=== PATIENT | female | born 1945 | race Caucasian/White ===

== ENCOUNTER → 2018-04-20 12:02 | Outpatient (CLI) | payer MEDICARE, OTHER, SELFPAY | PROVIDERS: PCP Family Medicine; Visit Provider Surgery | DX: J90 Pleural effusion, not elsewhere classified (principal); E11.40 Type 2 diabetes mellitus with diabetic neuropathy, unspecified; I10 Essential (primary) hypertension | CPT/HCPCS: 99214 ==

== ENCOUNTER → 2018-05-01 03:11 | Outpatient (CLI) | payer MEDICARE, OTHER, SELFPAY ==
--- NOTE | 2018-05-01 13:33 | DI.RPTCT_ITS ---
SYMPTOMS/DIAGNOSIS: NEW ONSET RIGHT PLEURAL EFFUSION, DIABETES MELLITUS, HYPERTENSION CHEST CT: Comparison is made with March,. Images were performed from the clavicles through the level of the adrenals after IV contrast. There is a small simple- appearing right pleural effusion. There is no evidence of an infiltrate. There is linear atelectasis at the right lung base. Tracheobronchial tree is unremarkable. No mass or pulmonary nodules are seen. There is no evidence of adenopathy. The pulmonary arteries are reasonably well opacified with IV contrast and no emboli are visible. Coronary artery calcifications and surgical clips related to previous CABG are noted. Right shoulder prosthesis is seen. The patient is status post cholecystectomy. The visualized portions of the liver and spleen are unremarkable. The pancreas appears somewhat atrophic. The adrenals appear normal. Flowing osteophytes are noted throughout the thoracic spine. IMPRESSION: Small right pleural effusion.
[2018-05-01 15:05] LABS: CREATININE 1.03 mg/dL (0.55-1.02); Estimated GFR 52.82 (mL/min/1.73m2)
[2018-05-01] MEDS: Omnipaque 350 MG/ML 100 ML BTL IJ (16:06)
== END ==
PROVIDERS: PCP Family Medicine; Visit Provider Surgery
DX: J90 Pleural effusion, not elsewhere classified (principal); E11.8 Type 2 diabetes mellitus with unspecified complications; R59.1 Generalized enlarged lymph nodes; I10 Essential (primary) hypertension
CPT/HCPCS: 71260; 36415; 82565; J3490

== ENCOUNTER 2018-06-19 11:39 | Outpatient (CLI) | payer MEDICARE, OTHER, SELFPAY ==
[2018-06-19 14:08] LABS: Hemoglobin A1C 8.3 % (4.5-6.2)
== END 2018-06-19 11:59 ==
PROVIDERS: PCP Family Medicine; Visit Provider Family Medicine
DX: E11.8 Type 2 diabetes mellitus with unspecified complications (principal)
CPT/HCPCS: 36415; 83036

== ENCOUNTER 2018-07-31 14:46 | Outpatient (CLI) | payer MEDICARE, OTHER, SELFPAY ==
--- NOTE | 2018-07-31 14:28 | DI.RAD_ITS ---
SYMPTOMS/DIAGNOSIS: SHORTNESS OF BREATH, COUGH, PLEURAL EFFUSION, R06.02, R05, J90 PA AND LATERAL CHEST: Comparison 04/03/18. The heart size and pulmonary vasculature are within normal limits. Sternal wires are in place. The lungs are clear. No effusions or pneumothoraces are identified. There again seen post surgical changes of a right shoulder replacement. IMPRESSION: No acute pulmonary process.
[2018-07-31 15:34] LABS: Abs Immature Grans 0.03 k/cumm (0.0-0.09); Absolute Basophil Count 0.02 k/cumm (0.0-0.2); Absolute Eosinophil Count 0.18 k/cumm (0.0-0.7); Absolute Lymphocyte Count 1.51 k/cumm (1.2-3.4); Absolute Monocyte Count 0.68 k/cumm (0.11-0.7); Absolute Neutrophil Count 5.68 k/cumm (1.2-6.7); Basophils % 0.2; Eosinophils % 2.2; HCT 40.6 % (36.0-46.0); HGB 13.4 g/dL (12.0-15.5); Immature Grans % 0.4; Lymphocytes % 18.6; Mean Corpuscular Hemoglobin 29.6 pg (27.0-33.0); Mean Corpuscular Volume 89.6 fL (80-95); Mean Platelet Volume 10.2 fL (8.0-11.0); Monocytes % 8.4; Neutrophils % 70.2; Platelet Count 202 x1000/uL (130-400); RBC 4.53 m/cumm (4.00-5.20); RBC Distribution Width 14.7 % (11.7-14.6)
[2018-07-31 15:38] LABS: Bilirubin Negative (Negative); Blood Trace-intact (Negative); Clarity Clear; Glucose Negative (Negative); Ketones Negative (Negative); Leukocyte Esterase Moderate (Negative); Nitrite Positive (Negative); Specific Gravity >= 1.030 (1.005-1.025); Urobilinogen 0.2 EU/dL (Up TO 0.2); pH 5.5 (5-8)
[2018-07-31 15:52] LABS: Bacteria Many HPF (Negative); Casts Negative LPF (Negative); Crystals Negative HPF (Negative); Epithelial Cells Few HPF (Negative); Mucus Negative (Negative); RBC Negative (0-2)
[2018-07-31 15:53] LABS: C & S Indicated? Yes; WBC >50 HPF (0-5)
[2018-07-31 16:15] LABS: ALT 30 U/L (12-78); AST 28 U/L (15-37); Albumin 3.3 g/dL (3.4-5.0); Alkaline Phosphatase 86 U/L (46-116); Anion Gap 9.1 mmol/L (3-11); BUN 11 mg/dL (7-18); Bilirubin, Total 0.3 mg/dL (0.2-1.0); CO2 25.9 mmol/L (21.0-32.0); CREATININE 0.88 mg/dL (0.55-1.02); Calcium 8.6 mg/dL (8.5-10.1); Chloride 106 mmol/L (98-107); Glucose 158 mg/dL (70-100); Sodium 141 mmol/L (136-145)
== END 2018-07-31 15:06 ==
PROVIDERS: PCP Family Medicine; Visit Provider Family Medicine
DX: E11.9 Type 2 diabetes mellitus without complications (principal); R06.02 Shortness of breath; R05 Cough; J90 Pleural effusion, not elsewhere classified
CPT/HCPCS: 36415; 80053; 87077; 71046; 81003; 81015; 85025; 87086; 87186

== ENCOUNTER 2018-08-05 12:39 | Outpatient (CLI) | payer MEDICARE, OTHER, SELFPAY ==
[2018-08-05 13:57] LABS: NT-proBNP 352 pg/mL
== END 2018-08-05 12:59 ==
PROVIDERS: PCP Family Medicine; Visit Provider Family Medicine
DX: R06.02 Shortness of breath (principal)
CPT/HCPCS: 36415; 83880

== ENCOUNTER 2018-08-25 02:07 | Outpatient (CLI) | payer MEDICARE, OTHER, SELFPAY | END 2018-08-25 02:27 | PROVIDERS: PCP Family Medicine; Visit Provider Family Medicine | DX: N39.0 Urinary tract infection, site not specified (principal) | CPT/HCPCS: 87077; 87086; 87186 ==

== ENCOUNTER 2018-09-02 00:44 | Outpatient (CLI) | payer MEDICARE, OTHER, SELFPAY ==
--- NOTE | 2018-09-02 12:32 | DI.US_ITS ---
SYMPTOMS/DIAGNOSIS: UTI, N39.0, RECURRENT, ? INFECTED STONE RENAL ULTRASOUND: The right kidney measures 13.1 x 4.5 x 4.9 cm. There is no evidence of hydronephrosis, a cyst or mass. Normal color flow is seen. Left kidney measures 12.6 x 5.5 x 5.5 cm. There is no evidence of a cyst, mass, nephrolithiasis or hydronephrosis and normal color flow is identified. The bladder wall thickness is normal. The prevoid bladder contains 103 cc, the postvoid bladder is 0 cc. Both ureteral jets were visualized. SUMMARY: Normal renal ultrasound.
== END 2018-09-02 01:04 ==
PROVIDERS: PCP Family Medicine; Visit Provider Family Medicine
DX: N39.0 Urinary tract infection, site not specified (principal)
CPT/HCPCS: 76770

== ENCOUNTER 2019-08-17 14:08 | Outpatient (CLI) | payer MEDICARE, OTHER, SELFPAY ==
--- NOTE | 2019-08-17 12:45 | DI.RAD_ITS ---
EXAM: XR CHEST 2V PA LATERAL INDICATION: cough R05. COMPARISON: XR CHEST 2V PA LATERAL from 07/31/2018 TECHNIQUE: 2D digital imaging was performed. FINDINGS: Heart size and pulmonary vasculature are within normal limits. The lungs are clear. No effusions or pneumothoraces are present. Sternal wires are in place. Postsurgical changes of a total reverse sh oulder replacement on the right are noted. Age-appropriate degenerative changes are seen in the spin e. IMPRESSION: No acute pulmonary process.
== END 2019-08-17 14:28 ==
PROVIDERS: PCP Family Medicine; Visit Provider Family Medicine
DX: R05 Cough (principal); Z96.611 Presence of right artificial shoulder joint
CPT/HCPCS: 71046

== ENCOUNTER 2019-08-20 08:31 | Outpatient (CLI) | payer MEDICARE, OTHER, SELFPAY ==
[2019-08-20 12:03] LABS: CREATININE 0.84 mg/dL (0.55-1.02); Calculated LDL 25 mg/dL; Cholesterol 77 mg/dL (<200); HDL Cholesterol 29 mg/dL (40-60); Potassium 3.9 mmol/L (3.5-5.1); Triglyceride 118 mg/dL (<150)
[2019-08-20 17:27] LABS: COMMENT (LAB VIEW ONLY) 136.86 mg/dL
== END 2019-08-20 08:51 ==
PROVIDERS: PCP Family Medicine; Visit Provider Family Medicine
DX: E11.40 Type 2 diabetes mellitus with diabetic neuropathy, unspecified (principal); Z79.4 Long term (current) use of insulin; R05 Cough
CPT/HCPCS: 36415; 80061; 82043; 82565; 82570; 83036; 84132

== ENCOUNTER 2019-09-16 16:09 | Emergency (ER) | payer MEDICARE, OTHER, SELFPAY ==
[2019-09-16 16:14] VITALS: BP 143/61; PULSE 70; RESP 18; TEMP 36.7; O2SAT 98
--- NOTE | 2019-09-16 16:33 | ED.GENADUL_ITS ---
Discharge Plan Disposition Patient Disposition: HOME Condition: Stable Discharge Details Chief Complaint: Cellulitis Clinical Impression: Toe anomaly Primary Care Provider: Manuelito Wilcox ED Provider: Sin Lira Home Meds and New Rx's Prescriptions: Continued metoprolol tartrate 50 mg tablet 50 mg PO BID Qty: 180 RF: 4 atorvastatin [Lipitor] 40 mg tablet 40 mg PO DAILY Qty: 90 RF: 3 Novolin N NPH U-100 Insulin 100 unit/mL suspension 50 unit subcut QHS Qty: 4 RF: 4 Novolin R Regular U-100 Insuln 100 unit/mL solution 5 - 20 unit SC TID Qty: 10 RF: 5 SIDE KICK GLUCOMETER RF: 0 (DME) BD Insulin Syringe 1 EACH syringe 1 syringe Sub-Q DIRECTED Qty: 400 RF: 11 nitroglycerin [Nitrostat] 0.4 MG tablet, sublingual 0.4 mg Sublingual Q5 MIN PRN X3 PRNQty: 25 RF: 4 cetirizine [Zyrtec] 10 MG tablet 10 mg PO DAILY Qty: 90 RF: 1 albuterol sulfate [Ventolin HFA] 90 mcg/actuation HFA aerosol inhaler 1 - 2 puff IH Q4H PRN (Reason: shortness of breath or wheezing) Qty: 18 RF: 0 (DME) Aerochamber MV spacer See Dose Instructions .Route .MEDSUPPLY Qty: 1 RF: 0 aspirin [Aspir-81] 81 MG tablet,delayed release (DR/EC) 81 mg PO DAILY RF: 0 acetaminophen [Tylenol Extra Strength] 500 MG tablet 1 - 2 tab PO Q6H PRN PRN (Reason: Pain) RF: 0 calcium carbonate [Calcium 600] 600 MG tablet 1,200 mg PO BID RF: 0 Discharge Instructions Additional Instructions: Please follow-up with Dr. Ludwig in clinic for consultation regarding the soft tissue prominence overlying the proximal interphalangeal joint of your toe. Return to develop a fever, redness, discharge from the area or any other acute concerns. Medical Decision Making 75-year-old female diabetic with previous toe amputations due to infections. She presents with her daughter with complaint of left 3rd toe dorsum swelling and soft tissue protuberance. Exam reveals freely mobile joint, no evidence of infection or tenderness. There is no fluctuance. May simply be a callus with a small area of necrosis. X-ray obtained to rule out underlying osteomyelitis and there is no bony changes. The patient has a longstanding relationship with her resident care spec in [facility]. Do not feel there is indication to pursue further emergent work-up. Patient will follow-up in podiatry clinic for recheck. HPI General Mode of arrival: ambulatory . Date/Time Provider Initiated Documentation: 09/16/19 16:25 . Limitations to Documentation: no limitations . Information obtained by: patient . History of Present Illness 74 year old F presents to the emergency department with the chief complaint of Left third toe irritation/blister, described as mild, and is localized to the left and lower extremity. Patient reports no radiation. Patient started experiencing this unknown and it has been constant. No relieving factors improve sympto m(s), No exacerbating factors reported . Patient notes no other symptoms.. Patient did receive the following treatments prior to arrival, none Related Data Home Medications Medication Instructions Recorded Confirmed acetaminophen [Tylenol Extra 1 - 2 tab PO Q6H PRN PRN 11/16/12 09/16/19 Strength] aspirin [Aspir-81] 81 mg PO DAILY 11/16/12 09/16/19 Side Kick Glucometer 01/20/13 08/17/19 calcium carbonate [Calcium 600] 1,200 mg PO BID 05/17/14 09/16/19 BD Insulin Syringe #400 syringe 02/28/15 09/16/19 nitroglycerin [Nitrostat] 0.4 mg SUBLINGUAL Q5 MIN PRN X3 02/28/15 09/16/19 PRN #25 tab cetirizine [Zyrtec] 10 mg PO DAILY #90 tab 11/07/15 09/16/19 albuterol sulfate 90 mcg/actuation 1 - 2 puff IH Q4H PRN #18 gm 07/31/18 09/16/19 aerosol inhaler inhalational spacing device #1 each 07/31/18 08/17/19 atorvastatin 40 mg tablet 40 mg PO DAILY #90 tab-cap 03/12/19 09/16/19 metoprolol tartrate 50 mg tablet 50 mg PO BID #180 tab-cap 03/12/19 09/16/19 insulin NPH isoph U-100 human 100 50 unit SUBCUT QHS #4 vial 08/17/19 09/16/19 unit/mL subcutaneous suspension insulin regular human 100 unit/mL 5 - 20 unit SC TID #10 ml 08/17/19 09/16/19 injection solution Previous Rx's Medication Instructions Recorded albuterol sulfate 90 mcg/actuation 1 - 2 puff IH Q4H PRN #18 gm 07/31/18 aerosol inhaler inhalational spacing device #1 each 07/31/18 atorvastatin 40 mg tablet 40 mg PO DAILY #90 tab-cap 03/12/19 metoprolol tartrate 50 mg tablet 50 mg PO BID #180 tab-cap 03/12/19 insulin regular human 100 unit/mL 5 - 20 unit SC TID #10 ml 08/17/19 injection solution Allergies Allergy/AdvReac Type Severity Reaction Status Date / Time Penicillins Allergy Intermediate Itching, Verified 09/16/19 16:21 Swelling ciprofloxacin AdvReac Intermediate Dizziness/L Verified 09/16/19 16:21 ightheade Latex, Natural Rubber AdvReac Intermediate Skin Rash Verified 09/16/19 16:21 lisinopril AdvReac Intermediate cough Verified 09/16/19 16:21 metformin AdvReac Mild Diarrhea Verified 09/16/19 16:21 tylenol 3 AdvReac Intermediate tingling Uncoded 09/16/19 16:21 of tongue and lips General Stated Complaint: Cellulitis DAYA: 3 Review of Systems Narrative: Denies any known direct trauma, no fever, no redness, no discharge from the wound. 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 Grandfather No problems noted. Grandmother Diabetes Grandmother No problems noted. Daughter No problems noted. Social History (Updated 06/17/18 @ 08:10 by Lisset Lira) Smoking/Tobacco Use Status: Never Alcohol Intake: never Drug use: Never Substance use type: does not use Household members: other Details: 2 What type of physical activity do you participate in: none Do you feel safe at home: Yes Do you feel safe in your relationship?: Yes History History Para 1 Hx # Term Pregnancies Multiple births Hx # Pregnancies Ectopic pregnancies AB induced Hx Number of Living Children AB spontaneous Exam Narrative Exam Narrative: GEN: awake, alert, oriented 3. Pleasant, well groomed, interactive. HEAD: Normocephalic, atraumatic ENT: Mucous membranes moist, oropharynx unremarkable, External ear exam unremarkable EYES: PERRL, EOMI NECK: Full ROM, no LEONIDES, no menigismus CHEST/RESP: Nontender EXT: Full ROM, left 3rd toe dorsum with nontender soft tissue that is protuberant and with small area black eschar. Neuro: Grossly normal neurologic exam, conversant, interactive. Psych: Speech fluent, thoughts congruent, affect normal Course Vital Signs Vital signs: Vital Signs Temperature 36.7 C 09/16/19 16:14 Pulse 70 09/16/19 16:14 Respiratory Rate 18 09/16/19 16:14 Blood Pressure 143/61 H 09/16/19 16:14 Pulse Oximetry 98 09/16/19 16:14 Temperature 36.7 C 09/16/19 16:14 Temperature Source Tympanic 09/16/19 16:14 Pulse 70 09/16/19 16:14 Respiratory Rate 18 09/16/19 16:14 Respiratory Effort Non-Labored 09/16/19 16:20 Blood Pressure 143/61 H 09/16/19 16:14 Blood Pressure Position Supine 09/16/19 16:14 Pulse Oximetry 98 09/16/19 16:14 Oxygen Delivery Method Room Air 09/16/19 16:14 Oxygen Flow Rate 0 09/16/19 16:14 Pain Level 3 09/16/19 16:14
--- NOTE | 2019-09-16 16:50 | DI.RAD_ITS ---
EXAM: XR TOE LT THIRD CLINICAL HISTORY: dorsal swelling, ? blister TECHNIQUE: Three views of the toes were obtained. COMPARISON: No exams were available for comparison FINDINGS: There is soft tissue swelling over the PIP joint of what is likely the 3rd toe. There are signific ant degenerative changes but the soft tissue swelling is out of proportion to the degree of hypertrop hic changes present. The possibility of a soft tissue mass not excluded. Additional evaluation with MR may be considered if clinically appropriate.
--- NOTE | 2019-09-16 17:14 | DI.VRAD_ITS ---
PROCEDURE INFORMATION: Exam: XR Left Toe(s) Exam date and time: 09/16/2019 4:32 PM Age: 74 years old Clinical indication: Other: Dorsal swelling, ? blister TECHNIQUE: Imaging protocol: XR Left toes. Views: Minimum 2 views. COMPARISON: No relevant prior studies available. FINDINGS: Bones/joints: Degenerative changes in the interphalangeal joints. Dorsal Soft tissue prominence overlying the proximal interphalangeal joint of the toe in question. MRI may be helpful for further evaluation. No acute fracture or dislocation. Soft tissues: Normal. IMPRESSION: Dorsal Soft tissue prominence overlying the proximal interphalangeal joint of the toe in question. MRI may be helpful for further evaluation. Dictated and Authenticated by: Fátima Bolden MD. Ordering:CECILIA Vogt MD
== END 2019-09-16 18:06 | disposition home or self-care (01) ==
PROVIDERS: Emergency Provider Emergency Medicine; PCP Family Medicine
DX: R22.42 Localized swelling, mass and lump, left lower limb (principal); E11.40 Type 2 diabetes mellitus with diabetic neuropathy, unspecified; Z79.4 Long term (current) use of insulin; I10 Essential (primary) hypertension
CPT/HCPCS: 99283; 73660

== ENCOUNTER 2020-02-19 17:23 | Inpatient (IN) | payer MEDICARE, OTHER, SELFPAY ==
[2020-02-19] VITALS (21 sets, daily range): BP systolic 88–136; BP diastolic 51–68; PULSE 88–99; RESP 17–32; TEMP 36.9–38.2; O2SAT 91–96
--- NOTE | 2020-02-19 18:24 | W.ED.GENAD ---
Discharge Plan Discharge Details Chief Complaint: GenMedical Primary Care Provider: Manuelito Wilcox ED Provider: More Razo Home Meds and New Rx's Prescriptions: No Action metoprolol tartrate 50 mg tablet 50 mg PO BID Qty: 180 RF: 4 atorvastatin [Lipitor] 40 mg tablet 40 mg PO DAILY Qty: 90 RF: 3 Novolin N NPH U-100 Insulin 100 unit/mL suspension 50 unit subcut QHS Qty: 4 RF: 4 Novolin R Regular U-100 Insuln 100 unit/mL solution 5 - 20 unit SC TID Qty: 10 RF: 5 SIDE KICK GLUCOMETER RF: 0 (DME) BD Insulin Syringe 1 EACH syringe 1 syringe Sub-Q DIRECTED Qty: 400 RF: 11 nitroglycerin [Nitrostat] 0.4 MG tablet, sublingual 0.4 mg Sublingual Q5 MIN PRN X3 PRNQty: 25 RF: 4 cetirizine [Zyrtec] 10 MG tablet 10 mg PO DAILY Qty: 90 RF: 1 (DME) Aerochamber MV spacer See Dose Instructions .Route .MEDSUPPLY Qty: 1 RF: 0 aspirin [Aspir-81] 81 MG tablet,delayed release (DR/EC) 81 mg PO DAILY RF: 0 acetaminophen [Tylenol Extra Strength] 500 MG tablet 1 - 2 tab PO Q6H PRN PRN (Reason: Pain) RF: 0 calcium carbonate [Calcium 600] 600 MG tablet 1,200 mg PO BID RF: 0 Medical Decision Making <LUIS Diaz - Last Filed: 02/19/20 23:22> This is a 75-year-old patient presenting to the emergency room for vague complaints of 2 weeks of fatigue, difficulty ambulating due to weakness now needing to use a walker at home which is atypical for this patient. Patient reports intermittent chest pain for the last 2 weeks described as 3 episodes per week. She does describe shortness of breath with exertion. Patient denies obvious radiation of chest pain. Denies palpitations. Patient reports decreased p.o. intake. Is feeling dehydrated. Patient reports 3 weeks of watery diarrhea at least once daily with vague nausea without vomiting. Patient denies obvious abdominal pain currently. Patient denies headache or dizziness. Patient reports generalized malaise. See HPI for the remainder patient's history. Patient presents with a temperature of 100.8. Patient denies any new cough. We will plan to obtain IV access, check baseline labs and obtain imaging of chest and abdomen. Will check EKG as well as troponin given complaints of chest pain and malaise for the last 2 weeks. Patient agrees with this plan of care. Patient significant difficulty obtaining IV access. Nursing staff attempted access, I have presented with ultrasound guidance x2 unsuccessfully, REGULATORY AFFAIRS MANAGER of anesthesia called for assistance. He attempted with difficulty. 22-gauge IV obtained in the left wrist. Unable to draw labs as patient was moderately dehydrated. After hydrating with initial 1 L bolus a second attempt at a line on the right was successful by Dr. Meeks obtaining an 18-gauge IV. Given patient's complaints of shortness of breath in addition to chest pain with unilateral leg edema with erythema of the calf and posterior knee pain concern for possible PE. We will plan to image with a CTA of chest including abdomen and pelvis for patient's complaints of diarrhea and notable abdominal pain on exam. Patient agrees with this plan of care. Morphine and Zofran provided for symptomatic relief. Will provide dressing for patient's buttocks wound. Differential diagnosis is broad at this time includes viral illness, pulmonary embolism, ACS, intra-abdominal pathology such as colitis or diverticulitis. Patient's labs reveal a leukocytosis of 13.6. Mild shift. D-dimer is elevated greater than 2500. Renal function revealing dehydration. Glucose of 414. IV fluids provided. Lactate minimally elevated at 1.7. Mild elevation of total bilirubin as well as AST and alk phos. Lipase normal. 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 Mass does extend into the spleen. There is concern for bony metastases in the thoracic spine per radiology. Patient's urinalysis reveals acute urinary tract infection. Patient has taken Keflex in the past per her recollection. Will trial Rocephin, aware of patient's penicillin allergy. Discussed patient's CT results with the patient. We did discuss plan of care. We will plan to admit patient to the hospital for further hydration, management of urinary tract infection, concern of possible DVT in the right calf requiring ultrasound when available likely needing prophylactic Lovenox. Patient agrees with this plan of care. Spoke with hospitalist Dr. Orlando, who requests I place initial admission orders to expedite patient getting upstairs and he will evaluate the patient in the hospital. At patient's request I spoke with her over the phone regarding test results, our plan of management of this patient and plan to admit patient to the hospital. Patient's reports his understanding. <Cal Meeks MD - Last Filed: 02/19/20 21:37> I had a [id number] encounter with the patient. I evaluated the patient. I discussed case with [employer]/PA and I reviewed [employer]/PA note and agree with note as documented HPI <LUIS Diaz - Last Filed: 02/19/20 23:22> General Date/Time Provider Initiated Documentation: 02/19/20 17:31. HPI Narrative: This is a 75-year-old patient presenting for multiple complaints. Patient reports diarrhea for the last 3 weeks at least once daily described as watery diarrhea. Denies any blood with bowel movements. Patient reports vague nausea without vomiting. Decreased p.o. intake. Patient denies significant abdominal pain. Patient reports feeling quite weak. Patient reports that she has difficulty ambulating in the last few weeks due to weakness which is a change from her baseline. Patient denies headache or dizziness. Patient denies sweating or clamminess. Patient does report chest pain for the last 2 weeks describing 3 episodes per week which she does report improving with rest. Patient reports left mid chest pain without radiation to back neck or jaw. Patient is quite vague in her complaints. Patient denies obvious shortness of breath, difficulty breathing or wheezing. Denies any new cough. Patient denies numbness, tingling or weakness. Denies any new rash. Denies dysuria, urgency, frequency of urination. Patient denies any obvious fever. No concern of covert exposures. Patient does report moderate pain of her buttocks as she has a bedsore which is been present for the last few weeks. Related Data Home Medications Medication Instructions Recorded Confirmed acetaminophen [Tylenol Extra 1 - 2 tab PO Q6H PRN PRN 11/16/12 02/19/20 Strength] aspirin [Aspir-81] 81 mg PO DAILY 11/16/12 02/19/20 Side Kick Glucometer 01/20/13 08/17/19 calcium carbonate [Calcium 600] 1,200 mg PO BID 05/17/14 02/19/20 BD Insulin Syringe #400 syringe 02/28/15 09/16/19 nitroglycerin [Nitrostat] 0.4 mg SUBLINGUAL Q5 MIN PRN X3 02/28/15 02/19/20 PRN #25 tab cetirizine [Zyrtec] 10 mg PO DAILY #90 tab 11/07/15 02/19/20 inhalational spacing device #1 each 07/31/18 08/17/19 atorvastatin 40 mg tablet 40 mg PO DAILY #90 tab-cap 03/12/19 02/19/20 metoprolol tartrate 50 mg tablet 50 mg PO BID #180 tab-cap 03/12/19 02/19/20 insulin NPH isoph U-100 human 100 50 unit SUBCUT QHS #4 vial 08/17/19 02/19/20 unit/mL subcutaneous suspension insulin regular human 100 unit/mL 5 - 20 unit SC TID #10 ml 08/17/19 02/19/20 injection solution Previous Rx's Medication Instructions Recorded inhalational spacing device #1 each 07/31/18 atorvastatin 40 mg tablet 40 mg PO DAILY #90 tab-cap 03/12/19 metoprolol tartrate 50 mg tablet 50 mg PO BID #180 tab-cap 03/12/19 insulin regular human 100 unit/mL 5 - 20 unit SC TID #10 ml 08/17/19 injection solution Allergies Allergy/AdvReac Type Severity Reaction Status Date / Time Penicillins Allergy Intermediate Itching, Verified 02/19/20 17:33 Swelling ciprofloxacin AdvReac Intermediate Dizziness/L Verified 02/19/20 17:33 ightheade Latex, Natural Rubber AdvReac Intermediate Skin Rash Verified 02/19/20 17:33 lisinopril AdvReac Intermediate cough Verified 02/19/20 17:33 metformin AdvReac Mild Diarrhea Verified 02/19/20 17:33 tylenol 3 AdvReac Intermediate tingling Uncoded 02/19/20 17:33 of tongue and lips General Stated Complaint: GenMedical DAYA: 2 Review of Systems <LUIS Diaz - Last Filed: 02/19/20 23:22> All systems reviewed & are unremarkable except as noted in HPI and below PFSH <LUIS Diaz - Last Filed: 02/19/20 23:22> Medical History Allergic rhinitis ASCVD (arteriosclerotic cardiovascular disease) Chronic cough (Acute) Diabetic neuropathy DM type 2 causing complication Essential hypertension [place] (myocardial infarction) Pyelonephritis Social History Smoking/Tobacco Use Status: Never Alcohol Intake: never Drug use: Never Substance use type: does not use Household members: other Details: 2 What type of physical activity do you participate in: none Do you feel safe at home: Yes Do you feel safe in your relationship?: Yes History History Para 1 Hx # Term Pregnancies Multiple births Hx # Pregnancies Ectopic pregnancies AB induced Hx Number of Living Children AB spontaneous Exam <LUIS Diaz - Last Filed: 02/19/20 23:22> Narrative Exam Narrative: CONST: Healthy appearing patient, in no acute distress. Well hydrated. Alert and oriented. HENMT: Head nomocephalic, normal to inspection. Atraumatic. Hearing grossly normal. External ear canal no erythema or swelling. TM normal bilaterally. Nose normal to inspection. No rhinnorhea. Normal facial exam. Oral mucosa dry mucous membranes. Tounge normal. Dentition normal. Normal posterior oropharynx. Uvula midline. EYES: General normal appearance. Alignment normal. Eyelids normal. Conjunctiva normal. Sclera normal. PERRL. NECK: Normal visual inspection. FROM. No lymphadenopathy. Trachea midline. No Midline tenderness. CHEST: Normal insepection of the chest. RESP: Normal respiratory effort. Speaking full sentences. No cough. No wheezing. No retractions. Clear to auscaltation. Breath sound equal and present bilaterally. CARDIO: No JVD. Normal PMI. Regular Rate. Regular Rhythm. Normal peripheral pulses. GI: Normal inspection of abdomen. No distension. Soft. Tenderness in the left upper quadrant and left lower quadrant with palpation. Bowel sounds present in all 4 quadrants. No rebound. No gaurding. MUSCULOSKELETAL: Normal Gait. FROM of all extremities. Distal neurovascularly intact. Sensation intact distally. Right leg revealing mild distal edema, pitting edema in the foot. Posterior right knee pain with palpation. There is a 6 to 10 cm area of vague erythema with palpable engorged veins in the right lateral calf which is tender with palpation. SKIN: Normal. Dry. No rashes. NEURO: Alert and awake. Speech clear. PSYCH: Normal affect. Cooperative. Course <LUIS Diaz - Last Filed: 02/19/20 23:22> Vital Signs Vital signs: Vital Signs Temperature 38.2 C H 02/19/20 17:27 Pulse 88 02/19/20 17:27 Respiratory Rate 18 02/19/20 17:27 Blood Pressure 107/64 02/19/20 17:27 Pulse Oximetry 96 02/19/20 17:27 Temperature 38.2 C H 02/19/20 17:27 Temperature Source Oral 02/19/20 17:27 Pulse 88 02/19/20 17:27 Respiratory Rate 18 02/19/20 17:36 Respiratory Effort Non-Labored 02/19/20 17:36 Respiratory Depth Normal 02/19/20 17:36 Respiratory Pattern Normal 02/19/20 17:36 Blood Pressure 107/64 02/19/20 17:27 Blood Pressure Position Supine 02/19/20 17:27 Pulse Oximetry 96 02/19/20 17:27 Oxygen Delivery Method Room Air 02/19/20 17:27 Oxygen Flow Rate 0 02/19/20 17:27 Pain Level 6 02/19/20 17:27
[2020-02-19] MEDS: Normal Saline 1,000 ML 1000 ML IV (19:30)
--- NOTE | 2020-02-19 20:30 | DI.CT_ITS ---
EXAM: CT CHEST PE ABD PELVIS W CLINICAL HISTORY: SOB, chest pain w/ abd pain TECHNIQUE: Imaging Protocol: Axial computed tomography images with coronal and sagittal reformatted images were created and reviewed CONTRAST MATERIAL: Intravenous: Omnipaque 350 Contrast volume:100 mL Oral: No COMPARISON: CT CHEST FOR PULMONARY EMBOLUS from 03/17/2016 FINDINGS: Patient motion artifact. CHEST: Tracheobronchial tree: Patent where visualized. Mediastinum and Charissa: No dominant adenopathy or fluid collection. Pulmonary parenchyma: No consolidation or dominant measurable mass. No architectural distortion. Pleura: No effusion or pneumothorax. Heart: The heart is not dilated. Moderate coronary artery calcification. No pericardial effusion. Pulmonary arteries: No evidence of pulmonary embolus. Aorta: Thoracic aorta is ectatic up to 3.4 cm in the ascending aorta. No evidence of aneurysm or dis section. Lymph nodes: Within normal limits. Bones:Sternotomy sutures are present. Bones are demineralized which does limit evaluation for lytic bony metastases. ABDOMEN: Liver: There is a subcentimeter hypodense lesion in the superior aspect of the anterior segment of th e right lobe of the liver. No measurable mass. Portal, Superior Mesenteric, and Splenic Veins: Unremarkable. Gallbladder and Biliary Tract: Status post cholecystectomy. Minimal pneumobilia. No biliary ductal dilatation. Pancreas: Normal density, no abnormal calcifications or inflammatory process. Spleen: Please see the kidney section. Adrenals: No masses seen. Kidneys: The right kidney is unremarkable except for 2 nonobstructing stones in the mid and lower maulik es. The largest measures 0.8 cm. The left kidney is partially atrophic with a nonobstructing stone. There is a cystic and solid mass in the upper and mid pole of the left kidney measuring 7.5 x 5.5 x 5.2 cm. Mass shows extension into the inferior spleen. It also appears to contact the posterior abd ominal wall. There are areas of decreased attenuation in the spleen suspicious for metastatic diseas e. Abdominal Aorta: Abdominal portion non-dilated. Atherosclerosis. Bowel: No obstruction or bowel wall thickening. Appendix is unremarkable. Peritoneal Cavity: No ascites, collection or mesenteric inflammatory response. Lymph Nodes: Mildly in there are enlarged lymph nodes seen in the left periaortic region. The larges t measures 1 cm in short axis diameter. Bones: No suspicious lytic or sclerotic lesions are present. Multilevel degenerative changes are pre sent throughout the spine. Soft Tissues: Unremarkable. PELVIS: Bladder: Symmetric distention, no gross wall thickening. Reproductive Organs: Status post hysterectomy. Lymph Nodes: Please see above. Bones: Please see above. IMPRESSION: 1. Complex left renal mass with extension into the spleen in the surrounding fat. Findings suspiciou s for primary renal neoplasm. 2. Subcentimeter hypodensity in the left lobe of the liver is too small for further characterization. Follow-up may include an MRI if clinically indicated. 3. Mildly enlarged lymph nodes in the abdomen and pelvis as described. 4. No evidence of pulmonary embolism, thoracic aortic dissection or aneurysm. 5. No pulmonary nodules. RADIATION DOSE DELIVERED: 1,873.18mGy.cm Total DLP 1,873.18mGy.cm Total DLP DATA REPOSITORY: All CT scans at this facility are submitted to the National Radiology Data Registry (NRDR) Dose Index Registry (DIR) with the [employer] (ACR). RADIATION OPTIMIZATION: All CT scans at this facility use at least one of these dose optimization te chniques: automated exposure control; mA and/or kV adjustment per patient size (includes targeted exa ms where dose is matched to clinical indication); or iterative reconstruction.
[2020-02-19] MEDS: Ondansetron 4 MG/2 ML VIAL IVP (20:41)
[2020-02-19 20:49] LABS: Abs Immature Grans 0.15 k/cumm (0.0-0.09); Absolute Basophil Count 0.01 k/cumm (0.0-0.2); Absolute Eosinophil Count 0.07 k/cumm (0.0-0.7); Absolute Monocyte Count 0.93 k/cumm (0.11-0.7); Absolute Neutrophil Count 11.68 k/cumm (1.2-6.7); Basophils % 0.1; Eosinophils % 0.5; HCT 33.8 % (36.0-46.0); HGB 10.8 g/dL (12.0-15.5); Immature Grans % 1.1 %; Lymphocytes % 5.9; Mean Corpuscular Hemoglobin 26.3 pg (27.0-33.0); Mean Corpuscular Volume 82.4 fL (80-95); Mean Platelet Volume 10.8 fL (8.0-11.0); Monocytes % 6.8; Neutrophils % 85.6; Platelet Count 241 x1000/uL (130-400); RBC Distribution Width 16.1 % (11.7-14.6); White Blood Cell Count 13.64 k/cumm (4.4-10.8)
[2020-02-19 20:54] LABS: Lactate 1.7 mmol/L (0.6-1.4)
[2020-02-19 21:14] LABS: Diff Comment Diff Reviewed; RBC Morphology Normal
[2020-02-19] MEDS: Omnipaque 350 MG/ML 100 ML BTL IJ (21:18)
[2020-02-19] MEDS: Normal Saline - Diluent 50 ML VIAL IV (21:19)
[2020-02-19 21:22] LABS: ALT 43 U/L (14-59); AST 42 U/L (15-37); Albumin 1.9 g/dL (3.4-5.0); Alkaline Phosphatase 183 U/L (46-116); Anion Gap 8.6 mmol/L (3-11); BUN 15 mg/dL (7-18); Bilirubin, Total 1.2 mg/dL (0.2-1.0); CO2 27.4 mmol/L (21.0-32.0); CREATININE 1.19 mg/dL (0.55-1.02); Chloride 101 mmol/L (98-107); Estimated GFR 44.46 (mL/min/1.73m2); Glucose 414 mg/dL (74-106); Lipase 93 U/L (73-393); Potassium 3.7 mmol/L (3.5-5.1); Sodium 137 mmol/L (136-145)
[2020-02-19 21:30] LABS: Troponin I < 0.05 ng/mL (<0.06)
[2020-02-19 21:33] LABS: D-Dimer 2673 ng/mlFEU (<500)
[2020-02-19 22:18] LABS: Bilirubin Negative (Negative); Blood Small (Negative); Clarity Clear (Clear); Glucose >=1000 mg/dL (Negative); Ketones 40 mg/dL (Negative); Leukocyte Esterase Trace (Negative); Nitrite Positive (Negative); Specific Gravity 1.015 (1.005-1.025); pH 5.5 (5-8)
[2020-02-19 22:21] LABS: Bacteria Moderate HPF (Negative); C & S Indicated? C&S Done As Ordered; Casts Negative LPF (Negative); Crystals Negative HPF (Negative); Epithelial Cells Few HPF (Negative); Mucus Negative (Negative); WBC >50 HPF (0-5)
--- NOTE | 2020-02-19 22:38 | DI.VRAD_ITS ---
PROCEDURE INFORMATION: Exam: CT Angiography Chest With Contrast Exam date and time: 02/19/2020 8:32 PM Age: 75 years old Clinical indication: Abdominal pain; Chest pain; Patient HX: Per PT: Pain ongoing 3 weeks TECHNIQUE: Imaging protocol: Computed tomographic angiography of the chest with intravenous contrast. 3D rendering: MIP and/or 3D reconstructed images were created by the technologist. Contrast material: OMNIPAQUE 350; Contrast volume: 100 ml; Contrast route: IV; COMPARISON: No relevant prior studies available. FINDINGS: Pulmonary arteries: Normal. No pulmonary emboli. Aorta: The aorta demonstrates mild atherosclerotic calcification. No evidence of dissection. Ascending aorta is mildly ectatic at 3.4 cm in diameter. No fusiform aneurysm. Lungs: Slightly limited due to respiratory motion and streak artifact from sternotomy sutures and right shoulder arthroplasty. No consolidation. No masses. Pleural space: Unremarkable. No pneumothorax. No pleural effusion. Heart: There are coronary vascular calcifications. Lymph nodes: Unremarkable. No enlarged lymph nodes. Bones/joints: There are sternotomy sutures. There are flowing calcifications along the anterior thoracic spine consistent with DISH or ankylosing spondylitis. The bones are diffusely demineralized. This bone demineralization limits evaluation for lytic bone metastases which cannot be excluded. Soft tissues: Unremarkable. IMPRESSION: 1. No pulmonary embolus or other acute intrathoracic process. 2. Bone demineralization. Lytic bone metastases not excluded. 3. Mildly ectatic ascending aorta. PROCEDURE INFORMATION: Exam: CT Abdomen And Pelvis With Contrast Exam date and time: 02/19/2020 8:32 PM Age: 75 years old Clinical indication: Abdominal pain; Chest pain; Patient HX: Per PT: Pain ongoing 3 weeks TECHNIQUE: Imaging protocol: Computed tomography of the abdomen and pelvis with intravenous contrast. Radiation optimization: All CT scans at this facility use at least one of these dose optimization techniques: automated exposure control; mA and/or kV adjustment per patient size (includes targeted exams where dose is matched to clinical indication); or iterative reconstruction. Contrast material: OMNIPAQUE 350; Contrast volume: 100 ml; Contrast route: IV; COMPARISON: No relevant prior studies available. FINDINGS: Liver: There is minimal pneumobilia. There is a 7 mm low-density focus in the anterior segment of the right lobe of the liver which is too small to characterize. Gallbladder and bile ducts: Click cholecystectomy. Pancreas: Normal. No ductal dilation. Pancreas: Normal. No ductal dilation. Spleen: There is extension of the cystic left renal mass into the spleen with multiple smaller cystic spaces suspicious for metastatic disease. Adrenals: Normal. No mass. Kidneys and ureters: There is a mixed cystic and solid left upper pole renal mass which measures 7.5 x 5.5 by 5.2 cm and is surrounded by considerable fat stranding. There is a nonobstructing right lower pole renal calculus. There are additional subcentimeter cysts in the left kidney. The Stomach and bowel: Unremarkable. No obstruction. No mucosal thickening. Appendix: No evidence of appendicitis. Intraperitoneal space: Unremarkable. No free air. No significant fluid collection. Vasculature: Unremarkable. No abdominal aortic aneurysm. Lymph nodes: There is a 1 cm short axis node along the left iliac chain. This is nonspecific. Additional subcentimeter iliac nodes are also noted. Bladder: Unremarkable as visualized. Reproductive: There has been a hysterectomy. Bones/joints: The bones are diffusely demineralized. No definite lytic or sclerotic bone lesions seen in the lumbar spine region. Soft tissues: Unremarkable. IMPRESSION: 1. Left renal mass most consistent with renal cell carcinoma with extension into the spleen and surrounding fat but no venous extension. 2. Subcentimeter low-density lesion right lobe of liver which is too small to characterize.In a low-risk patient, this lesion is most likely to be benign and no further follow-up is recommended. In a high-risk patient, recommend follow-up MRI in 3-6 months (or earlier if warranted by the patient's specific clinical circumstances). 3. 1 cm low-density lymph node in the left iliac chain which could represent a metastatic focus. Findings were discussed with More Razo at 02/19/2020 10:16 PM EDT. Dictated and Authenticated by: Aly Hernandez MD. Ordering:ROXANNE Aguero MD
[2020-02-19] MEDS: cefTRIAXone 1 GM/50 ML BAG IVPB (23:10)
--- NOTE | 2020-02-19 23:26 | NUR.NOTE ---
Nursing Note: mepilex sacral dressing applied at 2220. Skin open, difficult to assess r/t pain and positioning for pt at the time. reddened skin, slightly purple appearing at border.
--- NOTE | 2020-02-20 00:06 | W.PM.HP.N ---
Date of service: 02/19/20 Time of Service: 23:31 Assessment and Plan Assessment and plan (1) Renal mass, left: Status: Acute Assessment and plan: I think the patient's chest pain and overall malaise and nausea can be attributed to what appears to be an invasive renal cell carcinoma. Suspected cancer has been discussed with the patient. I have asked for a urology consult if we can get it to help plann a diagnostic procedure. He responded to morphine and ondansetron for pain and nausea, will continue this as needed for now. EKG and troponins not consistent with cardiac cause of chest pain. I do not consider her high probability of COVID-19 infection as her symptoms are otherwise explained, but will rule out per protocol. (2) Type 2 diabetes mellitus with complications: Status: Acute Assessment and plan: Patient's last A1c was 9.0 in August 2018, and she describes ongoing difficulty controlling her blood sugar. Blood sugar should improve with fluids and I have written her for her outpatient basal and bolus insulin with additional sliding scale. Titrate up as tolerated. Looks like she has not tolerated metformin in the past. She benefit from an SGL T2 or GLP-1 agent given her heart disease, but it appears she has had difficulty with the cost of medication. (3) ASCVD (arteriosclerotic cardiovascular disease): Status: Acute Assessment and plan: Continue high intensity statin and aspirin. (4) Anemia: Status: Chronic Assessment and plan: This does look new as she had a normal hemoglobin hematocrit in 2018. Like related to the renal cell. We will follow this and monitor for any bleeding. Will get iron studies with her labs. (5) Acute renal insufficiency: Status: Acute Assessment and plan: Likely secondary to dehydration, follow after fluids. (6) Dehydration: Status: Acute Assessment and plan: Patient initially had soft blood pressures, but these are improving with initial hydration. We will continue this overnight with lactated Ringer's at 150 mL an hour and reassess in the morning. (7) Decubitus ulcer: Status: Acute Assessment and plan: This is been cleaned and dressed in the emergency room. Will ask for wound nurse assessment for ongoing care. (8) DVT (deep venous thrombosis): Status: Chronic Assessment and plan: The patient's clinical presentation in the right leg is very consistent with a DVT. Answer increases his risk. D-dimer is very elevated. Given these factors, and the fact we cannot get a ultrasound tonight I have ordered low molecular weight heparin at therapeutic doses. She does have a latex allergy but there is latex free Lovenox so I prefer to use this as long as we have a latex free form. (9) UTI (urinary tract infection): Status: Acute Assessment and plan: Patient's urinalysis is consistent with UTI, though this may be thrown off by the renal mass. I agree with treating this. She has a penicillin allergy but tolerated ceftriaxone so far so we will plan to continue this. (10) Discharge planning issues: Status: Acute Assessment and plan: Patient seems to understand her likely cancer. We discussed process of obtaining a diagnosis and considering treatment options at that point. She understands it is unlikely we will be able to give her a clear diagnosis before she leaves. Currently a full code. History of Present Illness History of Present Illness Chief Complaint: malaise, diarrhea, chest pain, right leg pain Narrative: 75-year-old female with poorly controlled type 2 diabetes on insulin and a history of coronary artery disease who presented with 3-week history of generalized fatigue and malaise. Over the past 1 to 2 weeks she has developed increasing substernal chest pain and right leg pain and swelling. Is sharp and constant and substernal slightly to the left side. Does not radiate. She does feel more short of breath on exertion, but not at rest. She has some chronic cough, but this is not new. No change in sputum hemoptysis. She denies feeling feverish or chills. She has had poor appetite felt constantly nauseous. No vomiting. She also complains of loose stools, though she is only having 1 bowel movement a day. She has had difficulty controlling her blood sugars during this time despite use of insulin. Review of Systems Narrative: As per HPI. No weight changes. No headache or vision changes. No mouth sores or difficulty swallowing. No palpitations. Swelling on right leg, not on the left. No abnormal stomach swelling. She denies dysuria or hematuria. She denies vaginal bleeding or other discharge. She denies new joint pain or rash (other than redness and swelling of right calf). No focal weakness or numbness, other than chronic decrease in station feet. No other bleeding or significant bruising. 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 LANDEROS Cholecystectomy lap Coronary Artery Bypass Gaft (CABG) Coronary Stent [facility] [place] Left heart Cath [facility] [place] Oophrectomy, Both Repair of bifurcated ureter of left kidney Shoulder replacement Stent placement WITH 2 BYPASS GRAFTS[place] [place] Family History Mother Personal history of malignant neoplasm LUNG Father Personal history of malignant neoplasm LUNG Sister Personal history of malignant neoplasm BREAST Grandfather No problems noted. Grandfather No problems noted. Grandmother Diabetes Grandmother No problems noted. Daughter No problems noted. 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 Meds Home Medications and Allergies Home Medications Medication Instructions Recorded Confirmed Type acetaminophen [Tylenol Extra 1 - 2 tab PO Q6H PRN PRN 11/16/12 02/19/20 History Strength] aspirin [Aspir-81] 81 mg PO DAILY 11/16/12 02/19/20 History Side Kick Glucometer 01/20/13 08/17/19 History calcium carbonate [Calcium 600] 1,200 mg PO BID 05/17/14 02/19/20 History BD Insulin Syringe #400 syringe 02/28/15 09/16/19 History nitroglycerin [Nitrostat] 0.4 mg SUBLINGUAL Q5 MIN PRN X3 02/28/15 02/19/20 History PRN #25 tab cetirizine [Zyrtec] 10 mg PO DAILY #90 tab 11/07/15 02/19/20 History inhalational spacing device #1 each 07/31/18 08/17/19 Rx atorvastatin 40 mg tablet 40 mg PO DAILY #90 tab-cap 03/12/19 02/19/20 Rx metoprolol tartrate 50 mg tablet 50 mg PO BID #180 tab-cap 03/12/19 02/19/20 Rx insulin NPH isoph U-100 human 100 50 unit SUBCUT QHS #4 vial 08/17/19 02/19/20 History unit/mL subcutaneous suspension insulin regular human 100 unit/mL 5 - 20 unit SC TID #10 ml 08/17/19 02/19/20 Rx injection solution Allergies Allergy/AdvReac Type Severity Reaction Status Date / Time Penicillins Allergy Intermediate Itching, Verified 02/19/20 17:33 Swelling ciprofloxacin AdvReac Intermediate Dizziness/L Verified 02/19/20 17:33 ightheade Latex, Natural Rubber AdvReac Intermediate Skin Rash Verified 02/19/20 17:33 lisinopril AdvReac Intermediate cough Verified 02/19/20 17:33 metformin AdvReac Mild Diarrhea Verified 02/19/20 17:33 tylenol 3 AdvReac Intermediate tingling Uncoded 02/19/20 17:33 of tongue and lips Exam Narrative Exam Narrative: General: Alert and oriented x3, pleasant, no acute distress while lying in gurney, but lacks a strength to sit up. HEENT: Normocephalic, atraumatic. Pupils equal round reactive to light with extraocular motion intact. Conjunctive are clear with no icterus. Moist mucous membranes with oropharynx benign. No rhinorrhea. Neck is supple with no masses or lymphadenopathy or thyromegaly. Cardiovascular: Regular rate and rhythm. 1 out of 6 systolic murmur at the right sternal border, no significant radiation. No gallops or rubs. Respiratory: To auscultation bilaterally normal effort Abdomen: Active bowel sounds. Not clearly distended. Tender in both right upper and left upper quadrants to palpation. I do not appreciate overt organomegaly or ascites on percussion. MSK: Mildly tender in the lower sternum to palpation. No joint redness or swelling. Extremities: No cyanosis, feet warm bilaterally with pulses intact at dorsalis pedis bilaterally. Right calf warm and tender with streaky red patch extending up the side of calf. Positive pain with Flexion. 2+ edema to the right foot, none on left. Amputation at DIP and one toe on the left foot. Neurologic: Cranial nerves grossly intact, normal speech and coordination. Normal sensation to light touch, with the exception of diminished in bilateral feet. Normal movement of 4 extremities. No tremor. Psychiatric: Normal mood and affect Skin: Pressure sore over right sacrum (noted by emergency room clinicians and covered with Mepilex dressing currently). No other rash other than redness right calf. Results EKG: Normal sinus rhythm. Normal axis and intervals. nonspecific T wave changes, similar to 2018 EKG. I do not appreciate ischemic ST abnormalities. CT chest with contrast: 1. No pulmonary embolus or other acute intrathoracic process. 2. Bone demineralization. Lytic bone metastases not excluded. 3. Mildly ectatic ascending aorta. CT abdomen pelvis contrast: 1. Left renal mass most consistent with renal cell carcinoma with extension into the spleen and surrounding fat but no venous extension. 2. Subcentimeter low-density lesion right lobe of liver which is too small to characterize.In a low-risk patient, this lesion is most likely to be benign and no further follow-up is recommended. In a high-risk patient, recommend follow-up MRI in 3-6 months (or earlier if warranted by the patient's specific clinical circumstances). 3. 1 cm low-density lymph node in the left iliac chain which could represent a metastatic focus. Labs Result diagrams: 02/19/20 20:30 02/19/20 20:30 Labs: Laboratory Results - last 24 hr 02/19/20 02/19/20 02/19/20 18:20 20:30 20:30 WBC RBC Hgb Hct MCV MCH MCHC RDW Plt Count MPV Immature Gran % Neutrophils % Lymphocytes % Monocytes % Eosinophils % Basophils % Absolute Neutrophils Absolute Lymphocytes Absolute Monocytes Absolute Eosinophils Absolute Basophils Differential Comment RBC Morphology D-Dimer Sodium 137 Potassium 3.7 Chloride 101 Carbon Dioxide 27.4 Anion Gap 8.6 BUN 15 Creatinine 1.19 H Estimated GFR/1.73 m2 44.46 Glucose 414 H Lactate 1.7 H Calcium 8.0 L Total Bilirubin 1.2 H AST 42 H ALT 43 Alkaline Phosphatase 183 H Troponin I Cancelled Total Protein 7.0 Albumin 1.9 L Lipase 93 Urine Color Urine Clarity Urine pH Ur Specific [place] Urine Protein Urine Ketones Urine Blood Urine Nitrite Urine Bilirubin Urine Urobilinogen Ur Leukocyte Esterase Urine RBC Urine WBC Ur Epithelial Cells Urine Crystals Urine Bacteria Urine Casts Urine Mucus Ur Culture Indicated? Urine Glucose 02/19/20 02/19/20 02/19/20 20:30 20:30 20:30 WBC 13.64 H RBC 4.10 Hgb 10.8 L Hct 33.8 L MCV 82.4 MCH 26.3 L MCHC 32.0 RDW 16.1 H Plt Count 241 MPV 10.8 Immature Gran % 1.1 Neutrophils % 85.6 Lymphocytes % 5.9 Monocytes % 6.8 Eosinophils % 0.5 Basophils % 0.1 Absolute Neutrophils 11.68 H Absolute Lymphocytes 0.80 L Absolute Monocytes 0.93 H Absolute Eosinophils 0.07 Absolute Basophils 0.01 Differential Comment Diff reviewed RBC Morphology Normal D-Dimer 2673 H Sodium Potassium Chloride Carbon Dioxide Anion Gap BUN Creatinine Estimated GFR/1.73 m2 Glucose Lactate Calcium Total Bilirubin AST ALT Alkaline Phosphatase Troponin I < 0.05 Total Protein Albumin Lipase Urine Color Urine Clarity Urine pH Ur Specific [place] Urine Protein Urine Ketones Urine Blood Urine Nitrite Urine Bilirubin Urine Urobilinogen Ur Leukocyte Esterase Urine RBC Urine WBC Ur Epithelial Cells Urine Crystals Urine Bacteria Urine Casts Urine Mucus Ur Culture Indicated? Urine Glucose 02/19/20 02/19/20 21:20 22:13 WBC RBC Hgb Hct MCV MCH MCHC RDW Plt Count MPV Immature Gran % Neutrophils % Lymphocytes % Monocytes % Eosinophils % Basophils % Absolute Neutrophils Absolute Lymphocytes Absolute Monocytes Absolute Eosinophils Absolute Basophils Differential Comment RBC Morphology D-Dimer Sodium Potassium Chloride Carbon Dioxide Anion Gap BUN Creatinine Estimated GFR/1.73 m2 Glucose Lactate Calcium Total Bilirubin AST ALT Alkaline Phosphatase Troponin I Cancelled Total Protein Albumin Lipase Urine Color Yellow Urine Clarity Clear Urine pH 5.5 Ur Specific [place] 1.015 Urine Protein 100 H Urine Ketones 40 H Urine Blood Small H Urine Nitrite Positive H Urine Bilirubin Negative Urine Urobilinogen 1.0 H Ur Leukocyte Esterase Trace H Urine RBC 5-10 H Urine WBC >50 H Ur Epithelial Cells Few Urine Crystals Negative Urine Bacteria Moderate Urine Casts Negative Urine Mucus Negative Ur Culture Indicated? C&s done as ordered Urine Glucose >=1000 H Last Vital Signs Temp 36.9 C 02/19/20 21:19 Pulse 90 02/19/20 23:00 Resp 20 02/19/20 23:00 BP 106/51 L 02/19/20 23:00 Pulse Ox 94 L 02/19/20 22:40 COVID-19 Screening In the past 14 days, have you traveled outside of [place] or [place]?: NO Had IN PERSON contact w/suspected or confirmed C-19 person: No
[2020-02-20 00:24] VITALS: BP 124/68; PULSE 97; RESP 18; TEMP 37.6; O2SAT 95
[2020-02-20 01:06] VITALS: BP 106/68; PULSE 97; RESP 26; TEMP 37.3; O2SAT 95
[2020-02-20] MEDS: Normal Saline Flush 10 ML SYR IVP ×3 (01:57→14:27)
[2020-02-20] MEDS: Enoxaparin 100 MG/ML SYR SC (02:03)
[2020-02-20] MEDS: Insulin Glargine 300 UNITS/3 ML PEN 50 UNITS SC ×2 (02:03→21:42)
[2020-02-20] MEDS: Lactated Ringers 1,000 ML 150 ML IV ×3 (02:04→17:01)
--- NOTE | 2020-02-20 06:00 | DI.US_ITS ---
EXAM: US LOWER EXTREMITY VENOUS RT CLINICAL HISTORY: Right calf pain and swelling and redness TECHNIQUE: Right lower extremity venous ultrasound performed using grayscale, color-flow, and spectr al Doppler analysis. COMPARISON: No exams were available for comparison FINDINGS: The right common femoral, femoral and popliteal veins demonstrate normal compressibility, augmentatio n, and color Doppler. The posterior tibial veins are patent. The saphenofemoral junction is unremark able. There is no evidence of a Weiner cyst. There is edema in the soft tissues in the calf correspo nding to the area of redness. IMPRESSION: No DVT. DATA REPOSITORY:
[2020-02-20] MEDS: Acetaminophen 325 MG TAB PO ×3 (06:28→21:22)
[2020-02-20 07:40] LABS: Mean Corp. HGB Concentration 31.4 g/dL (32.0-36.0); Mean Corpuscular Hemoglobin 26.1 pg (27.0-33.0); Mean Corpuscular Volume 82.9 fL (80-95); Mean Platelet Volume 10.7 fL (8.0-11.0); Platelet Count 300 x1000/uL (130-400); RBC 4.22 m/cumm (4.00-5.20); RBC Distribution Width 16.3 % (11.7-14.6); White Blood Cell Count 14.33 k/cumm (4.4-10.8)
[2020-02-20 07:41] VITALS: BP 101/61; PULSE 89; RESP 18; TEMP 36.7; O2SAT 91
[2020-02-20 07:50] LABS: Iron 14 ug/dL (50-170); Total Iron Binding Capacity 141 ug/dL (250-450); Transferrin Sat 10 % (15-50)
[2020-02-20 07:54] LABS: ALT 40 U/L (14-59); AST 36 U/L (15-37); Albumin 1.9 g/dL (3.4-5.0); Alkaline Phosphatase 176 U/L (46-116); Anion Gap 6.3 mmol/L (3-11); BUN 11 mg/dL (7-18); Bilirubin, Total 1.1 mg/dL (0.2-1.0); CO2 28.7 mmol/L (21.0-32.0); CREATININE 1.24 mg/dL (0.55-1.02); Calcium 8.2 mg/dL (8.5-10.1); Chloride 101 mmol/L (98-107); Glucose 331 mg/dL (74-106); Potassium 3.8 mmol/L (3.5-5.1); Sodium 136 mmol/L (136-145)
[2020-02-20 08:05] LABS: Absolute Eosinophil Count 0.29 k/cumm (0.0-0.7); Absolute Lymphocyte Count 1.72 k/cumm (1.2-3.4); Absolute Monocyte Count 0.72 k/cumm (0.11-0.7); Absolute Neutrophil Count 11.46 k/cumm (1.2-6.7); Atypical Lymphocytes % 1
[2020-02-20 08:06] LABS: Diff Comment Manual Differential; RBC Morphology Normal
[2020-02-20 08:10] LABS: Hemoglobin A1C 9.8 % (3.8-5.6)
[2020-02-20] MEDS: Insulin Aspart 300 UNITS/3 ML PEN 10 UNITS SC ×3 (08:13→17:19)
[2020-02-20] MEDS: Aspirin E.C. 81 MG TABEC PO (08:13)
[2020-02-20] MEDS: Atorvastatin 40 MG TAB PO (08:13)
[2020-02-20] MEDS: Insulin Aspart 300 UNITS/3 ML PEN SC ×3 (08:13→17:18)
[2020-02-20] MEDS: Cetirizine 10 MG TAB PO (08:13)
[2020-02-20] MEDS: Metoprolol 50 MG TAB PO ×2 (08:13→19:13)
--- NOTE | 2020-02-20 08:28 | INITIAL_ITS ---
- If Service Date Differs Date of service: 02/20/20 Time of Service: 08:28 Care Management Initial Assess REASON FOR HOSPITALIZATION:: Left renal mass PAST MEDICAL HISTORY/PAST SURGICAL HISTORY:: Medical History . Allergic rhinitis. ASCVD (arteriosclerotic cardiovascular disease). Chronic cough (Acute). Diabetic neuropathy. DM type 2 causing complication. Essential hypertension. LA (myocardial infarction). Pyelonephritis. Surgical History . Abdominal hysterectomy. Amputation. 05/27/14; 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 LANDEROS. Cholecystectomy. lap. Coronary Artery Bypass [place] (CABG). Coronary Stent. [facility] [place]-03/19/16. ERCP. Left heart Cath. [facility] [place]-03/19/16. Oophrectomy, Both. 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 Shoulder replacement. Stent placement. WITH 2 BYPASS GRAFTS-[facility] [place] PREVIOUS FUNCTIONAL STATUS/SOCIAL/FAMILY SUPPORTS:: Kizzy lives in [facility] with her Justin in a 2-level, single family home. They have one daughter, Claudia who lives closeby and is very supportive. Kizzy shared that she and Claduia are very close. Claudia has 3 children ages 2, 3 and 5. Kizzy has been independent with ADLs and care until about 3 weeks ago when she became ill. She has been relying on her for assistance. She has been using a cane and a walker to assist with ambulation as she has become very weak. 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 CURRENT FUNCTIONAL STATUS:: Kizzy was sitting up in a chair when CM met with her. She was very pleasant, open and receptive to meeting with CM. Kizzy shared how sick she has been for the past 3 weeks. At baseline she was independent but has been so weak she hardly leaves the electric recliner that she sleeps in. In fact, Kizzy has developed a decubitus ulcer on her coccyx during this time, presumably because she was so immobile. ADVANCE DIRECTIVES:: Kizzy states she hads AD and that they are filed here but CM unable to locate. Her is [facility]. Has patient been provided with info about the portal/API?: Yes Did the patient sign up for the portal?: No CODE STATUS:: Full Code INSURANCE COVERAGE / FINANCIAL ISSUES:: Medicare. [employer] CURRENT HOME/COMMUNITY SERVICES/EQUIPMENT:: Kizzy does not currently receive any community services. She has a cane and a walker at home. PRIMARY CARE PHYSICIAN:: Manuelito Wilcox POTENTIAL DISCHARGE NEEDS:: Follow up with Urology, possibly Oncology, PCP and discharge plan of care PATIENT/FAMILY EDUCATION NEEDS:: Discharge plan, limitations, expectations, Ask Me Three TRANSPORTATION:: via private vehicle with PLAN:: Kizzy will likely be discharged home with new home health services for nursing and PT. It is possible she may need to go to a tertiary care facility for an Oncological workup, although this will probably be completed on an outpatient basis.Kizzy will follow up with her PCP and discharge plan of care. CM to continue to support patient and family and assess for discharge planning needs.
[2020-02-20 08:58] LABS: Ferritin 823 ng/mL (8-252)
--- NOTE | 2020-02-20 11:11 | IN_ITS ---
PT Notes Visit Reasons: RENAL MASS,UTI,DEHYDRATION,RIGHT LEG SWELLING,SACR Inpatient Physical Therapy Evaluation Date: 02/20/2020 Referring Doctor: Hillary Augustine MD PT Orders: PT CONSULT: Malaise, renal carcinoma Precautions: Fall Patient Profile/Admitting Diagnosis: 75-year-old female whose had a 3-week history of generalized progressive weakness, nausea, etc. was admitted yesterday with a recent diagnosis of a renal carcinoma, decubitus ulcer and right calf discomfort PMHX: Diabetes, ASCVD, anemia, acute renal insufficiency, status post right total shoulder replacement Social History/Home Situation: , lives in a private home and sleeps in recliner on the first floor. She is ambulating without a walker up until 3 weeks ago, and her ambulation is limited to the house. Her has been preparing meals for the past 3 weeks and performance other job molder including her shopping, etc. Current Functional Limitations: She requires assistance with her bed mobility currently, but notes that she is able to get in and out of her recliner at home independently. Her assist with her personal hygiene including showering and occasionally dressing. Equipment Owned/DME: Is a flexible shower hose with a combo tub shower. An elevated toilet, and 3 steps entering the home which has a railing Subjective: Patient planes of general fatigue and progressive weakness over the past 3 weeks. Her and daughter convinced her to visit the ER which led to her admission Objective: [] General Observation: Pleasant, cooperative and complains of buttocks discomfort with bed mobility activities, etc. She has a 3 x 3 erythemic lesion along the anterior lateral aspect of the right lower leg. Circumference measurements mid calf are 35.5 cm bilaterally and symmetrical Mental Status: Alert and oriented x3 Pain: Complains of right buttocks discomfort due to her ulcer, and occasional anterior lateral right lower leg discomfort and left upper quadrant pain Vital Signs: Dorsalis pedis is palpable bilaterally ROM: Is good functional range of motion of the upper extremity articular structures other than right shoulder rotation at 45 degrees externally and internally with some mild endrange discomfort throughout the glenohumeral joint. Bilateral hip motion is mildly limited with an articular pattern, left greater than right particularly with internal rotation at 15 degrees. Bilateral knee, talocrural, subtalar movements are non-irritable. Strength: She has full motorical control throughout with strength generally rated 4/5 Sensation: Intact Bed Mobility/Transfers: Patient requires moderate assistance with assuming the supine sitting position and vice versa. Once lying in bed, she use the trapeze and was able to lift her buttocks in order to slide into proper bed positioning. She requires mild to moderate assist with assuming the sitting to standing position. Gait: She ambulated approximately 20 feet with a wheeled walker requiring mild contact guarding. She has stable gait. She is able walk on her heels and toes while holding onto the walker. Balance: [] Static Sitting: Good Dynamic Sitting: Good Static Standing: Good Dynamic Standing: Fair. She is unable to stand on one limb without holding onto the walker. She has a negative Romberg sign Special Tests: Mobility Limitations Standardized Measure [facility] 6 clicks Basic Mobility Inpatient Short Form: Raw Score: 12 standardized Score: 35.35 CMS Score: 68.66% CMS Modifier: CL Informed Consent/Education: Patient instructed in purpose of PT consult and plan of care. Assessment: Patient is a 75 year old female referred to physical therapy services with the diagnosis of malaise and recent diagnosis of a renal carcinoma . Patient presents with clinical signs and symptoms consistent with this diagnosis, as demonstrated by the following impairment level findings: Generalized weakness along with a decubitus ulcer. Impairments are contributing to the following functional limitations: Assistance with all bed mobility activities, impaired gait and balance, etc. AMPAC score. Patient is assessed as a Moderate 26313 complexity based on the following: History: See comorbidities and social history Examination: See above for function limitations and impairments Presentation: Evolving Decision Making: Moderate complexity based on her clinical findings Goals: Goals X1 week 1. Supine-Sit independent 2. Sit-Supine independent 3. Sit-Stand independent [] 4. Stand-Sit independent [] 5. Bed-Chair independent [] 6. Chair-Bed independent 7. Gait ambulating 100 feet with a wheeled walker 8. Stairs climbing 3 steps with a railing independently 9. Independent with home exercise program [] 10. Balance [] Plan of Care/Treatment Plan: 1-2x/day, 7 days/week x 1 week. Plan of care has been reviewed with the VULCANIZING PRESS OPERATOR providing the service under Physical Therapy direction. Initiate Physical Therapy intervention for strengthening, bed mobility, transfers, gait, stairs, balance training, use of assistive device. DISCHARGE RECOMMENDATIONS: Home TREATMENT CODE/TIME: 9716 2/40 minutes/10 15-10 55 AM
--- NOTE | 2020-02-20 12:07 | PHA.REVIEW ---
Pharmacy Admission Review - Admission Clinical Review (Last Reviewed 02/20/20 @ 00:39 by Ortiz Orlando) UTI (urinary tract infection) (Acute) Discharge planning issues (Acute) Decubitus ulcer (Acute) Dehydration (Acute) Acute renal insufficiency (Acute) Renal mass, left (Acute) Type 2 diabetes mellitus with complications (Acute 06/29/15) ASCVD (arteriosclerotic cardiovascular disease) (Acute 01/14/12) Penicillins Allergy (Intermediate, Verified 02/19/20 17:33) Itching, Swelling ciprofloxacin Adverse Reaction (Intermediate, Verified 02/19/20 17:33) Dizziness/Lightheade Latex, Natural Rubber Adverse Reaction (Intermediate, Verified 02/19/20 17:33) Skin Rash lisinopril Adverse Reaction (Intermediate, Verified 02/19/20 17:33) cough metformin Adverse Reaction (Mild, Verified 02/19/20 17:33) Diarrhea tylenol 3 Adverse Reaction (Intermediate, Uncoded 02/19/20 17:33) tingling of tongue and lips Height 5 ft 4 in Weight 99.79 kg - Renal Dosing Renal Dosing: BUN 11 mg/dL (7-18) 02/20/20 07:05 Creatinine 1.24 mg/dL (0.55-1.02) H 02/20/20 07:05 Medications needing adjustments: Reviewed (crcl using adj body wt 47ml/min) - Anticoagulation Anticoagulation: Hgb 11.0 g/dL (12.0-15.5) L 02/20/20 07:05 Hct 35.0 % (36.0-46.0) L 02/20/20 07:05 Plt Count 300 x1000/uL (130-400) 02/20/20 07:05 Creatinine 1.24 mg/dL (0.55-1.02) H 02/20/20 07:05 DVT Prohphylaxis: Reviewed Medications: Enoxaparin Therapeutic Anticoagulation: Reviewed Medications: Enoxaparin (r/o for PE, venous doppler ordered) - Relevant Labs Sodium 136 mmol/L (136-145) 02/20/20 07:05 Potassium 3.8 mmol/L (3.5-5.1) 02/20/20 07:05 Chloride 101 mmol/L (98-107) 02/20/20 07:05 Electrolytes, C-Reactive P, ESR: Reviewed - DM Control DM Control: Glucose 331 mg/dL (74-106) H 02/20/20 07:05 Hemoglobin A1c 9.8 % (3.8-5.6) H 02/20/20 07:05 Finger Stick Blood Glucose 235 Finger Stick Blood Glucose 347 Finger Stick Blood Glucose 347 Finger Stick Blood Glucose 347 Insulin Dosing: Reviewed - Heart Failure/AK Heart Failure/AK: Troponin I Cancelled 02/19/20 23:34 - BP Control BP Control: Blood Pressure 101/61 Blood Pressure 106/68 Blood Pressure 124/68 If elevated: N/A - Qtc Review If Elevated: N/A (437) - Home Meds Home Med List reviewed: Reviewed Relevent Home Meds Not ordered & why?: nitrostat not ordered - Current meds Current Medication Order Review: Reviewed (ceftriaxone for UTI(gram neg nicole)) - Comments Comments/Follow Ups: renal mass including spleen and liver. urology consult and palliative consult ordered
[2020-02-20] MEDS: Ondansetron 4 MG/2 ML VIAL IVP (12:17)
--- NOTE | 2020-02-20 12:48 | W.PM.PROGNOT ---
Date of Service Date of service: 02/20/20 Time of Service: 12:48 Assessment and Plan Assessment and plan (1) Renal mass, left: Status: Acute Assessment and plan: I agree that this is most likely renal cell ca and can explain most of the patient's symptoms. Continue pain control with prn emetics, bowel regimen. Urology consulted to establish plan of care. Palliative care is also consulted. (2) Type 2 diabetes mellitus with complications: Status: Acute Assessment and plan: Continue basal bolus insulin initiated on admission here. We will investigate resources in the community to help afford her medications. (3) ASCVD (arteriosclerotic cardiovascular disease): Status: Acute Assessment and plan: Continue asa, statin. No ACS on this admission - chest pain is likely noncardiac. (4) Anemia: Status: Chronic Assessment and plan: Like related to the renal cell ca. Ferritin argues against iron deficiency - however, is a marker of inflammation. Obtaining hemoccult. (5) Acute renal insufficiency: Status: Acute Assessment and plan: Cr not better after iv hydration overnight. Recheck in am. (6) Dehydration: Status: Acute Assessment and plan: Continue IVF. BPs remain soft, but this is with morphine on board. (7) Decubitus ulcer: Status: Acute Assessment and plan: Wound care consulted (8) DVT (deep venous thrombosis): Status: Suspected Assessment and plan: Continue empiric anticoagulation while awaiting venous doppler RLE. (9) UTI (urinary tract infection): Status: Acute Assessment and plan: Present on admission, though the patient is not endorsing symptoms at this time. Will continue ceftriaxone with plans to complete a 3 day course. (10) Discharge planning issues: Status: Acute Assessment and plan: Full code. Palliative care consulted to discuss goals of care given likely diagnosis of metastatic renal cell cancer. Subjective Subjective Interval history since last seen: Does not feel well. Nauseated. States the last time she had a BM was 3 days ago and feels constipated. She has been able to pass flatus. Earlier today reported epigastric/midabdominal pain, for which she got morphine. Denies dizziness, chest pain, shortness of breath, abdominal pain now. Not interested in talking to me about what the finding of the left renal mass on her CT means at this time because she is nauseated. We agreed that we will revisit the issue tomorrow. Exam Narrative Exam Narrative: General: Obese female who looks like she is not feeling well; inattentive, A&Ox3 HEENT: EOMI, dry MM Heart: RRR, no m/r/g Lungs: CTAB Abdomen: obese, soft, nontender Extremities: no c/c BLE's, 2+ pedal pulses B, chronic venous stasis changes B with RLE erythema distally; mild swelling distal RLE. Objective Objective Clinical Data: Abnormal lab results 02/19/20 02/19/20 02/19/20 Range/Units 20:30 20:30 20:30 WBC 13.64 H (4.4-10.8) k/cumm Hgb 10.8 L (12.0-15.5) g/dL Hct 33.8 L (36.0-46.0) % MCH 26.3 L (27.0-33.0) pg MCHC (32.0-36.0) g/dL RDW 16.1 H (11.7-14.6) % Absolute Neutrophils 11.68 H (1.2-6.7) k/cumm Absolute Lymphocytes 0.80 L (1.2-3.4) k/cumm Absolute Monocytes 0.93 H (0.11-0.7) k/cumm D-Dimer (<500) ng/mlFEU Creatinine 1.19 H (0.55-1.02) mg/dL Glucose 414 H (74-106) mg/dL Hemoglobin A1c (3.8-5.6) % Lactate 1.7 H (0.6-1.4) mmol/L Calcium 8.0 L (8.5-10.1) mg/dL Iron (50-170) ug/dL TIBC (250-450) ug/dL Transferrin % Sat (15-50) % Ferritin (8-252) ng/mL Total Bilirubin 1.2 H (0.2-1.0) mg/dL AST 42 H (15-37) U/L Alkaline Phosphatase 183 H (46-116) U/L Albumin 1.9 L (3.4-5.0) g/dL Urine Protein (Negative) mg/dL Urine Ketones (Negative) mg/dL Urine Blood (Negative) Urine Nitrite (Negative) Urine Urobilinogen (Up TO 0.2) EU/dL Ur Leukocyte Esterase (Negative) Urine RBC (0-2) HPF Urine WBC (0-5) HPF Urine Glucose (Negative) mg/dL 02/19/20 02/19/20 02/20/20 Range/Units 20:30 22:13 07:05 WBC (4.4-10.8) k/cumm Hgb (12.0-15.5) g/dL Hct (36.0-46.0) % MCH (27.0-33.0) pg MCHC (32.0-36.0) g/dL RDW (11.7-14.6) % Absolute Neutrophils (1.2-6.7) k/cumm Absolute Lymphocytes (1.2-3.4) k/cumm Absolute Monocytes (0.11-0.7) k/cumm D-Dimer 2673 H (<500) ng/mlFEU Creatinine 1.24 H (0.55-1.02) mg/dL Glucose 331 H (74-106) mg/dL Hemoglobin A1c (3.8-5.6) % Lactate (0.6-1.4) mmol/L Calcium 8.2 L (8.5-10.1) mg/dL Iron (50-170) ug/dL TIBC (250-450) ug/dL Transferrin % Sat (15-50) % Ferritin (8-252) ng/mL Total Bilirubin 1.1 H (0.2-1.0) mg/dL AST (15-37) U/L Alkaline Phosphatase 176 H (46-116) U/L Albumin 1.9 L (3.4-5.0) g/dL Urine Protein 100 H (Negative) mg/dL Urine Ketones 40 H (Negative) mg/dL Urine Blood Small H (Negative) Urine Nitrite Positive H (Negative) Urine Urobilinogen 1.0 H (Up TO 0.2) EU/dL Ur Leukocyte Esterase Trace H (Negative) Urine RBC 5-10 H (0-2) HPF Urine WBC >50 H (0-5) HPF Urine Glucose >=1000 H (Negative) mg/dL 02/20/20 02/20/20 02/20/20 Range/Units 07:05 07:05 07:05 WBC 14.33 H (4.4-10.8) k/cumm Hgb 11.0 L (12.0-15.5) g/dL Hct 35.0 L (36.0-46.0) % MCH 26.1 L (27.0-33.0) pg MCHC 31.4 L (32.0-36.0) g/dL RDW 16.3 H (11.7-14.6) % Absolute Neutrophils 11.46 H (1.2-6.7) k/cumm Absolute Lymphocytes (1.2-3.4) k/cumm Absolute Monocytes 0.72 H (0.11-0.7) k/cumm D-Dimer (<500) ng/mlFEU Creatinine (0.55-1.02) mg/dL Glucose (74-106) mg/dL Hemoglobin A1c 9.8 H (3.8-5.6) % Lactate (0.6-1.4) mmol/L Calcium (8.5-10.1) mg/dL Iron 14 L (50-170) ug/dL TIBC 141 L (250-450) ug/dL Transferrin % Sat 10 L (15-50) % Ferritin (8-252) ng/mL Total Bilirubin (0.2-1.0) mg/dL AST (15-37) U/L Alkaline Phosphatase (46-116) U/L Albumin (3.4-5.0) g/dL Urine Protein (Negative) mg/dL Urine Ketones (Negative) mg/dL Urine Blood (Negative) Urine Nitrite (Negative) Urine Urobilinogen (Up TO 0.2) EU/dL Ur Leukocyte Esterase (Negative) Urine RBC (0-2) HPF Urine WBC (0-5) HPF Urine Glucose (Negative) mg/dL 02/20/20 Range/Units 07:05 WBC (4.4-10.8) k/cumm Hgb (12.0-15.5) g/dL Hct (36.0-46.0) % MCH (27.0-33.0) pg MCHC (32.0-36.0) g/dL RDW (11.7-14.6) % Absolute Neutrophils (1.2-6.7) k/cumm Absolute Lymphocytes (1.2-3.4) k/cumm Absolute Monocytes (0.11-0.7) k/cumm D-Dimer (<500) ng/mlFEU Creatinine (0.55-1.02) mg/dL Glucose (74-106) mg/dL Hemoglobin A1c (3.8-5.6) % Lactate (0.6-1.4) mmol/L Calcium (8.5-10.1) mg/dL Iron (50-170) ug/dL TIBC (250-450) ug/dL Transferrin % Sat (15-50) % Ferritin 823 H (8-252) ng/mL Total Bilirubin (0.2-1.0) mg/dL AST (15-37) U/L Alkaline Phosphatase (46-116) U/L Albumin (3.4-5.0) g/dL Urine Protein (Negative) mg/dL Urine Ketones (Negative) mg/dL Urine Blood (Negative) Urine Nitrite (Negative) Urine Urobilinogen (Up TO 0.2) EU/dL Ur Leukocyte Esterase (Negative) Urine RBC (0-2) HPF Urine WBC (0-5) HPF Urine Glucose (Negative) mg/dL Vital Signs Temperature 36.7 C 02/20/20 07:41 Temperature Source Temporal Artery Scan 02/20/20 07:41 Pulse 89 02/20/20 07:41 Pulse Rhythm Regular 02/20/20 08:44 Pulse 92 H 02/19/20 23:00 Respiratory Rate 18 02/20/20 07:41 Respiratory Effort Non-Labored 02/20/20 08:44 Respiratory Depth Normal 02/20/20 08:44 Respiratory Pattern Normal 02/20/20 08:44 Blood Pressure 101/61 02/20/20 07:41 Blood Pressure Mean 63 02/19/20 23:00 Blood Pressure Position Supine 02/19/20 17:27 Pulse Oximetry 91 L 02/20/20 07:41 Oxygen Delivery Method Room Air 02/20/20 07:41 Oxygen Flow Rate 0 02/20/20 07:41 Pain Level 2 02/20/20 08:30 Intake & Output 02/19/20 02/20/20 02/20/20 23:59 11:59 23:59 Intake Total 1060 / 1060 1200 / 1200 Output Total 850 / 850 Balance 1060 / 1060 350 / 350 Weight 99.79 kg 99.79 kg Intake: IV 1060 / 1060 1000 / 1000 Oral 200 / 200 Output: Urine 850 / 850 Other: Urine Color Dark [place] Urine Appearance Clear Urine Odor Normal Voiding Methods Toilet Laboratory Results WBC 14.33 k/cumm (4.4-10.8) H 02/20/20 07:05 RBC 4.22 m/cumm (4.00-5.20) 02/20/20 07:05 Hgb 11.0 g/dL (12.0-15.5) L 02/20/20 07:05 Hct 35.0 % (36.0-46.0) L 02/20/20 07:05 MCV 82.9 fL (80-95) 02/20/20 07:05 MCH 26.1 pg (27.0-33.0) L 02/20/20 07:05 MCHC 31.4 g/dL (32.0-36.0) L 02/20/20 07:05 RDW 16.3 % (11.7-14.6) H 02/20/20 07:05 Plt Count 300 x1000/uL (130-400) 02/20/20 07:05 MPV 10.7 fL (8.0-11.0) 02/20/20 07:05 Immature Gran % 0.0 % 02/20/20 07:05 Neutrophils % 79.0 02/20/20 07:05 Band Neutrophils % 1.0 % 02/20/20 07:05 Lymphocytes % 11.0 02/20/20 07:05 Atypical Lymphs % 1 02/20/20 07:05 Monocytes % 5.0 02/20/20 07:05 Eosinophils % 2.0 02/20/20 07:05 Basophils % 0.0 02/20/20 07:05 Absolute Neutrophils 11.46 k/cumm (1.2-6.7) H 02/20/20 07:05 Absolute Lymphocytes 1.72 k/cumm (1.2-3.4) 02/20/20 07:05 Absolute Monocytes 0.72 k/cumm (0.11-0.7) H 02/20/20 07:05 Absolute Eosinophils 0.29 k/cumm (0.0-0.7) 02/20/20 07:05 Absolute Basophils 0.00 k/cumm (0.0-0.2) 02/20/20 07:05 Differential Comment Manual differential 02/20/20 07:05 RBC Morphology Normal 02/20/20 07:05 D-Dimer 2673 ng/mlFEU (<500) H 02/19/20 20:30 Sodium 136 mmol/L (136-145) 02/20/20 07:05 Potassium 3.8 mmol/L (3.5-5.1) 02/20/20 07:05 Chloride 101 mmol/L (98-107) 02/20/20 07:05 Carbon Dioxide 28.7 mmol/L (21.0-32.0) 02/20/20 07:05 Anion Gap 6.3 mmol/L (3-11) 02/20/20 07:05 BUN 11 mg/dL (7-18) 02/20/20 07:05 Creatinine 1.24 mg/dL (0.55-1.02) H 02/20/20 07:05 Estimated GFR/1.73 m2 42.40 (mL/min/1.73m2) 02/20/20 07:05 Glucose 331 mg/dL (74-106) H 02/20/20 07:05 Hemoglobin A1c 9.8 % (3.8-5.6) H 02/20/20 07:05 Lactate 1.7 mmol/L (0.6-1.4) H 02/19/20 20:30 Calcium 8.2 mg/dL (8.5-10.1) L 02/20/20 07:05 Iron 14 ug/dL (50-170) L 02/20/20 07:05 TIBC 141 ug/dL (250-450) L 02/20/20 07:05 Transferrin % Sat 10 % (15-50) L 02/20/20 07:05 Ferritin 823 ng/mL (8-252) H 02/20/20 07:05 Total Bilirubin 1.1 mg/dL (0.2-1.0) H 02/20/20 07:05 AST 36 U/L (15-37) 02/20/20 07:05 ALT 40 U/L (14-59) 02/20/20 07:05 Alkaline Phosphatase 176 U/L (46-116) H 02/20/20 07:05 Troponin I Cancelled 02/19/20 23:34 Total Protein 7.0 g/dL (6.4-8.2) 02/20/20 07:05 Albumin 1.9 g/dL (3.4-5.0) L 02/20/20 07:05 Lipase 93 U/L (73-393) 02/19/20 20:30 Urine Color Yellow (Yellow) 02/19/20 22:13 Urine Clarity Clear (Clear) 02/19/20 22:13 Urine pH 5.5 (5-8) 02/19/20 22:13 Ur Specific [place] 1.015 (1.005-1.025) 02/19/20 22:13 Urine Protein 100 mg/dL (Negative) H 02/19/20 22:13 Urine Ketones 40 mg/dL (Negative) H 02/19/20 22:13 Urine Blood Small (Negative) H 02/19/20 22:13 Urine Nitrite Positive (Negative) H 02/19/20 22:13 Urine Bilirubin Negative (Negative) 02/19/20 22:13 Urine Urobilinogen 1.0 EU/dL (Up TO 0.2) H 02/19/20 22:13 Ur Leukocyte Esterase Trace (Negative) H 02/19/20 22:13 Urine RBC 5-10 HPF (0-2) H 02/19/20 22:13 Urine WBC >50 HPF (0-5) H 02/19/20 22:13 Ur Epithelial Cells Few HPF (Negative) 02/19/20 22:13 Urine Crystals Negative HPF (Negative) 02/19/20 22:13 Urine Bacteria Moderate HPF (Negative) 02/19/20 22:13 Urine Casts Negative LPF (Negative) 02/19/20 22:13 Urine Mucus Negative (Negative) 02/19/20 22:13 Ur Culture Indicated? C&s done as ordered 02/19/20 22:13 Urine Glucose >=1000 mg/dL (Negative) H 02/19/20 22:13
[2020-02-20 13:29] LABS: COVID-19 RT-PCR UVMMC Result Negative (Negative)
[2020-02-20 13:50] LABS: Creatine Kinase 16 U/L (26-192)
--- NOTE | 2020-02-20 14:44 | DI.VRAD_ITS ---
PROCEDURE INFORMATION: Exam: US Duplex Right Lower Extremity Veins, Limited Exam date and time: 02/20/2020 1:07 AM Age: 75 years old Clinical indication: Pain; Leg, lower; Right; Patient HX: Localized redness and edema on RT lateral calf. TECHNIQUE: Imaging protocol: Real-time Duplex ultrasound of the Right Lower Extremity with 2-D rodriguez scale, color Doppler flow and spectral waveform analysis with image documentation. Limited exam was focused on the right lower extremity veins. COMPARISON: No relevant prior studies available. FINDINGS: Right deep veins: Unremarkable. The common femoral, femoral, proximal profunda femoral and popliteal veins are patent without thrombus. Normal Doppler waveforms. Normal compressibility and/or augmentation response. The posterior tibial vein in the calf is patent as well. Right superficial veins: Unremarkable. Saphenofemoral junction is patent without thrombus. Soft tissues: There is soft tissue edema laterally in the calf, reportedly corresponding to the area of redness. IMPRESSION: No deep venous thrombus demonstrated in the right lower extremity. Dictated and Authenticated by: Cal Nicole MD. Ordering:ARPIT Alcantar MD
[2020-02-20 15:10] VITALS: BP 109/65; PULSE 80; RESP 19; TEMP 37.3; O2SAT 94
[2020-02-20 19:11] VITALS: BP 138/75; PULSE 87; RESP 18; TEMP 37.6; O2SAT 94
[2020-02-20] MEDS: Docusate Sodium 100 MG CAP PO (19:13)
[2020-02-20 20:05] VITALS: BP 132/72; PULSE 81; RESP 17; TEMP 36.9; O2SAT 94
[2020-02-20] MEDS: cefTRIAXone 1 GM/50 ML BAG IVPB (21:41)
[2020-02-21] VITALS (9 sets, daily range): BP systolic 87–135; BP diastolic 43–81; PULSE 78–97; RESP 17–20; TEMP 36–37.4; O2SAT 91–97
--- NOTE | 2020-02-21 | DI.US_ITS ---
EXAM: US ABDOMEN RENAL CLINICAL HISTORY: worsening leucocytosis, ?hydronephrosis TECHNIQUE: Ultrasound abdomen performed using standard protocol. COMPARISON: CT CT CHEST PE ABD PELVIS W from 02/19/2020 FINDINGS: Limited examination due to patient body habitus. ABDOMINAL AORTA AND IVC: Visualized portions normal caliber. PANCREAS: Normal where visualized. LIVER: Hepatomegaly. Hepatopedal flow in the Portal Vein. GALLBLADDER: Status post cholecystectomy. BILIARY SYSTEM: Common bile duct measures 8.3 mm. No intrahepatic biliary ductal dilation. KIDNEYS: Right kidney is unremarkable. No sonographic evidence of renal calculi. No evidence of hyd ronephrosis. The left kidney is not ideally visualized. There is a mass seen in the superior pole me asuring 6 by 7 x 10 cm. This is better appreciated on the CT scan from 02/19/2020. There is no hydrone phrosis of the left kidney. SPLEEN: Upper limits of normal in size at 13 cm. ASCITES: None seen. IMPRESSION: 1. No evidence of hydronephrosis. 2. Left renal mass not well visualized sonographically. 3. Status post cholecystectomy DATA REPOSITORY:
--- NOTE | 2020-02-21 | DI.RAD_ITS ---
EXAM: XR PORTABLE CHEST AP CLINICAL HISTORY: leucocytosis, cough TECHNIQUE: 2D digital imaging was performed. COMPARISON: CR XR CHEST 2V PA LATERAL from 08/17/2019 FINDINGS: MEDIASTINUM: Normal. HEART: Normal. PULMONARY VASCULATURE: Normal. LUNGS: Clear. PLEURAL SPACE: There is blunting of the left costophrenic angle suggesting a small pleural effusion. No pneumothorax. BONE:Reversed right total shoulder replacement. Sternal wires are again noted. OTHER FINDINGS:Normal. IMPRESSION: Small left pleural effusion. DATA REPOSITORY: RADIATION DOSE DELIVERED:
[2020-02-21] MEDS: Lactated Ringers 1,000 ML 150 ML IV (01:14)
[2020-02-21] MEDS: Normal Saline Flush 10 ML SYR IVP ×3 (03:06→22:59)
[2020-02-21 06:43] LABS: Abs Immature Grans 0.12 k/cumm (0.0-0.09); Absolute Lymphocyte Count 1.12 k/cumm (1.2-3.4); Absolute Monocyte Count 1.39 k/cumm (0.11-0.7); Basophils % 0.2; Eosinophils % 1.1; HGB 12.5 g/dL (12.0-15.5); Immature Grans % 0.7 %; Lymphocytes % 6.2; Mean Corp. HGB Concentration 32.1 g/dL (32.0-36.0); Mean Corpuscular Hemoglobin 26.2 pg (27.0-33.0); Mean Corpuscular Volume 81.6 fL (80-95); Mean Platelet Volume 10.1 fL (8.0-11.0); Monocytes % 7.7; Neutrophils % 84.1; Platelet Count 225 x1000/uL (130-400); RBC 4.78 m/cumm (4.00-5.20); RBC Distribution Width 16.5 % (11.7-14.6); White Blood Cell Count 18.07 k/cumm (4.4-10.8)
[2020-02-21 06:47] LABS: Absolute Basophil Count 0.04 k/cumm (0.0-0.2); Anion Gap 6.3 mmol/L (3-11); BUN 9 mg/dL (7-18); CO2 27.7 mmol/L (21.0-32.0); CREATININE 1.07 mg/dL (0.55-1.02); Calcium 8.2 mg/dL (8.5-10.1); Chloride 105 mmol/L (98-107); Estimated GFR 50.27 (mL/min/1.73m2); Glucose 114 mg/dL (74-106); Magnesium 1.8 mg/dL (1.8-2.4); Potassium 3.3 mmol/L (3.5-5.1); Sodium 139 mmol/L (136-145)
[2020-02-21] MEDS: Bisacodyl 5 MG TABEC PO (07:13)
[2020-02-21] MEDS: Acetaminophen 325 MG TAB PO ×2 (07:13→14:26)
[2020-02-21] MEDS: Insulin Aspart 300 UNITS/3 ML PEN 10 UNITS SC (08:19)
[2020-02-21] MEDS: Enoxaparin 40 MG/0.4 ML SYR SC (08:19)
[2020-02-21] MEDS: Metoprolol 50 MG TAB PO ×2 (08:20→19:36)
[2020-02-21] MEDS: Senna TAB 1 TAB PO (08:20)
[2020-02-21] MEDS: Potassium Chloride 20 MEQ TABCR 40 MEQ PO (08:20)
[2020-02-21] MEDS: Atorvastatin 40 MG TAB PO (08:20)
[2020-02-21] MEDS: Cetirizine 10 MG TAB PO (08:20)
[2020-02-21] MEDS: Aspirin E.C. 81 MG TABEC PO (08:20)
[2020-02-21] MEDS: Docusate Sodium 100 MG CAP PO ×2 (08:20→19:36)
--- NOTE | 2020-02-21 10:18 | W.PM.PROGNOT ---
Date of Service Date of service: 02/21/20 Time of Service: 10:20 Assessment and Plan Assessment and plan (1) Renal mass, left: Status: Acute Assessment and plan: Most likely renal cell ca. We are obtaining an ultrasound today to get a better look at the liver and spleen, ensure there is no hydronephrosis. Continue pain control with prn emetics, bowel regimen. Urology consult expected today. Palliative care is also consulted. (2) Sepsis: Status: Acute Assessment and plan: Potential sources: intraabdominal process, UTI present on admission, (GNR and mixed GPCs on C&S), cellulitis RLE. PNA less likely, but CXR and sputum cultures are ordered. Will add vancomycin to ceftriaxone. Await blood, urine, sputum culture results. (3) UTI (urinary tract infection): Status: Acute Assessment and plan: Present on admission, though the patient is not endorsing symptoms at this time. Will continue ceftriaxone with plans to complete a 3 day course. (4) Cellulitis of right lower extremity: Status: Acute Assessment and plan: DVT ruled out - but there was significant soft tissue edema c/w cellulitis on US. Will add vancomycin to ceftriaxone. (5) Type 2 diabetes mellitus with complications: Status: Acute Assessment and plan: FBG 107 this am. Decrease basal insulin, continue scheduled prandial and corrective insulin. We will investigate resources in the community to help afford her medications. (6) ASCVD (arteriosclerotic cardiovascular disease): Status: Acute Assessment and plan: Continue asa, statin. No ACS on this admission - chest pain is likely noncardiac. (7) Anemia: Status: Chronic Assessment and plan: Like related to the renal cell ca. Ferritin argues against iron deficiency - however, is a marker of inflammation. Obtaining hemoccult. (8) Acute renal insufficiency: Status: Resolved Assessment and plan: D/c IVF. (9) Dehydration: Status: Resolved Assessment and plan: D/c IVF (10) Decubitus ulcer: Status: Acute Assessment and plan: Stage 2, present on admission. Additionally, there appears to be a component of folliculitis (mild) in the area. For now, systemic antibiotics should be sufficient to address folliculitis and I do not anticipate surgical management. Continue wound care. (11) Chronic cough: Status: Chronic Assessment and plan: While the patient states that this has been going on for a few weeks, there is documentation in the chart that this is chronic. Will obtain sputum culture. CXR does not show acute disease per my read, but I am awaiting a final read. (12) DVT (deep venous thrombosis): Status: Ruled-out Assessment and plan: Negative venous doppler. Lovenox transitioned to prophylactic dose (13) Discharge planning issues: Status: Acute Assessment and plan: Full code. Palliative care consulted to discuss goals of care given likely diagnosis of metastatic renal cell cancer. (14) DVT prophylaxis: Status: Acute Assessment and plan: SC lovenox Subjective Subjective Interval history since last seen: Ms Hopkins states states that last night she was coughing (sputum is white), and that this has been going for several weeks. She endorses VALVERDE. She was placed on oxygen overnight (1L) because her O2 sats trended down to 91% on RA. Nursing also reports 93% on 2L at some point, but I do not currently see that in the chart. Cough is better this morning. Reports abdominal pain, both sides, from coughing. Reports R leg weakness and being afraid to step on it. When talking about weakness, she states that it radiates into the calf, where it is red and hot. She denies numbness/tingling/pain. States, there have been no tick bites. She is afraid to walk without a walker because of the fear of falling. -n. -BM. + flatus. Exam Narrative Exam Narrative: General: Obese female who looks much better to me than yesterday, but has a round-about way of answering my questions. A&Ox3 HEENT: EOMI, MMM Heart: RRR, no m/r/g Lungs: CTAB - diminished at B bases. Abdomen: obese, soft, nontender Extremities: no c/c BLE's,, chronic venous stasis changes B with RLE erythema distally - today the majority of erythema I see is in the calf; tibial surface is not erythematous today; mild swelling distal RLE. Objective Objective Clinical Data: Abnormal lab results 02/20/20 02/21/20 02/21/20 Range/Units 07:05 06:20 06:20 WBC 18.07 H (4.4-10.8) k/cumm MCH 26.2 L (27.0-33.0) pg RDW 16.5 H (11.7-14.6) % Absolute Neutrophils 15.20 H (1.2-6.7) k/cumm Absolute Lymphocytes 1.12 L (1.2-3.4) k/cumm Absolute Monocytes 1.39 H (0.11-0.7) k/cumm Potassium 3.3 L (3.5-5.1) mmol/L Creatinine 1.07 H (0.55-1.02) mg/dL Glucose 114 H D (74-106) mg/dL Calcium 8.2 L (8.5-10.1) mg/dL Ferritin 823 H (8-252) ng/mL Creatine Kinase 16 L (26-192) U/L Vital Signs Temperature 36.8 C 02/21/20 07:45 Temperature Source Tympanic 02/21/20 07:45 Pulse 94 H 02/21/20 07:45 Pulse Rhythm Regular 02/21/20 00:30 Pulse 92 H 02/19/20 23:00 Respiratory Rate 20 02/21/20 07:45 Respiratory Effort 02/21/20 00:30 Respiratory Depth Normal 02/21/20 00:30 Respiratory Pattern Normal 02/21/20 00:30 Blood Pressure 120/67 02/21/20 07:45 Blood Pressure Mean 63 02/19/20 23:00 Blood Pressure Position Supine 02/19/20 17:27 Pulse Oximetry 97 02/21/20 09:37 Oxygen Delivery Method Nasal Cannula 02/21/20 09:37 Oxygen Flow Rate 1 02/21/20 09:37 Pain Level 6 02/21/20 07:45 Intake & Output 02/20/20 02/20/20 02/21/20 11:59 23:59 11:59 Intake Total 1200 / 3680 2480 / 3680 1390 / 1390 Output Total 850 / 1600 750 / 1600 900 / 900 Balance 350 / 2080 1730 / 2080 490 / 490 Weight 99.79 kg 100.3 kg Intake: IV 1000 / 3000 2000 / 3000 1050 / 1050 Oral 200 / 680 480 / 680 340 / 340 Output: Urine 850 / 1600 750 / 1600 900 / 900 Other: Urine Color Dark Sudha Dark Sudha Yellow Straw Urine Appearance Clear Clear Clear Urine Odor Normal Normal Normal Voiding Methods Toilet Bedside Commode Bedside Commode Laboratory Results WBC 18.07 k/cumm (4.4-10.8) H 02/21/20 06:20 RBC 4.78 m/cumm (4.00-5.20) 02/21/20 06:20 Hgb 12.5 g/dL (12.0-15.5) 02/21/20 06:20 Hct 39.0 % (36.0-46.0) 02/21/20 06:20 MCV 81.6 fL (80-95) 02/21/20 06:20 MCH 26.2 pg (27.0-33.0) L 02/21/20 06:20 MCHC 32.1 g/dL (32.0-36.0) 02/21/20 06:20 RDW 16.5 % (11.7-14.6) H 02/21/20 06:20 Plt Count 225 x1000/uL (130-400) 02/21/20 06:20 MPV 10.1 fL (8.0-11.0) 02/21/20 06:20 Immature Gran % 0.7 % 02/21/20 06:20 Neutrophils % 84.1 02/21/20 06:20 Band Neutrophils % 1.0 % 02/20/20 07:05 Lymphocytes % 6.2 02/21/20 06:20 Atypical Lymphs % 1 02/20/20 07:05 Monocytes % 7.7 02/21/20 06:20 Eosinophils % 1.1 02/21/20 06:20 Basophils % 0.2 02/21/20 06:20 Absolute Neutrophils 15.20 k/cumm (1.2-6.7) H 02/21/20 06:20 Absolute Lymphocytes 1.12 k/cumm (1.2-3.4) L 02/21/20 06:20 Absolute Monocytes 1.39 k/cumm (0.11-0.7) H 02/21/20 06:20 Absolute Eosinophils 0.20 k/cumm (0.0-0.7) 02/21/20 06:20 Absolute Basophils 0.04 k/cumm (0.0-0.2) 02/21/20 06:20 Differential Comment Manual differential 02/20/20 07:05 RBC Morphology Normal 02/20/20 07:05 D-Dimer 2673 ng/mlFEU (<500) H 02/19/20 20:30 Sodium 139 mmol/L (136-145) 02/21/20 06:20 Potassium 3.3 mmol/L (3.5-5.1) L 02/21/20 06:20 Chloride 105 mmol/L (98-107) 02/21/20 06:20 Carbon Dioxide 27.7 mmol/L (21.0-32.0) 02/21/20 06:20 Anion Gap 6.3 mmol/L (3-11) 02/21/20 06:20 BUN 9 mg/dL (7-18) 02/21/20 06:20 Creatinine 1.07 mg/dL (0.55-1.02) H 02/21/20 06:20 Estimated GFR/1.73 m2 50.27 (mL/min/1.73m2) 02/21/20 06:20 Glucose 114 mg/dL (74-106) H D 02/21/20 06:20 Hemoglobin A1c 9.8 % (3.8-5.6) H 02/20/20 07:05 Lactate 1.7 mmol/L (0.6-1.4) H 02/19/20 20:30 Calcium 8.2 mg/dL (8.5-10.1) L 02/21/20 06:20 Magnesium 1.8 mg/dL (1.8-2.4) 02/21/20 06:20 Iron 14 ug/dL (50-170) L 02/20/20 07:05 TIBC 141 ug/dL (250-450) L 02/20/20 07:05 Transferrin % Sat 10 % (15-50) L 02/20/20 07:05 Ferritin 823 ng/mL (8-252) H 02/20/20 07:05 Total Bilirubin 1.1 mg/dL (0.2-1.0) H 02/20/20 07:05 AST 36 U/L (15-37) 02/20/20 07:05 ALT 40 U/L (14-59) 02/20/20 07:05 Alkaline Phosphatase 176 U/L (46-116) H 02/20/20 07:05 Creatine Kinase 16 U/L (26-192) L 02/20/20 07:05 Troponin I Cancelled 02/19/20 23:34 Total Protein 7.0 g/dL (6.4-8.2) 02/20/20 07:05 Albumin 1.9 g/dL (3.4-5.0) L 02/20/20 07:05 Lipase 93 U/L (73-393) 02/19/20 20:30 Urine Color Yellow (Yellow) 02/19/20 22:13 Urine Clarity Clear (Clear) 02/19/20 22:13 Urine pH 5.5 (5-8) 02/19/20 22:13 Ur Specific [place] 1.015 (1.005-1.025) 02/19/20 22:13 Urine Protein 100 mg/dL (Negative) H 02/19/20 22:13 Urine Ketones 40 mg/dL (Negative) H 02/19/20 22:13 Urine Blood Small (Negative) H 02/19/20 22:13 Urine Nitrite Positive (Negative) H 02/19/20 22:13 Urine Bilirubin Negative (Negative) 02/19/20 22:13 Urine Urobilinogen 1.0 EU/dL (Up TO 0.2) H 02/19/20 22:13 Ur Leukocyte Esterase Trace (Negative) H 02/19/20 22:13 Urine RBC 5-10 HPF (0-2) H 02/19/20 22:13 Urine WBC >50 HPF (0-5) H 02/19/20 22:13 Ur Epithelial Cells Few HPF (Negative) 02/19/20 22:13 Urine Crystals Negative HPF (Negative) 02/19/20 22:13 Urine Bacteria Moderate HPF (Negative) 02/19/20 22:13 Urine Casts Negative LPF (Negative) 02/19/20 22:13 Urine Mucus Negative (Negative) 02/19/20 22:13 Ur Culture Indicated? C&s done as ordered 02/19/20 22:13 Urine Glucose >=1000 mg/dL (Negative) H 02/19/20 22:13 COVID-19 PCR Negative (Negative) 02/19/20 23:17 Nasopharyn COVID-19 PCR Not Applicable 02/19/20 23:17 Ref Test Perform Site [facility] 02/19/20 23:17 Venous doppler RLE: No deep venous thrombus demonstrated in the right lower extremity.
--- NOTE | 2020-02-21 10:40 | WOUNDCONS_ITS ---
- If Service Date Differs Date of service: 02/21/20 Time of Service: 10:41 Wound Initial Evaluation Narrative: Pt consulted for pressure injury on right buttocks. Agreeable to be seen. Chart reviewed including relevant labs, notes, H&P. Pt reports having sore on her buttocks for about 2 or 3 weeks. States she sits alot at home and hasn't been moving very well. Barbara wound skin is purple, non-blanchable. small open area in center of purple/reddened area, epithelial tissue noted on wound edges. ? folliculitis @ 1100. Pt on PO abx, no topical abx recommended @ this time. Reports pain associated w/wound, tylenol and morphine ordered. Will consider using a hydrogel if oral analgesics not effective at relieving Pt's pain. Nursing staff requested to monitor. Spent significant time, 15 minuets, educating Pt on importance of relieving pressure on PI area. Discussed shifting weight Q15 mins while in chair. Also discussed nutrition element in wound healing, Pt is a diabetic and wound benefit from a nutrition consult to go into further detail on protein, calorie, and f luid intake amounts specific for her. Consent obtained, photograph taken. - Wound Right Buttocks Wound Type: Pressure Ulcer Pressure Ulcer Stage: II (partial thickness skin loss, pink wound bed, painful) Wound General Appearance: Reddened Wound Bed Greatest Portion: Red (Granulation) Wound Surrounding Tissue Appearance: Purple Wound Length: 5 cm Wound Width: 3 cm Wound Depth: 0.1 cm Wound Drainage Amount: Minimal Wound Drainage Odor: None/Absent Wound Drainage Description: Serous - Circulation, Sensation, Motion Sensation Description: Pain (Pt c/o pain 6/10 on buttocks wound. Reports it feels better today than it has in 2 weeks) Skin Temperature: Warm - DONNA Comment:: not obtained - Pain Pain Level: 6 Pain Scale Used: Adult Pain Description: Burning, Acute Pain Duration/Frequency: Intermittent - Treatment/Dressing Change Topicals/Ointments: None Cleanse With: Saline Dressing Types: Foam - Recomendation Recomendation:: Cleanse wound w/NS, Pat dry. Apply sacral foam w/border, change every 3 days and PRN. Notify MD of any wound deterioration. Thank you for the consult. Physcian/Nurse Practioner Notified: Yes (Dr. Augustine notified) Referrals: Dietary (for wound healing)
[2020-02-21 10:53] LABS: C-Reactive Protein 16.97 mg/dL (0.0-0.3)
[2020-02-21] MEDS: VANCOMYCIN 1,000 MG in Normal Saline 250 ML 166.667 MG IVPB (11:10)
[2020-02-21 11:13] LABS: NT-proBNP 5348 pg/mL (<300)
--- NOTE | 2020-02-21 12:03 | PTTR_ITS ---
Date of service: 02/21/20 Time of Service: 11:20 PT Notes Visit Reasons: RENAL MASS,UTI,DEHYDRATION,RT LEG SWELLING,SACRAL Inpatient Physical Therapy Treatment Note [facility] Date: 02/21/20 PRECAUTIONS:fall, standard SUBJECTIVE: Kizzy initially declines PT this am. On second attempt, she is agreeable to walking. States that her right calf continues to be bothersome, and that her back hurts if she walks for too long. She is apprehensive about overdoing it today. OBJECTIVE: BED MOBILITY/TRANSFERS Sit-stand: supervision Stand-sit: supervision Bed-Chair: CGA with FWW Chair-bed: CGA with FWW GAIT Assistive Device: FWW Weight bearing: full Assist: CGA Distance: 30' Deviation: slow, shuffling gait pattern, with heavy reliance on UE support to FWW THEREX: Initiated closed chain strengthening, with patient completing sit<- >stand x 2 reps, with need for rest period between reps. She demonstrates VALVERDE and reports significant fatigue. She is unable to continue with further therex activities. STAIRS:unable ASSESSMENT: Limited activity tolerance, although improved independence versus her session yesterday. PLAN: Continue 1-2x/day for progressive strengthening and cardiovascular activity. TREATMENT CODE/TIME: 11:20-11:50 ([id number]) Leslie Ennis, PT, DPT [facility]
[2020-02-21 12:41] LABS: Procalcitonin 1.6 ng/mL
--- NOTE | 2020-02-21 12:46 | W.INDIABCONS ---
Date of service: 02/21/20 Time of Service: 12:46 Diabetes Inpatient Consult DESCRIPTION/ASSESSMENT: 75 year old female admitted with cellulitis, UTI, sepsis, stage 2 pressure wound on buttocks, acute kidney insufficiency, DM2, renal mass. BMI 38 indicates class 2 obesity. Home medications include NPH 50 units SQ at HS. Recent A1C 9.8% (02/20/20) indicating poor diabetes control. FS in house ranging from 106-167 mg/dl in last couple of days. Following Diabetic Diet with >75% intake at most meals. Met with Kizzy today and she reports n/v x 3 weeks with poor intake. reports that she sits in her electric chair most of day and is aware that her sugars have been running high. She was not very receptive to Diabetic Education as she said she has had DM x 30 years and is tired about hearing about it. Estimated Needs: [id number] kcal, 60-70 g protein. INTERVENTION: INTERVENTION: Provided education on DM including Hyper/hypoglycemia s/s with action plan for each scenario. Definition and types of CHO with examples, CHO counting, DASH diet materials, DM meal planning and label reading literature. Provided a blood sugar and food record chart and materials to reiterate CHO counting techniquesl. Reviewed desirable BG levels with patient with food choices and portions for optimal outcomes. Provided contact information for this RD and encouraged her to call with any f/u questions r/t to DM self management. CDM from kitchen has been helping Kizzy to count her CHO's and achieve intake of ~65g/CHO per meal period. Also educated Kizzy on importance of following a balanced diet with adequate protein intake to avoid skin breakdown in future. PLAN: Kizzy will follow up with commercial insurance underwriter when d/c home for Diabetes Self Management Time Spent in Nutritional Counseling and Treatment: 15 minutes
--- NOTE | 2020-02-21 14:21 | CHAPLAIN ---
Kizzy was sitting up in her chair when I visited and easily engaged in conversation. Her is the pressure sealer and tester of the [facility]. The pentecostalism is just getting back to meeting in person this week. Kizzy said her and daughter, Claudia Saavedra, are very concerned about her and disappointed that the can't visit her and offer support in person. Kizzy said she may be facing a cancer diagnosis and her feels he's abandoned her but she has tried to reassure him that she is okay. I will continue to visit. I left with PT arrived to work with Kizzy.
--- NOTE | 2020-02-21 17:11 | CMPROGNOTE_ITS ---
- If Service Date Differs Date of service: 02/21/20 Time of Service: 17:11 Care Management Progress Note S/O: Kizzy was sleeping when CM attempted to meet with her. CM coordinated a Palliative Care consult late this afternoon with Dr. Carbajal. Her and daughter both requested to be present via conference call for this meeting. CM will continue to follow. A: Kizzy is a 75 year old female admitted to [facility] on 02/19/20 with a left renal mass. P: Kizzy will likely be discharged home with new home health services for nursing and PT. It is possible she may need to go to a tertiary care facility for an Oncological workup, although this will probably be completed on an outpatient basis.Kizzy will follow up with her PCP and discharge plan of care. CM to continue to support patient and family and assess for discharge planning needs.
--- NOTE | 2020-02-21 21:04 | PCNE_ITS ---
Date of service: 02/21/20 Time of Service: 17:04 History of Present Illness Narrative: From H and P History of Present Illness History of Present Illness Chief Complaint: malaise, diarrhea, chest pain, right leg pain Narrative: 75-year-old female with poorly controlled type 2 diabetes on insulin and a history of coronary artery disease who presented with 3-week history of generalized fatigue and malaise. Over the past 1 to 2 weeks she has developed increasing substernal chest pain and right leg pain and swelling. Is sharp and constant and substernal slightly to the left side. Does not radiate. She does feel more short of breath on exertion, but not at rest. She has some chronic cough, but this is not new. No change in sputum hemoptysis. She denies feeling feverish or chills. She has had poor appetite felt constantly nauseous. No vomiting. She also complains of loose stools, though she is only having 1 bowel movement a day. She has had difficulty controlling her blood sugars during this time despite use of insulin. Kizzy asked that I speak with her daughter Claudia at the same time as she. Claudia was placed on speaker phone during this conversation. Kizzy states that she is actually quite exhausted from a day filled with tests and meeting new people. She feels that she needs some alone time to process things. I offered to come back another time but she wanted to speak with me. She understands that she has a complex decision to make and feels that talking it through in getting clarity on it would be helpful. Her big dilemma is that she know she has some sort of a renal mass. To her mass means cancer. 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 Phillips and Dr. Sawyer. Because of her success with their care of her she has very much so wanted to be taken care of by these 2 urologist. Unfortunately they are both out of state at this time. Her big dilemma is not what needs to be done but who should do it and where should it be done. She did not have good visits in the past at [facility]. She did meet with Dr. Nichols. Dr. Nichols impressed her and she feels very comfortable with him. He is going to get back to her regarding her previous surgeries. She states that the most important thing for her is family. We both agree that she needs to have a biopsy before she can start thinking and planning for the future. Consults Consult date: 02/21/20 Requesting physician: Hillary Augustine Assessment and Plan Assessment and plan (1) Acute renal insufficiency: Status: Resolved (2) Renal mass, left: Status: Acute (3) Palliative care patient: Status: Acute Assessment and plan: Discussion regarding her left renal mass, previous history of left kidney surgery and the necessity of a renal biopsy to determine if the renal mass is cancer vs scar tissue. We also discussed the importance of priorities in her life. Although her daughter Claudia could join us by speaker phone, her was not able to join us. Kizzy wants to discuss the medical facts with him to better clarify her priorities, etc. She would like me to visit again soon. Hopefully we will know the results of t he renal mass biopsy. Thnak you for this consult. Kizzy did request less interactions tomorrow. She would like to hold off on further physical therapy until her illness is better defined. She needs alone time. I will cancel further PT sessions at this time based on her request. (due to the time of my consult, I did not discuss this with the Hospitalist, but will in the AM) I have spent more than 50% of time in counseling with this patient. This document was created by [employer] software. Content was screened for misspellings, grammatical mistakes, etc. I apologize for any problems, but please contact me for further clarification if needed. Review of Systems Narrative: She states she is exhausted. She feels very weak. She does not feel nauseous at this time. She is confused and perplexed by all of which she is heard lately. She is not having chest pain at this time. She does have some abdominal pain. 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 Grandfather No problems noted. Grandmother Diabetes Grandmother No problems noted. Daughter No problems noted. 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 Very cooperative. Interested in explaining to me her reasoning. Emphasized how important it was for her to talk with her family about all of the testing etc. and then to help make a good decision concerning follow-up. Resp Effort & Inspection: normal respiratory effort and able to speak in complete sentences Auscultation: crackles Cardio Rhythm: regular rhythm Heart Sounds: murmur GI Palpation: guarding Psych Other: Exam(s) a CT:CT chest PE abd & pelvis w EXAM: CT CHEST PE ABD PELVIS W CLINICAL HISTORY: SOB, chest pain w/ abd pain TECHNIQUE: Imaging Protocol: Axial computed tomography images with coronal and sagittal reformatted images were created and reviewed CONTRAST MATERIAL: Intravenous: Omnipaque 350 Contrast volume:100 mL Oral: No COMPARISON: CT CHEST FOR PULMONARY EMBOLUS from 03/17/2016 FINDINGS: Patient motion artifact. CHEST: Tracheobronchial tree: Patent where visualized. Mediastinum and Charissa: No dominant adenopathy or fluid collection. Pulmonary parenchyma: No consolidation or dominant measurable mass. No architectural distortion. Pleura: No effusion or pneumothorax. Heart: The heart is not dilated. Moderate coronary artery calcification. No pericardial effusion. Pulmonary arteries: No evidence of pulmonary embolus. Aorta: Thoracic aorta is ectatic up to 3.4 cm in the ascending aorta. No evidence of aneurysm or dissection. Lymph nodes: Within normal limits. Bones:Sternotomy sutures are present. Bones are demineralized which does limit evaluation for lytic bony metastases. ABDOMEN: Liver: There is a subcentimeter hypodense lesion in the superior aspect of the anterior segment of the right lobe of the liver. No measurable mass. Portal, Superior Mesenteric, and Splenic Veins: Unremarkable. Gallbladder and Biliary Tract: Status post cholecystectomy. Minimal pneumobilia. No biliary ductal dilatation. Pancreas: Normal density, no abnormal calcifications or inflammatory process. Spleen: Please see the kidney section. Adrenals: No masses seen. Kidneys: The right kidney is unremarkable except for 2 nonobstructing stones in the mid and lower poles. The largest measures 0.8 cm. The left kidney is partially atrophic with a nonobstructing stone. There is a cystic and solid mass in the upper and mid pole of the left kidney measuring 7.5 x 5.5 x 5.2 cm. Mass shows extension into the inferior spleen. It also appears to contact the posterior abdominal wall. There are areas of decreased attenuation in the spleen suspicious for metastatic disease. Abdominal Aorta: Abdominal portion non-dilated. Atherosclerosis. Bowel: No obstruction or bowel wall thickening. Appendix is unremarkable. Peritoneal Cavity: No ascites, collection or mesenteric inflammatory response. Lymph Nodes: Mildly in there are enlarged lymph nodes seen in the left periaortic region. The largest measures 1 cm in short axis diameter. Bones: No suspicious lytic or sclerotic lesions are present. Multilevel degenerative changes are present throughout the spine. Soft Tissues: Unremarkable. PELVIS: Bladder: Symmetric distention, no gross wall thickening. Reproductive Organs: Status post hysterectomy. Lymph Nodes: Please see above. Bones: Please see above. IMPRESSION: 1. Complex left renal mass with extension into the spleen in the surrounding fat. Findings suspicious for primary renal neoplasm. 2. Subcentimeter hypodensity in the left lobe of the liver is too small for further characterization. Follow-up may include an MRI if clinically indicated. 3. Mildly enlarged lymph nodes in the abdomen and pelvis as described. 4. No evidence of pulmonary embolism, thoracic aortic dissection or aneurysm. 5. No pulmonary nodules. Results Last Vital Signs Temp 96.8 F L 02/21/20 16:02 Pulse 97 H 02/21/20 19:32 Resp 20 02/21/20 16:02 BP 114/67 02/21/20 19:32 Pulse Ox 92 L 02/21/20 16:02 Labs Result diagrams: 02/22/20 06:50 02/22/20 06:50 Labs: Laboratory Results - last 24 hr 02/21/20 02/21/20 02/21/20 06:20 06:20 12:00 WBC 18.07 H RBC 4.78 Hgb 12.5 Hct 39.0 MCV 81.6 MCH 26.2 L MCHC 32.1 RDW 16.5 H Plt Count 225 MPV 10.1 Immature Gran % 0.7 Neutrophils % 84.1 Lymphocytes % 6.2 Monocytes % 7.7 Eosinophils % 1.1 Basophils % 0.2 Absolute Neutrophils 15.20 H Absolute Lymphocytes 1.12 L Absolute Monocytes 1.39 H Absolute Eosinophils 0.20 Absolute Basophils 0.04 Sodium 139 Potassium 3.3 L Chloride 105 Carbon Dioxide 27.7 Anion Gap 6.3 BUN 9 Creatinine 1.07 H Estimated GFR/1.73 m2 50.27 Glucose 114 H D Calcium 8.2 L Magnesium 1.8 C-Reactive Protein 16.97 H NT-Pro-B Natriuret Pep 5348 H Procalcitonin 1.6
[2020-02-21] MEDS: cefTRIAXone 1 GM/50 ML BAG IVPB (21:29)
[2020-02-21] MEDS: Insulin Glargine 300 UNITS/3 ML PEN 35 UNITS SC (21:30)
[2020-02-22] VITALS (8 sets, daily range): BP systolic 101–124; BP diastolic 62–73; PULSE 79–102; RESP 19–32; TEMP 36.9–37.1; O2SAT 91–96
[2020-02-22] MEDS: VANCOMYCIN 1,000 MG in Normal Saline 250 ML 250 MG IV ×2 (00:21→14:32)
[2020-02-22] MEDS: Normal Saline Flush 10 ML SYR IVP ×3 (06:02→20:37)
--- NOTE | 2020-02-22 06:47 | UCONE_ITS ---
Date of service: 02/21/20 Time of Service: 15:48 Assessment and Plan Assessment and plan (1) Renal mass, left: Status: Acute Assessment and plan: This mass will certainly need to be biopsied by interventional radiology. Her prognosis and follow-up will absolutely depend on her pathology. I would suggest that our images be pushed down to [facility] so that the interventional radiologist can review them and weigh in on the biopsy option. I guess there is a possibility that the mass could be associated with her left renal surgery in the past. I cannot exactly make a connection between an upper pole heminephrectomy and a mass that now seems to extend into the spleen however. Her biopsy will not be able to be accomplished until she can safely be removed from anticoagulants. I will attempt to get a hold of her records from [facility], but I do not think the records will change our recommendation of a biopsy. History of Present Illness History of Present Illness Chief Complaint: Left renal mass Narrative: This is a 75-year-old woman who previously received her urologic care over at [facility]. 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 She describes an open surgery which I suspect was an upper pole heminephrectomy. She tells me the surgery was quite difficult and that there was a large amount of scar tissue involved. I do not have the specific records of the surgery. She was admitted to our hospital with. A CT scan of the abdomen and pelvis demonstrated a left renal mass with possible involvement of the spleen. The patient tells me that she feels bad and has felt this way for months. She does not have any specific flank pain, she just hurts all over. She has not seen any gross hematuria. She does have weakness and nausea. Review of Systems Constitutional Constitutional: Reports lethargy and Reports weakness Cardiovascular Cardiovascular: Denies irregular heart rhythm Respiratory Respiratory: Denies cough and Denies hemoptysis Gastrointestinal Gastrointestinal: Reports abdominal pain and Reports nausea Neurologic Neurologic: Denies convulsions and Reports weakness [facility] Medical History (Updated 02/21/20 @ 21:06 by Lisset Carbajal MD, DC) Allergic rhinitis ASCVD (arteriosclerotic cardiovascular disease) Chronic cough (Chronic) Diabetic neuropathy DM type 2 causing complication Essential hypertension [place] (myocardial infarction) Pyelonephritis Surgical History Abdominal hysterectomy 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 LANDEROS Cholecystectomy lap Coronary Artery Bypass Gaft (CABG) [place] [facility] [facility] Oophrectomy, Both Repair of bifurcated ureter of left kidney Shoulder replacement Stent placement WITH 2 [place] Family History Mother Personal history of malignant neoplasm LUNG Father Personal history of malignant neoplasm LUNG Sister Personal history of malignant neoplasm BREAST Grandfather No problems noted. Grandfather No problems noted. Grandmother Diabetes Grandmother No problems noted. Daughter No problems noted. Social History (Updated 02/20/20 @ 00:39 by Ortiz Orlando) Smoking/Tobacco Use Status: Never Alcohol Intake: never Drug use: Never Substance use type: does not use Household members: other Details: 2 What type of physical activity do you participate in: none Do you feel safe at home: Yes Do you feel safe in your relationship?: Yes Additional Social history: Originally from [place], lives in her 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 There is a mass arising from the upper pole of the left kidney. The mass does have solid characteristics. I do not actually see any surrounding surgical clips from her previously described left renal surgery. The only comparison films I can find are a renal ultrasound in August 2018. The left kidney was normal at that time. Results Last Vital Signs Temp 37.4 C 02/21/20 23:18 Pulse 92 H 02/21/20 23:18 Resp 18 02/21/20 23:18 BP 129/72 02/21/20 23:18 Pulse Ox 91 L 02/21/20 23:18 Labs Result diagrams: 02/21/20 06:20 02/21/20 06:20 Labs: Laboratory Results - last 24 hr 02/21/20 02/21/20 02/21/20 06:20 06:20 12:00 WBC 18.07 H RBC 4.78 Hgb 12.5 Hct 39.0 MCV 81.6 MCH 26.2 L MCHC 32.1 RDW 16.5 H Plt Count 225 MPV 10.1 Immature Gran % 0.7 Neutrophils % 84.1 Lymphocytes % 6.2 Monocytes % 7.7 Eosinophils % 1.1 Basophils % 0.2 Absolute Neutrophils 15.20 H Absolute Lymphocytes 1.12 L Absolute Monocytes 1.39 H Absolute Eosinophils 0.20 Absolute Basophils 0.04 Sodium 139 Potassium 3.3 L Chloride 105 Carbon Dioxide 27.7 Anion Gap 6.3 BUN 9 Creatinine 1.07 H Estimated GFR/1.73 m2 50.27 Glucose 114 H D Calcium 8.2 L Magnesium 1.8 C-Reactive Protein 16.97 H NT-Pro-B Natriuret Pep 5348 H Procalcitonin 1.6
[2020-02-22 07:04] LABS: Abs Immature Grans 0.08 k/cumm (0.0-0.09); HGB 10.8 g/dL (12.0-15.5); Mean Corp. HGB Concentration 31.8 g/dL (32.0-36.0); Mean Corpuscular Hemoglobin 26.1 pg (27.0-33.0); Mean Corpuscular Volume 82.1 fL (80-95); Mean Platelet Volume 10.6 fL (8.0-11.0); Platelet Count 275 x1000/uL (130-400); RBC 4.14 m/cumm (4.00-5.20); RBC Distribution Width 16.9 % (11.7-14.6); White Blood Cell Count 14.78 k/cumm (4.4-10.8)
[2020-02-22 07:12] LABS: Anion Gap 7.3 mmol/L (3-11); BUN 12 mg/dL (7-18); CO2 25.7 mmol/L (21.0-32.0); Calcium 8.1 mg/dL (8.5-10.1); Chloride 105 mmol/L (98-107); Estimated GFR 48.69 (mL/min/1.73m2); Glucose 133 mg/dL (74-106); Magnesium 1.8 mg/dL (1.8-2.4); Potassium 3.6 mmol/L (3.5-5.1); Sodium 138 mmol/L (136-145)
[2020-02-22] MEDS: Bisacodyl 5 MG TABEC PO (07:42)
[2020-02-22] MEDS: Acetaminophen 325 MG TAB PO ×3 (07:42→22:52)
[2020-02-22 07:49] LABS: Absolute Lymphocyte Count 1.48 k/cumm (1.2-3.4); Absolute Monocyte Count 0.89 k/cumm (0.11-0.7); Absolute Neutrophil Count 12.42 k/cumm (1.2-6.7); Anisocytosis 1+; Atypical Lymphocytes % 0; Diff Comment Manual Differential
[2020-02-22 07:50] LABS: Poikilocytes 1+
--- NOTE | 2020-02-22 07:51 | PGE_ITS ---
Date of Service Date of service: 02/22/20 Time of Service: 07:29 Assessment and Plan Assessment and plan (1) Renal mass, left: Status: Acute Assessment and plan: We again discussed that she will need to have them biopsied by an interventional radiologist and that she will need to be off her anticoagulants before the biopsy can be accomplished. In the meantime, I will try to obtain her urologic records from [facility]. I will also have her films pushed down to [facility] so that the interventional radiologists have access to these films. Subjective Subjective Interval history since last seen: She tells me she slept better as her pain was under better control. Exam Narrative Exam Narrative: She is less lethargic than last evening She does not appear septic or toxic She is awake and alert Objective Objective Clinical Data: Abnormal lab results 02/21/20 02/22/20 02/22/20 Range/Units :20 06:50 06:50 WBC 14.78 H (4.4-10.8) k/cumm Hgb 10.8 L (12.0-15.5) g/dL Hct 34.0 L (36.0-46.0) % MCH 26.1 L (27.0-33.0) pg MCHC 31.8 L (32.0-36.0) g/dL RDW 16.9 H (11.7-14.6) % Absolute Neutrophils 12.42 H (1.2-6.7) k/cumm Absolute Monocytes 0.89 H (0.11-0.7) k/cumm Potassium 3.3 L (3.5-5.1) mmol/L Creatinine 1.07 H 1.10 H (0.55-1.02) mg/dL Glucose 114 H D 133 H (74-106) mg/dL Calcium 8.2 L 8.1 L (8.5-10.1) mg/dL C-Reactive Protein 16.97 H (0.0-0.3) mg/dL NT-Pro-B Natriuret Pep 5348 H (<300) pg/mL Vital Signs Temperature 37.1 C 02/22/20 07:21 Temperature Source Tympanic 02/22/20 07:21 Pulse 95 H 02/22/20 07:21 Pulse Rhythm Regular 02/22/20 00:00 Pulse 92 H 02/19/20 23:00 Respiratory Rate 32 H 02/22/20 07:21 Respiratory Effort 02/22/20 00:00 Respiratory Depth Normal 02/21/20 19:40 Respiratory Pattern Tachypnea 02/22/20 00:00 Blood Pressure 124/73 02/22/20 07:21 Blood Pressure Mean 63 02/19/20 23:00 Blood Pressure Position Supine 02/19/20 17:27 Pulse Oximetry 94 L 02/22/20 07:48 Oxygen Delivery Method Nasal Cannula 02/22/20 07:48 Oxygen Flow Rate 2 02/22/20 07:48 Pain Level 4 02/22/20 07:42 Comment 2L NC started 02/22/20 07:21 Intake & Output 02/21/20 02/21/20 02/22/20 11:59 23:59 11:59 Intake Total 1390 / 1760 370 / 1760 350 / 350 Output Total 900 / 1100 200 / 1100 Balance 490 / 660 170 / 660 350 / 350 Weight 100.3 kg 101 kg Intake: IV 1050 / 1300 250 / 1300 250 / 250 Oral 340 / 460 120 / 460 100 / 100 Output: Urine 900 / 1100 200 / 1100 Other: Urine Color Yellow Dark Sudha Straw Urine Appearance Clear Clear Clear Urine Odor Normal Comment voided on the bed pad. Voiding Methods Bedside Commode Bedside Commode Incontinent Laboratory Results WBC 14.78 k/cumm (4.4-10.8) H 02/22/20 06:50 RBC 4.14 m/cumm (4.00-5.20) 02/22/20 06:50 Hgb 10.8 g/dL (12.0-15.5) L 02/22/20 06:50 Hct 34.0 % (36.0-46.0) L 02/22/20 06:50 MCV 82.1 fL (80-95) 02/22/20 06:50 MCH 26.1 pg (27.0-33.0) L 02/22/20 06:50 MCHC 31.8 g/dL (32.0-36.0) L 02/22/20 06:50 RDW 16.9 % (11.7-14.6) H 02/22/20 06:50 Plt Count 275 x1000/uL (130-400) 02/22/20 06:50 MPV 10.6 fL (8.0-11.0) 02/22/20 06:50 Immature Gran % See Differential 02/22/20 06:50 Neutrophils % 84.0 02/22/20 06:50 Band Neutrophils % 0.0 % 02/22/20 06:50 Lymphocytes % 10.0 02/22/20 06:50 Atypical Lymphs % 0 02/22/20 06:50 Monocytes % 6.0 02/22/20 06:50 Eosinophils % 0.0 02/22/20 06:50 Basophils % 0.0 02/22/20 06:50 Absolute Neutrophils 12.42 k/cumm (1.2-6.7) H 02/22/20 06:50 Absolute Lymphocytes 1.48 k/cumm (1.2-3.4) 02/22/20 06:50 Absolute Monocytes 0.89 k/cumm (0.11-0.7) H 02/22/20 06:50 Absolute Eosinophils 0.00 k/cumm (0.0-0.7) 02/22/20 06:50 Absolute Basophils 0.00 k/cumm (0.0-0.2) 02/22/20 06:50 Differential Comment Manual differential 02/22/20 06:50 RBC Morphology See below 02/22/20 06:50 Poikilocytosis 1+ 02/22/20 06:50 Anisocytosis 1+ 02/22/20 06:50 D-Dimer 2673 ng/mlFEU (<500) H 02/19/20 20:30 Sodium 138 mmol/L (136-145) 02/22/20 06:50 Potassium 3.6 mmol/L (3.5-5.1) 02/22/20 06:50 Chloride 105 mmol/L (98-107) 02/22/20 06:50 Carbon Dioxide 25.7 mmol/L (21.0-32.0) 02/22/20 06:50 Anion Gap 7.3 mmol/L (3-11) 02/22/20 06:50 BUN 12 mg/dL (7-18) 02/22/20 06:50 Creatinine 1.10 mg/dL (0.55-1.02) H 02/22/20 06:50 Estimated GFR/1.73 m2 48.69 (mL/min/1.73m2) 02/22/20 06:50 Glucose 133 mg/dL (74-106) H 02/22/20 06:50 Hemoglobin A1c 9.8 % (3.8-5.6) H 02/20/20 07:05 Lactate 1.7 mmol/L (0.6-1.4) H 02/19/20 20:30 Calcium 8.1 mg/dL (8.5-10.1) L 02/22/20 06:50 Magnesium 1.8 mg/dL (1.8-2.4) 02/22/20 06:50 Iron 14 ug/dL (50-170) L 02/20/20 07:05 TIBC 141 ug/dL (250-450) L 02/20/20 07:05 Transferrin % Sat 10 % (15-50) L 02/20/20 07:05 Ferritin 823 ng/mL (8-252) H 02/20/20 07:05 Total Bilirubin 1.1 mg/dL (0.2-1.0) H 02/20/20 07:05 AST 36 U/L (15-37) 02/20/20 07:05 ALT 40 U/L (14-59) 02/20/20 07:05 Alkaline Phosphatase 176 U/L (46-116) H 02/20/20 07:05 Creatine Kinase 16 U/L (26-192) L 02/20/20 07:05 Troponin I Cancelled 02/19/20 23:34 C-Reactive Protein 16.97 mg/dL (0.0-0.3) H 02/21/20 06:20 NT-Pro-B Natriuret Pep 5348 pg/mL (<300) H 02/21/20 06:20 Total Protein 7.0 g/dL (6.4-8.2) 02/20/20 07:05 Albumin 1.9 g/dL (3.4-5.0) L 02/20/20 07:05 Lipase 93 U/L (73-393) 02/19/20 20:30 Procalcitonin 1.6 ng/mL 02/21/20 12:00 Urine Color Yellow (Yellow) 02/19/20 22:13 Urine Clarity Clear (Clear) 02/19/20 22:13 Urine pH 5.5 (5-8) 02/19/20 22:13 Ur Specific [place] 1.015 (1.005-1.025) 02/19/20 22:13 Urine Protein 100 mg/dL (Negative) H 02/19/20 22:13 Urine Ketones 40 mg/dL (Negative) H 02/19/20 22:13 Urine Blood Small (Negative) H 02/19/20 22:13 Urine Nitrite Positive (Negative) H 02/19/20 22:13 Urine Bilirubin Negative (Negative) 02/19/20 22:13 Urine Urobilinogen 1.0 EU/dL (Up TO 0.2) H 02/19/20 22:13 Ur Leukocyte Esterase Trace (Negative) H 02/19/20 22:13 Urine RBC 5-10 HPF (0-2) H 02/19/20 22:13 Urine WBC >50 HPF (0-5) H 02/19/20 22:13 Ur Epithelial Cells Few HPF (Negative) 02/19/20 22:13 Urine Crystals Negative HPF (Negative) 02/19/20 22:13 Urine Bacteria Moderate HPF (Negative) 02/19/20 22:13 Urine Casts Negative LPF (Negative) 02/19/20 22:13 Urine Mucus Negative (Negative) 02/19/20 22:13 Ur Culture Indicated? C&s done as ordered 02/19/20 22:13 Urine Glucose >=1000 mg/dL (Negative) H 02/19/20 22:13 COVID-19 PCR Negative (Negative) 02/19/20 23:17 Nasopharyn COVID-19 PCR Not Applicable 02/19/20 23:17 Ref Test Perform Site [facility] 02/19/20 23:17
[2020-02-22] MEDS: Atorvastatin 40 MG TAB PO (08:15)
[2020-02-22] MEDS: Aspirin E.C. 81 MG TABEC PO (08:15)
[2020-02-22] MEDS: Cetirizine 10 MG TAB PO (08:15)
[2020-02-22] MEDS: Docusate Sodium 100 MG CAP PO ×2 (08:15→20:06)
[2020-02-22] MEDS: Metoprolol 50 MG TAB PO ×2 (08:16→20:06)
[2020-02-22] MEDS: Insulin Aspart 300 UNITS/3 ML PEN 10 UNITS SC ×2 (08:51→11:55)
[2020-02-22] MEDS: Enoxaparin 40 MG/0.4 ML SYR SC (08:52)
--- NOTE | 2020-02-22 09:07 | DI.US_ITS ---
APPROVED REPORT EXAM: Comprehensive 2D, Doppler, and color-flow Echocardiogram Patient Location: In-Patient Room/Bed: 207A Assessment Services Manager: Le Richardson RDCS (AE) Other Information Study Quality: Fair Conclusion Left Ventricle : The left ventricle is normal size. The left ventricular systolic function is normal. The left ventricular ejection fraction is within the normal range. There is normal left ventricular wall thickness. There is normal LV segmental wall motion. The left ventricular diastolic function is normal. LVEF is 45%. Right Ventricle : Right ventricle is not well visualized. Right ventricular systolic function could n ot be assessed. Atria : The left atrium size is normal. The right atrium size is normal. Valves: There are no hemodynamically significant valvular lesions. There are no valvular vegetations visualized. Great Vessels : IVC is normal in size and collapses >50% with inspiration. Please see remainder of report for additional details. There is no prior echocardiographic images available for comparison. Wall motion Left Ventricle The left ventricle is normal size. The left ventricular systolic function is normal. The left ventric ular ejection fraction is within the normal range. There is normal left ventricular wall thickness. T here is normal LV segmental wall motion. The left ventricular diastolic function is normal. There is no ventricular septal defect visualized. LVEF is 45%. Right Ventricle Right ventricle is not well visualized. Right ventricular systolic function could not be assessed. Atria The left atrium size is normal. The right atrium size is normal. Aortic Valve The Aortic valve is thickened and sclerotic. Aortic valve is trileaflet. There is no aortic valvular stenosis. No aortic regurgitation is present. There is no aortic valvular vegetation. Mitral Valve There is mitral annular calcification. No evidence of mitral valve stenosis. Trace mitral regurgitati on. There is no evidence of mitral valve vegetations. Tricuspid Valve The tricuspid valve is normal in structure. There is no tricuspid valve stenosis. Trace tricuspid reg urgitation. There is no tricuspid valve vegetations. Pulmonic Valve The pulmonary valve is normal in structure. There is no pulmonic valvular stenosis. There is no pulmo connor valvular regurgitation. There is no pulmonic valve vegetations. Great Vessels The aortic root is normal in size. Ascending aorta is normal in caliber. IVC is normal in size and co llapses >50% with inspiration. Pericardium There is no pericardial effusion. There is no pleural effusion. 2D Dimensions IVSD d PLAX 0.93 cm F: 0.6-1.0 LV Vol A2C d MOD 96.8 mL LVPW d PLAX 0.90 cm F: 0.6 - 1.0 LV Vol A4C d MOD 88.6 mL LVID d PLAX 4.17 cm F: 3.8 - 5.2 LA vol/ BSA A2C s A-L 19.3 mL/m2 LVDs 3.20 cm F: 2.2 - 3.5 LA vol/ BSA A4C s A-L 17.3 mL/m2 Ao Root d 2.83 cm F: 2.7 - 3.3 LA Vol/ BSA Biplane s A-L 19.2 mL/m2 RA Area A4C 14.12 cm2 LA Area A4C s MOD 13.79 cm2 RA Vol/ BSA A4C s A-L 15.9 mL/m2 LA Area A2C s MOD 15.33 cm2 Ao Asc Diam d 3.12 cm F: 2.3 - 3.1 LV EF A4C MOD 45.1 % LV EF Teichholz 45.7 % LV EF A2C MOD 45.9 % LVEF (Vides's) 45.32 % F: 54 - 74 LV EF Biplane MOD 45.3 % LV Volume 69.83 mL F: 46 - 106 SV 42.50 mL LV Volume Index 34.23 mL/m2 F: 29 - 61 SV Index 20.79 mL/m2 LV Vol Biplane MOD 93.8 mL FS 22.50 % M-Mode TAPSE 1.71 cm (M/F) >1.7 LV Diastology MV E' medial 0.080 (>0.07 m/s) E/A Ratio 0.9 LV E/e MED 9.80 (<14) MV E Vmax 0.79 (0.4-1.3 m/s) MV E' lateral 0.112 (>0.1 m/s) MV A Vmax 0.85 (0.4-1.3 m/s) LV E/e LAT 7.00 (<14) MV E/A Ratio 0.89 MV E/E' medial 9.85 MV E/E' lateral 7.04 Aortic Valve LVOT Area 2.91 cm2 AoV Area Vmax 2.25 cm2 LVOT Vmax 1.05 m/s AoV Area/ BSA (Vmax) 1.10 cm2/m2 LVOT Mean Edward. 0.72 m/s SHAUNA Mean Edward. 2.17 cm2 LVOT Peak Grad 4.4 mmHg SHAUNA Mean Edward. Index 1.06 cm2/m2 LVOT Mean Grad 2.4 mmHg LVOT VTI 0.210 m LVOT Diam s 1.90 cm AoV Vmax 1.36 m/s Velocity Ratio 0.77 AoV Mean Edward. 0.97 m/s AoV Peak Grad 7.4 mmHg LVOT SV 61.13 mL AoV Mean Grad 4.1 mmHg AoV VTI 0.256 m AoV Area VTI 2.38 cm2 AoV Area/ BSA (VTI) 1.17 cm/m2 Mitral Valve MV DT 189 (160-240 msec) MV PHT 55 msec MV Area PHT 4.01 cm2 Pulmonary Valve PV Vmax 1.13 (0.5-1.5 m/s) RVOT Peak Gr. 3.75 mmHg PV Peak Grad 5.1 mmHg RVOT Mean Gr. 1.60 mmHg PV Mean Grad 2.5 mmHg RVOT VTI 0.159 m PV VTI 0.182 m RVOT Vmax 0.97 m/s Tricuspid Valve TR Peak Grad 26.6 mmHg TR Vmax 2.58 m/s RA Pressure 3.00 mmHg RVSP (TR) 29.7 mmHg
--- NOTE | 2020-02-22 10:18 | NT_ITS ---
Date of service: 02/22/20 Time of Service: 10:15 PT Notes Visit Reasons: RENAL MASS,UTI,DEHYDRATION,RT LEG SWELLING,SACRAL 02/22/20 Patient refused PT session attempt. She states I don't know who ordered PT for me, but I talked to Dr. Phelps yesterday, and she agrees that I don't need it. When asked if she feels she is at her baseline level of function, she replied I am now. Patient agreed to allow therapist to return later on to reattempt offering PT services. Elsa Martínez, BUSINESS MACHINE OPERATOR
[2020-02-22] MEDS: Insulin Aspart 300 UNITS/3 ML PEN SC ×2 (11:55→21:53)
--- NOTE | 2020-02-22 12:46 | W.NUTRFU ---
Date of service: 02/22/20 Time of Service: 12:46 Nutritional Follow up NOTE: Met with Kizzy today again as po intake has been poor. She reports no appetite. Will start glucerna shakes TID to supplement po intake, also recommend liquid protein 1 oz TID for additional protein supplementation for optimal wound healing. At risk for nutritional decline. Will continue to follow. Time Spent in Nutritional Counseling and Treatment: 10
--- NOTE | 2020-02-22 13:47 | CHAPLAIN ---
Kizzy was wanting to rest when I stopped in this morning, after several visits from other staff. I will check in with her tomorrow. She had a Palliative Care consult with Dr. Carbajal yesterday, and Kizzy's daughter Claudia was on the phone for the conversation, but her was not able to be involved.
--- NOTE | 2020-02-22 14:08 | PDOC.CMPRO ---
- If Service Date Differs Date of service: 02/22/20 Time of Service: 14:08 Care Management Progress Note S/O: Kizzy was lying in bed when CM met with her. She reported that she was feeling very tired, as she was away from her room all morning having tests completed. She expressed concern about her possible bleak diagnosis of a renal mass that could be malignant. Per report, a biopsy will need to be performed to determine the diagnosis. She stated that she has some hope, as she had previous surgeries, which could have left scar tissue behind. She stated that she was very pleased with both Dr. Nichols and Dr. Carbajal who both met with her yesterday. She has had a previous bad [place] [facility] but she is agreeable to have continued workup at [facility] for the renal mass. She also expressed concern that her family cannot be here with her, due to Covid 19 regulations. She stated that she needs more time to process her diagnosis and to determine the next steps of her plan. CM will continue to follow. A: Kizzy is a 75 year old female admitted to [facility] on 02/19/20 with a left renal mass. P: Kizzy will likely be discharged home with new home health services for nursing and PT. It is possible she may need to go to a tertiary care facility for an Oncological workup, although this will probably be completed on an outpatient basis. Kizzy will follow up with her PCP and discharge plan of care. CM to continue to support patient and family and assess for discharge planning needs.
--- NOTE | 2020-02-22 15:19 | PGE_ITS ---
Date of Service Date of service: 02/22/20 Time of Service: 15:19 Assessment and Plan Assessment and plan (1) Sepsis: Status: Acute Assessment and plan: With staph aureus bacteremia - sensitivities are pending. 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 On vancomycin day 2, ceftriaxone day 4. Potential sources: intraabdominal process, UTI (does have GPCs on C&S in addition to klebseilla), cellulitis RLE. Also checking sputum c&S. Valves look good on echo. Continue current abx. Await sensitivities. I suspect she will need 4-6 weeks of IV abx once clears blood cultures, but will discuss with ID. Repeat blood cultures ordered. Trend CRP, procalcitonin. 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 I have spoken with [place] [facility] [place] of [place] - I expect that patient's bacteremia might delay this a bit, but we will try to solidify plan. So far, this does not appear to be an abscess. (4) UTI (urinary tract infection): Status: Acute Assessment and plan: Due to Klebsiella, Present on admission. Continue ceftriaxone today. Repeat UA - if negative, may be able to d/c. (5) Cellulitis of right lower extremity: Status: Acute Assessment and plan: DVT ruled out - but there was significant soft tissue edema c/w cellulitis on US. Continue vancomycin/ceftriaxone. 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 We will investigate resources in the community to help afford her medications. (7) ASCVD (arteriosclerotic cardiovascular disease): Status: Acute Assessment and plan: Continue asa, statin. No ACS on this admission - chest pain is likely noncardiac. (8) Anemia: Status: Chronic Assessment and plan: Like related to the renal cell process. Ferritin argues against iron deficiency - however, is a marker of inflammation. Still no hemoccult done because no BM. (9) Acute renal insufficiency: Status: Resolved Assessment and plan: Monitor off IVF. (10) Dehydration: Status: Resolved Assessment and plan: No longer on IVF (11) Decubitus ulcer: Status: Acute Assessment and plan: Stage 2, present on admission. Additionally, there appears to be a component of folliculitis (mild) in the area. Continue wound care, abx as above (12) Chronic cough: Status: Chronic Assessment and plan: Add mucinex, tessalon, acapella. Checking sputum c&S. (13) DVT (deep venous thrombosis): Status: Ruled-out Assessment and plan: Negative venous doppler. Lovenox transitioned to prophylactic dose (14) Discharge planning issues: Status: Acute Assessment and plan: Full code. Will likely need 4-6 weeks of IV abx once clears blood cultures. Will need a renal bx - spoke with Dr Ramos of IR [place] [facility] [place] attempting to set this up. Palliative care on board. (15) DVT prophylaxis: Status: Acute Assessment and plan: SC lovenox Subjective Subjective Interval history since last seen: Ms Hopkins states that she is feeling a little better than yesterday, but could be better. She denies dizziness, chest pain, reports shortness of breath on exertion, cough productive of thick white sputum, and not being able to suppress the cough. Denies n/v. Endorses L-abdominal pain. Still no BM. Blood cx positive for staph aureus. Exam Narrative Exam Narrative: General: Obese female, more alert, A&Ox3, looks better HEENT: EOMI, MMM Heart: RRR, no m/r/g Lungs: CTAB - diminished at B bases. Abdomen: obese, soft, nontender Extremities: no c/c BLE's, chronic venous stasis changes B with RLE erythema distally at the calf - better; there is also dependent edema in RLE. Objective Objective Clinical Data: Abnormal lab results 02/22/20 02/22/20 Range/Units 06:50 06:50 WBC 14.78 H (4.4-10.8) k/cumm Hgb 10.8 L (12.0-15.5) g/dL Hct 34.0 L (36.0-46.0) % MCH 26.1 L (27.0-33.0) pg MCHC 31.8 L (32.0-36.0) g/dL RDW 16.9 H (11.7-14.6) % Absolute Neutrophils 12.42 H (1.2-6.7) k/cumm Absolute Monocytes 0.89 H (0.11-0.7) k/cumm Creatinine 1.10 H (0.55-1.02) mg/dL Glucose 133 H (74-106) mg/dL Calcium 8.1 L (8.5-10.1) mg/dL Vital Signs Temperature 37.1 C 02/22/20 07:21 Temperature Source Tympanic 02/22/20 07:21 Pulse 79 02/22/20 08:58 Pulse Rhythm Regular 02/22/20 09:31 Pulse 92 H 02/19/20 23:00 Respiratory Rate 20 02/22/20 08:58 Respiratory Effort Non-Labored 02/22/20 09:31 Respiratory Depth Normal 02/22/20 09:31 Respiratory Pattern Normal 02/22/20 09:31 Blood Pressure 124/73 02/22/20 07:21 Blood Pressure Mean 63 02/19/20 23:00 Blood Pressure Position Supine 02/19/20 17:27 Pulse Oximetry 95 02/22/20 11:16 Oxygen Delivery Method Room Air 02/22/20 11:16 Oxygen Flow Rate 0 02/22/20 11:16 Pain Level 7 02/22/20 11:50 Comment 2L NC started 02/22/20 07:21 Intake & Output 02/21/20 02/22/20 02/22/20 23:59 11:59 23:59 Intake Total 370 / 1760 470 / 710 240 / 710 Output Total 200 / 1100 600 / 600 Balance 170 / 660 -130 / 110 240 / 110 Weight 101 kg Intake: IV 250 / 1300 250 / 250 Oral 120 / 460 220 / 460 240 / 460 Output: Urine 200 / 1100 600 / 600 Other: Urine Color Dark Sudha Dark Sudha Urine Appearance Clear Clear Comment voided on the bed pad. Voiding Methods Bedside Commode Toilet Incontinent Laboratory Results WBC 14.78 k/cumm (4.4-10.8) H 02/22/20 06:50 RBC 4.14 m/cumm (4.00-5.20) 02/22/20 06:50 Hgb 10.8 g/dL (12.0-15.5) L 02/22/20 06:50 Hct 34.0 % (36.0-46.0) L 02/22/20 06:50 MCV 82.1 fL (80-95) 02/22/20 06:50 MCH 26.1 pg (27.0-33.0) L 02/22/20 06:50 MCHC 31.8 g/dL (32.0-36.0) L 02/22/20 06:50 RDW 16.9 % (11.7-14.6) H 02/22/20 06:50 Plt Count 275 x1000/uL (130-400) 02/22/20 06:50 MPV 10.6 fL (8.0-11.0) 02/22/20 06:50 Immature Gran % See Differential 02/22/20 06:50 Neutrophils % 84.0 02/22/20 06:50 Band Neutrophils % 0.0 % 02/22/20 06:50 Lymphocytes % 10.0 02/22/20 06:50 Atypical Lymphs % 0 02/22/20 06:50 Monocytes % 6.0 02/22/20 06:50 Eosinophils % 0.0 02/22/20 06:50 Basophils % 0.0 02/22/20 06:50 Absolute Neutrophils 12.42 k/cumm (1.2-6.7) H 02/22/20 06:50 Absolute Lymphocytes 1.48 k/cumm (1.2-3.4) 02/22/20 06:50 Absolute Monocytes 0.89 k/cumm (0.11-0.7) H 02/22/20 06:50 Absolute Eosinophils 0.00 k/cumm (0.0-0.7) 02/22/20 06:50 Absolute Basophils 0.00 k/cumm (0.0-0.2) 02/22/20 06:50 Differential Comment Manual differential 02/22/20 06:50 RBC Morphology See below 02/22/20 06:50 Poikilocytosis 1+ 02/22/20 06:50 Anisocytosis 1+ 02/22/20 06:50 D-Dimer 2673 ng/mlFEU (<500) H 02/19/20 20:30 Sodium 138 mmol/L (136-145) 02/22/20 06:50 Potassium 3.6 mmol/L (3.5-5.1) 06/09/20 06:50 Chloride 105 mmol/L (98-107) 02/22/20 06:50 Carbon Dioxide 25.7 mmol/L (21.0-32.0) 02/22/20 06:50 Anion Gap 7.3 mmol/L (3-11) 02/22/20 06:50 BUN 12 mg/dL (7-18) 02/22/20 06:50 Creatinine 1.10 mg/dL (0.55-1.02) H 02/22/20 06:50 Estimated GFR/1.73 m2 48.69 (mL/min/1.73m2) 02/22/20 06:50 Glucose 133 mg/dL (74-106) H 02/22/20 06:50 Hemoglobin A1c 9.8 % (3.8-5.6) H 02/20/20 07:05 Lactate 1.7 mmol/L (0.6-1.4) H 02/19/20 20:30 Calcium 8.1 mg/dL (8.5-10.1) L 02/22/20 06:50 Magnesium 1.8 mg/dL (1.8-2.4) 02/22/20 06:50 Iron 14 ug/dL (50-170) L 02/20/20 07:05 TIBC 141 ug/dL (250-450) L 02/20/20 07:05 Transferrin % Sat 10 % (15-50) L 02/20/20 07:05 Ferritin 823 ng/mL (8-252) H 02/20/20 07:05 Total Bilirubin 1.1 mg/dL (0.2-1.0) H 02/20/20 07:05 AST 36 U/L (15-37) 02/20/20 07:05 ALT 40 U/L (14-59) 02/20/20 07:05 Alkaline Phosphatase 176 U/L (46-116) H 02/20/20 07:05 Creatine Kinase 16 U/L (26-192) L 02/20/20 07:05 Troponin I Cancelled 02/19/20 23:34 C-Reactive Protein 16.97 mg/dL (0.0-0.3) H 02/21/20 06:20 NT-Pro-B Natriuret Pep 5348 pg/mL (<300) H 02/21/20 06:20 Total Protein 7.0 g/dL (6.4-8.2) 02/20/20 07:05 Albumin 1.9 g/dL (3.4-5.0) L 02/20/20 07:05 Lipase 93 U/L (73-393) 02/19/20 20:30 Procalcitonin 1.6 ng/mL 02/21/20 12:00 Urine Color Yellow (Yellow) 02/19/20 22:13 Urine Clarity Clear (Clear) 02/19/20 22:13 Urine pH 5.5 (5-8) 02/19/20 22:13 Ur Specific [place] 1.015 (1.005-1.025) 02/19/20 22:13 Urine Protein 100 mg/dL (Negative) H 02/19/20 22:13 Urine Ketones 40 mg/dL (Negative) H 02/19/20 22:13 Urine Blood Small (Negative) H 02/19/20 22:13 Urine Nitrite Positive (Negative) H 02/19/20 22:13 Urine Bilirubin Negative (Negative) 02/19/20 22:13 Urine Urobilinogen 1.0 EU/dL (Up TO 0.2) H 02/19/20 22:13 Ur Leukocyte Esterase Trace (Negative) H 02/19/20 22:13 Urine RBC 5-10 HPF (0-2) H 02/19/20 22:13 Urine WBC >50 HPF (0-5) H 02/19/20 22:13 Ur Epithelial Cells Few HPF (Negative) 02/19/20 22:13 Urine Crystals Negative HPF (Negative) 02/19/20 22:13 Urine Bacteria Moderate HPF (Negative) 02/19/20 22:13 Urine Casts Negative LPF (Negative) 02/19/20 22:13 Urine Mucus Negative (Negative) 02/19/20 22:13 Ur Culture Indicated? C&s done as ordered 02/19/20 22:13 Urine Glucose >=1000 mg/dL (Negative) H 02/19/20 22:13 COVID-19 PCR Negative (Negative) 02/19/20 23:17 Nasopharyn COVID-19 PCR Not Applicable 02/19/20 23:17 Ref Test Perform Site [place] [facility] lab 02/19/20 23:17 US abdomen/renal: 1. No evidence of hydronephrosis. 2. Left renal mass not well visualized sonographically. 3. Status post cholecystectomy CXR: Small left pleural effusion. Echo: Left Ventricle : The left ventricle is normal size. The left ventricular systolic function is normal. The left ventricular ejection fraction is within the normal range. There is normal left ventricular wall thickness. There is normal LV segmental wall motion. The left ventricular diastolic function is normal. LVEF is 45%. Right Ventricle : Right ventricle is not well visualized. Right ventricular systolic function could not be assessed. Atria : The left atrium size is normal. The right atrium size is normal. Valves: There are no hemodynamically significant valvular lesions. There are no valvular vegetations visualized. Great Vessels : IVC is normal in size and collapses >50% with inspiration. Please see remainder of report for additional details. There is no prior echocardiographic images available for comparison.
[2020-02-22] MEDS: guaiFENesin 600 MG TABCR PO ×2 (15:45→20:07)
[2020-02-22] MEDS: Polyethylene Glycol 3350 17 GM PACKET PO (15:45)
[2020-02-22] MEDS: Benzonatate 100 MG CAP PO (20:07)
[2020-02-22] MEDS: Senna TAB 1 TAB PO (20:07)
[2020-02-22] MEDS: Ondansetron 4 MG/2 ML VIAL IVP (20:37)
[2020-02-22] MEDS: MORPHine 2 MG/ML SYR IVP (20:37)
[2020-02-22 21:31] LABS: Bilirubin Negative (Negative); Blood Trace-intact (Negative); Clarity Cloudy (Clear); Glucose Negative (Negative); Ketones Negative (Negative); Leukocyte Esterase Small (Negative); Nitrite Negative (Negative)
[2020-02-22] MEDS: cefTRIAXone 1 GM/50 ML BAG IVPB (21:53)
[2020-02-22] MEDS: Insulin Glargine 300 UNITS/3 ML PEN 35 UNITS SC (21:54)
[2020-02-22 22:03] LABS: Bacteria Many HPF (Negative); Epithelial Cells Rare HPF (Negative)
[2020-02-22 22:04] LABS: C & S Indicated? Yes; Casts Negative LPF (Negative); Crystals Many Amorphous HPF (Negative); Mucus Negative (Negative)
[2020-02-23] MEDS: MORPHine 2 MG/ML SYR IVP ×3 (02:58→19:45)
[2020-02-23] MEDS: Normal Saline Flush 10 ML SYR IVP ×3 (02:58→19:45)
[2020-02-23] MEDS: VANCOMYCIN 1,000 MG in Normal Saline 250 ML 250 MG IV ×2 (04:04→18:00)
[2020-02-23 04:05] VITALS: BP 124/73; PULSE 98; RESP 17; TEMP 36.8; O2SAT 93
[2020-02-23 06:56] LABS: Abs Immature Grans 0.08 k/cumm (0.0-0.09); Absolute Basophil Count 0.01 k/cumm (0.0-0.2); Absolute Eosinophil Count 0.18 k/cumm (0.0-0.7); Absolute Lymphocyte Count 1.69 k/cumm (1.2-3.4); Absolute Monocyte Count 1.25 k/cumm (0.11-0.7); Basophils % 0.1; Eosinophils % 1.3; HCT 33.6 % (36.0-46.0); HGB 10.6 g/dL (12.0-15.5); Immature Grans % 0.6 %; Lymphocytes % 12.3; Mean Corp. HGB Concentration 31.5 g/dL (32.0-36.0); Mean Corpuscular Hemoglobin 25.9 pg (27.0-33.0); Mean Corpuscular Volume 82.2 fL (80-95); Mean Platelet Volume 10.6 fL (8.0-11.0); Monocytes % 9.1; Neutrophils % 76.6; Platelet Count 242 x1000/uL (130-400); RBC 4.09 m/cumm (4.00-5.20); White Blood Cell Count 13.78 k/cumm (4.4-10.8)
[2020-02-23 06:59] LABS: Absolute Neutrophil Count 10.56 k/cumm (1.2-6.7)
[2020-02-23 07:06] LABS: Anion Gap 6.2 mmol/L (3-11); BUN 14 mg/dL (7-18); CO2 26.8 mmol/L (21.0-32.0); CREATININE 1.17 mg/dL (0.55-1.02); Calcium 8.1 mg/dL (8.5-10.1); Chloride 106 mmol/L (98-107); Estimated GFR 45.34 (mL/min/1.73m2); Glucose 115 mg/dL (74-106); Potassium 3.9 mmol/L (3.5-5.1); Sodium 139 mmol/L (136-145)
[2020-02-23 07:07] VITALS: BP 123/87; PULSE 86; RESP 17; TEMP 36.8; O2SAT 91
[2020-02-23 07:16] LABS: C-Reactive Protein > 25.00 mg/dL (0.0-0.3)
--- NOTE | 2020-02-23 07:23 | PCPN_ITS ---
Date of service: 02/22/20 Time of Service: 18:23 Assessment and Plan Assessment and plan (1) Staphylococcus aureus bacteremia: Status: Acute (2) Renal mass, left: Status: Acute (3) Palliative care patient: Status: Acute Assessment and plan: 75-year-old woman with new left renal mass and sepsis. At this point there really are not decision points to be made. We need to wait until her infection is better cleared prior to having a biopsy. We talked about her present state and the fact that she was on hold some just because of the nature of getting the antibiotics into her in clearing up the infection. I did explain that I will keep track of her and after she has had the biopsy we can get together again to help her to understand her decisions she is visiting. She was happy to hear this. I will follow her either inpatient or outpatient depending upon when and where the biopsy is done This document was created by [employer] software. Content was screened for misspellings, grammatical mistakes, etc. I apologize for any problems, but please contact me for further clarification if needed. Subjective Subjective Interval history since last seen: Kizzy is feeling tired from the days activities. She was happy that she did not have to participate in physical therapy. Dr. Ríoson his weight in that he does feel that this is renal cell carcinoma but wants to investigate the previous surgery and scar tissue dilemma. A biopsy is imperative but at the same time important to delay due to her sepsis. 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 She was happy that Dr. Augustine told her that she would most likely not have the same difficulty due to catching this so early. She did have a chance to talk to her and to go over things again with Claudia her daughter Exam Narrative Exam Narrative: She is sitting in a chair as she feels that this would decrease her coughing. She did not cough during our time together. Her heart is rate controlled. Lungs some crackles. Abdomen remains tender. She seems to be in a very good mood and is very talkative. In fact it is difficult to interrupt her during her long stories about her past medical problems. She smiles often and does think me for coming to see her Objective Objective Clinical Data: Abnormal lab results 02/22/20 02/22/20 02/23/20 Range/Units 06:50 20:00 06:00 WBC 14.78 H (4.4-10.8) k/cumm Hgb 10.8 L (12.0-15.5) g/dL Hct 34.0 L (36.0-46.0) % MCH 26.1 L (27.0-33.0) pg MCHC 31.8 L (32.0-36.0) g/dL RDW 16.9 H (11.7-14.6) % Absolute Neutrophils 12.42 H (1.2-6.7) k/cumm Absolute Monocytes 0.89 H (0.11-0.7) k/cumm Creatinine 1.17 H (0.55-1.02) mg/dL Glucose 115 H (74-106) mg/dL Calcium 8.1 L (8.5-10.1) mg/dL C-Reactive Protein > 25.00 H (0.0-0.3) mg/dL Urine Protein 30 H (Negative) mg/dL Urine Blood Trace-intact H (Negative) Urine Urobilinogen 1.0 H (Up TO 0.2) EU/dL Ur Leukocyte Esterase Small H (Negative) Urine RBC 3-5 H (0-2) HPF Urine WBC 10-20 H (0-5) HPF 02/23/20 Range/Units 06:00 WBC 13.78 H (4.4-10.8) k/cumm Hgb 10.6 L (12.0-15.5) g/dL Hct 33.6 L (36.0-46.0) % MCH 25.9 L (27.0-33.0) pg MCHC 31.5 L (32.0-36.0) g/dL RDW 17.0 H (11.7-14.6) % Absolute Neutrophils 10.56 H (1.2-6.7) k/cumm Absolute Monocytes 1.25 H (0.11-0.7) k/cumm Creatinine (0.55-1.02) mg/dL Glucose (74-106) mg/dL Calcium (8.5-10.1) mg/dL C-Reactive Protein (0.0-0.3) mg/dL Urine Protein (Negative) mg/dL Urine Blood (Negative) Urine Urobilinogen (Up TO 0.2) EU/dL Ur Leukocyte Esterase (Negative) Urine RBC (0-2) HPF Urine WBC (0-5) HPF Vital Signs Temperature 98.2 F 02/23/20 07:07 Temperature Source Tympanic 02/23/20 07:07 Pulse 86 02/23/20 07:07 Pulse Rhythm Regular 02/23/20 03:30 Pulse 92 H 02/19/20 23:00 Respiratory Rate 17 02/23/20 07:07 Respiratory Effort Non-Labored 02/23/20 03:30 Respiratory Depth Normal 02/23/20 03:30 Respiratory Pattern Normal 02/23/20 03:30 Blood Pressure 123/87 02/23/20 07:07 Blood Pressure Mean 63 02/19/20 23:00 Blood Pressure Position Supine 02/19/20 17:27 Pulse Oximetry 91 L 02/23/20 07:07 Oxygen Delivery Method Room Air 02/23/20 07:07 Oxygen Flow Rate 0 02/23/20 07:07 Pain Level 4 02/23/20 07:07 Comment 2L NC started 02/22/20 07:21 Intake & Output 02/22/20 02/22/20 02/23/20 11:59 23:59 11:59 Intake Total 470 / 1560 1090 / 1560 250 / 250 Output Total 600 / 1350 750 / 1350 200 / 200 Balance -130 / 210 340 / 210 50 / 50 Weight 222 lb 10.67 oz 213 lb 6.519 oz Intake: IV 250 / 850 600 / 850 250 / 250 Oral 220 / 710 490 / 710 Output: Urine 600 / 1350 750 / 1350 200 / 200 Other: Urine Color Dark Sudha Straw Light Sudha Light Sudha Urine Appearance Clear Clear Clear Urine Odor Strong Normal Voiding Methods Toilet Bedside Commode Bedside Commode Laboratory Results WBC 13.78 k/cumm (4.4-10.8) H 02/23/20 06:00 RBC 4.09 m/cumm (4.00-5.20) 02/23/20 06:00 Hgb 10.6 g/dL (12.0-15.5) L 02/23/20 06:00 Hct 33.6 % (36.0-46.0) L 02/23/20 06:00 MCV 82.2 fL (80-95) 02/23/20 06:00 MCH 25.9 pg (27.0-33.0) L 02/23/20 06:00 MCHC 31.5 g/dL (32.0-36.0) L 02/23/20 06:00 RDW 17.0 % (11.7-14.6) H 02/23/20 06:00 Plt Count 242 x1000/uL (130-400) 02/23/20 06:00 MPV 10.6 fL (8.0-11.0) 02/23/20 06:00 Immature Gran % 0.6 % 02/23/20 06:00 Neutrophils % 76.6 02/23/20 06:00 Band Neutrophils % 0.0 % 02/22/20 06:50 Lymphocytes % 12.3 02/23/20 06:00 Atypical Lymphs % 0 02/22/20 06:50 Monocytes % 9.1 02/23/20 06:00 Eosinophils % 1.3 02/23/20 06:00 Basophils % 0.1 02/23/20 06:00 Absolute Neutrophils 10.56 k/cumm (1.2-6.7) H 02/23/20 06:00 Absolute Lymphocytes 1.69 k/cumm (1.2-3.4) 02/23/20 06:00 Absolute Monocytes 1.25 k/cumm (0.11-0.7) H 02/23/20 06:00 Absolute Eosinophils 0.18 k/cumm (0.0-0.7) 02/23/20 06:00 Absolute Basophils 0.01 k/cumm (0.0-0.2) 02/23/20 06:00 Differential Comment Manual differential 02/22/20 06:50 RBC Morphology See below 02/22/20 06:50 Poikilocytosis 1+ 02/22/20 06:50 Anisocytosis 1+ 02/22/20 06:50 D-Dimer 2673 ng/mlFEU (<500) H 02/19/20 20:30 Sodium 139 mmol/L (136-145) 02/23/20 06:00 Potassium 3.9 mmol/L (3.5-5.1) 02/23/20 06:00 Chloride 106 mmol/L (98-107) 02/23/20 06:00 Carbon Dioxide 26.8 mmol/L (21.0-32.0) 02/23/20 06:00 Anion Gap 6.2 mmol/L (3-11) 02/23/20 06:00 BUN 14 mg/dL (7-18) 02/23/20 06:00 Creatinine 1.17 mg/dL (0.55-1.02) H 02/23/20 06:00 Estimated GFR/1.73 m2 45.34 (mL/min/1.73m2) 02/23/20 06:00 Glucose 115 mg/dL (74-106) H 02/23/20 06:00 Hemoglobin A1c 9.8 % (3.8-5.6) H 02/20/20 07:05 Lactate 1.7 mmol/L (0.6-1.4) H 02/19/20 20:30 Calcium 8.1 mg/dL (8.5-10.1) L 02/23/20 06:00 Magnesium 2.0 mg/dL (1.8-2.4) 02/23/20 06:00 Iron 14 ug/dL (50-170) L 02/20/20 07:05 TIBC 141 ug/dL (250-450) L 02/20/20 07:05 Transferrin % Sat 10 % (15-50) L 02/20/20 07:05 Ferritin 823 ng/mL (8-252) H 02/20/20 07:05 Total Bilirubin 1.1 mg/dL (0.2-1.0) H 02/20/20 07:05 AST 36 U/L (15-37) 02/20/20 07:05 ALT 40 U/L (14-59) 02/20/20 07:05 Alkaline Phosphatase 176 U/L (46-116) H 02/20/20 07:05 Creatine Kinase 16 U/L (26-192) L 02/20/20 07:05 Troponin I Cancelled 02/19/20 23:34 C-Reactive Protein > 25.00 mg/dL (0.0-0.3) H 02/23/20 06:00 NT-Pro-B Natriuret Pep 5348 pg/mL (<300) H 02/21/20 06:20 Total Protein 7.0 g/dL (6.4-8.2) 02/20/20 07:05 Albumin 1.9 g/dL (3.4-5.0) L 02/20/20 07:05 Lipase 93 U/L (73-393) 02/19/20 20:30 Procalcitonin 1.6 ng/mL 02/21/20 12:00 Urine Color Yellow (Yellow) 02/22/20 20:00 Urine Clarity Cloudy (Clear) 02/22/20 20:00 Urine pH 6.0 (5-8) 02/22/20 20:00 Ur Specific [place] 1.010 (1.005-1.025) 02/22/20 20:00 Urine Protein 30 mg/dL (Negative) H 02/22/20 20:00 Urine Ketones Negative mg/dL (Negative) 02/22/20 20:00 Urine Blood Trace-intact (Negative) H 02/22/20 20:00 Urine Nitrite Negative (Negative) 02/22/20 20:00 Urine Bilirubin Negative (Negative) 02/22/20 20:00 Urine Urobilinogen 1.0 EU/dL (Up TO 0.2) H 02/22/20 20:00 Ur Leukocyte Esterase Small (Negative) H 02/22/20 20:00 Urine RBC 3-5 HPF (0-2) H 02/22/20 20:00 Urine WBC 10-20 HPF (0-5) H 02/22/20 20:00 Ur Epithelial Cells Rare HPF (Negative) 02/22/20 20:00 Urine Crystals Many amorphous HPF (Negative) 02/22/20 20:00 Urine Bacteria Many HPF (Negative) 02/22/20 20:00 Urine Casts Negative LPF (Negative) 02/22/20 20:00 Urine Mucus Negative (Negative) 02/22/20 20:00 Ur Culture Indicated? Yes 02/22/20 20:00 Urine Glucose Negative mg/dL (Negative) 02/22/20 20:00 COVID-19 PCR Negative (Negative) 02/19/20 23:17 Nasopharyn COVID-19 PCR Not Applicable 02/19/20 23:17 Ref Test Perform Site [facility] lab 02/19/20 23:17
[2020-02-23] MEDS: Aspirin E.C. 81 MG TABEC PO (08:21)
[2020-02-23] MEDS: Docusate Sodium 100 MG CAP PO ×2 (08:22→19:44)
[2020-02-23] MEDS: guaiFENesin 600 MG TABCR PO ×2 (08:22→19:45)
[2020-02-23] MEDS: Senna TAB 1 TAB PO ×2 (08:22→19:44)
[2020-02-23] MEDS: Cetirizine 10 MG TAB PO (08:22)
[2020-02-23] MEDS: Benzonatate 100 MG CAP PO ×3 (08:22→19:44)
[2020-02-23] MEDS: Atorvastatin 40 MG TAB PO (08:23)
[2020-02-23] MEDS: Metoprolol 50 MG TAB PO ×2 (08:24→19:44)
[2020-02-23] MEDS: Enoxaparin 40 MG/0.4 ML SYR SC (08:25)
[2020-02-23] MEDS: Insulin Aspart 300 UNITS/3 ML PEN 10 UNITS SC ×3 (08:26→17:06)
[2020-02-23] MEDS: Normal Saline 1,000 ML 75 ML IV (08:55)
[2020-02-23] MEDS: Acetaminophen 325 MG TAB PO ×3 (10:25→21:23)
[2020-02-23] MEDS: Insulin Aspart 300 UNITS/3 ML PEN SC ×2 (11:46→21:24)
--- NOTE | 2020-02-23 14:07 | CMPROGNOTE_ITS ---
- If Service Date Differs Date of service: 02/23/20 Time of Service: 14:07 Care Management Progress Note S/O: Kizzy was lying in bed when CM met with her. She stated that she was not feeling well and requested time to rest. CM sent a referral to [place] at [facility] [place] [place] at the request of the provider. Per report, the mass seen on imaging may be an abscess. Additional imaging and/or biopsy will be necessary to determine next steps for treatment/course of care. Sensitivities are still pending in order to determine abx treatment for sepsis. CM will continue to follow. A: Kizzy is a 75 year old female admitted to [facility] on 02/19/20 with a left renal mass. P: Kizzy will likely be discharged home with new home health services for nursing and PT. It is possible she may need to go to a tertiary care facility for an Oncological workup, although this will probably be completed on an outpatient basis. Kizzy will follow up with her PCP and discharge plan of care. CM to continue to support patient and family and assess for discharge planning needs.
[2020-02-23 15:50] VITALS: BP 110/65; PULSE 86; RESP 21; TEMP 36.1; O2SAT 95
[2020-02-23 16:45] LABS: Vancomycin, Trough 17.1 ug/mL (10.0-20.0)
--- NOTE | 2020-02-23 17:04 | PGE_ITS ---
Date of Service Date of service: 02/23/20 Time of Service: 17:04 Assessment and Plan Assessment and plan (1) Sepsis due to methicillin resistant Staphylococcus aureus (MRSA): Status: Acute Assessment and plan: With bacteremia, likely due to RLE wound. However, there is now a question of whether the complex cystic renal mass with invasion into the spleen could potentially be an abscess. Repeat blood cultures are negative. No evidence of endocarditis on transthoracic echo. Attempting to arrange [id number] transfer for IR bx +/- drain of mass vs abscess. Has a h/o MRSA. On vancomycin day 3, ceftriaxone day 5 (for klebsiella UTI). Continue current abx. I suspect she will need 4-6 weeks of IV abx once clears blood cultures, but will discuss with ID once the results of the drainage/bx are known. Trend CRP, procalcitonin. (2) Renal mass, left: Status: Acute Assessment and plan: Now, there is a question of whether this is an abscess, infected mass, just mass (renal cell), or scar tissue. Read discussion above. (3) UTI (urinary tract infection): Status: Acute Assessment and plan: Due to Klebsiella, Present on admission. Continue ceftriaxone - UA still borderline positive yesterday. (4) Cellulitis of right lower extremity: Status: Acute Assessment and plan: DVT ruled out - but there was significant soft tissue edema c/w cellulitis on US. Continue vancomycin/ceftriaxone. 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 Decrease long acting insulin. We will investigate resources in the community to help afford her medications. (6) ASCVD (arteriosclerotic cardiovascular disease): Status: Acute Assessment and plan: Continue asa, statin. No ACS on this admission - chest pain is likely noncardiac. (7) Anemia: Status: Chronic Assessment and plan: Like related to the renal cell process. Ferritin argues against iron deficiency - however, is a marker of inflammation. Still no hemoccult done because no BM. (8) Acute renal insufficiency: Status: Resolved Assessment and plan: IVF restarted as creatinine did start to slightly trend up. (9) Dehydration: Status: Resolved Assessment and plan: No longer on IVF (10) Decubitus ulcer: Status: Acute Assessment and plan: Stage 2, present on admission. Additionally, there appears to be a component of folliculitis (mild) in the area. Continue wound care, abx as above (11) Chronic cough: Status: Chronic Assessment and plan: Sputum with normal parul. Cough is chronic. Sputum is thick. Continue mucinex, tessalon, acapella. May benefit from an outpatient referral to pulmonology down the road. (12) DVT (deep venous thrombosis): Status: Ruled-out Assessment and plan: Negative venous doppler. Lovenox transitioned to prophylactic dose (13) Discharge planning issues: Status: Acute Assessment and plan: Full code. Will likely need 4-6 weeks of IV abx once clears blood cultures. Will need a renal bx vs drainage of abscess by IR - awaiting call back from [facility] [place] as to arrangements. Palliative care on board. (14) DVT prophylaxis: Status: Acute Assessment and plan: SC lovenox Subjective Subjective Interval history since last seen: Reports feeling better today. Her pain is controlled (but not gone). R leg feels better. Denies dizziness, chest pain, shortnes of breath unless she is exerting herself. Denies nausea. I discussed the case with both our radiologist Dr Vinson and IR at [facility] [place] (Dr Lorenzana) - both feel that the L renal complex mass could contain an abscess and would require drainage. Attempting to arrange this. Exam Narrative Exam Narrative: General: Obese female, more alert, A&Ox3, looks better than yesterday HEENT: EOMI, MMM Heart: RRR, no m/r/g Lungs: CTAB - diminished at B bases. Abdomen: obese, soft, nontender Extremities: no c/c BLE's, chronic venous stasis changes B with RLE erythema distally at the calf - progressively better; there is also dependent edema in RLE - improved. Objective Objective Clinical Data: Abnormal lab results 02/22/20 02/23/20 02/23/20 Range/Units 20:00 06:00 06:00 WBC 13.78 H (4.4-10.8) k/cumm Hgb 10.6 L (12.0-15.5) g/dL Hct 33.6 L (36.0-46.0) % MCH 25.9 L (27.0-33.0) pg MCHC 31.5 L (32.0-36.0) g/dL RDW 17.0 H (11.7-14.6) % Absolute Neutrophils 10.56 H (1.2-6.7) k/cumm Absolute Monocytes 1.25 H (0.11-0.7) k/cumm Creatinine 1.17 H (0.55-1.02) mg/dL Glucose 115 H (74-106) mg/dL Calcium 8.1 L (8.5-10.1) mg/dL C-Reactive Protein > 25.00 H (0.0-0.3) mg/dL Urine Protein 30 H (Negative) mg/dL Urine Blood Trace-intact H (Negative) Urine Urobilinogen 1.0 H (Up TO 0.2) EU/dL Ur Leukocyte Esterase Small H (Negative) Urine RBC 3-5 H (0-2) HPF Urine WBC 10-20 H (0-5) HPF Vital Signs Temperature 36.1 C L 02/23/20 15:50 Temperature Source Tympanic 02/23/20 15:50 Pulse 86 02/23/20 15:50 Pulse Rhythm Regular 02/23/20 16:54 Pulse 92 H 02/19/20 23:00 Respiratory Rate 21 02/23/20 15:50 Respiratory Effort 02/23/20 16:54 Respiratory Depth Shallow 02/23/20 16:54 Respiratory Pattern Normal 02/23/20 16:54 Blood Pressure 110/65 02/23/20 15:50 Blood Pressure Mean 63 02/19/20 23:00 Blood Pressure Position Supine 02/19/20 17:27 Pulse Oximetry 95 02/23/20 15:50 Oxygen Delivery Method Room Air 02/23/20 15:50 Oxygen Flow Rate 0 02/23/20 15:50 Pain Level 0 02/23/20 12:58 Comment 2L NC started 02/22/20 07:21 Intake & Output 02/22/20 02/23/20 02/23/20 23:59 11:59 23:59 Intake Total 1090 / 1560 500 / 740 240 / 740 Output Total 750 / 1350 800 / 1100 300 / 1100 Balance 340 / 210 -300 / -360 -60 / -360 Weight 96.8 kg Intake: IV 600 / 850 260 / 260 Oral 490 / 710 240 / 480 240 / 480 Output: Urine 750 / 1350 800 / 1100 300 / 1100 Other: Urine Color Straw Dark Sudha Yellow Light Sudha Straw Urine Appearance Clear Cloudy Clear Urine Odor Strong None Normal Voiding Methods Bedside Commode Bedside Commode Laboratory Results WBC 13.78 k/cumm (4.4-10.8) H 02/23/20 06:00 RBC 4.09 m/cumm (4.00-5.20) 02/23/20 06:00 Hgb 10.6 g/dL (12.0-15.5) L 02/23/20 06:00 Hct 33.6 % (36.0-46.0) L 02/23/20 06:00 MCV 82.2 fL (80-95) 02/23/20 06:00 MCH 25.9 pg (27.0-33.0) L 02/23/20 06:00 MCHC 31.5 g/dL (32.0-36.0) L 02/23/20 06:00 RDW 17.0 % (11.7-14.6) H 02/23/20 06:00 Plt Count 242 x1000/uL (130-400) 02/23/20 06:00 MPV 10.6 fL (8.0-11.0) 02/23/20 06:00 Immature Gran % 0.6 % 02/23/20 06:00 Neutrophils % 76.6 02/23/20 06:00 Band Neutrophils % 0.0 % 02/22/20 06:50 Lymphocytes % 12.3 02/23/20 06:00 Atypical Lymphs % 0 02/22/20 06:50 Monocytes % 9.1 02/23/20 06:00 Eosinophils % 1.3 02/23/20 06:00 Basophils % 0.1 02/23/20 06:00 Absolute Neutrophils 10.56 k/cumm (1.2-6.7) H 02/23/20 06:00 Absolute Lymphocytes 1.69 k/cumm (1.2-3.4) 02/23/20 06:00 Absolute Monocytes 1.25 k/cumm (0.11-0.7) H 02/23/20 06:00 Absolute Eosinophils 0.18 k/cumm (0.0-0.7) 02/23/20 06:00 Absolute Basophils 0.01 k/cumm (0.0-0.2) 02/23/20 06:00 Differential Comment Manual differential 02/22/20 06:50 RBC Morphology See below 02/22/20 06:50 Poikilocytosis 1+ 02/22/20 06:50 Anisocytosis 1+ 02/22/20 06:50 D-Dimer 2673 ng/mlFEU (<500) H 02/19/20 20:30 Sodium 139 mmol/L (136-145) 02/23/20 06:00 Potassium 3.9 mmol/L (3.5-5.1) 02/23/20 06:00 Chloride 106 mmol/L (98-107) 02/23/20 06:00 Carbon Dioxide 26.8 mmol/L (21.0-32.0) 02/23/20 06:00 Anion Gap 6.2 mmol/L (3-11) 02/23/20 06:00 BUN 14 mg/dL (7-18) 02/23/20 06:00 Creatinine 1.17 mg/dL (0.55-1.02) H 02/23/20 06:00 Estimated GFR/1.73 m2 45.34 (mL/min/1.73m2) 02/23/20 06:00 Glucose 115 mg/dL (74-106) H 02/23/20 06:00 Hemoglobin A1c 9.8 % (3.8-5.6) H 02/20/20 07:05 Lactate 1.7 mmol/L (0.6-1.4) H 02/19/20 20:30 Calcium 8.1 mg/dL (8.5-10.1) L 02/23/20 06:00 Magnesium 2.0 mg/dL (1.8-2.4) 02/23/20 06:00 Iron 14 ug/dL (50-170) L 02/20/20 07:05 TIBC 141 ug/dL (250-450) L 02/20/20 07:05 Transferrin % Sat 10 % (15-50) L 02/20/20 07:05 Ferritin 823 ng/mL (8-252) H 02/20/20 07:05 Total Bilirubin 1.1 mg/dL (0.2-1.0) H 02/20/20 07:05 AST 36 U/L (15-37) 02/20/20 07:05 ALT 40 U/L (14-59) 02/20/20 07:05 Alkaline Phosphatase 176 U/L (46-116) H 02/20/20 07:05 Creatine Kinase 16 U/L (26-192) L 02/20/20 07:05 Troponin I Cancelled 02/19/20 23:34 C-Reactive Protein > 25.00 mg/dL (0.0-0.3) H 02/23/20 06:00 NT-Pro-B Natriuret Pep 5348 pg/mL (<300) H 02/21/20 06:20 Total Protein 7.0 g/dL (6.4-8.2) 02/20/20 07:05 Albumin 1.9 g/dL (3.4-5.0) L 02/20/20 07:05 Lipase 93 U/L (73-393) 02/19/20 20:30 Procalcitonin 1.6 ng/mL 02/21/20 12:00 Urine Color Yellow (Yellow) 02/22/20 20:00 Urine Clarity Cloudy (Clear) 02/22/20 20:00 Urine pH 6.0 (5-8) 02/22/20 20:00 Ur Specific [place] 1.010 (1.005-1.025) 02/22/20 20:00 Urine Protein 30 mg/dL (Negative) H 02/22/20 20:00 Urine Ketones Negative mg/dL (Negative) 02/22/20 20:00 Urine Blood Trace-intact (Negative) H 02/22/20 20:00 Urine Nitrite Negative (Negative) 02/22/20 20:00 Urine Bilirubin Negative (Negative) 02/22/20 20:00 Urine Urobilinogen 1.0 EU/dL (Up TO 0.2) H 02/22/20 20:00 Ur Leukocyte Esterase Small (Negative) H 02/22/20 20:00 Urine RBC 3-5 HPF (0-2) H 02/22/20 20:00 Urine WBC 10-20 HPF (0-5) H 02/22/20 20:00 Ur Epithelial Cells Rare HPF (Negative) 02/22/20 20:00 Urine Crystals Many amorphous HPF (Negative) 02/22/20 20:00 Urine Bacteria Many HPF (Negative) 02/22/20 20:00 Urine Casts Negative LPF (Negative) 02/22/20 20:00 Urine Mucus Negative (Negative) 02/22/20 20:00 Ur Culture Indicated? Yes 02/22/20 20:00 Urine Glucose Negative mg/dL (Negative) 02/22/20 20:00 Vancomycin Trough 17.1 ug/mL (10.0-20.0) 02/23/20 16:23 COVID-19 PCR Negative (Negative) 02/19/20 23:17 Nasopharyn COVID-19 PCR Not Applicable 02/19/20 23:17 Ref Test Perform Site [facility] lab 02/19/20 23:17 Echo: Left Ventricle : The left ventricle is normal size. The left ventricular systolic function is normal. The left ventricular ejection fraction is within the normal range. There is normal left ventricular wall thickness. There is normal LV segmental wall motion. The left ventricular diastolic function is normal. LVEF is 45%. Right Ventricle : Right ventricle is not well visualized. Right ventricular systolic function could not be assessed. Atria : The left atrium size is normal. The right atrium size is normal. Valves: There are no hemodynamically significant valvular lesions. There are no valvular vegetations visualized. Great Vessels : IVC is normal in size and collapses >50% with inspiration. Please see remainder of report for additional details.
[2020-02-23 19:43] VITALS: BP 103/65; PULSE 90; RESP 20; TEMP 36.3; O2SAT 95
[2020-02-23] MEDS: Polyethylene Glycol 3350 17 GM PACKET PO (19:44)
[2020-02-23] MEDS: Insulin Glargine 300 UNITS/3 ML PEN 30 UNITS SC (21:25)
[2020-02-23] MEDS: cefTRIAXone 1 GM/50 ML BAG IVPB (21:27)
[2020-02-24] MEDS: Normal Saline 1,000 ML 75 ML IV (00:24)
[2020-02-24] MEDS: MORPHine 2 MG/ML SYR IVP ×5 (01:11→22:05)
[2020-02-24 03:16] VITALS: BP 116/58; PULSE 83; RESP 17; TEMP 36.1; O2SAT 90
[2020-02-24] MEDS: Acetaminophen 325 MG TAB PO (04:59)
[2020-02-24 07:08] LABS: Abs Immature Grans 0.08 k/cumm (0.0-0.09); Absolute Basophil Count 0.02 k/cumm (0.0-0.2); Absolute Eosinophil Count 0.17 k/cumm (0.0-0.7); Absolute Lymphocyte Count 1.49 k/cumm (1.2-3.4); Absolute Monocyte Count 1.42 k/cumm (0.11-0.7); Basophils % 0.2; Eosinophils % 1.5; HGB 10.1 g/dL (12.0-15.5); Immature Grans % 0.7 %; Lymphocytes % 12.8; Mean Corp. HGB Concentration 31.6 g/dL (32.0-36.0); Mean Corpuscular Volume 82.5 fL (80-95); Mean Platelet Volume 10.3 fL (8.0-11.0); Monocytes % 12.2; Neutrophils % 72.6; Platelet Count 272 x1000/uL (130-400); RBC 3.88 m/cumm (4.00-5.20); RBC Distribution Width 17.2 % (11.7-14.6); White Blood Cell Count 11.64 k/cumm (4.4-10.8)
[2020-02-24 07:09] LABS: Absolute Neutrophil Count 8.45 k/cumm (1.2-6.7)
[2020-02-24 07:27] LABS: Anion Gap 6.8 mmol/L (3-11); BUN 13 mg/dL (7-18); C-Reactive Protein 21.16 mg/dL (0.0-0.3); CO2 27.2 mmol/L (21.0-32.0); CREATININE 1.16 mg/dL (0.55-1.02); Calcium 8.1 mg/dL (8.5-10.1); Chloride 105 mmol/L (98-107); Estimated GFR 45.79 (mL/min/1.73m2); Glucose 146 mg/dL (74-106); Potassium 3.7 mmol/L (3.5-5.1); Sodium 139 mmol/L (136-145)
[2020-02-24 07:42] LABS: Procalcitonin 1.2 ng/mL
[2020-02-24 08:02] VITALS: BP 127/74; PULSE 85; RESP 17; TEMP 36.7; O2SAT 94
[2020-02-24] MEDS: Senna TAB 1 TAB PO ×2 (08:38→21:34)
[2020-02-24] MEDS: Docusate Sodium 100 MG CAP PO ×2 (08:38→21:34)
[2020-02-24] MEDS: guaiFENesin 600 MG TABCR PO ×2 (08:38→21:34)
[2020-02-24] MEDS: Atorvastatin 40 MG TAB PO (08:38)
[2020-02-24] MEDS: Aspirin E.C. 81 MG TABEC PO (08:39)
[2020-02-24] MEDS: Cetirizine 10 MG TAB PO (08:39)
[2020-02-24] MEDS: Benzonatate 100 MG CAP PO ×3 (08:39→21:34)
[2020-02-24] MEDS: Metoprolol 50 MG TAB PO ×2 (08:39→21:34)
[2020-02-24 08:40] VITALS: O2SAT 94
[2020-02-24] MEDS: Insulin Aspart 300 UNITS/3 ML PEN 10 UNITS SC ×2 (08:40→12:33)
[2020-02-24] MEDS: Enoxaparin 40 MG/0.4 ML SYR SC (08:40)
[2020-02-24] MEDS: VANCOMYCIN 1,000 MG in Normal Saline 250 ML 250 MG IV ×2 (08:41→21:34)
--- NOTE | 2020-02-24 08:54 | INDS_ITS ---
Date of service: 02/24/20 PT Notes Visit Reasons: RENAL MASS,UTI,DEHYDRATION,RT LEG SWELLING,SACRAL Inpatient Physical Therapy Discharge Summary Dates: 02/24/2020 Dates of Service: 02/20/2020 and 02/21/2020 This is a clinical summary of care provided on the duration of dates listed above. No charge was made in the completion of this documentation. Referring Doctor: Hillary Augustine MD PT Orders: PT CONSULT: Malaise, renal carcinoma Precautions: Fall Patient Profile/Admitting Diagnosis: 75-year-old female whose had a 3-week history of generalized progressive weakness, nausea, etc. was admitted yesterday with a recent diagnosis of a renal carcinoma, decubitus ulcer and right calf discomfort PMHX: Diabetes, ASCVD, anemia, acute renal insufficiency, status post right total shoulder replacement Social History/Home Situation: , lives in a private home and sleeps in recliner on the first floor. She is ambulating without a walker up until 3 weeks ago, and her ambulation is limited to the house. Her has been preparing meals for the past 3 weeks and performance other assembler deck and hull including her shopping, etc. Current Functional Limitations: She requires assistance with her bed mobility currently, but notes that she is able to get in and out of her recliner at home independently. Her assist with her personal hygiene including showering and occasionally dressing. Equipment Owned/DME: Is a flexible shower hose with a combo tub shower. An elevated toilet, and 3 steps entering the home which has a railing Subjective: NT Objective: General Observation:NT Mental Status: NT Pain: NT Vital Signs:NT ROM: Is good functional range of motion of the upper extremity articular structures other than right shoulder rotation at 45 degrees externally and internally with some mild endrange discomfort throughout the glenohumeral joint. Bilateral hip motion is mildly limited with an articular pattern, left greater than right particularly with internal rotation at 15 degrees. Bilateral knee, talocrural, subtalar movements are non-irritable. Strength: She has full motorical control throughout with strength generally rated 4/5 Sensation: Intact Bed Mobility/Transfers: Patient requires moderate assistance with assuming the supine sitting position and vice versa. Once lying in bed, she use the trapeze and was able to lift her buttocks in order to slide into proper bed positioning. She requires mild to moderate assist with assuming the sitting to standing position. Gait: She ambulated approximately 20 feet with a wheeled walker requiring mild contact guarding. She has stable gait. She is able walk on her heels and toes while holding onto the walker. Balance: Static Sitting: Good Dynamic Sitting: Good Static Standing: Good Dynamic Standing: Fair. She is unable to stand on one limb without holding onto the walker. She has a negative Romberg sign Assessment: Per Dr. Carbajal's note on 02/21/2020, patient requested on holding off on PT treatments due to recent diagnosis of renal carcinoma. Patient is a 75-year old female referred to physical therapy services with the diagnosis of malaise and recent diagnosis of a renal carcinoma . Patient presents with clinical signs and symptoms consistent with this diagnosis, as demonstrated by the following impairment level findings: Generalized weakness along with a decubitus ulcer. Impairments are contributing to the following functional limitations: Assistance with all bed mobility activities, impaired gait and balance, etc. AMPAC score. Goals: N/A. Patient requested discontinuation of PT services at this time due to recent diagnosis of renal carcinoma and is on palliative care. DISCHARGE RECOMMENDATIONS: N/A. TREATMENT CODE/TIME: NC. Thank you very much for this referral. Tracie Thompson PT, DPT, CLT [facility] Inpatient PT at [place], [place]
--- NOTE | 2020-02-24 09:37 | CMPROGNOTE_ITS ---
Care Management Progress Note S/O: Kizzy was sitting up in her chair, upset about a delayed dressing change. Her daughter called, CM permitted her to talk on the phone and notified PHILL Patricio and Kathi [facility] of Kizzy's concerns. CM supported coordination of EMS transport with for [place] [facility] [place]. Awaiting sensitivities to determine antibiotic course for treatment of sepsis. CM will continue to follow. A: Kizzy is a 75 year old female admitted to [facility] on 02/19/20 with a left renal mass. P: Kizzy will have a down and back procedure at [facility] [place]. She will leave [facility] via [facility] at 1045 for a noon arrival for a 1300 appointment at [facility] [address]. This will determine next steps in treatment, CM continues to follow. Anticipate Kizzy will be discharged home with new home health services for RN/PT. Kizzy will follow up with her PCP and discharge plan of care. She will transport via private vehicle with family.
[2020-02-24] MEDS: Insulin Aspart 300 UNITS/3 ML PEN SC (12:33)
--- NOTE | 2020-02-24 13:56 | PGE_ITS ---
Date of Service Date of service: 02/24/20 Time of Service: 13:56 Assessment and Plan Assessment and plan (1) Sepsis due to methicillin resistant Staphylococcus aureus (MRSA): Status: Acute Assessment and plan: With bacteremia, likely due to RLE wound. There is a question of whether the complex cystic renal mass with invasion into the spleen could be an abscess. - planned for Bx/drain by IR at [facility] tomorrow. Repeat blood cultures are negative. No evidence of endocarditis on transthoracic echo. On vancomycin day 4, ceftriaxone day 6/7 (for klebsiella UTI). Continue current abx. I suspect she will need 4-6 weeks of IV abx once clears blood cultures, but will discuss with ID once the results of the drainage/bx are known. Trend CRP, procalcitonin. (2) Renal mass, left: Status: Acute Assessment and plan: +/- abscess. Read discussion above. (3) UTI (urinary tract infection): Status: Acute Assessment and plan: Due to Klebsiella, Present on admission. Continue ceftriaxone (day 6/7) (4) Cellulitis of right lower extremity: Status: Acute Assessment and plan: My clinically impression is that this is most likely due to MRSA rather than something that vancomycin is covering. Continue vancomycin/ceftriaxone for now - but would d/c ceftriaxone after 7 days and monitor progress of RLE wound - if worsens, would reinstitute a cephalosporin. (5) Type 2 diabetes mellitus with complications: Status: Acute Assessment and plan: Will decrease long acting insulin as patient is being made NPO after midnight. (6) ASCVD (arteriosclerotic cardiovascular disease): Status: Acute Assessment and plan: Continue asa, statin. No ACS on this admission - chest pain is likely noncardiac. (7) Anemia: Status: Chronic Assessment and plan: Like related to the renal cell process. Ferritin argues against iron deficiency - however, is a marker of inflammation. (8) Acute renal insufficiency: Status: Resolved Assessment and plan: D/c IVF. Monitor kidney function. (9) Dehydration: Status: Resolved Assessment and plan: No longer on IVF (10) Decubitus ulcer: Status: Acute Assessment and plan: Stage 2, present on admission. Additionally, there appears to be a component of folliculitis (mild) in the area. Continue wound care, abx as above (11) Chronic cough: Status: Chronic Assessment and plan: Sputum with normal parul. Cough is chronic. Sputum is thick. Continue mucinex, tessalon, acapella. May benefit from an outpatient referral to pulmonology down the road. (12) DVT (deep venous thrombosis): Status: Ruled-out Assessment and plan: Negative venous doppler. Lovenox transitioned to prophylactic dose - on hold for procedure tomorrow. (13) Discharge planning issues: Status: Acute Assessment and plan: Full code. Will likely need 4-6 weeks of IV abx once clears blood cultures. Will need a renal bx vs drainage of abscess by IR - awaiting call back from [facility] as to arrangements. Palliative care on board. (14) DVT prophylaxis: Status: Acute Assessment and plan: SC lovenox on hold for procedure tomorrow Subjective Subjective Interval history since last seen: Ms Hopkins states she is not feeling too badly today - which is better than yesterday, but that she is scared. She has a [id number] appointment scheduled with [facility] IR at noon tomorrow for bx +/- drain of the renal mass/abscess. She denies dizziness, endorses LUQ/epigastric pain, denies CP, endorses VALVERDE, but not SOB at rest, denies nausea. RLE feels a little bit better. Exam Narrative Exam Narrative: General: Obese female, very pleasant, A&Ox3, looks even better than yesterday HEENT: EOMI, MMM Heart: RRR, no m/r/g Lungs: CTAB - diminished at B bases. Abdomen: obese, soft, tender in LUQ/epigastrium today Extremities: no c/c BLE's, chronic venous stasis changes B with RLE erythema distally at the calf - progressively better; 1+ BLE edema, symmetric Objective Objective Clinical Data: Abnormal lab results 02/24/20 02/24/20 Range/Units 06:30 06:30 WBC 11.64 H (4.4-10.8) k/cumm RBC 3.88 L (4.00-5.20) m/cumm Hgb 10.1 L (12.0-15.5) g/dL Hct 32.0 L (36.0-46.0) % MCH 26.0 L (27.0-33.0) pg MCHC 31.6 L (32.0-36.0) g/dL RDW 17.2 H (11.7-14.6) % Absolute Neutrophils 8.45 H (1.2-6.7) k/cumm Absolute Monocytes 1.42 H (0.11-0.7) k/cumm Creatinine 1.16 H (0.55-1.02) mg/dL Glucose 146 H (74-106) mg/dL Calcium 8.1 L (8.5-10.1) mg/dL C-Reactive Protein 21.16 H (0.0-0.3) mg/dL Vital Signs Temperature 36.7 C 02/24/20 08:02 Temperature Source Tympanic 02/24/20 08:02 Pulse 85 02/24/20 08:02 Pulse Rhythm Regular 02/24/20 02:10 Pulse 92 H 02/19/20 23:00 Respiratory Rate 17 02/24/20 08:02 Respiratory Effort 02/24/20 02:10 Respiratory Depth Shallow 02/24/20 02:10 Respiratory Pattern Normal 02/24/20 02:10 Blood Pressure 127/74 02/24/20 08:02 Blood Pressure Mean 63 02/19/20 23:00 Blood Pressure Position Supine 02/19/20 17:27 Pulse Oximetry 94 L 02/24/20 08:02 Oxygen Delivery Method Room Air 02/24/20 08:02 Oxygen Flow Rate 0 02/24/20 08:02 Pain Level 7 02/24/20 11:51 Comment 2L NC started 02/22/20 07:21 Intake & Output 02/23/20 02/24/20 02/24/20 23:59 11:59 23:59 Intake Total 1303.75 / 1803.75 401.25 / 641.25 240 / 641.25 Output Total 500 / 1300 900 / 900 Balance 803.75 / 503.75 -498.75 / -258.75 240 / -258.75 Weight 36.5 kg Intake: IV 1063.75 / 1323.75 161.25 / 161.25 Oral 240 / 480 240 / 480 240 / 480 Output: Urine 500 / 1300 900 / 900 Other: Urine Color Yellow Straw Urine Appearance Clear Clear Urine Odor Normal Normal Voiding Methods Bedside Commode Laboratory Results WBC 11.64 k/cumm (4.4-10.8) H 02/24/20 06:30 RBC 3.88 m/cumm (4.00-5.20) L 02/24/20 06:30 Hgb 10.1 g/dL (12.0-15.5) L 02/24/20 06:30 Hct 32.0 % (36.0-46.0) L 02/24/20 06:30 MCV 82.5 fL (80-95) 02/24/20 06:30 MCH 26.0 pg (27.0-33.0) L 02/24/20 06:30 MCHC 31.6 g/dL (32.0-36.0) L 02/24/20 06:30 RDW 17.2 % (11.7-14.6) H 02/24/20 06:30 Plt Count 272 x1000/uL (130-400) 02/24/20 06:30 MPV 10.3 fL (8.0-11.0) 02/24/20 06:30 Immature Gran % 0.7 % 02/24/20 06:30 Neutrophils % 72.6 02/24/20 06:30 Band Neutrophils % 0.0 % 02/22/20 06:50 Lymphocytes % 12.8 02/24/20 06:30 Atypical Lymphs % 0 02/22/20 06:50 Monocytes % 12.2 02/24/20 06:30 Eosinophils % 1.5 02/24/20 06:30 Basophils % 0.2 02/24/20 06:30 Absolute Neutrophils 8.45 k/cumm (1.2-6.7) H 02/24/20 06:30 Absolute Lymphocytes 1.49 k/cumm (1.2-3.4) 02/24/20 06:30 Absolute Monocytes 1.42 k/cumm (0.11-0.7) H 02/24/20 06:30 Absolute Eosinophils 0.17 k/cumm (0.0-0.7) 02/24/20 06:30 Absolute Basophils 0.02 k/cumm (0.0-0.2) 02/24/20 06:30 Differential Comment Manual differential 02/22/20 06:50 RBC Morphology See below 02/22/20 06:50 Poikilocytosis 1+ 02/22/20 06:50 Anisocytosis 1+ 02/22/20 06:50 D-Dimer 2673 ng/mlFEU (<500) H 02/19/20 20:30 Sodium 139 mmol/L (136-145) 02/24/20 06:30 Potassium 3.7 mmol/L (3.5-5.1) 02/24/20 06:30 Chloride 105 mmol/L (98-107) 02/24/20 06:30 Carbon Dioxide 27.2 mmol/L (21.0-32.0) 02/24/20 06:30 Anion Gap 6.8 mmol/L (3-11) 02/24/20 06:30 BUN 13 mg/dL (7-18) 02/24/20 06:30 Creatinine 1.16 mg/dL (0.55-1.02) H 02/24/20 06:30 Estimated GFR/1.73 m2 45.79 (mL/min/1.73m2) 02/24/20 06:30 Glucose 146 mg/dL (74-106) H 02/24/20 06:30 Hemoglobin A1c 9.8 % (3.8-5.6) H 02/20/20 07:05 Lactate 1.7 mmol/L (0.6-1.4) H 02/19/20 20:30 Calcium 8.1 mg/dL (8.5-10.1) L 02/24/20 06:30 Magnesium 2.0 mg/dL (1.8-2.4) 02/24/20 06:30 Iron 14 ug/dL (50-170) L 02/20/20 07:05 TIBC 141 ug/dL (250-450) L 02/20/20 07:05 Transferrin % Sat 10 % (15-50) L 02/20/20 07:05 Ferritin 823 ng/mL (8-252) H 02/20/20 07:05 Total Bilirubin 1.1 mg/dL (0.2-1.0) H 02/20/20 07:05 AST 36 U/L (15-37) 02/20/20 07:05 ALT 40 U/L (14-59) 02/20/20 07:05 Alkaline Phosphatase 176 U/L (46-116) H 02/20/20 07:05 Creatine Kinase 16 U/L (26-192) L 02/20/20 07:05 Troponin I Cancelled 02/19/20 23:34 C-Reactive Protein 21.16 mg/dL (0.0-0.3) H 02/24/20 06:30 NT-Pro-B Natriuret Pep 5348 pg/mL (<300) H 02/21/20 06:20 Total Protein 7.0 g/dL (6.4-8.2) 02/20/20 07:05 Albumin 1.9 g/dL (3.4-5.0) L 02/20/20 07:05 Lipase 93 U/L (73-393) 02/19/20 20:30 Procalcitonin 1.2 ng/mL 02/24/20 06:30 Urine Color Yellow (Yellow) 02/22/20 20:00 Urine Clarity Cloudy (Clear) 02/22/20 20:00 Urine pH 6.0 (5-8) 02/22/20 20:00 Ur Specific [place] 1.010 (1.005-1.025) 02/22/20 20:00 Urine Protein 30 mg/dL (Negative) H 02/22/20 20:00 Urine Ketones Negative mg/dL (Negative) 02/22/20 20:00 Urine Blood Trace-intact (Negative) H 02/22/20 20:00 Urine Nitrite Negative (Negative) 02/22/20 20:00 Urine Bilirubin Negative (Negative) 02/22/20 20:00 Urine Urobilinogen 1.0 EU/dL (Up TO 0.2) H 02/22/20 20:00 Ur Leukocyte Esterase Small (Negative) H 02/22/20 20:00 Urine RBC 3-5 HPF (0-2) H 02/22/20 20:00 Urine WBC 10-20 HPF (0-5) H 02/22/20 20:00 Ur Epithelial Cells Rare HPF (Negative) 02/22/20 20:00 Urine Crystals Many amorphous HPF (Negative) 02/22/20 20:00 Urine Bacteria Many HPF (Negative) 02/22/20 20:00 Urine Casts Negative LPF (Negative) 02/22/20 20:00 Urine Mucus Negative (Negative) 02/22/20 20:00 Ur Culture Indicated? Yes 02/22/20 20:00 Urine Glucose Negative mg/dL (Negative) 02/22/20 20:00 Vancomycin Trough 17.1 ug/mL (10.0-20.0) 02/23/20 16:23 COVID-19 PCR Negative (Negative) 02/19/20 23:17 Nasopharyn COVID-19 PCR Not Applicable 02/19/20 23:17 Ref Test [facility] 02/19/20 23:17
[2020-02-24 15:00] VITALS: BP 102/64; PULSE 89; RESP 18; TEMP 36.5; O2SAT 94
[2020-02-24] MEDS: Bisacodyl 5 MG TABEC PO (18:30)
[2020-02-24 19:43] VITALS: BP 131/69; PULSE 89; RESP 18; TEMP 37.2; O2SAT 93
[2020-02-24] MEDS: Insulin Glargine 300 UNITS/3 ML PEN 10 UNITS SC (21:35)
[2020-02-24] MEDS: cefTRIAXone 1 GM/50 ML BAG IVPB (21:37)
[2020-02-25 00:10] VITALS: BP 116/67; PULSE 80; RESP 16; TEMP 36; O2SAT 92
[2020-02-25] MEDS: MORPHine 2 MG/ML SYR IVP ×4 (00:15→10:35)
[2020-02-25 07:18] VITALS: BP 117/62; PULSE 81; RESP 28; TEMP 36.9; O2SAT 94
[2020-02-25 08:04] LABS: Abs Immature Grans 0.08 k/cumm (0.0-0.09); Absolute Basophil Count 0.03 k/cumm (0.0-0.2); Absolute Eosinophil Count 0.14 k/cumm (0.0-0.7); Absolute Lymphocyte Count 1.49 k/cumm (1.2-3.4); Absolute Monocyte Count 1.58 k/cumm (0.11-0.7); Absolute Neutrophil Count 7.78 k/cumm (1.2-6.7); Basophils % 0.3; Eosinophils % 1.3; HCT 33.4 % (36.0-46.0); HGB 10.5 g/dL (12.0-15.5); Immature Grans % 0.7 %; Lymphocytes % 13.4; Mean Corp. HGB Concentration 31.4 g/dL (32.0-36.0); Mean Corpuscular Hemoglobin 25.8 pg (27.0-33.0); Mean Corpuscular Volume 82.1 fL (80-95); Monocytes % 14.2; Neutrophils % 70.1; Platelet Count 232 x1000/uL (130-400); RBC 4.07 m/cumm (4.00-5.20); RBC Distribution Width 17.2 % (11.7-14.6)
[2020-02-25 08:22] LABS: Anisocytosis 1+; Diff Comment Agrees w/ Instrument; Hypochromasia 1+; Polychromasia Present
[2020-02-25] MEDS: Metoprolol 50 MG TAB PO ×2 (08:34→20:32)
[2020-02-25] MEDS: Cetirizine 10 MG TAB PO (08:34)
[2020-02-25] MEDS: guaiFENesin 600 MG TABCR PO ×2 (08:34→20:32)
[2020-02-25] MEDS: Benzonatate 100 MG CAP PO ×2 (08:35→20:32)
[2020-02-25] MEDS: Normal Saline Flush 10 ML SYR IVP ×3 (08:35→16:49)
[2020-02-25 08:48] LABS: Anion Gap 6.6 mmol/L (3-11); BUN 13 mg/dL (7-18); C-Reactive Protein 16.73 mg/dL (0.0-0.3); CO2 26.4 mmol/L (21.0-32.0); CREATININE 1.25 mg/dL (0.55-1.02); Calcium 8.1 mg/dL (8.5-10.1); Chloride 106 mmol/L (98-107); Estimated GFR 42.01 (mL/min/1.73m2); Glucose 126 mg/dL (74-106); Potassium 4.1 mmol/L (3.5-5.1); Sodium 139 mmol/L (136-145)
[2020-02-25] MEDS: Acetaminophen 325 MG TAB PO (09:36)
[2020-02-25 11:22] LABS: Campylobacter PCR Negative (Negative); Salmonella PCR Negative (Negative); Shiga Toxin PCR Negative (Negative); Shigella/Enteroinvasive Ecoli Negative (Negative)
--- NOTE | 2020-02-25 14:39 | W.PM.PROGNOT ---
Date of Service Date of service: 02/25/20 Time of Service: 14:42 Subjective Subjective Interval history since last seen: Patient is presently at [facility] [place] for her IR bx vs drain of renal mass +/- abscess. I am unable to examine her at this time. Objective Objective Clinical Data: Abnormal lab results 02/25/20 02/25/20 Range/Units 07:49 07:49 WBC 11.10 H (4.4-10.8) k/cumm Hgb 10.5 L (12.0-15.5) g/dL Hct 33.4 L (36.0-46.0) % MCH 25.8 L (27.0-33.0) pg MCHC 31.4 L (32.0-36.0) g/dL RDW 17.2 H (11.7-14.6) % Absolute Neutrophils 7.78 H (1.2-6.7) k/cumm Absolute Monocytes 1.58 H (0.11-0.7) k/cumm Creatinine 1.25 H (0.55-1.02) mg/dL Glucose 126 H (74-106) mg/dL Calcium 8.1 L (8.5-10.1) mg/dL C-Reactive Protein 16.73 H (0.0-0.3) mg/dL Vital Signs Temperature 36.9 C 02/25/20 07:18 Temperature Source Tympanic 02/25/20 07:18 Pulse 81 02/25/20 07:18 Pulse Rhythm Regular 02/25/20 07:55 Pulse 92 H 02/19/20 23:00 Respiratory Rate 28 H 02/25/20 07:18 Respiratory Effort 02/25/20 07:55 Respiratory Depth Shallow 02/25/20 07:55 Respiratory Pattern Hyperpnea 02/25/20 07:55 Blood Pressure 117/62 02/25/20 07:18 Blood Pressure Mean 63 02/19/20 23:00 Blood Pressure Position Supine 02/19/20 17:27 Pulse Oximetry 94 L 02/25/20 07:18 Oxygen Delivery Method Room Air 02/25/20 07:18 Oxygen Flow Rate 0 02/25/20 07:18 Pain Level 4 02/25/20 11:35 Comment 02/25/20 07:18 Intake & Output 02/24/20 02/25/20 02/25/20 23:59 11:59 23:59 Intake Total 1490 / 1891.25 375 / 375 Output Total 600 / 1500 950 / 950 Balance 890 / 391.25 -575 / -575 Weight 100.9 kg 96.6 kg Intake: IV 1250 / 1411.25 300 / 300 Oral 240 / 480 75 / 75 Output: Urine 600 / 1500 950 / 950 Other: Urine Color Yellow Yellow Urine Appearance Clear Clear Urine Odor Normal Voiding Methods Bedside Commode Bedside Commode Laboratory Results WBC 11.10 k/cumm (4.4-10.8) H 02/25/20 07:49 RBC 4.07 m/cumm (4.00-5.20) 02/25/20 07:49 Hgb 10.5 g/dL (12.0-15.5) L 02/25/20 07:49 Hct 33.4 % (36.0-46.0) L 02/25/20 07:49 MCV 82.1 fL (80-95) 02/25/20 07:49 MCH 25.8 pg (27.0-33.0) L 02/25/20 07:49 MCHC 31.4 g/dL (32.0-36.0) L 02/25/20 07:49 RDW 17.2 % (11.7-14.6) H 02/25/20 07:49 Plt Count 232 x1000/uL (130-400) 02/25/20 07:49 MPV 10.0 fL (8.0-11.0) 02/25/20 07:49 Immature Gran % 0.7 % 02/25/20 07:49 Neutrophils % 70.1 02/25/20 07:49 Band Neutrophils % 0.0 % 02/22/20 06:50 Lymphocytes % 13.4 02/25/20 07:49 Atypical Lymphs % 0 02/22/20 06:50 Monocytes % 14.2 02/25/20 07:49 Eosinophils % 1.3 02/25/20 07:49 Basophils % 0.3 02/25/20 07:49 Absolute Neutrophils 7.78 k/cumm (1.2-6.7) H 02/25/20 07:49 Absolute Lymphocytes 1.49 k/cumm (1.2-3.4) 02/25/20 07:49 Absolute Monocytes 1.58 k/cumm (0.11-0.7) H 02/25/20 07:49 Absolute Eosinophils 0.14 k/cumm (0.0-0.7) 02/25/20 07:49 Absolute Basophils 0.03 k/cumm (0.0-0.2) 02/25/20 07:49 Differential Comment Agrees w/ instrument 02/25/20 07:49 RBC Morphology See below 02/25/20 07:49 Polychromasia Present 02/25/20 07:49 Hypochromasia 1+ 02/25/20 07:49 Poikilocytosis 1+ 02/22/20 06:50 Anisocytosis 1+ 02/25/20 07:49 D-Dimer 2673 ng/mlFEU (<500) H 02/19/20 20:30 Sodium 139 mmol/L (136-145) 02/25/20 07:49 Potassium 4.1 mmol/L (3.5-5.1) 02/25/20 07:49 Chloride 106 mmol/L (98-107) 02/25/20 07:49 Carbon Dioxide 26.4 mmol/L (21.0-32.0) 02/25/20 07:49 Anion Gap 6.6 mmol/L (3-11) 02/25/20 07:49 BUN 13 mg/dL (7-18) 02/25/20 07:49 Creatinine 1.25 mg/dL (0.55-1.02) H 02/25/20 07:49 Estimated GFR/1.73 m2 42.01 (mL/min/1.73m2) 02/25/20 07:49 Glucose 126 mg/dL (74-106) H 02/25/20 07:49 Hemoglobin A1c 9.8 % (3.8-5.6) H 02/20/20 07:05 Lactate 1.7 mmol/L (0.6-1.4) H 02/19/20 20:30 Calcium 8.1 mg/dL (8.5-10.1) L 02/25/20 07:49 Magnesium 2.0 mg/dL (1.8-2.4) 02/25/20 07:49 Iron 14 ug/dL (50-170) L 02/20/20 07:05 TIBC 141 ug/dL (250-450) L 02/20/20 07:05 Transferrin % Sat 10 % (15-50) L 02/20/20 07:05 Ferritin 823 ng/mL (8-252) H 02/20/20 07:05 Total Bilirubin 1.1 mg/dL (0.2-1.0) H 02/20/20 07:05 AST 36 U/L (15-37) 02/20/20 07:05 ALT 40 U/L (14-59) 02/20/20 07:05 Alkaline Phosphatase 176 U/L (46-116) H 02/20/20 07:05 Creatine Kinase 16 U/L (26-192) L 02/20/20 07:05 Troponin I Cancelled 02/19/20 23:34 C-Reactive Protein 16.73 mg/dL (0.0-0.3) H 02/25/20 07:49 NT-Pro-B Natriuret Pep 5348 pg/mL (<300) H 02/21/20 06:20 Total Protein 7.0 g/dL (6.4-8.2) 02/20/20 07:05 Albumin 1.9 g/dL (3.4-5.0) L 02/20/20 07:05 Lipase 93 U/L (73-393) 02/19/20 20:30 Procalcitonin 1.2 ng/mL 02/24/20 06:30 Urine Color Yellow (Yellow) 02/22/20 20:00 Urine Clarity Cloudy (Clear) 02/22/20 20:00 Urine pH 6.0 (5-8) 02/22/20 20:00 Ur Specific [place] 1.010 (1.005-1.025) 02/22/20 20:00 Urine Protein 30 mg/dL (Negative) H 02/22/20 20:00 Urine Ketones Negative mg/dL (Negative) 02/22/20 20:00 Urine Blood Trace-intact (Negative) H 02/22/20 20:00 Urine Nitrite Negative (Negative) 02/22/20 20:00 Urine Bilirubin Negative (Negative) 02/22/20 20:00 Urine Urobilinogen 1.0 EU/dL (Up TO 0.2) H 02/22/20 20:00 Ur Leukocyte Esterase Small (Negative) H 02/22/20 20:00 Urine RBC 3-5 HPF (0-2) H 02/22/20 20:00 Urine WBC 10-20 HPF (0-5) H 02/22/20 20:00 Ur Epithelial Cells Rare HPF (Negative) 02/22/20 20:00 Urine Crystals Many amorphous HPF (Negative) 02/22/20 20:00 Urine Bacteria Many HPF (Negative) 02/22/20 20:00 Urine Casts Negative LPF (Negative) 02/22/20 20:00 Urine Mucus Negative (Negative) 02/22/20 20:00 Ur Culture Indicated? Yes 02/22/20 20:00 Urine Glucose Negative mg/dL (Negative) 02/22/20 20:00 Stool Campylobacter PCR Negative (Negative) 02/23/20 17:50 Stool Salmonella PCR Negative (Negative) 02/23/20 17:50 Stool Shigella PCR Negative (Negative) 02/23/20 17:50 Vancomycin Trough Cancelled 02/25/20 10:54 COVID-19 PCR Negative (Negative) 02/19/20 23:17 Nasopharyn COVID-19 PCR Not Applicable 02/19/20 23:17 Shiga Toxin (PCR) Negative (Negative) 02/23/20 17:50 Ref Test Perform Site [facility] 02/19/20 23:17
[2020-02-25] MEDS: VANCOMYCIN 1,000 MG in Normal Saline 250 ML 250 MG IV (16:48)
--- NOTE | 2020-02-25 17:23 | PDOC.CMPRO ---
- If Service Date Differs Date of service: 02/25/20 Time of Service: 17:23 Care Management Progress Note S/O: Kizzy was sent to [facility] for a possible biopsy of renal mass vs drainage of abscess today. She was not present to meet with, but was reviewed in interdisciplinary rounds. She is expected to need 4-6 weeks of IV abx, per report. CM will continue to follow. A: Kizzy is a 75 year old female admitted to [facility] on 02/19/20 with a left renal mass. P: Anticipate Kizzy will be discharged home with new home health services for RN/PT. She may need 4-6 weeks of IV abx, which may necessitate SWB1 vs home with home IV abx, with the support of HH RN. Kizzy went to [facility] for biopsy vs drain of the renal mass today, and her plan may change depending on the outcome. Kizzy will follow up with her PCP and discharge plan of care. She will transport via private vehicle with family. CM will continue to follow and support discharge planning considerations.
--- NOTE | 2020-02-25 18:41 | PGE_ITS ---
Date of Service Date of service: 02/25/20 Time of Service: 18:41 Assessment and Plan Assessment and plan (1) Sepsis due to methicillin resistant Staphylococcus aureus (MRSA): Status: Acute Assessment and plan: With bacteremia, likely due to RLE cellulitis. There is also now a question of developing abscess in RLE - obtain US. 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 Repeat blood cultures are negative. No evidence of endocarditis on transthoracic echo. On vancomycin day 5, ceftriaxone day 7/7 (for klebsiella UTI). D/c ceftriaxone - completed 7 day course (with monitoring of CRP/procalcitonin - may have to have this resumed). I suspect she will need 4-6 weeks of IV abx once clears blood cultures, but will discuss with ID once the results of the drainage/bx are known. Trend CRP, procalcitonin. (2) Renal mass, left: Status: Acute Assessment and plan: +/- abscess. Read discussion above. (3) UTI (urinary tract infection): Status: Acute Assessment and plan: Due to Klebsiella, Present on admission. Finish ceftriaxone today. (4) Cellulitis of right lower extremity: Status: Acute Assessment and plan: My clinically impression is that this is most likely due to MRSA rather than something that ceftriaxone was covering. D/c ceftriaxone. Obtain US RLE to ensure no abscess has now formed. Continue vancomycin. 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 (6) ASCVD (arteriosclerotic cardiovascular disease): Status: Acute Assessment and plan: Continue asa, statin. No ACS on this admission - chest pain is likely noncardiac. (7) Anemia: Status: Chronic Assessment and plan: Likely related to the renal cell process. Ferritin argues against iron deficiency - however, is a marker of inflammation. (8) Acute renal insufficiency: Status: Resolved Assessment and plan: Monitor kidney function - current slight increase in Cr likely has to do with the renal process discussed above. (9) Dehydration: Status: Resolved Assessment and plan: No longer on IVF (10) Decubitus ulcer: Status: Acute Assessment and plan: Stage 2, present on admission. Additionally, there appears to be a component of folliculitis (mild) in the area. Continue wound care, abx as above (11) Chronic cough: Status: Chronic Assessment and plan: Sputum with normal parul. Cough is chronic. Sputum is thick. Continue mucinex, tessalon, acapella. May benefit from an outpatient referral to pulmonology down the road. (12) DVT (deep venous thrombosis): Status: Ruled-out Assessment and plan: Negative venous doppler. Resume prophylactic lovenox (13) Discharge planning issues: Status: Acute Assessment and plan: Full code. Will likely need 4-6 weeks of IV abx once clears blood cultures. Will need a renal bx vs drainage of abscess by IR under general anesthesia - awaiting time/date. May require transfer to [facility] for this Palliative care on board. (14) DVT prophylaxis: Status: Acute Assessment and plan: SC lovenox being resumed. Subjective Subjective Interval history since last seen: Patient states that she is s/p unsuccessful attempt at bx/drain of the L renal mass/abscess by IR at [facility] today - patient could not tolerate the position needed for procedure. The plan is for her to return to [facility] for the procedure under general anesthe lan. [facility] IR will get back to us with time and date. The did mention that there was a little bit more fluid around her spleen today on CT - ?hemorrhage. The patient states that she is definitely feeling better. She is embarrassed that she could not tolerate the procedure. Denies dizziness, chest pain, shortness of breath, nausea, vomiting. Exam Narrative Exam Narrative: General: Obese female, very pleasant, A&Ox3, looks better HEENT: EOMI, MMM Heart: RRR, no m/r/g Lungs: CTAB - diminished at B bases. Abdomen: obese, soft, tender in LUQ/epigastrium Extremities: no c/c BLE's, chronic venous stasis changes B with RLE erythema in calf - better, but there is also now an area of induration in it, suspicious for an abscess. Objective Objective Clinical Data: Abnormal lab results 02/25/20 02/25/20 Range/Units 07:49 07:49 WBC 11.10 H (4.4-10.8) k/cumm Hgb 10.5 L (12.0-15.5) g/dL Hct 33.4 L (36.0-46.0) % MCH 25.8 L (27.0-33.0) pg MCHC 31.4 L (32.0-36.0) g/dL RDW 17.2 H (11.7-14.6) % Absolute Neutrophils 7.78 H (1.2-6.7) k/cumm Absolute Monocytes 1.58 H (0.11-0.7) k/cumm Creatinine 1.25 H (0.55-1.02) mg/dL Glucose 126 H (74-106) mg/dL Calcium 8.1 L (8.5-10.1) mg/dL C-Reactive Protein 16.73 H (0.0-0.3) mg/dL Vital Signs Temperature 36.9 C 02/25/20 07:18 Temperature Source Tympanic 02/25/20 07:18 Pulse 81 02/25/20 07:18 Pulse Rhythm Regular 02/25/20 07:55 Pulse 92 H 02/19/20 23:00 Respiratory Rate 28 H 02/25/20 07:18 Respiratory Effort 02/25/20 07:55 Respiratory Depth Shallow 02/25/20 07:55 Respiratory Pattern Hyperpnea 02/25/20 07:55 Blood Pressure 117/62 02/25/20 07:18 Blood Pressure Mean 63 02/19/20 23:00 Blood Pressure Position Supine 02/19/20 17:27 Pulse Oximetry 94 L 02/25/20 07:18 Oxygen Delivery Method Room Air 02/25/20 07:18 Oxygen Flow Rate 0 02/25/20 07:18 Pain Level 4 02/25/20 11:35 Comment 02/25/20 07:18 Intake & Output 02/24/20 02/25/20 02/25/20 23:59 11:59 23:59 Intake Total 1490 / 1891.25 375 / 375 Output Total 600 / 1500 950 / 950 Balance 890 / 391.25 -575 / -575 Weight 100.9 kg 96.6 kg Intake: IV 1250 / 1411.25 300 / 300 Oral 240 / 480 75 / 75 Output: Urine 600 / 1500 950 / 950 Other: Urine Color Yellow Yellow Urine Appearance Clear Clear Urine Odor Normal Voiding Methods Bedside Commode Bedside Commode Toilet Laboratory Results WBC 11.10 k/cumm (4.4-10.8) H 02/25/20 07:49 RBC 4.07 m/cumm (4.00-5.20) 02/25/20 07:49 Hgb 10.5 g/dL (12.0-15.5) L 02/25/20 07:49 Hct 33.4 % (36.0-46.0) L 02/25/20 07:49 MCV 82.1 fL (80-95) 02/25/20 07:49 MCH 25.8 pg (27.0-33.0) L 02/25/20 07:49 MCHC 31.4 g/dL (32.0-36.0) L 02/25/20 07:49 RDW 17.2 % (11.7-14.6) H 02/25/20 07:49 Plt Count 232 x1000/uL (130-400) 02/25/20 07:49 MPV 10.0 fL (8.0-11.0) 02/25/20 07:49 Immature Gran % 0.7 % 02/25/20 07:49 Neutrophils % 70.1 02/25/20 07:49 Band Neutrophils % 0.0 % 02/22/20 06:50 Lymphocytes % 13.4 02/25/20 07:49 Atypical Lymphs % 0 02/22/20 06:50 Monocytes % 14.2 02/25/20 07:49 Eosinophils % 1.3 02/25/20 07:49 Basophils % 0.3 02/25/20 07:49 Absolute Neutrophils 7.78 k/cumm (1.2-6.7) H 02/25/20 07:49 Absolute Lymphocytes 1.49 k/cumm (1.2-3.4) 02/25/20 07:49 Absolute Monocytes 1.58 k/cumm (0.11-0.7) H 02/25/20 07:49 Absolute Eosinophils 0.14 k/cumm (0.0-0.7) 02/25/20 07:49 Absolute Basophils 0.03 k/cumm (0.0-0.2) 02/25/20 07:49 Differential Comment Agrees w/ instrument 02/25/20 07:49 RBC Morphology See below 02/25/20 07:49 Polychromasia Present 02/25/20 07:49 Hypochromasia 1+ 02/25/20 07:49 Poikilocytosis 1+ 02/22/20 06:50 Anisocytosis 1+ 02/25/20 07:49 D-Dimer 2673 ng/mlFEU (<500) H 02/19/20 20:30 Sodium 139 mmol/L (136-145) 02/25/20 07:49 Potassium 4.1 mmol/L (3.5-5.1) 02/25/20 07:49 Chloride 106 mmol/L (98-107) 02/25/20 07:49 Carbon Dioxide 26.4 mmol/L (21.0-32.0) 02/25/20 07:49 Anion Gap 6.6 mmol/L (3-11) 02/25/20 07:49 BUN 13 mg/dL (7-18) 02/25/20 07:49 Creatinine 1.25 mg/dL (0.55-1.02) H 02/25/20 07:49 Estimated GFR/1.73 m2 42.01 (mL/min/1.73m2) 02/25/20 07:49 Glucose 126 mg/dL (74-106) H 02/25/20 07:49 Hemoglobin A1c 9.8 % (3.8-5.6) H 02/20/20 07:05 Lactate 1.7 mmol/L (0.6-1.4) H 02/19/20 20:30 Calcium 8.1 mg/dL (8.5-10.1) L 02/25/20 07:49 Magnesium 2.0 mg/dL (1.8-2.4) 02/25/20 07:49 Iron 14 ug/dL (50-170) L 02/20/20 07:05 TIBC 141 ug/dL (250-450) L 02/20/20 07:05 Transferrin % Sat 10 % (15-50) L 02/20/20 07:05 Ferritin 823 ng/mL (8-252) H 02/20/20 07:05 Total Bilirubin 1.1 mg/dL (0.2-1.0) H 02/20/20 07:05 AST 36 U/L (15-37) 02/20/20 07:05 ALT 40 U/L (14-59) 02/20/20 07:05 Alkaline Phosphatase 176 U/L (46-116) H 02/20/20 07:05 Creatine Kinase 16 U/L (26-192) L 02/20/20 07:05 Troponin I Cancelled 02/19/20 23:34 C-Reactive Protein 16.73 mg/dL (0.0-0.3) H 02/25/20 07:49 NT-Pro-B Natriuret Pep 5348 pg/mL (<300) H 02/21/20 06:20 Total Protein 7.0 g/dL (6.4-8.2) 02/20/20 07:05 Albumin 1.9 g/dL (3.4-5.0) L 02/20/20 07:05 Lipase 93 U/L (73-393) 02/19/20 20:30 Procalcitonin 1.2 ng/mL 02/24/20 06:30 Urine Color Yellow (Yellow) 02/22/20 20:00 Urine Clarity Cloudy (Clear) 02/22/20 20:00 Urine pH 6.0 (5-8) 02/22/20 20:00 Ur Specific [place] 1.010 (1.005-1.025) 02/22/20 20:00 Urine Protein 30 mg/dL (Negative) H 02/22/20 20:00 Urine Ketones Negative mg/dL (Negative) 02/22/20 20:00 Urine Blood Trace-intact (Negative) H 02/22/20 20:00 Urine Nitrite Negative (Negative) 02/22/20 20:00 Urine Bilirubin Negative (Negative) 02/22/20 20:00 Urine Urobilinogen 1.0 EU/dL (Up TO 0.2) H 02/22/20 20:00 Ur Leukocyte Esterase Small (Negative) H 02/22/20 20:00 Urine RBC 3-5 HPF (0-2) H 02/22/20 20:00 Urine WBC 10-20 HPF (0-5) H 02/22/20 20:00 Ur Epithelial Cells Rare HPF (Negative) 02/22/20 20:00 Urine Crystals Many amorphous HPF (Negative) 02/22/20 20:00 Urine Bacteria Many HPF (Negative) 02/22/20 20:00 Urine Casts Negative LPF (Negative) 02/22/20 20:00 Urine Mucus Negative (Negative) 02/22/20 20:00 Ur Culture Indicated? Yes 02/22/20 20:00 Urine Glucose Negative mg/dL (Negative) 02/22/20 20:00 Stool Campylobacter PCR Negative (Negative) 02/23/20 17:50 Stool Salmonella PCR Negative (Negative) 02/23/20 17:50 Stool Shigella PCR Negative (Negative) 02/23/20 17:50 Vancomycin Trough Cancelled 02/25/20 10:54 COVID-19 PCR Negative (Negative) 02/19/20 23:17 Nasopharyn COVID-19 PCR Not Applicable 02/19/20 23:17 Shiga Toxin (PCR) Negative (Negative) 02/23/20 17:50 Ref Test Perform Site [place] [facility] lab 02/19/20 23:17
[2020-02-25 19:30] VITALS: BP 120/72; PULSE 83; RESP 17; TEMP 36.7; O2SAT 96
[2020-02-25] MEDS: Senna TAB 1 TAB PO (20:33)
[2020-02-25] MEDS: Docusate Sodium 100 MG CAP PO (20:34)
[2020-02-25] MEDS: Insulin Glargine 300 UNITS/3 ML PEN 15 UNITS SC (22:31)
[2020-02-25] MEDS: Insulin Aspart 300 UNITS/3 ML PEN SC (22:32)
[2020-02-26 00:21] VITALS: BP 123/73; PULSE 78; RESP 17; TEMP 36.2; O2SAT 92
[2020-02-26] MEDS: Polyethylene Glycol 3350 17 GM PACKET PO (01:34)
[2020-02-26] MEDS: Bisacodyl 5 MG TABEC PO (01:35)
[2020-02-26] MEDS: MORPHine 2 MG/ML SYR IVP ×2 (01:48→16:46)
[2020-02-26] MEDS: Normal Saline Flush 10 ML SYR IVP ×4 (01:48→20:13)
[2020-02-26 05:28] VITALS: BP 146/78; PULSE 94; RESP 20; TEMP 36.6; O2SAT 93
[2020-02-26] MEDS: VANCOMYCIN 1,000 MG in Normal Saline 250 ML 250 MG IV ×2 (05:29→20:13)
[2020-02-26] MEDS: Acetaminophen 325 MG TAB PO ×2 (05:40→20:10)
[2020-02-26 07:39] VITALS: BP 138/73; PULSE 81; RESP 19; TEMP 36.5; O2SAT 94
[2020-02-26 07:48] LABS: Abs Immature Grans 0.09 k/cumm (0.0-0.09); Absolute Basophil Count 0.03 k/cumm (0.0-0.2); Absolute Eosinophil Count 0.16 k/cumm (0.0-0.7); Absolute Monocyte Count 1.32 k/cumm (0.11-0.7); Absolute Neutrophil Count 6.14 k/cumm (1.2-6.7); Basophils % 0.3; Eosinophils % 1.8; HCT 31.9 % (36.0-46.0); HGB 9.9 g/dL (12.0-15.5); Lymphocytes % 15.3; Mean Corpuscular Hemoglobin 25.7 pg (27.0-33.0); Mean Corpuscular Volume 82.9 fL (80-95); Monocytes % 14.4; Neutrophils % 67.2; Platelet Count 284 x1000/uL (130-400); RBC 3.85 m/cumm (4.00-5.20); RBC Distribution Width 17.1 % (11.7-14.6); White Blood Cell Count 9.14 k/cumm (4.4-10.8)
[2020-02-26 07:49] LABS: Anion Gap 6.2 mmol/L (3-11); BUN 13 mg/dL (7-18); C-Reactive Protein 15.06 mg/dL (0.0-0.3); CO2 26.8 mmol/L (21.0-32.0); CREATININE 1.09 mg/dL (0.55-1.02); Calcium 7.9 mg/dL (8.5-10.1); Chloride 106 mmol/L (98-107); Glucose 118 mg/dL (74-106); Potassium 3.7 mmol/L (3.5-5.1); Sodium 139 mmol/L (136-145)
--- NOTE | 2020-02-26 08:00 | DI.US_ITS ---
EXAM: US SOFT TISSUE EXTREMITY CLINICAL HISTORY: concern for abscess formation in RLE. TECHNIQUE: Ultrasound was performed using standard protocol. COMPARISON: No exams were available for comparison FINDINGS: Sonographic assessment utilizing grayscale and color Doppler imaging was performed and targeted to th e area of clinical concern. There is an ovoid hypo echoic area seen in the subcutaneous fat of the proximal lateral calf measurin g 1.8 x 0.5 by 1.5 cm. This could represent a small abscess. This corresponds to the area of of loreta thema. IMPRESSION: Small abscess in the subcutaneous fat corresponding to the area of erythema. DATA REPOSITORY:
[2020-02-26] MEDS: Benzonatate 100 MG CAP PO ×3 (09:19→20:12)
[2020-02-26] MEDS: Cetirizine 10 MG TAB PO (09:19)
[2020-02-26] MEDS: Aspirin E.C. 81 MG TABEC PO (09:19)
[2020-02-26] MEDS: Atorvastatin 40 MG TAB PO (09:19)
[2020-02-26] MEDS: Senna TAB 1 TAB PO ×2 (09:20→20:12)
[2020-02-26] MEDS: Docusate Sodium 100 MG CAP PO ×2 (09:20→20:12)
[2020-02-26] MEDS: Enoxaparin 40 MG/0.4 ML SYR SC (09:20)
[2020-02-26] MEDS: Metoprolol 50 MG TAB PO ×2 (09:20→20:12)
[2020-02-26] MEDS: guaiFENesin 600 MG TABCR PO ×2 (09:20→20:10)
[2020-02-26] MEDS: Insulin Aspart 300 UNITS/3 ML PEN SC ×3 (12:00→21:40)
[2020-02-26 12:33] VITALS: PULSE 81; RESP 19; O2SAT 94
--- NOTE | 2020-02-26 13:24 | W.PM.PROGNOT ---
Date of Service Date of service: 02/26/20 Time of Service: 11:24 Assessment and Plan Assessment and plan (1) Renal mass, left: Status: Acute Assessment and plan: Renal cell carcinoma initially of the top of the differential. I think the MRSA bacteremia brings up the possibility that he renal mass actually represents in the base of infection. Unfortunately were unable to have the mass biopsied yesterday, plan is to reattempt the procedure under general anesthesia when [facility] able to take her back. 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 With her coronary artery disease she would benefit from both SGLT2 and GLP-1 therapy. Currently we are controlling her blood sugar with basal bolus insulin. Metformin on hold with contrast CAT scan studies. I will start some Jardiance to see how she tolerates. (4) ASCVD (arteriosclerotic cardiovascular disease): Status: Acute Assessment and plan: Continue high intensity statin and aspirin. (5) Anemia: Status: Chronic Assessment and plan: Iron deficiency labs at admission. Has been basically stable since admission. Start iron sedimentation on discharge. (6) Decubitus ulcer: Status: Acute Assessment and plan: This does not look infected. Continue chronic wound care. (7) Cellulitis of right lower extremity: Status: Acute Assessment and plan: I agree with the concern for possible abscess forming as the redness seems more focal at this point. She is on vancomycin to treat the infection. We will try to get a bedside ultrasound. (8) DVT prophylaxis: Status: Acute Assessment and plan: On prophylactic low molecular weight heparin (9) Discharge planning issues: Status: Acute Assessment and plan: Patient needs a biopsy and possible drainage of renal mass to definitively treat her infection. With MRSA bacteremia she will need 4 to 6 weeks antibiotics. Next 25 minutes on a phone-based family meeting with the patient's daughter Claudia Saavedra and Justin. They made it clear the patient has any physical limitations and depends on her both physically and emotionally at baseline. The family and the patient has found it hard for her to be alone. They all understand the current uncertainty, and the seriousness of the diagnosed infection. Apparently the patient has had multiple falls and is very unsteady on her feet at baseline, and could benefit from physical therapy prior to discharge home. She may benefit from rehabilitation stay to complete her antibiotic course once we have a definitive diagnosis. Currently a full code. Subjective Subjective Patient reports: no new complaints, tolerating a regular diet and voiding w/o difficulty; denies diarrhea, nausea, vomiting and shortness of breath Interval history since last seen: 24 hour events: Went to [facility] for drainage however she was not able to tolerate positioning physically to have the procedure done Patient feels about the same. She not getting fevers or chills. She is eating. Still has some right-sided pain. Redness in her right leg was improving, but has come back in the smaller area of her calf. Exam Narrative Exam Narrative: General: Obese, very pleasant, A&Ox3 HEENT: EOMI, MMM Heart: RRR, no m/r/g Lungs: CTAB - diminished at B bases Abdomen: obese, soft, tender in LUQ/epigastrium Extremities: no c/c. 1+ edema to knees [place]. chronic venous stasis changes bilaterally with focal induration and erythema in right calf Objective Objective Clinical Data: Abnormal lab results 02/26/20 02/26/20 Range/Units 07:10 07:10 RBC 3.85 L (4.00-5.20) m/cumm Hgb 9.9 L (12.0-15.5) g/dL Hct 31.9 L (36.0-46.0) % MCH 25.7 L (27.0-33.0) pg MCHC 31.0 L (32.0-36.0) g/dL RDW 17.1 H (11.7-14.6) % Absolute Monocytes 1.32 H (0.11-0.7) k/cumm Creatinine 1.09 H (0.55-1.02) mg/dL Glucose 118 H (74-106) mg/dL Calcium 7.9 L (8.5-10.1) mg/dL C-Reactive Protein 15.06 H (0.0-0.3) mg/dL Vital Signs Temperature 36.5 C 02/26/20 07:39 Temperature Source Temporal Artery Scan 02/26/20 07:39 Pulse 81 02/26/20 12:33 Pulse Rhythm Regular 02/26/20 12:43 Pulse 92 H 02/19/20 23:00 Respiratory Rate 19 02/26/20 12:33 Respiratory Effort Non-Labored 02/26/20 12:43 Respiratory Depth Normal 02/26/20 12:43 Respiratory Pattern Normal 02/26/20 12:43 Blood Pressure 138/73 02/26/20 07:39 Blood Pressure Mean 63 02/19/20 23:00 Blood Pressure Position Supine 02/19/20 17:27 Pulse Oximetry 94 L 02/26/20 12:33 Oxygen Delivery Method Room Air 02/26/20 12:33 Oxygen Flow Rate 0 02/26/20 12:33 Pain Level 3 02/26/20 07:39 Comment 02/25/20 07:18 Intake & Output 02/25/20 02/26/20 02/26/20 23:59 11:59 23:59 Intake Total 490 / 865 130 / 130 Output Total 200 / 1150 600 / 600 Balance 290 / -285 -600 / -470 130 / -470 Weight 95.4 kg Intake: IV 250 / 550 10 / 10 Oral 240 / 315 120 / 120 Output: Urine 200 / 1150 600 / 600 Other: Urine Color Yellow Dark Sudha Yellow Urine Appearance Clear Cloudy Clear Urine Odor Normal None Stool Size Large Large Stool Characteristics Soft Soft Formed Formed Brown Brown Voiding Methods Toilet Toilet Toilet Laboratory Results WBC 9.14 k/cumm (4.4-10.8) 02/26/20 07:10 RBC 3.85 m/cumm (4.00-5.20) L 02/26/20 07:10 Hgb 9.9 g/dL (12.0-15.5) L 02/26/20 07:10 Hct 31.9 % (36.0-46.0) L 02/26/20 07:10 MCV 82.9 fL (80-95) 02/26/20 07:10 MCH 25.7 pg (27.0-33.0) L 02/26/20 07:10 MCHC 31.0 g/dL (32.0-36.0) L 02/26/20 07:10 RDW 17.1 % (11.7-14.6) H 02/26/20 07:10 Plt Count 284 x1000/uL (130-400) 02/26/20 07:10 MPV 10.0 fL (8.0-11.0) 02/26/20 07:10 Immature Gran % 1.0 % 02/26/20 07:10 Neutrophils % 67.2 02/26/20 07:10 Band Neutrophils % 0.0 % 02/22/20 06:50 Lymphocytes % 15.3 02/26/20 07:10 Atypical Lymphs % 0 02/22/20 06:50 Monocytes % 14.4 02/26/20 07:10 Eosinophils % 1.8 02/26/20 07:10 Basophils % 0.3 02/26/20 07:10 Absolute Neutrophils 6.14 k/cumm (1.2-6.7) 02/26/20 07:10 Absolute Lymphocytes 1.40 k/cumm (1.2-3.4) 02/26/20 07:10 Absolute Monocytes 1.32 k/cumm (0.11-0.7) H 02/26/20 07:10 Absolute Eosinophils 0.16 k/cumm (0.0-0.7) 02/26/20 07:10 Absolute Basophils 0.03 k/cumm (0.0-0.2) 02/26/20 07:10 Differential Comment Agrees w/ instrument 02/25/20 07:49 RBC Morphology See below 02/25/20 07:49 Polychromasia Present 02/25/20 07:49 Hypochromasia 1+ 02/25/20 07:49 Poikilocytosis 1+ 02/22/20 06:50 Anisocytosis 1+ 02/25/20 07:49 D-Dimer 2673 ng/mlFEU (<500) H 02/19/20 20:30 Sodium 139 mmol/L (136-145) 02/26/20 07:10 Potassium 3.7 mmol/L (3.5-5.1) 02/26/20 07:10 Chloride 106 mmol/L (98-107) 02/26/20 07:10 Carbon Dioxide 26.8 mmol/L (21.0-32.0) 02/26/20 07:10 Anion Gap 6.2 mmol/L (3-11) 02/26/20 07:10 BUN 13 mg/dL (7-18) 02/26/20 07:10 Creatinine 1.09 mg/dL (0.55-1.02) H 02/26/20 07:10 Estimated GFR/1.73 m2 49.20 (mL/min/1.73m2) 02/26/20 07:10 Glucose 118 mg/dL (74-106) H 02/26/20 07:10 Hemoglobin A1c 9.8 % (3.8-5.6) H 02/20/20 07:05 Lactate 1.7 mmol/L (0.6-1.4) H 02/19/20 20:30 Calcium 7.9 mg/dL (8.5-10.1) L 02/26/20 07:10 Magnesium 2.0 mg/dL (1.8-2.4) 02/26/20 07:10 Iron 14 ug/dL (50-170) L 02/20/20 07:05 TIBC 141 ug/dL (250-450) L 02/20/20 07:05 Transferrin % Sat 10 % (15-50) L 02/20/20 07:05 Ferritin 823 ng/mL (8-252) H 02/20/20 07:05 Total Bilirubin 1.1 mg/dL (0.2-1.0) H 02/20/20 07:05 AST 36 U/L (15-37) 02/20/20 07:05 ALT 40 U/L (14-59) 02/20/20 07:05 Alkaline Phosphatase 176 U/L (46-116) H 02/20/20 07:05 Creatine Kinase 16 U/L (26-192) L 02/20/20 07:05 Troponin I Cancelled 02/19/20 23:34 C-Reactive Protein 15.06 mg/dL (0.0-0.3) H 02/26/20 07:10 NT-Pro-B Natriuret Pep 5348 pg/mL (<300) H 02/21/20 06:20 Total Protein 7.0 g/dL (6.4-8.2) 02/20/20 07:05 Albumin 1.9 g/dL (3.4-5.0) L 02/20/20 07:05 Lipase 93 U/L (73-393) 02/19/20 20:30 Procalcitonin 1.2 ng/mL 02/24/20 06:30 Urine Color Yellow (Yellow) 02/22/20 20:00 Urine Clarity Cloudy (Clear) 02/22/20 20:00 Urine pH 6.0 (5-8) 02/22/20 20:00 Ur Specific [place] 1.010 (1.005-1.025) 02/22/20 20:00 Urine Protein 30 mg/dL (Negative) H 02/22/20 20:00 Urine Ketones Negative mg/dL (Negative) 02/22/20 20:00 Urine Blood Trace-intact (Negative) H 02/22/20 20:00 Urine Nitrite Negative (Negative) 02/22/20 20:00 Urine Bilirubin Negative (Negative) 02/22/20 20:00 Urine Urobilinogen 1.0 EU/dL (Up TO 0.2) H 02/22/20 20:00 Ur Leukocyte Esterase Small (Negative) H 02/22/20 20:00 Urine RBC 3-5 HPF (0-2) H 02/22/20 20:00 Urine WBC 10-20 HPF (0-5) H 02/22/20 20:00 Ur Epithelial Cells Rare HPF (Negative) 02/22/20 20:00 Urine Crystals Many amorphous HPF (Negative) 02/22/20 20:00 Urine Bacteria Many HPF (Negative) 02/22/20 20:00 Urine Casts Negative LPF (Negative) 02/22/20 20:00 Urine Mucus Negative (Negative) 02/22/20 20:00 Ur Culture Indicated? Yes 02/22/20 20:00 Urine Glucose Negative mg/dL (Negative) 02/22/20 20:00 Stool Campylobacter PCR Negative (Negative) 02/23/20 17:50 Stool Salmonella PCR Negative (Negative) 02/23/20 17:50 Stool Shigella PCR Negative (Negative) 02/23/20 17:50 Vancomycin Trough Cancelled 02/25/20 10:54 COVID-19 PCR Negative (Negative) 02/19/20 23:17 Nasopharyn COVID-19 PCR Not Applicable 02/19/20 23:17 Shiga Toxin (PCR) Negative (Negative) 02/23/20 17:50 Ref Test Perform Site [place] [facility] lab 02/19/20 23:17
[2020-02-26 15:17] VITALS: BP 122/68; PULSE 79; RESP 17; TEMP 36.8; O2SAT 97
--- NOTE | 2020-02-26 15:59 | CMPROGNOTE_ITS ---
- If Service Date Differs Date of service: 02/26/20 Time of Service: 16:04 Care Management Progress Note S/O: Kizzy was lying in bed when CM met with her. She reported that she did not have a good experience at [facility] for the down and back procedure that was scheduled yesterday. Per report, the procedure to biopsy/drain the renal mass was unsuccessful, and will have to be attempted again under general anesthesia. Kizzy stated that she was not able to tolerate the procedure and she was not medel ppy with the treatment she received while there. CM coordinated a family phone meeting with Kizzy's and daughter, Claudia, and the provider. CM received feedback that the family has a complaint against [facility]. CM offered the care management phone number to Claudia in order for her to file a complaint. CM appreciated the feedback regarding the transfer to tertiary facility. CM will continue to follow. A: Kizzy is a 75 year old female admitted to [facility] on 02/19/20 with a left renal mass. P: Anticipate Kizzy will be discharged home with new home health services for RN/PT. She may need 4-6 weeks of IV abx, which may necessitate SWB1 vs home with home IV abx, with the support of HH RN. Kizzy went to [facility] for biopsy vs drain of the renal mass today, and her plan may change depending on the outcome. Kizzy will follow up with her PCP and discharge plan of care. She will transport via private vehicle with family. CM will continue to follow and support discharge planning considerations.
--- NOTE | 2020-02-26 20:47 | DI.VRAD_ITS ---
PROCEDURE INFORMATION: Exam: US Right Joint, Complete, Lower extremity Exam date and time: 02/26/2020 12:01 AM Age: 75 years old Clinical indication: Other: Area of redness right lateral prox calf, also pain behind knee TECHNIQUE: Imaging protocol: Right US Joint. Complete exam. Exam was focused on the joint of clinical interest. COMPARISON: No relevant prior studies available. FINDINGS: Soft tissues: Soft tissue edema. Other findings: Ovoid hypoechoic circumscribed avascular area or structure with surrounding hypervascularity in proximal, lateral aspect of calf measuring up to 1.8 cm. IMPRESSION: Abscess suspected in proximal, lateral aspect of calf. Dictated and Authenticated by: Frankie Rogers MD. Ordering:LAURENCE Thornton MD
[2020-02-26] MEDS: Insulin Glargine 300 UNITS/3 ML PEN 15 UNITS SC (21:39)
[2020-02-26 23:39] VITALS: BP 124/64; PULSE 71; RESP 17; TEMP 36.7; O2SAT 94
[2020-02-27] MEDS: Acetaminophen 325 MG TAB PO ×2 (01:34→15:07)
[2020-02-27] MEDS: MORPHine 2 MG/ML SYR IVP ×3 (05:40→22:55)
[2020-02-27] MEDS: Normal Saline Flush 10 ML SYR IVP ×2 (05:41→15:11)
[2020-02-27 07:17] VITALS: BP 143/75; PULSE 73; RESP 18; TEMP 36.6; O2SAT 94
[2020-02-27] MEDS: Benzonatate 100 MG CAP PO ×3 (08:18→19:51)
[2020-02-27] MEDS: Cetirizine 10 MG TAB PO (08:18)
[2020-02-27] MEDS: Aspirin E.C. 81 MG TABEC PO (08:18)
[2020-02-27] MEDS: Atorvastatin 40 MG TAB PO (08:18)
[2020-02-27] MEDS: Docusate Sodium 100 MG CAP PO ×2 (08:19→19:52)
[2020-02-27] MEDS: guaiFENesin 600 MG TABCR PO ×2 (08:20→19:51)
[2020-02-27] MEDS: Metoprolol 50 MG TAB PO ×2 (08:20→19:52)
[2020-02-27] MEDS: Enoxaparin 40 MG/0.4 ML SYR SC (08:20)
[2020-02-27] MEDS: Insulin Aspart 300 UNITS/3 ML PEN SC ×4 (08:24→22:18)
[2020-02-27 09:34] LABS: Vancomycin, Trough 23.7 ug/mL (10.0-20.0)
--- NOTE | 2020-02-27 10:11 | CMPROGNOTE_ITS ---
- If Service Date Differs Date of service: 02/27/20 Time of Service: 10:12 Care Management Progress Note S/O: Kizzy was meeting with the surgeon today when CM attempted to meet with her. She was reviewed at interdisciplinary rounds. Per report, she has an abscess on her right leg, which was looked at by the surgeon today. Kizzy will discuss the course of treatment for this with her and daughter, who are her main supports. The renal mass remains unidentified, awaiting [facility] [place] able to perform the biopsy/drain under general anesthesia. CM will continue to follow. A: Kizzy is a 75 year old female admitted to [facility] on 02/19/20 with a left renal mass. P: Anticipate Kizzy will be discharged home with new home health services for RN/PT. She may need 4-6 weeks of IV abx, which may necessitate SWB1 vs home with home IV abx, with the support of HH RN. Kizzy went to [facility] [place] biopsy vs drain of the renal mass today, and her plan may change depending on the outcome. Kizzy will follow up with her PCP and discharge plan of care. She will transport via private vehicle with family. CM will continue to follow and support discharge planning considerations.
--- NOTE | 2020-02-27 12:55 | W.SURGCON ---
Date of service: 02/27/20 Time of Service: 12:55 Assessment and Plan Assessment and plan (1) Cellulitis of right lower extremity: Status: Acute Assessment and plan: The area will improve faster if an I and D is performed and may be necessary for it to totally resolve. This can be done at the bedside under local. The wound would need to be packed open for a week or two. She is reluctant to have it opened due to her prior experience. I acknowledged that the wound will need to be packed but is on a much smaller scale than her prior situation. We agreed to have her talk it over with her family. I will hold her am Lovenox and could perform the I and D tomorrow if she agrees. History of Present Illness Narrative: This patient was admitted with MRSA bacteremia attributed to right lower extremity cellulitis. The cellulitis has improved and has coalesced into a abscess on the lateral aspect of the upper right leg. Ultrasound showed a 1.8 cm collection. She is clinically doing well and is afebrile with a normal white blood cell count. Her history is significant for a postoperative MRSA infection 3 years ago in a cholecystectomy site requiring a wound VAC for several months. She also had to have several surgical debridements. She is awaiting kidney biopsy for a possible renal cell cancer. 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 Grandfather No problems noted. Grandmother Diabetes Grandmother No problems noted. Daughter No problems noted. 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 Eating lunch Right lower leg with a 2-3cm area of erythema on the upper/lateral aspect. Slight fluctuance. Results Last Vital Signs Temp 97.9 F 02/27/20 07:17 Pulse 73 02/27/20 07:17 Resp 18 02/27/20 07:17 BP 143/75 H 02/27/20 07:17 Pulse Ox 94 L 02/27/20 07:17 Labs Result diagrams: 02/26/20 07:10 02/26/20 07:10 Labs: Laboratory Results - last 24 hr 02/27/20 09:05 Vancomycin Trough 23.7 H*
[2020-02-27] MEDS: VANCOMYCIN 750 MG in Normal Saline 250 ML 250 MG IV (15:11)
[2020-02-27] MEDS: Ondansetron 4 MG/2 ML VIAL IVP (16:02)
--- NOTE | 2020-02-27 16:08 | PGE_ITS ---
Date of Service Date of service: 02/27/20 Time of Service: 13:08 Assessment and Plan Assessment and plan (1) Renal mass, left: Status: Acute Assessment and plan: Renal cell carcinoma initially of the top of the differential. I think the MRSA bacteremia brings up the possibility that he renal mass actually represents in the base of infection. Unfortunately were unable to have the mass biopsied yesterday, plan is to reattempt the procedure under general anesthesia when [facility] able to take her back. And to communicate with [facility] tomorrow regarding timing of the procedure. (2) Staphylococcus aureus bacteremia: Status: Acute Assessment and plan: Clinically improved on vancomycin, continue. She will need a least 4 weeks of therapy, so will consider PICC line. Initial source of infection is unclear. 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 Echocardiogram was not revealing of any vegetations on her valves. 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 With her coronary artery disease she would benefit from both SGLT2 and GLP-1 therapy. Currently we are controlling her blood sugar with basal bolus insulin. Metformin on hold with contrast CAT scan studies. Unfortunately SGLT2 inhibitors are not available on the inpatient formulary. The new her basal bolus insulin for now. (4) ASCVD (arteriosclerotic cardiovascular disease): Status: Acute Assessment and plan: Continue high intensity statin and aspirin. (5) Anemia: Status: Chronic Assessment and plan: Iron deficiency labs at admission. Has been basically stable since admission. Start iron supplementation. (6) Decubitus ulcer: Status: Acute Assessment and plan: This does not look infected. Continue chronic wound care. (7) Cellulitis of right lower extremity: Status: Acute Assessment and plan: I ultrasound does confirm 1.8 cm abscess.. She is on vancomycin to treat the infection. I discussed reason for I&D with the patient and her , she eventually agreed. She is concerned about difficulty healing and pain with wound care. I told her we can address these issues.. (8) Bacteriuria: Status: Acute Assessment and plan: Klebsiella in February 21 culture. This would not be covered by her vancomycin. She is not having urinary symptoms currently so will not add antibiotic for now. (9) DVT prophylaxis: Status: Acute Assessment and plan: On prophylactic low molecular weight heparin (10) Discharge planning issues: Status: Acute Assessment and plan: Patient needs a biopsy and possible drainage of renal mass to definitively treat her infection. With MRSA bacteremia she will need 4 to 6 weeks antibiotics. on her feet at baseline, and could benefit from physical therapy prior to discharge home. She may benefit from rehabilitation stay to complete her antibiotic course once we have a definitive diagnosis. Currently a full code. Subjective Subjective Patient reports: no new complaints, tolerating a regular diet and voiding w/o difficulty Interval history since last seen: 24 hours: Seen by Dr. Guzmán this morning and offered I&D after ultrasound confirmed small abscess. Patient hesitant. But he feels about the same. She feels little tired and short of breath after going to the bathroom, but she has felt this way over the past several weeks. No fevers. She denies nausea or vomiting or diarrhea. She is eating. Exam Narrative Exam Narrative: General: Obese, very pleasant, A&Ox3 HEENT: EOMI, MMM Heart: RRR, no m/r/g Lungs: CTAB -slightly diminished at B bases Abdomen: obese, soft, less tender in LUQ/epigastrium Extremities: no c/c. Trace edema to knees [place]. chronic venous stasis changes bilaterally with focal induration and erythema of about 3 cm in right calf Objective Objective Clinical Data: Abnormal lab results 02/27/20 Range/Units 09:05 Vancomycin Trough 23.7 H* (10.0-20.0) ug/mL Vital Signs Temperature 36.6 C 02/27/20 07:17 Temperature Source Tympanic 02/27/20 07:17 Pulse 73 02/27/20 07:17 Pulse Rhythm Regular 02/27/20 12:22 Pulse 92 H 02/19/20 23:00 Respiratory Rate 18 02/27/20 07:17 Respiratory Effort Non-Labored 02/27/20 12:22 Respiratory Depth Normal 02/27/20 12:22 Respiratory Pattern Normal 02/27/20 12:22 Blood Pressure 143/75 H 02/27/20 07:17 Blood Pressure Mean 63 02/19/20 23:00 Blood Pressure Position Supine 02/19/20 17:27 Pulse Oximetry 94 L 02/27/20 07:17 Oxygen Delivery Method Room Air 02/27/20 07:17 Oxygen Flow Rate 0 02/27/20 07:17 Pain Level 8 02/27/20 15:52 Comment 02/25/20 07:18 Intake & Output 02/26/20 02/27/20 02/27/20 23:59 11:59 23:59 Intake Total 490 / 740 480 / 960 480 / 960 Output Total 200 / 800 975 / 1925 950 / 1925 Balance 290 / -60 -495 / -965 -470 / -965 Weight 95.9 kg Intake: IV 20 Oral 470 / 470 480 / 960 480 / 960 Output: Urine 200 / 800 975 / 1925 950 / 1925 Other: Urine Color Yellow Yellow Yellow Urine Appearance Clear Clear Clear Urine Odor Normal Normal Comment unmeasured amount pt missed the hat Stool Occult Blood Negative Stool Size Small Large Stool Characteristics Soft Soft Formed Formed Brown Hard Brown Voiding Methods Toilet Toilet Toilet Laboratory Results WBC 9.14 k/cumm (4.4-10.8) 02/26/20 07:10 RBC 3.85 m/cumm (4.00-5.20) L 02/26/20 07:10 Hgb 9.9 g/dL (12.0-15.5) L 02/26/20 07:10 Hct 31.9 % (36.0-46.0) L 02/26/20 07:10 MCV 82.9 fL (80-95) 02/26/20 07:10 MCH 25.7 pg (27.0-33.0) L 02/26/20 07:10 MCHC 31.0 g/dL (32.0-36.0) L 02/26/20 07:10 RDW 17.1 % (11.7-14.6) H 02/26/20 07:10 Plt Count 284 x1000/uL (130-400) 02/26/20 07:10 MPV 10.0 fL (8.0-11.0) 02/26/20 07:10 Immature Gran % 1.0 % 02/26/20 07:10 Neutrophils % 67.2 02/26/20 07:10 Band Neutrophils % 0.0 % 02/22/20 06:50 Lymphocytes % 15.3 02/26/20 07:10 Atypical Lymphs % 0 02/22/20 06:50 Monocytes % 14.4 02/26/20 07:10 Eosinophils % 1.8 02/26/20 07:10 Basophils % 0.3 02/26/20 07:10 Absolute Neutrophils 6.14 k/cumm (1.2-6.7) 02/26/20 07:10 Absolute Lymphocytes 1.40 k/cumm (1.2-3.4) 02/26/20 07:10 Absolute Monocytes 1.32 k/cumm (0.11-0.7) H 02/26/20 07:10 Absolute Eosinophils 0.16 k/cumm (0.0-0.7) 02/26/20 07:10 Absolute Basophils 0.03 k/cumm (0.0-0.2) 02/26/20 07:10 Differential Comment Agrees w/ instrument 02/25/20 07:49 RBC Morphology See below 02/25/20 07:49 Polychromasia Present 02/25/20 07:49 Hypochromasia 1+ 02/25/20 07:49 Poikilocytosis 1+ 02/22/20 06:50 Anisocytosis 1+ 02/25/20 07:49 D-Dimer 2673 ng/mlFEU (<500) H 02/19/20 20:30 Sodium 139 mmol/L (136-145) 02/26/20 07:10 Potassium 3.7 mmol/L (3.5-5.1) 02/26/20 07:10 Chloride 106 mmol/L (98-107) 02/26/20 07:10 Carbon Dioxide 26.8 mmol/L (21.0-32.0) 02/26/20 07:10 Anion Gap 6.2 mmol/L (3-11) 02/26/20 07:10 BUN 13 mg/dL (7-18) 02/26/20 07:10 Creatinine 1.09 mg/dL (0.55-1.02) H 02/26/20 07:10 Estimated GFR/1.73 m2 49.20 (mL/min/1.73m2) 02/26/20 07:10 Glucose 118 mg/dL (74-106) H 02/26/20 07:10 Hemoglobin A1c 9.8 % (3.8-5.6) H 02/20/20 07:05 Lactate 1.7 mmol/L (0.6-1.4) H 02/19/20 20:30 Calcium 7.9 mg/dL (8.5-10.1) L 02/26/20 07:10 Magnesium 2.0 mg/dL (1.8-2.4) 02/26/20 07:10 Iron 14 ug/dL (50-170) L 02/20/20 07:05 TIBC 141 ug/dL (250-450) L 02/20/20 07:05 Transferrin % Sat 10 % (15-50) L 02/20/20 07:05 Ferritin 823 ng/mL (8-252) H 02/20/20 07:05 Total Bilirubin 1.1 mg/dL (0.2-1.0) H 02/20/20 07:05 AST 36 U/L (15-37) 02/20/20 07:05 ALT 40 U/L (14-59) 02/20/20 07:05 Alkaline Phosphatase 176 U/L (46-116) H 02/20/20 07:05 Creatine Kinase 16 U/L (26-192) L 02/20/20 07:05 Troponin I Cancelled 02/19/20 23:34 C-Reactive Protein 15.06 mg/dL (0.0-0.3) H 02/26/20 07:10 NT-Pro-B Natriuret Pep 5348 pg/mL (<300) H 02/21/20 06:20 Total Protein 7.0 g/dL (6.4-8.2) 02/20/20 07:05 Albumin 1.9 g/dL (3.4-5.0) L 02/20/20 07:05 Lipase 93 U/L (73-393) 02/19/20 20:30 Procalcitonin 1.2 ng/mL 02/24/20 06:30 Urine Color Yellow (Yellow) 02/22/20 20:00 Urine Clarity Cloudy (Clear) 02/22/20 20:00 Urine pH 6.0 (5-8) 02/22/20 20:00 Ur Specific [employer] 1.010 (1.005-1.025) 02/22/20 20:00 Urine Protein 30 mg/dL (Negative) H 02/22/20 20:00 Urine Ketones Negative mg/dL (Negative) 02/22/20 20:00 Urine Blood Trace-intact (Negative) H 02/22/20 20:00 Urine Nitrite Negative (Negative) 02/22/20 20:00 Urine Bilirubin Negative (Negative) 02/22/20 20:00 Urine Urobilinogen 1.0 EU/dL (Up TO 0.2) H 02/22/20 20:00 Ur Leukocyte Esterase Small (Negative) H 02/22/20 20:00 Urine RBC 3-5 HPF (0-2) H 02/22/20 20:00 Urine WBC 10-20 HPF (0-5) H 02/22/20 20:00 Ur Epithelial Cells Rare HPF (Negative) 02/22/20 20:00 Urine Crystals Many amorphous HPF (Negative) 02/22/20 20:00 Urine Bacteria Many HPF (Negative) 02/22/20 20:00 Urine Casts Negative LPF (Negative) 02/22/20 20:00 Urine Mucus Negative (Negative) 02/22/20 20:00 Ur Culture Indicated? Yes 02/22/20 20:00 Urine Glucose Negative mg/dL (Negative) 02/22/20 20:00 Stool Campylobacter PCR Negative (Negative) 02/23/20 17:50 Stool Salmonella PCR Negative (Negative) 02/23/20 17:50 Stool Shigella PCR Negative (Negative) 02/23/20 17:50 Vancomycin Trough 23.7 ug/mL (10.0-20.0) H* 02/27/20 09:05 COVID-19 PCR Negative (Negative) 02/19/20 23:17 Nasopharyn COVID-19 PCR Not Applicable 02/19/20 23:17 Shiga Toxin (PCR) Negative (Negative) 02/23/20 17:50 Ref Test Perform Site [place] [facility] 02/19/20 23:17
[2020-02-27 16:19] VITALS: BP 151/59; PULSE 88; RESP 18; TEMP 36.7; O2SAT 94
[2020-02-27] MEDS: Insulin Glargine 300 UNITS/3 ML PEN 15 UNITS SC (22:19)
[2020-02-27 23:59] VITALS: BP 115/65; PULSE 74; RESP 19; TEMP 36.7; O2SAT 94
[2020-02-28] MEDS: MORPHine 2 MG/ML SYR IVP ×5 (01:40→22:28)
[2020-02-28] MEDS: Normal Saline Flush 10 ML SYR IVP ×4 (01:41→17:30)
[2020-02-28] MEDS: VANCOMYCIN 750 MG in Normal Saline 250 ML 250 MG IV ×2 (04:09→17:32)
[2020-02-28 07:19] LABS: INR 1.1 (0.9-1.1); Prothrombin Time 10.6 sec (9.3-11.0)
[2020-02-28 07:32] VITALS: BP 126/72; PULSE 82; RESP 18; TEMP 36.6; O2SAT 93
[2020-02-28 08:00] VITALS: O2SAT 93
[2020-02-28] MEDS: Atorvastatin 40 MG TAB PO (09:07)
[2020-02-28] MEDS: guaiFENesin 600 MG TABCR PO ×2 (09:07→19:46)
[2020-02-28] MEDS: Aspirin E.C. 81 MG TABEC PO (09:07)
[2020-02-28] MEDS: Metoprolol 50 MG TAB PO ×2 (09:07→19:46)
[2020-02-28] MEDS: Ferrous Gluconate 324 MG TAB PO (09:08)
[2020-02-28] MEDS: Cetirizine 10 MG TAB PO (09:08)
[2020-02-28] MEDS: Senna TAB 1 TAB PO ×2 (09:08→19:46)
[2020-02-28] MEDS: Docusate Sodium 100 MG CAP PO ×2 (09:08→19:46)
[2020-02-28] MEDS: Benzonatate 100 MG CAP PO ×3 (09:08→19:46)
[2020-02-28] MEDS: Ascorbic Acid 500 MG TAB PO (09:08)
[2020-02-28] MEDS: Lidocaine 1% Multi-Dose 50 ML VIAL (11:09)
--- NOTE | 2020-02-28 11:49 | PGE_ITS ---
Date of Service Date of service: 02/28/20 Time of Service: 11:49 Objective Objective Clinical Data: Vital Signs Temperature 36.6 C 02/28/20 07:32 Temperature Source Tympanic 02/28/20 07:32 Pulse 82 02/28/20 07:32 Pulse Rhythm Regular 02/28/20 09:03 Pulse 92 H 02/19/20 23:00 Respiratory Rate 18 02/28/20 07:32 Respiratory Effort 02/28/20 09:03 Respiratory Depth Normal 02/28/20 09:03 Respiratory Pattern Normal 02/28/20 09:03 Blood Pressure 126/72 02/28/20 07:32 Blood Pressure Mean 63 02/19/20 23:00 Blood Pressure Position Supine 02/19/20 17:27 Pulse Oximetry 93 L 02/28/20 07:32 Oxygen Delivery Method Room Air 02/28/20 07:32 Oxygen Flow Rate 0 02/28/20 07:32 Pain Level 5 02/28/20 10:10 Comment 02/25/20 07:18 Intake & Output 02/27/20 02/27/20 02/28/20 11:59 23:59 11:59 Intake Total 480 / 1450 970 / 1450 240 / 240 Output Total 975 / 2125 1150 / 2125 700 / 700 Balance -495 / -675 -180 / -675 -460 / -460 Weight 95.9 kg 95.3 kg Intake: IV 250 / 250 Oral 480 / 1200 720 / 1200 240 / 240 Output: Urine 975 / 2125 1150 / 2125 700 / 700 Other: Urine Color Yellow Yellow Yellow Urine Appearance Clear Clear Clear Urine Odor Normal Normal None Stool Occult Blood Negative Stool Size Large Stool Characteristics Soft Formed Hard Brown Voiding Methods Toilet Toilet Toilet Laboratory Results WBC 9.14 k/cumm (4.4-10.8) 02/26/20 07:10 RBC 3.85 m/cumm (4.00-5.20) L 02/26/20 07:10 Hgb 9.9 g/dL (12.0-15.5) L 02/26/20 07:10 Hct 31.9 % (36.0-46.0) L 02/26/20 07:10 MCV 82.9 fL (80-95) 02/26/20 07:10 MCH 25.7 pg (27.0-33.0) L 02/26/20 07:10 MCHC 31.0 g/dL (32.0-36.0) L 02/26/20 07:10 RDW 17.1 % (11.7-14.6) H 02/26/20 07:10 Plt Count 284 x1000/uL (130-400) 02/26/20 07:10 MPV 10.0 fL (8.0-11.0) 02/26/20 07:10 Immature Gran % 1.0 % 02/26/20 07:10 Neutrophils % 67.2 02/26/20 07:10 Band Neutrophils % 0.0 % 02/22/20 06:50 Lymphocytes % 15.3 02/26/20 07:10 Atypical Lymphs % 0 02/22/20 06:50 Monocytes % 14.4 02/26/20 07:10 Eosinophils % 1.8 02/26/20 07:10 Basophils % 0.3 02/26/20 07:10 Absolute Neutrophils 6.14 k/cumm (1.2-6.7) 02/26/20 07:10 Absolute Lymphocytes 1.40 k/cumm (1.2-3.4) 02/26/20 07:10 Absolute Monocytes 1.32 k/cumm (0.11-0.7) H 02/26/20 07:10 Absolute Eosinophils 0.16 k/cumm (0.0-0.7) 02/26/20 07:10 Absolute Basophils 0.03 k/cumm (0.0-0.2) 02/26/20 07:10 Differential Comment Agrees w/ instrument 02/25/20 07:49 RBC Morphology See below 02/25/20 07:49 Polychromasia Present 02/25/20 07:49 Hypochromasia 1+ 02/25/20 07:49 Poikilocytosis 1+ 02/22/20 06:50 Anisocytosis 1+ 02/25/20 07:49 PT 10.6 sec (9.3-11.0) 02/28/20 06:35 INR 1.1 (0.9-1.1) 02/28/20 06:35 D-Dimer 2673 ng/mlFEU (<500) H 02/19/20 20:30 Sodium 139 mmol/L (136-145) 02/26/20 07:10 Potassium 3.7 mmol/L (3.5-5.1) 02/26/20 07:10 Chloride 106 mmol/L (98-107) 02/26/20 07:10 Carbon Dioxide 26.8 mmol/L (21.0-32.0) 02/26/20 07:10 Anion Gap 6.2 mmol/L (3-11) 02/26/20 07:10 BUN 13 mg/dL (7-18) 02/26/20 07:10 Creatinine 1.09 mg/dL (0.55-1.02) H 02/26/20 07:10 Estimated GFR/1.73 m2 49.20 (mL/min/1.73m2) 02/26/20 07:10 Glucose 118 mg/dL (74-106) H 02/26/20 07:10 Hemoglobin A1c 9.8 % (3.8-5.6) H 02/20/20 07:05 Lactate 1.7 mmol/L (0.6-1.4) H 02/19/20 20:30 Calcium 7.9 mg/dL (8.5-10.1) L 02/26/20 07:10 Magnesium 2.0 mg/dL (1.8-2.4) 02/26/20 07:10 Iron 14 ug/dL (50-170) L 02/20/20 07:05 TIBC 141 ug/dL (250-450) L 02/20/20 07:05 Transferrin % Sat 10 % (15-50) L 02/20/20 07:05 Ferritin 823 ng/mL (8-252) H 02/20/20 07:05 Total Bilirubin 1.1 mg/dL (0.2-1.0) H 02/20/20 07:05 AST 36 U/L (15-37) 02/20/20 07:05 ALT 40 U/L (14-59) 02/20/20 07:05 Alkaline Phosphatase 176 U/L (46-116) H 02/20/20 07:05 Creatine Kinase 16 U/L (26-192) L 02/20/20 07:05 Troponin I Cancelled 02/19/20 23:34 C-Reactive Protein 15.06 mg/dL (0.0-0.3) H 02/26/20 07:10 NT-Pro-B Natriuret Pep 5348 pg/mL (<300) H 02/21/20 06:20 Total Protein 7.0 g/dL (6.4-8.2) 02/20/20 07:05 Albumin 1.9 g/dL (3.4-5.0) L 02/20/20 07:05 Lipase 93 U/L (73-393) 02/19/20 20:30 Procalcitonin 1.2 ng/mL 02/24/20 06:30 Urine Color Yellow (Yellow) 02/22/20 20:00 Urine Clarity Cloudy (Clear) 02/22/20 20:00 Urine pH 6.0 (5-8) 02/22/20 20:00 Ur Specific [place] 1.010 (1.005-1.025) 02/22/20 20:00 Urine Protein 30 mg/dL (Negative) H 02/22/20 20:00 Urine Ketones Negative mg/dL (Negative) 02/22/20 20:00 Urine Blood Trace-intact (Negative) H 02/22/20 20:00 Urine Nitrite Negative (Negative) 02/22/20 20:00 Urine Bilirubin Negative (Negative) 02/22/20 20:00 Urine Urobilinogen 1.0 EU/dL (Up TO 0.2) H 02/22/20 20:00 Ur Leukocyte Esterase Small (Negative) H 02/22/20 20:00 Urine RBC 3-5 HPF (0-2) H 02/22/20 20:00 Urine WBC 10-20 HPF (0-5) H 02/22/20 20:00 Ur Epithelial Cells Rare HPF (Negative) 02/22/20 20:00 Urine Crystals Many amorphous HPF (Negative) 02/22/20 20:00 Urine Bacteria Many HPF (Negative) 02/22/20 20:00 Urine Casts Negative LPF (Negative) 02/22/20 20:00 Urine Mucus Negative (Negative) 02/22/20 20:00 Ur Culture Indicated? Yes 02/22/20 20:00 Urine Glucose Negative mg/dL (Negative) 02/22/20 20:00 Stool Campylobacter PCR Negative (Negative) 02/23/20 17:50 Stool Salmonella PCR Negative (Negative) 02/23/20 17:50 Stool Shigella PCR Negative (Negative) 02/23/20 17:50 Vancomycin Trough 23.7 ug/mL (10.0-20.0) H* 02/27/20 09:05 COVID-19 PCR Negative (Negative) 02/19/20 23:17 Nasopharyn COVID-19 PCR Not Applicable 02/19/20 23:17 Shiga Toxin (PCR) Negative (Negative) 02/23/20 17:50 Ref Test Perform Site [place] [facility] 02/19/20 23:17
[2020-02-28] MEDS: Insulin Aspart 300 UNITS/3 ML PEN SC ×3 (12:27→22:00)
[2020-02-28] MEDS: Acetaminophen 325 MG TAB PO (13:08)
--- NOTE | 2020-02-28 14:49 | PGE_ITS ---
Date of Service Date of service: 02/28/20 Time of Service: 14:49 Assessment and Plan Assessment and plan (1) Renal mass, left: Status: Acute Assessment and plan: We will await the biopsy/aspiration once anesthesia can be arranged at [facility]. Subjective Subjective Interval history since last seen: The events of last week were reviewed. She was sent down to [facility] for an aspiration/biopsy with interventional radiology, but she was unable to tolerate the positioning. A CT scan that was done while she was at [facility] showed a new subcapsular collection in the spleen. She is denying any fevers or chills. She had a incision and drainage of a lower extremity abscess today. Exam Narrative Exam Narrative: She does not appear septic or toxic Her vital signs are documented elsewhere She is awake and alert Objective Objective Clinical Data: Vital Signs Temperature 36.6 C 02/28/20 07:32 Temperature Source Tympanic 02/28/20 07:32 Pulse 82 02/28/20 07:32 Pulse Rhythm Regular 02/28/20 09:03 Pulse 92 H 02/19/20 23:00 Respiratory Rate 18 02/28/20 07:32 Respiratory Effort 02/28/20 09:03 Respiratory Depth Normal 02/28/20 09:03 Respiratory Pattern Normal 02/28/20 09:03 Blood Pressure 126/72 02/28/20 07:32 Blood Pressure Mean 63 02/19/20 23:00 Blood Pressure Position Supine 02/19/20 17:27 Pulse Oximetry 93 L 02/28/20 08:00 Oxygen Delivery Method Room Air 02/28/20 08:00 Oxygen Flow Rate 0 02/28/20 08:00 Pain Level 0 02/28/20 13:41 Comment 02/25/20 07:18 Intake & Output 02/27/20 02/28/20 02/28/20 23:59 11:59 23:59 Intake Total 970 / 1450 240 / 480 240 / 480 Output Total 1150 / 2125 700 / 1000 300 / 1000 Balance -180 / -675 -460 / -520 -60 / -520 Weight 95.3 kg Intake: IV 250 / 250 Oral 720 / 1200 240 / 480 240 / 480 Output: Urine 1150 / 2125 700 / 1000 300 / 1000 Other: Urine Color Yellow Yellow Yellow Urine Appearance Clear Clear Clear Urine Odor Normal None None Stool Occult Blood Negative Stool Size Large Stool Characteristics Soft Formed Hard Brown Voiding Methods Toilet Toilet Toilet Laboratory Results WBC 9.14 k/cumm (4.4-10.8) 02/26/20 07:10 RBC 3.85 m/cumm (4.00-5.20) L 02/26/20 07:10 Hgb 9.9 g/dL (12.0-15.5) L 02/26/20 07:10 Hct 31.9 % (36.0-46.0) L 02/26/20 07:10 MCV 82.9 fL (80-95) 02/26/20 07:10 MCH 25.7 pg (27.0-33.0) L 02/26/20 07:10 MCHC 31.0 g/dL (32.0-36.0) L 02/26/20 07:10 RDW 17.1 % (11.7-14.6) H 02/26/20 07:10 Plt Count 284 x1000/uL (130-400) 02/26/20 07:10 MPV 10.0 fL (8.0-11.0) 02/26/20 07:10 Immature Gran % 1.0 % 02/26/20 07:10 Neutrophils % 67.2 02/26/20 07:10 Band Neutrophils % 0.0 % 02/22/20 06:50 Lymphocytes % 15.3 02/26/20 07:10 Atypical Lymphs % 0 02/22/20 06:50 Monocytes % 14.4 02/26/20 07:10 Eosinophils % 1.8 02/26/20 07:10 Basophils % 0.3 02/26/20 07:10 Absolute Neutrophils 6.14 k/cumm (1.2-6.7) 02/26/20 07:10 Absolute Lymphocytes 1.40 k/cumm (1.2-3.4) 02/26/20 07:10 Absolute Monocytes 1.32 k/cumm (0.11-0.7) H 02/26/20 07:10 Absolute Eosinophils 0.16 k/cumm (0.0-0.7) 02/26/20 07:10 Absolute Basophils 0.03 k/cumm (0.0-0.2) 02/26/20 07:10 Differential Comment Agrees w/ instrument 02/25/20 07:49 RBC Morphology See below 02/25/20 07:49 Polychromasia Present 02/25/20 07:49 Hypochromasia 1+ 02/25/20 07:49 Poikilocytosis 1+ 02/22/20 06:50 Anisocytosis 1+ 02/25/20 07:49 PT 10.6 sec (9.3-11.0) 02/28/20 06:35 INR 1.1 (0.9-1.1) 02/28/20 06:35 D-Dimer 2673 ng/mlFEU (<500) H 02/19/20 20:30 Sodium 139 mmol/L (136-145) 02/26/20 07:10 Potassium 3.7 mmol/L (3.5-5.1) 02/26/20 07:10 Chloride 106 mmol/L (98-107) 02/26/20 07:10 Carbon Dioxide 26.8 mmol/L (21.0-32.0) 02/26/20 07:10 Anion Gap 6.2 mmol/L (3-11) 02/26/20 07:10 BUN 13 mg/dL (7-18) 02/26/20 07:10 Creatinine 1.09 mg/dL (0.55-1.02) H 02/26/20 07:10 Estimated GFR/1.73 m2 49.20 (mL/min/1.73m2) 02/26/20 07:10 Glucose 118 mg/dL (74-106) H 02/26/20 07:10 Hemoglobin A1c 9.8 % (3.8-5.6) H 02/20/20 07:05 Lactate 1.7 mmol/L (0.6-1.4) H 02/19/20 20:30 Calcium 7.9 mg/dL (8.5-10.1) L 02/26/20 07:10 Magnesium 2.0 mg/dL (1.8-2.4) 02/26/20 07:10 Iron 14 ug/dL (50-170) L 02/20/20 07:05 TIBC 141 ug/dL (250-450) L 02/20/20 07:05 Transferrin % Sat 10 % (15-50) L 02/20/20 07:05 Ferritin 823 ng/mL (8-252) H 02/20/20 07:05 Total Bilirubin 1.1 mg/dL (0.2-1.0) H 02/20/20 07:05 AST 36 U/L (15-37) 02/20/20 07:05 ALT 40 U/L (14-59) 02/20/20 07:05 Alkaline Phosphatase 176 U/L (46-116) H 02/20/20 07:05 Creatine Kinase 16 U/L (26-192) L 02/20/20 07:05 Troponin I Cancelled 02/19/20 23:34 C-Reactive Protein 15.06 mg/dL (0.0-0.3) H 02/26/20 07:10 NT-Pro-B Natriuret Pep 5348 pg/mL (<300) H 02/21/20 06:20 Total Protein 7.0 g/dL (6.4-8.2) 02/20/20 07:05 Albumin 1.9 g/dL (3.4-5.0) L 02/20/20 07:05 Lipase 93 U/L (73-393) 02/19/20 20:30 Procalcitonin 1.2 ng/mL 02/24/20 06:30 Urine Color Yellow (Yellow) 02/22/20 20:00 Urine Clarity Cloudy (Clear) 02/22/20 20:00 Urine pH 6.0 (5-8) 02/22/20 20:00 Ur Specific [place] 1.010 (1.005-1.025) 02/22/20 20:00 Urine Protein 30 mg/dL (Negative) H 02/22/20 20:00 Urine Ketones Negative mg/dL (Negative) 02/22/20 20:00 Urine Blood Trace-intact (Negative) H 02/22/20 20:00 Urine Nitrite Negative (Negative) 02/22/20 20:00 Urine Bilirubin Negative (Negative) 02/22/20 20:00 Urine Urobilinogen 1.0 EU/dL (Up TO 0.2) H 02/22/20 20:00 Ur Leukocyte Esterase Small (Negative) H 02/22/20 20:00 Urine RBC 3-5 HPF (0-2) H 02/22/20 20:00 Urine WBC 10-20 HPF (0-5) H 06/09/20 20:00 Ur Epithelial Cells Rare HPF (Negative) 02/22/20 20:00 Urine Crystals Many amorphous HPF (Negative) 02/22/20 20:00 Urine Bacteria Many HPF (Negative) 02/22/20 20:00 Urine Casts Negative LPF (Negative) 02/22/20 20:00 Urine Mucus Negative (Negative) 02/22/20 20:00 Ur Culture Indicated? Yes 02/22/20 20:00 Urine Glucose Negative mg/dL (Negative) 02/22/20 20:00 Stool Campylobacter PCR Negative (Negative) 02/23/20 17:50 Stool Salmonella PCR Negative (Negative) 02/23/20 17:50 Stool Shigella PCR Negative (Negative) 02/23/20 17:50 Vancomycin Trough 23.7 ug/mL (10.0-20.0) H* 02/27/20 09:05 COVID-19 PCR Negative (Negative) 02/19/20 23:17 Nasopharyn COVID-19 PCR Not Applicable 02/19/20 23:17 Shiga Toxin (PCR) Negative (Negative) 02/23/20 17:50 Ref Test Perform Site [facility] [facility] 02/19/20 23:17
--- NOTE | 2020-02-28 15:02 | PDOC.CMPRO ---
- If Service Date Differs Date of service: 02/28/20 Time of Service: 15:02 Care Management Progress Note S/O: Kizzy was lying in bed when CM met with her. She reported that she is feeling ok today. She was pleasant, but not very engaged in conversation as she was trying to rest. CM made sure she had everything she needed and all of her needs were attended to. CM will continue to follow. A: Kizzy is a 75 year old female admitted to [facility] on 02/19/20 with a left renal mass. P: Anticipate Kizzy will be discharged home with new home health services for RN/PT. She may need 4-6 weeks of IV abx, which may necessitate SWB1 vs home with home IV abx, with the support of RN. [place] [facility] [place] drain of the renal mass today, and her plan may change depending on the outcome. Kizzy will follow up with her PCP and discharge plan of care. She will transport via private vehicle with family. CM will continue to follow and support discharge planning considerations.
[2020-02-28 15:22] VITALS: BP 115/68; PULSE 77; RESP 19; TEMP 36.5; O2SAT 91
--- NOTE | 2020-02-28 16:27 | W.PM.OP ---
Date of service: 02/28/20 Time of Service: 16:28 Operative Note Operative Note DATE OF PROCEDURE: 02/28/20 PRE-OP DIAGNOSIS: hx of MRSA. New abscess R calf POST-OP DIAGNOSIS: same PROCEDURE: I&D SURGEON: Paige Tobar ANESTHESIA: local ESTIMATED BLOOD LOSS: 1 PATHOLOGY: other Patient was transported to: no change Procedure Description: Patient has a history of MRSA abscesses and has developed a new abscess on her right calf. She is MRSA positive bacteremia. Patient requires I&D. Informed consent is obtained explaining risks and benefits of procedure including not limited to bleeding, infection, complications from local anesthetic along prolonged healing. The right lower extremity is identified. The area is prepped and draped in the usual sterile fashion using a ChloraPrep scrub solution. Still infiltrated with 20 cc of 1% lidocaine. He did attempt a needle aspiration with an 18-gauge needle. No fluid was obtained. A skin cayden is made with a 15 blade. It is about an inch in depth and a quarter by quarter inch in size. Scrub. There is no drainage. Culture was taken. The wound was then irrigated and packed. Sterile dressing is applied. Patient to have sterile cell complication and remained in her room throughout the entirety of the procedure.
--- NOTE | 2020-02-28 16:59 | W.PM.PROGNOT ---
Date of Service Date of service: 02/28/20 Time of Service: 15:59 Assessment and Plan Assessment and plan (1) Renal mass, left: Status: Acute Assessment and plan: Renal cell carcinoma initially of the top of the differential. I think the MRSA bacteremia brings up the possibility that he renal mass actually represents an invasive infection with MRSA. Unfortunately were unable to have the mass biopsied on Friday at [facility] [place], the patient did not tolerate positioning. I called down to [facility] this afternoon, and can confirmed that intervention radiology is working with anesthesia to plan a procedure under general anesthesia. (2) Staphylococcus aureus bacteremia: Status: Acute Assessment and plan: Clinically improved on vancomycin, continue. Repeat blood cultures on February 21 continue to show no growth. She will need a least 4 weeks of therapy, but per IV nurse Alecia armendariz she does not have good veins for a midline or PICC line. We will continue the vancomycin through the peripheral IV, consider central line if becomes necessary. 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 Echocardiogram was not revealing of any vegetations on her valves. 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 With her coronary artery disease she would benefit from both SGLT2 and GLP-1 therapy. Currently we are controlling her blood sugar with basal bolus insulin. Metformin on hold with contrast CAT scan studies. Unfortunately SGLT2 inhibitors are not available on the inpatient formulary. Continue basal bolus insulin for now, but up slightly today. (4) ASCVD (arteriosclerotic cardiovascular disease): Status: Acute Assessment and plan: Continue high intensity statin and aspirin. (5) Anemia: Status: Chronic Assessment and plan: Iron deficiency labs at admission. Has been basically stable since admission. Started on iron supplementation. (6) Decubitus ulcer: Status: Acute Assessment and plan: This does not look infected. Continue chronic wound care. (7) Cellulitis of right lower extremity: Status: Acute Assessment and plan: I ultrasound does confirm 1.8 cm abscess.. She is on vancomycin to treat the infection. Drained today and fluid cultured by surgery. (8) Bacteriuria: Status: Acute Assessment and plan: Klebsiella on February 21 culture. This would not be covered by her vancomycin. She is not having urinary symptoms currently so will not add another antibiotic.. (9) DVT prophylaxis: Status: Acute Assessment and plan: On prophylactic low molecular weight heparin (10) Discharge planning issues: Status: Acute Assessment and plan: Patient needs a biopsy and possible drainage of renal mass to definitively treat her infection. With MRSA bacteremia she will need 4 to 6 weeks antibiotics. on her feet at baseline, and could benefit from physical therapy prior to discharge home. She may benefit from rehabilitation stay to complete her antibiotic course once we have a definitive diagnosis. Currently a full code. Subjective Subjective Patient reports: no new complaints, tolerating a regular diet, voiding w/o difficulty and afebrile; denies diarrhea, vomiting and shortness of breath Interval history since last seen: 24-hour: I&D of small abscess in right calf by surgery this morning, minimal output. Wound culture sent. No new concerns today. Continues to feel a little weak generally. She is little anxious about going back down to [facility]. She has some achy pain in the I&D site. Exam Narrative Exam Narrative: General: Patient lying in bed comfortably. Pleasant, A&Ox3 HEENT: EOMI, MMM Heart: RRR, no m/r/g Lungs: CTAB -slightly diminished at B bases Abdomen: obese, soft, less tender in LUQ/epigastrium Extremities: no c/c. Trace edema to knees [place]. chronic venous stasis changes bilaterally with pressure bandage over abscess in right calf, not taken down today. Objective Objective Clinical Data: Vital Signs Temperature 36.5 C 02/28/20 15:22 Temperature Source Tympanic 02/28/20 15:22 Pulse 77 02/28/20 15:22 Pulse Rhythm Regular 02/28/20 09:03 Pulse 92 H 02/19/20 23:00 Respiratory Rate 19 02/28/20 15:22 Respiratory Effort 02/28/20 09:03 Respiratory Depth Normal 02/28/20 09:03 Respiratory Pattern Normal 02/28/20 09:03 Blood Pressure 115/68 02/28/20 15:22 Blood Pressure Mean 63 02/19/20 23:00 Blood Pressure Position Supine 02/19/20 17:27 Pulse Oximetry 91 L 02/28/20 15:22 Oxygen Delivery Method Room Air 02/28/20 15:22 Oxygen Flow Rate 0 02/28/20 15:22 Pain Level 0 02/28/20 15:22 Comment 02/25/20 07:18 Intake & Output 02/27/20 02/28/20 02/28/20 23:59 11:59 23:59 Intake Total 970 / 1450 240 / 480 240 / 480 Output Total 1150 / 2125 700 / 1000 300 / 1000 Balance -180 / -675 -460 / -520 -60 / -520 Weight 95.3 kg Intake: IV 250 / 250 Oral 720 / 1200 240 / 480 240 / 480 Output: Urine 1150 / 2125 700 / 1000 300 / 1000 Other: Urine Color Yellow Yellow Yellow Urine Appearance Clear Clear Clear Urine Odor Normal None None Stool Occult Blood Negative Stool Size Large Stool Characteristics Soft Formed Hard Brown Voiding Methods Toilet Toilet Toilet Laboratory Results WBC 9.14 k/cumm (4.4-10.8) 02/26/20 07:10 RBC 3.85 m/cumm (4.00-5.20) L 02/26/20 07:10 Hgb 9.9 g/dL (12.0-15.5) L 02/26/20 07:10 Hct 31.9 % (36.0-46.0) L 02/26/20 07:10 MCV 82.9 fL (80-95) 02/26/20 07:10 MCH 25.7 pg (27.0-33.0) L 02/26/20 07:10 MCHC 31.0 g/dL (32.0-36.0) L 02/26/20 07:10 RDW 17.1 % (11.7-14.6) H 02/26/20 07:10 Plt Count 284 x1000/uL (130-400) 02/26/20 07:10 MPV 10.0 fL (8.0-11.0) 02/26/20 07:10 Immature Gran % 1.0 % 02/26/20 07:10 Neutrophils % 67.2 02/26/20 07:10 Band Neutrophils % 0.0 % 02/22/20 06:50 Lymphocytes % 15.3 02/26/20 07:10 Atypical Lymphs % 0 02/22/20 06:50 Monocytes % 14.4 02/26/20 07:10 Eosinophils % 1.8 02/26/20 07:10 Basophils % 0.3 02/26/20 07:10 Absolute Neutrophils 6.14 k/cumm (1.2-6.7) 02/26/20 07:10 Absolute Lymphocytes 1.40 k/cumm (1.2-3.4) 02/26/20 07:10 Absolute Monocytes 1.32 k/cumm (0.11-0.7) H 02/26/20 07:10 Absolute Eosinophils 0.16 k/cumm (0.0-0.7) 02/26/20 07:10 Absolute Basophils 0.03 k/cumm (0.0-0.2) 02/26/20 07:10 Differential Comment Agrees w/ instrument 02/25/20 07:49 RBC Morphology See below 02/25/20 07:49 Polychromasia Present 02/25/20 07:49 Hypochromasia 1+ 02/25/20 07:49 Poikilocytosis 1+ 02/22/20 06:50 Anisocytosis 1+ 02/25/20 07:49 PT 10.6 sec (9.3-11.0) 02/28/20 06:35 INR 1.1 (0.9-1.1) 02/28/20 06:35 D-Dimer 2673 ng/mlFEU (<500) H 02/19/20 20:30 Sodium 139 mmol/L (136-145) 02/26/20 07:10 Potassium 3.7 mmol/L (3.5-5.1) 02/26/20 07:10 Chloride 106 mmol/L (98-107) 02/26/20 07:10 Carbon Dioxide 26.8 mmol/L (21.0-32.0) 02/26/20 07:10 Anion Gap 6.2 mmol/L (3-11) 02/26/20 07:10 BUN 13 mg/dL (7-18) 02/26/20 07:10 Creatinine 1.09 mg/dL (0.55-1.02) H 02/26/20 07:10 Estimated GFR/1.73 m2 49.20 (mL/min/1.73m2) 02/26/20 07:10 Glucose 118 mg/dL (74-106) H 02/26/20 07:10 Hemoglobin A1c 9.8 % (3.8-5.6) H 02/20/20 07:05 Lactate 1.7 mmol/L (0.6-1.4) H 02/19/20 20:30 Calcium 7.9 mg/dL (8.5-10.1) L 02/26/20 07:10 Magnesium 2.0 mg/dL (1.8-2.4) 02/26/20 07:10 Iron 14 ug/dL (50-170) L 02/20/20 07:05 TIBC 141 ug/dL (250-450) L 02/20/20 07:05 Transferrin % Sat 10 % (15-50) L 02/20/20 07:05 Ferritin 823 ng/mL (8-252) H 02/20/20 07:05 Total Bilirubin 1.1 mg/dL (0.2-1.0) H 02/20/20 07:05 AST 36 U/L (15-37) 02/20/20 07:05 ALT 40 U/L (14-59) 02/20/20 07:05 Alkaline Phosphatase 176 U/L (46-116) H 02/20/20 07:05 Creatine Kinase 16 U/L (26-192) L 02/20/20 07:05 Troponin I Cancelled 02/19/20 23:34 C-Reactive Protein 15.06 mg/dL (0.0-0.3) H 02/26/20 07:10 NT-Pro-B Natriuret Pep 5348 pg/mL (<300) H 02/21/20 06:20 Total Protein 7.0 g/dL (6.4-8.2) 02/20/20 07:05 Albumin 1.9 g/dL (3.4-5.0) L 02/20/20 07:05 Lipase 93 U/L (73-393) 02/19/20 20:30 Procalcitonin 1.2 ng/mL 02/24/20 06:30 Urine Color Yellow (Yellow) 02/22/20 20:00 Urine Clarity Cloudy (Clear) 02/22/20 20:00 Urine pH 6.0 (5-8) 02/22/20 20:00 Ur Specific [place] 1.010 (1.005-1.025) 02/22/20 20:00 Urine Protein 30 mg/dL (Negative) H 02/22/20 20:00 Urine Ketones Negative mg/dL (Negative) 02/22/20 20:00 Urine Blood Trace-intact (Negative) H 02/22/20 20:00 Urine Nitrite Negative (Negative) 02/22/20 20:00 Urine Bilirubin Negative (Negative) 02/22/20 20:00 Urine Urobilinogen 1.0 EU/dL (Up TO 0.2) H 02/22/20 20:00 Ur Leukocyte Esterase Small (Negative) H 02/22/20 20:00 Urine RBC 3-5 HPF (0-2) H 02/22/20 20:00 Urine WBC 10-20 HPF (0-5) H 02/22/20 20:00 Ur Epithelial Cells Rare HPF (Negative) 02/22/20 20:00 Urine Crystals Many amorphous HPF (Negative) 02/22/20 20:00 Urine Bacteria Many HPF (Negative) 02/22/20 20:00 Urine Casts Negative LPF (Negative) 02/22/20 20:00 Urine Mucus Negative (Negative) 02/22/20 20:00 Ur Culture Indicated? Yes 02/22/20 20:00 Urine Glucose Negative mg/dL (Negative) 02/22/20 20:00 Stool Campylobacter PCR Negative (Negative) 02/23/20 17:50 Stool Salmonella PCR Negative (Negative) 02/23/20 17:50 Stool Shigella PCR Negative (Negative) 02/23/20 17:50 Vancomycin Trough 23.7 ug/mL (10.0-20.0) H* 02/27/20 09:05 COVID-19 PCR Negative (Negative) 02/19/20 23:17 Nasopharyn COVID-19 PCR Not Applicable 02/19/20 23:17 Shiga Toxin (PCR) Negative (Negative) 02/23/20 17:50 Ref Test Perform Site [facility] 02/19/20 23:17
[2020-02-28 17:24] VITALS: O2SAT 95
[2020-02-28 17:25] VITALS: O2SAT 95
[2020-02-28 19:05] VITALS: BP 123/65; PULSE 80; RESP 18; TEMP 36.3; O2SAT 94
[2020-02-28] MEDS: Lactobacillus Acidophilus CAP 1 CAP PO (19:46)
[2020-02-28] MEDS: Insulin Glargine 300 UNITS/3 ML PEN 16 UNITS SC (21:55)
[2020-02-29 00:17] VITALS: RESP 18; O2SAT 96
[2020-02-29] MEDS: Normal Saline Flush 10 ML SYR IVP ×4 (01:50→16:07)
[2020-02-29] MEDS: MORPHine 2 MG/ML SYR IVP ×3 (01:51→20:19)
[2020-02-29 04:00] VITALS: BP 138/77; PULSE 83; RESP 16; TEMP 36.2; O2SAT 95
[2020-02-29] MEDS: Acetaminophen 325 MG TAB PO ×3 (04:16→23:01)
[2020-02-29 07:20] LABS: Absolute Basophil Count 0.03 k/cumm (0.0-0.2); Absolute Eosinophil Count 0.08 k/cumm (0.0-0.7); Absolute Lymphocyte Count 1.19 k/cumm (1.2-3.4); Basophils % 0.3; Eosinophils % 0.9; HCT 31.8 % (36.0-46.0); HGB 9.6 g/dL (12.0-15.5); Immature Grans % 1.1 %; Lymphocytes % 13.7; Mean Corp. HGB Concentration 30.2 g/dL (32.0-36.0); Mean Corpuscular Hemoglobin 25.5 pg (27.0-33.0); Mean Corpuscular Volume 84.4 fL (80-95); Mean Platelet Volume 9.8 fL (8.0-11.0); Monocytes % 10.3; Neutrophils % 73.7; Platelet Count 267 x1000/uL (130-400); RBC 3.77 m/cumm (4.00-5.20); RBC Distribution Width 17.4 % (11.7-14.6)
[2020-02-29 07:41] LABS: ALT 16 U/L (14-59); AST 24 U/L (15-37); Albumin 1.4 g/dL (3.4-5.0); Alkaline Phosphatase 118 U/L (46-116); BUN 10 mg/dL (7-18); Bilirubin, Total 0.6 mg/dL (0.2-1.0); CREATININE 1.11 mg/dL (0.55-1.02); Chloride 104 mmol/L (98-107); Estimated GFR 48.18 (mL/min/1.73m2); Glucose 192 mg/dL (74-106); Potassium 3.9 mmol/L (3.5-5.1); Sodium 139 mmol/L (136-145); Total Protein 6.8 g/dL (6.4-8.2)
[2020-02-29 07:51] VITALS: BP 113/64; PULSE 88; RESP 16; TEMP 36.7; O2SAT 92
--- NOTE | 2020-02-29 07:59 | PDOC.CMPRO ---
Care Management Progress Note S/O: Kizzy continues to be closely monitored. CM continues to follow. A: A: Kizzy is a 75 year old female [facility] with a left renal mass. Per MD: Staphylococcus aureus bacteremia clinically improved on vancomycin, per MD. Anticipate four weeks of continued IV ABX via peripheral IV due to veins. Diabetes continues to be poorly controlled with hemoglobin A1c of 9.8 on admission. With her coronary artery disease she would benefit from both SGLT2 and GLP-1 therapy. Currently controlling blood sugar with basal bolus insulin. Metformin on hold with contrast CAT scan studies. Unfortunately SGLT2 inhibitors are not available on the inpatient formulary. P: Kizzy requires a biopsy and possible drainage of renal mass to definitively treat her infection. [facility] confirmed that intervention radiology is working with anesthesia to plan a repeat procedure under general anesthesia. MRSA bacteremia treatment; 4 to 6 weeks antibiotics. Kizzy will eventually be discharged home with new [facility] orders for RN/PT. She may need 4-6 weeks of IV abx, which may necessitate SWB1 vs home with home IV abx, with the support of VNA/RN. CM will continue to follow and support discharge planning considerations.
--- NOTE | 2020-02-29 08:06 | W.PM.PROGNOT ---
Date of Service Date of service: 02/29/20 Time of Service: 07:45 Assessment and Plan Assessment and plan (1) Cellulitis of right lower extremity: Status: Acute Assessment and plan: A\\ Incision and drainage of hematoma done yesterday. There was no purulent discharge. Gram stain is negative for Bacteria of WBC Packing removed today and dressing applied P\\ Change dressing daily. Ok to take a shower and wash gently around the incision Recommend TEDs for the pitting edema. At this point I do not feel the patient needs to be on contact precautions due to the wound Subjective Subjective Interval history since last seen: Mrs. Hopkins is complaining of RLE pain. She is sitting at the edge of the bed. Dressing is intact. NO fevers over night Exam Extrem Right lower extremity: edema Details: 2+ (foot to mid calf) Left lower extremity: edema Details: 2+ (foot to mid calf) Other: RLE- Dressing removed. Packing came out when I removed the dressing. There is no purulent discharge. Some old blood noted. There is an area on 3 cm that is slightly indurated and red. The area is not hot to the touch. Mepilex dressing applied over the incision. Objective Objective Clinical Data: Abnormal lab results 02/29/20 02/29/20 Range/Units 07:00 07:00 RBC 3.77 L (4.00-5.20) m/cumm Hgb 9.6 L (12.0-15.5) g/dL Hct 31.8 L (36.0-46.0) % MCH 25.5 L (27.0-33.0) pg MCHC 30.2 L (32.0-36.0) g/dL RDW 17.4 H (11.7-14.6) % Absolute Lymphocytes 1.19 L (1.2-3.4) k/cumm Absolute Monocytes 0.90 H (0.11-0.7) k/cumm Creatinine 1.11 H (0.55-1.02) mg/dL Glucose 192 H (74-106) mg/dL Calcium 8.0 L (8.5-10.1) mg/dL Alkaline Phosphatase 118 H (46-116) U/L Albumin 1.4 L (3.4-5.0) g/dL Vital Signs Temperature 98.1 F 02/29/20 07:51 Temperature Source Temporal Artery Scan 02/29/20 07:51 Pulse 88 02/29/20 07:51 Pulse Rhythm Regular 02/29/20 07:52 Pulse 92 H 02/19/20 23:00 Respiratory Rate 16 02/29/20 07:51 Respiratory Effort 02/29/20 07:52 Respiratory Depth Normal 02/29/20 07:52 Respiratory Pattern Normal 02/29/20 07:52 Blood Pressure 113/64 02/29/20 07:51 Blood Pressure Mean 63 02/19/20 23:00 Blood Pressure Position Supine 02/19/20 17:27 Pulse Oximetry 92 L 02/29/20 07:51 Oxygen Delivery Method Room Air 02/29/20 07:51 Oxygen Flow Rate 0 02/29/20 07:51 Pain Level 7 02/29/20 04:16 Comment 02/25/20 07:18 Intake & Output 02/28/20 02/28/20 02/29/20 11:59 23:59 11:59 Intake Total 490 / 970 480 / 970 300 / 300 Output Total 700 / 1200 500 / 1200 600 / 600 Balance -210 / -230 -20 / -230 -300 / -300 Weight 210 lb 1.608 oz 210 lb 1.608 oz Intake: IV 250 / 250 250 / 250 Oral 240 / 720 480 / 720 50 / 50 Output: Urine 700 / 1200 500 / 1200 600 / 600 Other: Urine Color Yellow Yellow Yellow Urine Appearance Clear Clear Clear Urine Odor None None Normal Voiding Methods Toilet Toilet Toilet Laboratory Results WBC 8.70 k/cumm (4.4-10.8) 02/29/20 07:00 RBC 3.77 m/cumm (4.00-5.20) L 02/29/20 07:00 Hgb 9.6 g/dL (12.0-15.5) L 02/29/20 07:00 Hct 31.8 % (36.0-46.0) L 02/29/20 07:00 MCV 84.4 fL (80-95) 02/29/20 07:00 MCH 25.5 pg (27.0-33.0) L 02/29/20 07:00 MCHC 30.2 g/dL (32.0-36.0) L 02/29/20 07:00 RDW 17.4 % (11.7-14.6) H 02/29/20 07:00 Plt Count 267 x1000/uL (130-400) 02/29/20 07:00 MPV 9.8 fL (8.0-11.0) 02/29/20 07:00 Immature Gran % 1.1 % 02/29/20 07:00 Neutrophils % 73.7 02/29/20 07:00 Band Neutrophils % 0.0 % 02/22/20 06:50 Lymphocytes % 13.7 02/29/20 07:00 Atypical Lymphs % 0 02/22/20 06:50 Monocytes % 10.3 02/29/20 07:00 Eosinophils % 0.9 02/29/20 07:00 Basophils % 0.3 02/29/20 07:00 Absolute Neutrophils 6.40 k/cumm (1.2-6.7) 02/29/20 07:00 Absolute Lymphocytes 1.19 k/cumm (1.2-3.4) L 02/29/20 07:00 Absolute Monocytes 0.90 k/cumm (0.11-0.7) H 02/29/20 07:00 Absolute Eosinophils 0.08 k/cumm (0.0-0.7) 02/29/20 07:00 Absolute Basophils 0.03 k/cumm (0.0-0.2) 02/29/20 07:00 Differential Comment Agrees w/ instrument 02/25/20 07:49 RBC Morphology See below 02/25/20 07:49 Polychromasia Present 02/25/20 07:49 Hypochromasia 1+ 02/25/20 07:49 Poikilocytosis 1+ 02/22/20 06:50 Anisocytosis 1+ 02/25/20 07:49 PT 10.6 sec (9.3-11.0) 02/28/20 06:35 INR 1.1 (0.9-1.1) 02/28/20 06:35 D-Dimer 2673 ng/mlFEU (<500) H 02/19/20 20:30 Sodium 139 mmol/L (136-145) 02/29/20 07:00 Potassium 3.9 mmol/L (3.5-5.1) 02/29/20 07:00 Chloride 104 mmol/L (98-107) 02/29/20 07:00 Carbon Dioxide 29.0 mmol/L (21.0-32.0) 02/29/20 07:00 Anion Gap 6.0 mmol/L (3-11) 02/29/20 07:00 BUN 10 mg/dL (7-18) 02/29/20 07:00 Creatinine 1.11 mg/dL (0.55-1.02) H 02/29/20 07:00 Estimated GFR/1.73 m2 48.18 (mL/min/1.73m2) 02/29/20 07:00 Glucose 192 mg/dL (74-106) H 02/29/20 07:00 Hemoglobin A1c 9.8 % (3.8-5.6) H 02/20/20 07:05 Lactate 1.7 mmol/L (0.6-1.4) H 02/19/20 20:30 Calcium 8.0 mg/dL (8.5-10.1) L 02/29/20 07:00 Magnesium 2.0 mg/dL (1.8-2.4) 02/26/20 07:10 Iron 14 ug/dL (50-170) L 02/20/20 07:05 TIBC 141 ug/dL (250-450) L 02/20/20 07:05 Transferrin % Sat 10 % (15-50) L 02/20/20 07:05 Ferritin 823 ng/mL (8-252) H 02/20/20 07:05 Total Bilirubin 0.6 mg/dL (0.2-1.0) 02/29/20 07:00 AST 24 U/L (15-37) 02/29/20 07:00 ALT 16 U/L (14-59) 02/29/20 07:00 Alkaline Phosphatase 118 U/L (46-116) H 02/29/20 07:00 Creatine Kinase 16 U/L (26-192) L 02/20/20 07:05 Troponin I Cancelled 02/19/20 23:34 C-Reactive Protein 15.06 mg/dL (0.0-0.3) H 02/26/20 07:10 NT-Pro-B Natriuret Pep 5348 pg/mL (<300) H 02/21/20 06:20 Total Protein 6.8 g/dL (6.4-8.2) 02/29/20 07:00 Albumin 1.4 g/dL (3.4-5.0) L 02/29/20 07:00 Lipase 93 U/L (73-393) 02/19/20 20:30 Procalcitonin 1.2 ng/mL 02/24/20 06:30 Urine Color Yellow (Yellow) 02/22/20 20:00 Urine Clarity Cloudy (Clear) 02/22/20 20:00 Urine pH 6.0 (5-8) 02/22/20 20:00 Ur Specific [place] 1.010 (1.005-1.025) 02/22/20 20:00 Urine Protein 30 mg/dL (Negative) H 02/22/20 20:00 Urine Ketones Negative mg/dL (Negative) 02/22/20 20:00 Urine Blood Trace-intact (Negative) H 02/22/20 20:00 Urine Nitrite Negative (Negative) 02/22/20 20:00 Urine Bilirubin Negative (Negative) 02/22/20 20:00 Urine Urobilinogen 1.0 EU/dL (Up TO 0.2) H 02/22/20 20:00 Ur Leukocyte Esterase Small (Negative) H 02/22/20 20:00 Urine RBC 3-5 HPF (0-2) H 02/22/20 20:00 Urine WBC 10-20 HPF (0-5) H 02/22/20 20:00 Ur Epithelial Cells Rare HPF (Negative) 02/22/20 20:00 Urine Crystals Many amorphous HPF (Negative) 02/22/20 20:00 Urine Bacteria Many HPF (Negative) 02/22/20 20:00 Urine Casts Negative LPF (Negative) 02/22/20 20:00 Urine Mucus Negative (Negative) 02/22/20 20:00 Ur Culture Indicated? Yes 02/22/20 20:00 Urine Glucose Negative mg/dL (Negative) 02/22/20 20:00 Stool Campylobacter PCR Negative (Negative) 02/23/20 17:50 Stool Salmonella PCR Negative (Negative) 02/23/20 17:50 Stool Shigella PCR Negative (Negative) 02/23/20 17:50 Vancomycin Trough 23.7 ug/mL (10.0-20.0) H* 02/27/20 09:05 COVID-19 PCR Negative (Negative) 02/19/20 23:17 Nasopharyn COVID-19 PCR Not Applicable 02/19/20 23:17 Shiga Toxin (PCR) Negative (Negative) 02/23/20 17:50 Ref Test Perform Site [facility] lab 02/19/20 23:17
[2020-02-29 08:21] VITALS: O2SAT 95
[2020-02-29] MEDS: Benzonatate 100 MG CAP PO ×3 (08:32→20:07)
[2020-02-29] MEDS: guaiFENesin 600 MG TABCR PO ×2 (08:33→20:07)
[2020-02-29] MEDS: Ascorbic Acid 500 MG TAB PO (08:33)
[2020-02-29] MEDS: Aspirin E.C. 81 MG TABEC PO (08:33)
[2020-02-29] MEDS: Ferrous Gluconate 324 MG TAB PO (08:34)
[2020-02-29] MEDS: Cetirizine 10 MG TAB PO (08:34)
[2020-02-29] MEDS: Atorvastatin 40 MG TAB PO (08:34)
[2020-02-29] MEDS: Lactobacillus Acidophilus CAP 1 CAP PO ×3 (08:34→20:07)
[2020-02-29] MEDS: Metoprolol 50 MG TAB PO ×2 (08:34→20:08)
[2020-02-29] MEDS: Insulin Aspart 300 UNITS/3 ML PEN SC ×4 (08:35→21:42)
[2020-02-29] MEDS: VANCOMYCIN 750 MG in Normal Saline 250 ML 250 MG IV (12:42)
--- NOTE | 2020-02-29 13:17 | W.DIABETESNO ---
Date of service: 02/29/20 Time of Service: 13:18 Diabetes Note NOTE: Kizzy continues to meet nutrient needs by mouth, most meals completes > 75% of meal. Weight stable, blood sugars adequately controlled. Educated daily on carb counting with meal preferences. Time Spent in Nutritional Counseling and Treatment: 10 min
--- NOTE | 2020-02-29 15:17 | W.PM.PROGNOT ---
Date of Service Date of service: 02/29/20 Time of Service: 15:17 Assessment and Plan Assessment and plan (1) Renal mass, left: Status: Acute Assessment and plan: Renal cell carcinoma versus metastatic disease versus renal abscess. Patient is awaiting IR biopsy for tomorrow afternoon at 2 PM. Patient to be n.p.o. for 6 hours prior to procedure. Since the patient has been on antibiotics her left flank pain and abdominal pain have improved remarkably. She has had no further chest pain and has no shortness of breath. (2) Staphylococcus aureus bacteremia: Status: Acute Assessment and plan: Clinically improving with repeat blood culture showing no growth from September 23, 2019. Remains on vancomycin with renal adjustment per pharmacist. Her left renal mass may in fact actually be an abscess. For this reason patient needs biopsy of the mass along with cultures. Patient will need 4 to 6 weeks of IV antibiotics. Echocardiogram reportedly showed no vegetations. Unclear as to the source of the bacteremia although her wound culture from her right leg did grow MRSA. 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 I agree with Dr. Orlando's impression that she could benefit from a combination of SGL2 inhibitors and GLP1 agonists, however, while inpatient we will treat her w/ basal/bolus insulin and I have added CHO coverage novolog to her regimen (4) ASCVD (arteriosclerotic cardiovascular disease): Status: Acute Assessment and plan: Continue high intensity statin and aspirin. (5) Anemia: Status: Chronic Assessment and plan: Iron deficiency labs at admission. Has been basically stable since admission. Started on iron supplementation. Qualifiers: Anemia type: iron deficiency Iron deficiency anemia type: unspecified iron deficiency Qualified Code(s): D50.9 - Iron deficiency anemia, unspecified (6) Decubitus ulcer: Status: Acute Assessment and plan: Per Dr. Orlando's notes the wound did not look infected. I did not have the nurse take down her dressing today. I will look at it tomorrow at her dressing changes. Qualifiers: Pressure injury location: sacral region Pressure injury stage: stage 2 Qualified Code(s): L89.152 - Pressure ulcer of sacral region, stage 2 (7) Cellulitis of right lower extremity: Status: Acute Assessment and plan: Ultrasound had confirmed a 1.8 cm abscess which was drained by surgical service over the weekend. Wound culture grew out MRSA. Per Dr. Sampson's note the wound looks clean now. We will continue current dressing changes and continue vancomycin as noted above. (8) DVT prophylaxis: Status: Acute Assessment and plan: On prophylactic low molecular weight heparin However in light of changes over to systemic unfractionated heparin in light of her possible right upper extremity DVT. (9) Discharge planning issues: Status: Acute Assessment and plan: Patient needs a biopsy and possible drainage of renal mass to definitively treat her infection. With MRSA bacteremia she will need 4 to 6 weeks antibiotics. on her feet at baseline, and could benefit from physical therapy prior to discharge home. She may benefit from rehabilitation stay to complete her antibiotic course once we have a definitive diagnosis. Currently a full code. Subjective Subjective Interval history since last seen: 75-year-old female with history of morbid obesity, essential hypertension, coronary artery disease, poorly controlled diabetes mellitus who was admitted to the hospital on February 19 with a 2-week history of vague symptoms of fatigue malaise and nonspecific chest pain and right leg pain. Subsequent work-up revealed that she had MRSA bacteremia and abscess of her right leg which is since been drained and also grew MRSA. She was also found to have a stage II presacral ulcer which was not purulent. CT scan of her abdomen and pelvis showed a left renal mass with invasion into the spleen suspicious for renal cell carcinoma versus abscess. She has been on parenteral antibiotics including vancomycin and a right leg ulcer was incised and drained by surgery service and per Dr. Sampson's report the wound looks clean and not purulent at this time. Dr. Augustine arrange for the patient to be transferred to [facility] last week for interventional radiology attempt at biopsy and/or culture of the left renal mass but the patient was intolerant of lying flat. Dr. Orlando is been coordinating with IR radiology at [facility] to make a second attempt this week with the assistance of anesthesia. Patient is tentatively scheduled for tomorrow afternoon for repeat left renal biopsy and/or culture. Today the patient lost IV access and required a midline which was placed by Alecia العلي this afternoon. Turns out that her IV was removed from her right antecubital area because of a infiltration. She is also reportedly become more edematous. Per my exam she had bilateral pedal and leg edema however the edema in her right arm appears to be more prominent than her left arm and suspicion has been raised for possible right upper extremity DVT secondary to recent IV line. I attempted to perform [id number] ultrasound of her right arm but was unable to adequately visualize her cephalic and basilic veins. Her antecubital vein was intact and compressible. Her right subclavian and IJ are also intact and the IJ was compressible in the right subclavian vein collapsed with sniff testing. The axillary vein was not well visualized but appeared to be compressible. Patient be placed on heparin overnight pending a formal right upper extremity venous duplex scan. I ordered this earlier in the afternoon but radiology indicated that they cannot complete the study as the radiologist was leaving the hospital at [facility] this afternoon and would be unavailable to read the study. Exam Narrative Exam Narrative: Obese female lying in bed in semi-bradford position in no acute distress. Lungs are clear to auscultation. Heart regular rate and rhythm without appreciable murmur rub or gallop. Abdomen is obese soft and nontender. Extremities right arm shows multiple areas of ecchymosis over the antecubital area and forearm with palpable induration over the previous right antecubital IV site and tenderness over the same. Upper right arm is edematous 3+ nonpitting edema compared to her left arm which is nonedematous. Lower extremities reveal 2+ pitting edema over the feet and ankles and pretibial areas. Objective Objective Clinical Data: Abnormal lab results 02/29/20 02/29/20 Range/Units 07:00 07:00 RBC 3.77 L (4.00-5.20) m/cumm Hgb 9.6 L (12.0-15.5) g/dL Hct 31.8 L (36.0-46.0) % MCH 25.5 L (27.0-33.0) pg MCHC 30.2 L (32.0-36.0) g/dL RDW 17.4 H (11.7-14.6) % Absolute Lymphocytes 1.19 L (1.2-3.4) k/cumm Absolute Monocytes 0.90 H (0.11-0.7) k/cumm Creatinine 1.11 H (0.55-1.02) mg/dL Glucose 192 H (74-106) mg/dL Calcium 8.0 L (8.5-10.1) mg/dL Alkaline Phosphatase 118 H (46-116) U/L Albumin 1.4 L (3.4-5.0) g/dL Vital Signs Temperature 36.7 C 02/29/20 07:51 Temperature Source Temporal Artery Scan 02/29/20 07:51 Pulse 88 02/29/20 07:51 Pulse Rhythm Regular 02/29/20 07:52 Pulse 92 H 02/19/20 23:00 Respiratory Rate 16 02/29/20 07:51 Respiratory Effort 02/29/20 07:52 Respiratory Depth Normal 02/29/20 07:52 Respiratory Pattern Normal 02/29/20 07:52 Blood Pressure 113/64 02/29/20 07:51 Blood Pressure Mean 63 02/19/20 23:00 Blood Pressure Position Supine 02/19/20 17:27 Pulse Oximetry 95 02/29/20 08:21 Oxygen Delivery Method Room Air 02/29/20 08:21 Oxygen Flow Rate 0 02/29/20 08:21 Pain Level 0 02/29/20 12:28 Comment 02/25/20 07:18 Intake & Output 02/28/20 02/29/20 02/29/20 23:59 11:59 23:59 Intake Total 730 / 1220 540 / 540 Output Total 500 / 1200 1000 / 1400 400 / 1400 Balance -460 / -860 -400 / -860 Weight 95.3 kg Intake: IV 250 / 500 250 / 250 Oral 480 / 720 290 / 290 Output: Urine 500 / 1200 1000 / 1400 400 / 1400 Other: Urine Color Yellow Yellow Yellow Straw Urine Appearance Clear Clear Clear Urine Odor None Normal None Voiding Methods Toilet Toilet Toilet Laboratory Results WBC 8.70 k/cumm (4.4-10.8) 02/29/20 07:00 RBC 3.77 m/cumm (4.00-5.20) L 02/29/20 07:00 Hgb 9.6 g/dL (12.0-15.5) L 02/29/20 07:00 Hct 31.8 % (36.0-46.0) L 02/29/20 07:00 MCV 84.4 fL (80-95) 02/29/20 07:00 MCH 25.5 pg (27.0-33.0) L 02/29/20 07:00 MCHC 30.2 g/dL (32.0-36.0) L 02/29/20 07:00 RDW 17.4 % (11.7-14.6) H 02/29/20 07:00 Plt Count 267 x1000/uL (130-400) 02/29/20 07:00 MPV 9.8 fL (8.0-11.0) 02/29/20 07:00 Immature Gran % 1.1 % 02/29/20 07:00 Neutrophils % 73.7 02/29/20 07:00 Band Neutrophils % 0.0 % 02/22/20 06:50 Lymphocytes % 13.7 02/29/20 07:00 Atypical Lymphs % 0 02/22/20 06:50 Monocytes % 10.3 02/29/20 07:00 Eosinophils % 0.9 02/29/20 07:00 Basophils % 0.3 02/29/20 07:00 Absolute Neutrophils 6.40 k/cumm (1.2-6.7) 02/29/20 07:00 Absolute Lymphocytes 1.19 k/cumm (1.2-3.4) L 02/29/20 07:00 Absolute Monocytes 0.90 k/cumm (0.11-0.7) H 02/29/20 07:00 Absolute Eosinophils 0.08 k/cumm (0.0-0.7) 02/29/20 07:00 Absolute Basophils 0.03 k/cumm (0.0-0.2) 02/29/20 07:00 Differential Comment Agrees w/ instrument 02/25/20 07:49 RBC Morphology See below 02/25/20 07:49 Polychromasia Present 02/25/20 07:49 Hypochromasia 1+ 02/25/20 07:49 Poikilocytosis 1+ 02/22/20 06:50 Anisocytosis 1+ 02/25/20 07:49 PT 10.6 sec (9.3-11.0) 02/28/20 06:35 INR 1.1 (0.9-1.1) 02/28/20 06:35 D-Dimer 2673 ng/mlFEU (<500) H 02/19/20 20:30 Sodium 139 mmol/L (136-145) 02/29/20 07:00 Potassium 3.9 mmol/L (3.5-5.1) 02/29/20 07:00 Chloride 104 mmol/L (98-107) 02/29/20 07:00 Carbon Dioxide 29.0 mmol/L (21.0-32.0) 02/29/20 07:00 Anion Gap 6.0 mmol/L (3-11) 02/29/20 07:00 BUN 10 mg/dL (7-18) 02/29/20 07:00 Creatinine 1.11 mg/dL (0.55-1.02) H 02/29/20 07:00 Estimated GFR/1.73 m2 48.18 (mL/min/1.73m2) 02/29/20 07:00 Glucose 192 mg/dL (74-106) H 02/29/20 07:00 Hemoglobin A1c 9.8 % (3.8-5.6) H 02/20/20 07:05 Lactate 1.7 mmol/L (0.6-1.4) H 02/19/20 20:30 Calcium 8.0 mg/dL (8.5-10.1) L 02/29/20 07:00 Magnesium 2.0 mg/dL (1.8-2.4) 02/26/20 07:10 Iron 14 ug/dL (50-170) L 02/20/20 07:05 TIBC 141 ug/dL (250-450) L 02/20/20 07:05 Transferrin % Sat 10 % (15-50) L 02/20/20 07:05 Ferritin 823 ng/mL (8-252) H 02/20/20 07:05 Total Bilirubin 0.6 mg/dL (0.2-1.0) 02/29/20 07:00 AST 24 U/L (15-37) 02/29/20 07:00 ALT 16 U/L (14-59) 02/29/20 07:00 Alkaline Phosphatase 118 U/L (46-116) H 02/29/20 07:00 Creatine Kinase 16 U/L (26-192) L 02/20/20 07:05 Troponin I Cancelled 02/19/20 23:34 C-Reactive Protein 15.06 mg/dL (0.0-0.3) H 02/26/20 07:10 NT-Pro-B Natriuret Pep 5348 pg/mL (<300) H 02/21/20 06:20 Total Protein 6.8 g/dL (6.4-8.2) 02/29/20 07:00 Albumin 1.4 g/dL (3.4-5.0) L 02/29/20 07:00 Lipase 93 U/L (73-393) 02/19/20 20:30 Procalcitonin 1.2 ng/mL 02/24/20 06:30 Urine Color Yellow (Yellow) 02/22/20 20:00 Urine Clarity Cloudy (Clear) 02/22/20 20:00 Urine pH 6.0 (5-8) 02/22/20 20:00 Ur Specific [place] 1.010 (1.005-1.025) 02/22/20 20:00 Urine Protein 30 mg/dL (Negative) H 02/22/20 20:00 Urine Ketones Negative mg/dL (Negative) 02/22/20 20:00 Urine Blood Trace-intact (Negative) H 02/22/20 20:00 Urine Nitrite Negative (Negative) 02/22/20 20:00 Urine Bilirubin Negative (Negative) 02/22/20 20:00 Urine Urobilinogen 1.0 EU/dL (Up TO 0.2) H 02/22/20 20:00 Ur Leukocyte Esterase Small (Negative) H 02/22/20 20:00 Urine RBC 3-5 HPF (0-2) H 02/22/20 20:00 Urine WBC 10-20 HPF (0-5) H 02/22/20 20:00 Ur Epithelial Cells Rare HPF (Negative) 02/22/20 20:00 Urine Crystals Many amorphous HPF (Negative) 02/22/20 20:00 Urine Bacteria Many HPF (Negative) 02/22/20 20:00 Urine Casts Negative LPF (Negative) 02/22/20 20:00 Urine Mucus Negative (Negative) 02/22/20 20:00 Ur Culture Indicated? Yes 02/22/20 20:00 Urine Glucose Negative mg/dL (Negative) 02/22/20 20:00 Stool Campylobacter PCR Negative (Negative) 02/23/20 17:50 Stool Salmonella PCR Negative (Negative) 02/23/20 17:50 Stool Shigella PCR Negative (Negative) 02/23/20 17:50 Vancomycin Trough 23.7 ug/mL (10.0-20.0) H* 02/27/20 09:05 COVID-19 PCR Negative (Negative) 02/19/20 23:17 Nasopharyn COVID-19 PCR Not Applicable 02/19/20 23:17 Shiga Toxin (PCR) Negative (Negative) 02/23/20 17:50 Ref Test Perform Site [facility] lab 02/19/20 23:17
[2020-02-29] MEDS: Furosemide 20 MG/2 ML VIAL IVP (16:08)
[2020-02-29 16:14] VITALS: BP 112/62; PULSE 80; RESP 18; TEMP 36.1; O2SAT 93
[2020-02-29] MEDS: Senna TAB 1 TAB PO (20:07)
[2020-02-29] MEDS: Docusate Sodium 100 MG CAP PO (20:07)
[2020-02-29 20:19] LABS: PTT Activated 32.8 sec (21.0-31.4)
[2020-02-29] MEDS: Normal Saline Flush 10 ML SYR 20 ML IVP (20:42)
[2020-02-29] MEDS: Insulin Glargine 300 UNITS/3 ML PEN 16 UNITS SC (21:42)
[2020-02-29 23:26] VITALS: BP 130/63; PULSE 93; RESP 18; TEMP 38.1; O2SAT 91
[2020-03-01] MEDS: Normal Saline Flush 10 ML SYR IVP ×2 (02:50→12:14)
[2020-03-01] MEDS: VANCOMYCIN 750 MG in Normal Saline 250 ML 250 MG IV ×2 (02:51→20:46)
[2020-03-01 03:37] LABS: PTT Activated 152.9 sec (21.0-31.4)
[2020-03-01 05:27] LABS: Abs Immature Grans 0.17 k/cumm (0.0-0.09); Absolute Basophil Count 0.04 k/cumm (0.0-0.2); Absolute Eosinophil Count 0.13 k/cumm (0.0-0.7); Absolute Lymphocyte Count 2.16 k/cumm (1.2-3.4); Absolute Monocyte Count 1.26 k/cumm (0.11-0.7); Absolute Neutrophil Count 6.26 k/cumm (1.2-6.7); Basophils % 0.4; Eosinophils % 1.3; HCT 30.9 % (36.0-46.0); HGB 9.6 g/dL (12.0-15.5); Immature Grans % 1.7 %; Lymphocytes % 21.6; Mean Corp. HGB Concentration 31.1 g/dL (32.0-36.0); Mean Corpuscular Hemoglobin 25.9 pg (27.0-33.0); Mean Corpuscular Volume 83.5 fL (80-95); Mean Platelet Volume 9.7 fL (8.0-11.0); Monocytes % 12.6; Neutrophils % 62.4; Platelet Count 292 x1000/uL (130-400); RBC Distribution Width 17.1 % (11.7-14.6); White Blood Cell Count 10.02 k/cumm (4.4-10.8)
[2020-03-01 05:33] LABS: PTT Activated 61.5 sec (21.0-31.4)
[2020-03-01 05:37] LABS: ALT 17 U/L (14-59); AST 26 U/L (15-37); Albumin 1.5 g/dL (3.4-5.0); Alkaline Phosphatase 117 U/L (46-116); Anion Gap 2.4 mmol/L (3-11); BUN 11 mg/dL (7-18); Bilirubin, Total 0.5 mg/dL (0.2-1.0); C-Reactive Protein 11.32 mg/dL (0.0-0.3); CO2 33.6 mmol/L (21.0-32.0); Calcium 7.8 mg/dL (8.5-10.1); Chloride 102 mmol/L (98-107); Estimated GFR 48.69 (mL/min/1.73m2); Glucose 169 mg/dL (74-106); NT-proBNP 2839 pg/mL (<300); Potassium 3.7 mmol/L (3.5-5.1); Sodium 138 mmol/L (136-145); Total Protein 6.8 g/dL (6.4-8.2)
--- NOTE | 2020-03-01 07:00 | DI.US_ITS ---
EXAM: US UPPER EXTREMITY VENOUS RT CLINICAL HISTORY: right arm edema; r/o dvt. TECHNIQUE: Ultrasound examination of the right upper extremity venous system(s) is performed using g rayscale, color-flow, and spectral Doppler analysis. COMPARISON: No exams were available for comparison FINDINGS: The right internal jugular, axillary, subclavian, cephalic, basilic, brachial, radial, and ulnar vein s are patent without evidence of thrombosis. Subcutaneous edema is seen in the area of the ecchymosi s in the forearm. There is no drainable collection. IMPRESSION: Edema. No DVT. DATA REPOSITORY:
[2020-03-01 07:56] VITALS: BP 130/69; PULSE 87; RESP 16; TEMP 36.6; O2SAT 94
[2020-03-01] MEDS: Acetaminophen 325 MG TAB PO (08:55)
--- NOTE | 2020-03-01 10:13 | NUR.NOTE ---
Nursing Note: 10:14 a.m. 03/01/2020 Radiology called to report that patient scraped her R elbow while down for her ultrasound. They applied a bandaid and reported that it happened while transferring.
[2020-03-01] MEDS: Metoprolol 50 MG TAB PO ×2 (10:32→20:44)
[2020-03-01] MEDS: Insulin Aspart 300 UNITS/3 ML PEN SC ×2 (10:33→21:53)
[2020-03-01] MEDS: Normal Saline Flush 10 ML SYR 20 ML IVP ×2 (10:34→20:45)
--- NOTE | 2020-03-01 10:53 | PGE_ITS ---
Date of Service Date of service: 03/01/20 Time of Service: 10:53 Assessment and Plan Assessment and plan (1) Cellulitis of right lower extremity: Status: Acute Assessment and plan: A\\ Still with pitting edema of both lower extremities Wound- erythema has improved as has the induration Probed wound with sterile q-tip and irrigated with NS. No purulent discharge Cultures -MRSA P\\ Daily dressing changes Continue VAncomycin Subjective Subjective Interval history since last seen: No new complaints with her RLE wound Cultures did come back MRSA Exam Extrem Ankle/foot/toe images: 1. 1 cm incision- still with mild erythema and induration. No purulent discharge Other: Wound- probed with a q-tip and irrigated with NS. No purulent discharge Objective Objective Clinical Data: Abnormal lab results 02/29/20 03/01/20 03/01/20 Range/Units 19:50 02:30 05:05 RBC (4.00-5.20) m/cumm Hgb (12.0-15.5) g/dL Hct (36.0-46.0) % MCH (27.0-33.0) pg MCHC (32.0-36.0) g/dL RDW (11.7-14.6) % Absolute Monocytes (0.11-0.7) k/cumm APTT 32.8 H 152.9 H* D (21.0-31.4) sec Carbon Dioxide 33.6 H (21.0-32.0) mmol/L Anion Gap 2.4 L (3-11) mmol/L Creatinine 1.10 H (0.55-1.02) mg/dL Glucose 169 H (74-106) mg/dL Calcium 7.8 L (8.5-10.1) mg/dL Alkaline Phosphatase 117 H (46-116) U/L C-Reactive Protein 11.32 H (0.0-0.3) mg/dL NT-Pro-B Natriuret Pep 2839 H (<300) pg/mL Albumin 1.5 L (3.4-5.0) g/dL 03/01/20 03/01/20 Range/Units 05:05 05:05 RBC 3.70 L (4.00-5.20) m/cumm Hgb 9.6 L (12.0-15.5) g/dL Hct 30.9 L (36.0-46.0) % MCH 25.9 L (27.0-33.0) pg MCHC 31.1 L (32.0-36.0) g/dL RDW 17.1 H (11.7-14.6) % Absolute Monocytes 1.26 H (0.11-0.7) k/cumm APTT 61.5 H D (21.0-31.4) sec Carbon Dioxide (21.0-32.0) mmol/L Anion Gap (3-11) mmol/L Creatinine (0.55-1.02) mg/dL Glucose (74-106) mg/dL Calcium (8.5-10.1) mg/dL Alkaline Phosphatase (46-116) U/L C-Reactive Protein (0.0-0.3) mg/dL NT-Pro-B Natriuret Pep (<300) pg/mL Albumin (3.4-5.0) g/dL Vital Signs Temperature 97.9 F 03/01/20 07:56 Temperature Source Tympanic 03/01/20 07:56 Pulse 87 03/01/20 07:56 Pulse Rhythm Regular 03/01/20 00:45 Pulse 92 H 02/19/20 23:00 Respiratory Rate 16 03/01/20 07:56 Respiratory Effort 03/01/20 00:45 Respiratory Depth Normal 03/01/20 00:45 Respiratory Pattern Normal 03/01/20 00:45 Blood Pressure 130/69 03/01/20 07:56 Blood Pressure Mean 63 02/19/20 23:00 Blood Pressure Position Supine 02/19/20 17:27 Pulse Oximetry 94 L 03/01/20 07:56 Oxygen Delivery Method Room Air 03/01/20 07:56 Oxygen Flow Rate 0 03/01/20 07:56 Pain Level 6 03/01/20 08:55 Comment 02/25/20 07:18 Intake & Output 02/29/20 02/29/20 03/01/20 11:59 23:59 11:59 Intake Total 540 / 790 250 / 790 230.375 / 230.375 Output Total 1000 / 2750 1750 / 2750 275 / 275 Balance -460 / -1960 -1500 / -1960 -44.625 / -44.625 Weight 210 lb 1.608 oz 212 lb 1.355 oz Intake: IV 250 / 500 250 / 500 130.375 / 130.375 Oral 290 / 290 100 / 100 Output: Urine 1000 / 2750 1750 / 2750 275 / 275 Other: Urine Color Yellow Yellow Yellow Urine Appearance Clear Clear Clear Urine Odor Normal None Voiding Methods Toilet Bedside Commode Toilet Laboratory Results WBC 10.02 k/cumm (4.4-10.8) 03/01/20 05:05 RBC 3.70 m/cumm (4.00-5.20) L 03/01/20 05:05 Hgb 9.6 g/dL (12.0-15.5) L 03/01/20 05:05 Hct 30.9 % (36.0-46.0) L 03/01/20 05:05 MCV 83.5 fL (80-95) 03/01/20 05:05 MCH 25.9 pg (27.0-33.0) L 03/01/20 05:05 MCHC 31.1 g/dL (32.0-36.0) L 03/01/20 05:05 RDW 17.1 % (11.7-14.6) H 03/01/20 05:05 Plt Count 292 x1000/uL (130-400) 03/01/20 05:05 MPV 9.7 fL (8.0-11.0) 03/01/20 05:05 Immature Gran % 1.7 % 03/01/20 05:05 Neutrophils % 62.4 03/01/20 05:05 Band Neutrophils % 0.0 % 02/22/20 06:50 Lymphocytes % 21.6 03/01/20 05:05 Atypical Lymphs % 0 02/22/20 06:50 Monocytes % 12.6 03/01/20 05:05 Eosinophils % 1.3 03/01/20 05:05 Basophils % 0.4 03/01/20 05:05 Absolute Neutrophils 6.26 k/cumm (1.2-6.7) 03/01/20 05:05 Absolute Lymphocytes 2.16 k/cumm (1.2-3.4) 03/01/20 05:05 Absolute Monocytes 1.26 k/cumm (0.11-0.7) H 03/01/20 05:05 Absolute Eosinophils 0.13 k/cumm (0.0-0.7) 03/01/20 05:05 Absolute Basophils 0.04 k/cumm (0.0-0.2) 03/01/20 05:05 Differential Comment Agrees w/ instrument 02/25/20 07:49 RBC Morphology See below 02/25/20 07:49 Polychromasia Present 02/25/20 07:49 Hypochromasia 1+ 02/25/20 07:49 Poikilocytosis 1+ 02/22/20 06:50 Anisocytosis 1+ 02/25/20 07:49 PT 10.6 sec (9.3-11.0) 02/28/20 06:35 INR 1.1 (0.9-1.1) 02/28/20 06:35 APTT 61.5 sec (21.0-31.4) H D 03/01/20 05:05 D-Dimer 2673 ng/mlFEU (<500) H 02/19/20 20:30 Sodium 138 mmol/L (136-145) 03/01/20 05:05 Potassium 3.7 mmol/L (3.5-5.1) 03/01/20 05:05 Chloride 102 mmol/L (98-107) 03/01/20 05:05 Carbon Dioxide 33.6 mmol/L (21.0-32.0) H 03/01/20 05:05 Anion Gap 2.4 mmol/L (3-11) L 03/01/20 05:05 BUN 11 mg/dL (7-18) 03/01/20 05:05 Creatinine 1.10 mg/dL (0.55-1.02) H 03/01/20 05:05 Estimated GFR/1.73 m2 48.69 (mL/min/1.73m2) 03/01/20 05:05 Glucose 169 mg/dL (74-106) H 03/01/20 05:05 Hemoglobin A1c 9.8 % (3.8-5.6) H 02/20/20 07:05 Lactate 1.7 mmol/L (0.6-1.4) H 02/19/20 20:30 Calcium 7.8 mg/dL (8.5-10.1) L 03/01/20 05:05 Magnesium 2.0 mg/dL (1.8-2.4) 02/26/20 07:10 Iron 14 ug/dL (50-170) L 02/20/20 07:05 TIBC 141 ug/dL (250-450) L 02/20/20 07:05 Transferrin % Sat 10 % (15-50) L 02/20/20 07:05 Ferritin 823 ng/mL (8-252) H 02/20/20 07:05 Total Bilirubin 0.5 mg/dL (0.2-1.0) 03/01/20 05:05 AST 26 U/L (15-37) 03/01/20 05:05 ALT 17 U/L (14-59) 03/01/20 05:05 Alkaline Phosphatase 117 U/L (46-116) H 03/01/20 05:05 Creatine Kinase 16 U/L (26-192) L 02/20/20 07:05 Troponin I Cancelled 02/19/20 23:34 C-Reactive Protein 11.32 mg/dL (0.0-0.3) H 03/01/20 05:05 NT-Pro-B Natriuret Pep 2839 pg/mL (<300) H 03/01/20 05:05 Total Protein 6.8 g/dL (6.4-8.2) 03/01/20 05:05 Albumin 1.5 g/dL (3.4-5.0) L 03/01/20 05:05 Lipase 93 U/L (73-393) 02/19/20 20:30 Procalcitonin 1.2 ng/mL 02/24/20 06:30 Urine Color Yellow (Yellow) 02/22/20 20:00 Urine Clarity Cloudy (Clear) 02/22/20 20:00 Urine pH 6.0 (5-8) 02/22/20 20:00 Ur Specific [place] 1.010 (1.005-1.025) 02/22/20 20:00 Urine Protein 30 mg/dL (Negative) H 02/22/20 20:00 Urine Ketones Negative mg/dL (Negative) 02/22/20 20:00 Urine Blood Trace-intact (Negative) H 02/22/20 20:00 Urine Nitrite Negative (Negative) 02/22/20 20:00 Urine Bilirubin Negative (Negative) 02/22/20 20:00 Urine Urobilinogen 1.0 EU/dL (Up TO 0.2) H 02/22/20 20:00 Ur Leukocyte Esterase Small (Negative) H 02/22/20 20:00 Urine RBC 3-5 HPF (0-2) H 02/22/20 20:00 Urine WBC 10-20 HPF (0-5) H 02/22/20 20:00 Ur Epithelial Cells Rare HPF (Negative) 02/22/20 20:00 Urine Crystals Many amorphous HPF (Negative) 02/22/20 20:00 Urine Bacteria Many HPF (Negative) 02/22/20 20:00 Urine Casts Negative LPF (Negative) 02/22/20 20:00 Urine Mucus Negative (Negative) 02/22/20 20:00 Ur Culture Indicated? Yes 02/22/20 20:00 Urine Glucose Negative mg/dL (Negative) 02/22/20 20:00 Stool Campylobacter PCR Negative (Negative) 02/23/20 17:50 Stool Salmonella PCR Negative (Negative) 02/23/20 17:50 Stool Shigella PCR Negative (Negative) 02/23/20 17:50 Vancomycin Trough 23.7 ug/mL (10.0-20.0) H* 02/27/20 09:05 COVID-19 PCR Negative (Negative) 02/19/20 23:17 Nasopharyn COVID-19 PCR Not Applicable 02/19/20 23:17 Shiga Toxin (PCR) Negative (Negative) 02/23/20 17:50 Ref Test Perform Site [facility] lab 02/19/20 23:17
--- NOTE | 2020-03-01 11:25 | PDOC.CMPRO ---
- If Service Date Differs Date of service: 03/01/20 Time of Service: 11:26 Care Management Progress Note S/O: Kizzy went to [facility] [place] her biopsy/drain today under general anesthesia. CM will continue to follow. A: Kizzy is a 75 year old female admitted to [facility] on 02/19/20 with a left renal mass. P: Kizzy will go to [facility] today for a biopsy and possible drainage of renal mass to definitively treat her infection. [facility] confirmed that intervention radiology is working with anesthesia to plan a repeat procedure under general anesthesia. MRSA bacteremia treatment; 4 to 6 weeks antibiotics. Kizzy will eventually be discharged home with new VNA orders for RN/PT. She may need 4-6 weeks of IV abx, which may necessitate SWB1 vs home with home IV abx, with the support of VNA/RN. CM will continue to follow and support discharge planning considerations.
[2020-03-01 11:52] VITALS: BP 111/85; PULSE 85; RESP 16; TEMP 36.5; O2SAT 93
[2020-03-01] MEDS: MORPHine 2 MG/ML SYR IVP (12:13)
[2020-03-01 20:17] VITALS: BP 112/53; PULSE 91; RESP 19; TEMP 36.1; O2SAT 90
[2020-03-01 20:19] VITALS: TEMP 36.1; O2SAT 92
[2020-03-01] MEDS: Senna TAB 1 TAB PO (20:44)
[2020-03-01] MEDS: Benzonatate 100 MG CAP PO (20:44)
[2020-03-01] MEDS: Docusate Sodium 100 MG CAP PO (20:44)
[2020-03-01] MEDS: guaiFENesin 600 MG TABCR PO (20:44)
[2020-03-01] MEDS: Lactobacillus Acidophilus CAP 1 CAP PO (20:44)
[2020-03-01] MEDS: Insulin Glargine 300 UNITS/3 ML PEN 16 UNITS SC (21:54)
[2020-03-02] MEDS: MORPHine 2 MG/ML SYR IVP ×4 (01:59→21:10)
[2020-03-02] MEDS: Normal Saline Flush 10 ML SYR IVP ×3 (01:59→12:03)
[2020-03-02 07:27] VITALS: BP 125/59; PULSE 85; RESP 16; TEMP 36.8; O2SAT 95
[2020-03-02] MEDS: Ascorbic Acid 500 MG TAB PO (08:35)
[2020-03-02] MEDS: Cetirizine 10 MG TAB PO (08:35)
[2020-03-02] MEDS: Senna TAB 1 TAB PO (08:35)
[2020-03-02] MEDS: Benzonatate 100 MG CAP PO ×3 (08:35→20:37)
[2020-03-02] MEDS: guaiFENesin 600 MG TABCR PO ×2 (08:35→20:37)
[2020-03-02] MEDS: Lactobacillus Acidophilus CAP 1 CAP PO ×3 (08:36→20:37)
[2020-03-02] MEDS: Docusate Sodium 100 MG CAP PO (08:36)
[2020-03-02] MEDS: Aspirin E.C. 81 MG TABEC PO (08:36)
[2020-03-02] MEDS: Ferrous Gluconate 324 MG TAB PO (08:37)
[2020-03-02] MEDS: Atorvastatin 40 MG TAB PO (08:39)
[2020-03-02] MEDS: Metoprolol 50 MG TAB PO ×2 (08:39→20:37)
[2020-03-02] MEDS: Normal Saline Flush 10 ML SYR 20 ML IVP ×2 (08:44→20:37)
[2020-03-02 10:34] LABS: Vancomycin, Trough 18.6 ug/mL (10.0-20.0)
--- NOTE | 2020-03-02 11:43 | W.PM.PROGNOT ---
Date of Service Date of service: 03/02/20 Time of Service: 11:43 Assessment and Plan Assessment and plan (1) Renal mass, left: Status: Acute Assessment and plan: After multiple phone calls back and forth to [facility] was finally able to speak with Dr. Rosales Puga, interventional radiologist, and he indicated that he feels that this is more likely a left renal abscess rather than a renal cell carcinoma nevertheless he sent for core biopsies in addition to 60 mL fluid culture. For now the plan is to continue treatment for 6 weeks of coverage for MRSA. She is currently on vancomycin. She is due for a trough level this is been sent down this morning. Dr. Puga would like her to follow-up with a ARUN drain check in 2 weeks. (2) Staphylococcus aureus bacteremia: Status: Acute Assessment and plan: Continue vancomycin for 6 weeks of treatment. End date of antibiotic treatment would be April 04, 2020 this is based on her first negative blood culture from February 22, 2020. 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 I agree with Dr. Orlando's impression that she could benefit from a combination of SGL2 inhibitors and GLP1 agonists, however, while inpatient we will treat her w/ basal/bolus insulin and I have added CHO coverage novolog to her regimen. Blood sugars have improved. Fasting glucose this morning was 130 and last night it was 147. Some of this may be artificially low due to the fact she was n.p.o. for her procedure yesterday. We will continue to monitor blood sugars before meals and at bedtime with sliding scale coverage in addition to basal bolus insulin and carbohydrate coverage (4) ASCVD (arteriosclerotic cardiovascular disease): Status: Acute Assessment and plan: Continue high intensity statin and aspirin. (5) Anemia: Status: Chronic Assessment and plan: Iron deficiency labs at admission. Has been basically stable since admission. Started on iron supplementation. Qualifiers: Anemia type: iron deficiency Iron deficiency anemia type: unspecified iron deficiency Qualified Code(s): D50.9 - Iron deficiency anemia, unspecified (6) Decubitus ulcer: Status: Acute Assessment and plan: Per Dr. Orlando's notes the wound did not look infected. I did not have the nurse take down her dressing today. I will look at it tomorrow at her dressing changes. Qualifiers: Pressure injury location: sacral region Pressure injury stage: stage 2 Qualified Code(s): L89.152 - Pressure ulcer of sacral region, stage 2 (7) Cellulitis of right lower extremity: Status: Acute Assessment and plan: Ultrasound had confirmed a 1.8 cm abscess which was drained by surgical service over the weekend. Wound culture grew out MRSA. Per Dr. Sampson's note the wound looks clean now. We will continue current dressing changes and continue vancomycin as noted above. (8) DVT prophylaxis: Status: Acute Assessment and plan: resume enoxaparin at 40 mg SC daily (will begin 24 hr after her procedure from yesterday) (9) Discharge planning issues: Status: Acute Assessment and plan: Patient needs a biopsy and possible drainage of renal mass to definitively treat her infection. With MRSA bacteremia she will need 4 to 6 weeks antibiotics. on her feet at baseline, and could benefit from physical therapy prior to discharge home. She may benefit from rehabilitation stay to complete her antibiotic course once we have a definitive diagnosis. Currently a full code. Subjective Subjective Interval history since last seen: Patient underwent CT-guided left renal mass biopsy and drainage and was sent back with a ARUN drain. Multiple phone calls between [facility] myself this morning and I have been unable to speak with Dr. Rosales Puga to discuss the procedure. However was able to successfully login to [facility]'s website and found a CT-guided drain renal abscess radiology report dated March 01, 2020 and updated this morning in which the patient underwent successful CT-guided left renal biopsy and drain placement. 60 mL of purulent and sanguinous material was aspirated and was sent for Gram stain and culture. 4 core biopsies of the left renal mass were sent. This was taken from a necrotic renal mass that was invading the left splenic hilum. This morning the patient is doing well she is afebrile and is not experiencing any significant abdominal or flank pain. Vital signs are stable. I explained to the patient she is going to need 6 weeks of parenteral antibiotics for MRSA. The initial culture was from February 21, 2020 but her first negative blood culture for is from February 22, 2020. End date would be 04/04. Per Dr. Puga's notes, she needs ARUN drain check in 2 weeks. Exam Narrative Exam Narrative: Elderly female sitting up in her chair in no acute distress. She is alert and oriented person place time circumstance. She has questions about yesterday's procedure. I explained to her that they use CT guidance to insert a catheter into the left renal abscess and they obtain cultures as well as biopsies. There is minimal serosanguineous drainage in the ARUN drain this morning. Lungs are clear to auscultation. Heart is regular rate and rhythm. Abdomen is obese soft nontender. Left flank is nontender ARUN drain with minimal serosanguineous drainage. Lower extremities edematous and obese. Right wound is covered with a dressing. I asked nursing staff to call me when her dressings were changed. Objective Objective Clinical Data: Vital Signs Temperature 36.8 C 03/02/20 07:27 Temperature Source Tympanic 03/01/20 20:17 Pulse 85 03/02/20 07:27 Pulse Rhythm Regular 03/02/20 01:30 Pulse 92 H 02/19/20 23:00 Respiratory Rate 16 03/02/20 07:27 Respiratory Effort 03/02/20 09:06 Respiratory Depth Normal 03/02/20 09:06 Respiratory Pattern Normal 03/02/20 09:06 Blood Pressure 125/59 L 03/02/20 07:27 Blood Pressure Mean 63 02/19/20 23:00 Blood Pressure Position Supine 02/19/20 17:27 Pulse Oximetry 95 03/02/20 07:27 Oxygen Delivery Method Room Air 03/02/20 07:27 Oxygen Flow Rate 0 03/02/20 07:27 Pain Level 7 03/02/20 06:54 Comment 02/25/20 07:18 Intake & Output 03/01/20 03/01/20 03/02/20 11:59 23:59 11:59 Intake Total 230.375 / 330.375 100 / 330.375 120 / 120 Output Total 1075 / 2255 1180 / 2255 450 / 450 Balance -844.625 / -1924.625 -1080 / -1924.625 -330 / -330 Weight 96.2 kg 94.1 kg Intake: IV 130.375 / 230.375 100 / 230.375 Oral 100 / 100 120 / 120 Output: Drainage 30 / 30 50 / 50 Left Hip 30 / 30 50 / 50 Urine 1075 / 2225 1150 / 2225 400 / 400 Other: Urine Color Yellow Yellow Urine Appearance Clear Clear Clear Comment voided in toilet, missed hat Stool Size Moderate Large Stool Characteristics Soft Formed Brown Voiding Methods Toilet Bedside Commode Bedside Commode Laboratory Results WBC 10.02 k/cumm (4.4-10.8) 03/01/20 05:05 RBC 3.70 m/cumm (4.00-5.20) L 03/01/20 05:05 Hgb 9.6 g/dL (12.0-15.5) L 03/01/20 05:05 Hct 30.9 % (36.0-46.0) L 03/01/20 05:05 MCV 83.5 fL (80-95) 03/01/20 05:05 MCH 25.9 pg (27.0-33.0) L 03/01/20 05:05 MCHC 31.1 g/dL (32.0-36.0) L 03/01/20 05:05 RDW 17.1 % (11.7-14.6) H 03/01/20 05:05 Plt Count 292 x1000/uL (130-400) 03/01/20 05:05 MPV 9.7 fL (8.0-11.0) 03/01/20 05:05 Immature Gran % 1.7 % 03/01/20 05:05 Neutrophils % 62.4 03/01/20 05:05 Band Neutrophils % 0.0 % 02/22/20 06:50 Lymphocytes % 21.6 03/01/20 05:05 Atypical Lymphs % 0 02/22/20 06:50 Monocytes % 12.6 03/01/20 05:05 Eosinophils % 1.3 03/01/20 05:05 Basophils % 0.4 03/01/20 05:05 Absolute Neutrophils 6.26 k/cumm (1.2-6.7) 03/01/20 05:05 Absolute Lymphocytes 2.16 k/cumm (1.2-3.4) 03/01/20 05:05 Absolute Monocytes 1.26 k/cumm (0.11-0.7) H 03/01/20 05:05 Absolute Eosinophils 0.13 k/cumm (0.0-0.7) 03/01/20 05:05 Absolute Basophils 0.04 k/cumm (0.0-0.2) 03/01/20 05:05 Differential Comment Agrees w/ instrument 02/25/20 07:49 RBC Morphology See below 02/25/20 07:49 Polychromasia Present 02/25/20 07:49 Hypochromasia 1+ 02/25/20 07:49 Poikilocytosis 1+ 02/22/20 06:50 Anisocytosis 1+ 02/25/20 07:49 PT 10.6 sec (9.3-11.0) 02/28/20 06:35 INR 1.1 (0.9-1.1) 02/28/20 06:35 APTT 32.0 sec (21.0-31.4) H D 03/01/20 10:45 D-Dimer 2673 ng/mlFEU (<500) H 02/19/20 20:30 Sodium 138 mmol/L (136-145) 03/01/20 05:05 Potassium 3.7 mmol/L (3.5-5.1) 03/01/20 05:05 Chloride 102 mmol/L (98-107) 03/01/20 05:05 Carbon Dioxide 33.6 mmol/L (21.0-32.0) H 03/01/20 05:05 Anion Gap 2.4 mmol/L (3-11) L 03/01/20 05:05 BUN 11 mg/dL (7-18) 03/01/20 05:05 Creatinine 1.10 mg/dL (0.55-1.02) H 03/01/20 05:05 Estimated GFR/1.73 m2 48.69 (mL/min/1.73m2) 03/01/20 05:05 Glucose 169 mg/dL (74-106) H 03/01/20 05:05 Hemoglobin A1c 9.8 % (3.8-5.6) H 02/20/20 07:05 Lactate 1.7 mmol/L (0.6-1.4) H 02/19/20 20:30 Calcium 7.8 mg/dL (8.5-10.1) L 03/01/20 05:05 Magnesium 2.0 mg/dL (1.8-2.4) 02/26/20 07:10 Iron 14 ug/dL (50-170) L 02/20/20 07:05 TIBC 141 ug/dL (250-450) L 02/20/20 07:05 Transferrin % Sat 10 % (15-50) L 02/20/20 07:05 Ferritin 823 ng/mL (8-252) H 02/20/20 07:05 Total Bilirubin 0.5 mg/dL (0.2-1.0) 03/01/20 05:05 AST 26 U/L (15-37) 03/01/20 05:05 ALT 17 U/L (14-59) 03/01/20 05:05 Alkaline Phosphatase 117 U/L (46-116) H 03/01/20 05:05 Creatine Kinase 16 U/L (26-192) L 02/20/20 07:05 Troponin I Cancelled 02/19/20 23:34 C-Reactive Protein 11.32 mg/dL (0.0-0.3) H 03/01/20 05:05 NT-Pro-B Natriuret Pep 2839 pg/mL (<300) H 03/01/20 05:05 Total Protein 6.8 g/dL (6.4-8.2) 03/01/20 05:05 Albumin 1.5 g/dL (3.4-5.0) L 03/01/20 05:05 Lipase 93 U/L (73-393) 02/19/20 20:30 Procalcitonin 1.2 ng/mL 02/24/20 06:30 Urine Color Yellow (Yellow) 02/22/20 20:00 Urine Clarity Cloudy (Clear) 02/22/20 20:00 Urine pH 6.0 (5-8) 02/22/20 20:00 Ur Specific [place] 1.010 (1.005-1.025) 02/22/20 20:00 Urine Protein 30 mg/dL (Negative) H 02/22/20 20:00 Urine Ketones Negative mg/dL (Negative) 02/22/20 20:00 Urine Blood Trace-intact (Negative) H 02/22/20 20:00 Urine Nitrite Negative (Negative) 02/22/20 20:00 Urine Bilirubin Negative (Negative) 02/22/20 20:00 Urine Urobilinogen 1.0 EU/dL (Up TO 0.2) H 02/22/20 20:00 Ur Leukocyte Esterase Small (Negative) H 02/22/20 20:00 Urine RBC 3-5 HPF (0-2) H 02/22/20 20:00 Urine WBC 10-20 HPF (0-5) H 02/22/20 20:00 Ur Epithelial Cells Rare HPF (Negative) 02/22/20 20:00 Urine Crystals Many amorphous HPF (Negative) 02/22/20 20:00 Urine Bacteria Many HPF (Negative) 02/22/20 20:00 Urine Casts Negative LPF (Negative) 02/22/20 20:00 Urine Mucus Negative (Negative) 02/22/20 20:00 Ur Culture Indicated? Yes 02/22/20 20:00 Urine Glucose Negative mg/dL (Negative) 02/22/20 20:00 Stool Campylobacter PCR Negative (Negative) 02/23/20 17:50 Stool Salmonella PCR Negative (Negative) 02/23/20 17:50 Stool Shigella PCR Negative (Negative) 02/23/20 17:50 Vancomycin Trough 18.6 ug/mL (10.0-20.0) 03/02/20 10:14 COVID-19 PCR Negative (Negative) 02/19/20 23:17 Nasopharyn COVID-19 PCR Not Applicable 02/19/20 23:17 Shiga Toxin (PCR) Negative (Negative) 02/23/20 17:50 [facility] 02/19/20 23:17
[2020-03-02] MEDS: Insulin Aspart 300 UNITS/3 ML PEN SC ×3 (12:02→21:16)
[2020-03-02] MEDS: VANCOMYCIN 750 MG in Normal Saline 250 ML 250 MG IV ×2 (12:03→23:28)
--- NOTE | 2020-03-02 14:11 | WOUNDCONS ---
- If Service Date Differs Date of service: 03/02/20 Time of Service: 10:00 Wound Initial Evaluation Narrative: Follow-up today from wound consult done on 02/21/20. Pt agreeable to assessment. Original wound resolved on right buttocks. Blanchable purple/reddened skin noted on bilateral buttocks. new open area presenting as a slit on top of gluteal cleft noted, mepilex 4x4 applied to slit, change weekly and PRN. Informed Pt to continue to relive pressure from buttocks by changing position at least ever 30 mins while in chair. Will continue to follow Mrs. Hopkins while she is a patient in the hospital.
--- NOTE | 2020-03-02 15:29 | PDOC.CMPRO ---
- If Service Date Differs Date of service: 03/02/20 Time of Service: 15:29 Care Management Progress Note S/O: Kizzy was sitting up in her chair when CM met with her. She stated that she is feeling ok today, and spoke of the procedure that she went to [facility] for yesterday. She reported that she has not heard the results of the biopsy/drain yet. Per MD, it will take several days for the biopsy results to be in. She stated that if it is good news, she wants to know about it, but if it is bad news, she does not want to know. Kizzy's Justin will be allowed to visit her, per the new support person policy. CM will continue to follow. A: Kizzy is a 75 year old female admitted to [facility] on 02/19/20 with a left renal mass. P: Kizzy went to [facility] yesterday for a biopsy and possible drainage of renal mass to definitively treat her infection. [facility] confirmed that intervention radiology is working with anesthesia to plan a repeat procedure under general anesthesia. MRSA bacteremia treatment; 4 to 6 weeks antibiotics. Per report, Kizzy will likely need 6 weeks of abx, which would tentatively end on 04/04/20. Kizzy will eventually be discharged home with new VNA orders for RN/PT. Due to need for 4-6 weeks of IV abx, it may necessitate SWB1 vs home with home IV abx, with the support of VNA/RN. CM will continue to follow and support discharge planning considerations.
[2020-03-02 15:30] VITALS: BP 129/53; PULSE 87; RESP 18; TEMP 36.8; O2SAT 92
--- NOTE | 2020-03-02 16:06 | CHAPLAIN ---
Kizzy was uplifted by the news that he would be able to come in an visit. They have been 55 and rely on each other. 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 Their daughter, Claudia Saavedra, is a [employer] research laboratory manager, and has been in touch with Kizzy by phone. She got to see her three great grand childen by behaview. and she really appreciated that.
[2020-03-02 20:12] VITALS: BP 134/58; PULSE 83; RESP 16; O2SAT 96
[2020-03-02] MEDS: Psyllium PKT 1 EACH PO (20:36)
[2020-03-02] MEDS: Enoxaparin 40 MG/0.4 ML SYR SC (21:15)
[2020-03-02] MEDS: Insulin Glargine 300 UNITS/3 ML PEN 16 UNITS SC (21:55)
[2020-03-03] MEDS: MORPHine 2 MG/ML SYR IVP ×2 (01:24→05:33)
[2020-03-03] MEDS: Normal Saline Flush 10 ML SYR IVP ×2 (01:25→05:33)
[2020-03-03 05:32] VITALS: BP 115/58; PULSE 88; RESP 20; TEMP 36.9; O2SAT 94
--- NOTE | 2020-03-03 07:10 | PGE_ITS ---
Date of Service Date of service: 03/03/20 Time of Service: 07:10 Assessment and Plan Assessment and plan (1) Sepsis due to methicillin resistant Staphylococcus aureus (MRSA): Status: Acute Assessment and plan: We can see staph aureus renal/perirenal abscesses related to instrumentation (such as nephrostomy tubes or ureteral stents), but the patient had not had any invasive procedure prior to developing the abscess. Since the kidneys are quite vascular, I wonder if the abscess is a result of seeding from her bacteremia. Since she had some type of procedure on that left kidney in the past (it is still unclear to me exactly what procedure was done) perhaps that portion of the kidney was at higher risk for an anatomic reason. In any event, abscess drainage and antibiotics are the appropriate treatment. If for any chance the abscess cannot be cleared or if there is a malignancy seen on the biopsies taken, a more invasive surgical procedure can be considered. Subjective Subjective Interval history since last seen: He has some discomfort around her left sided drain. She has not been febrile. Exam Narrative Exam Narrative: She does not appear septic or toxic Her vital signs are documented elsewhere She is awake and alert I reviewed the procedure note and the culture results from down at [facility]. She also had biopsies of her renal lesion, but these results are not yet available. The preliminary culture of aspirated fluid is also showing staph aureus. Objective Objective Clinical Data: Vital Signs Temperature 36.9 C 03/03/20 05:32 Temperature Source Tympanic 03/03/20 05:32 Pulse 88 03/03/20 05:32 Pulse Rhythm Regular 03/03/20 01:34 Pulse 92 H 02/19/20 23:00 Respiratory Rate 20 03/03/20 05:32 Respiratory Effort 03/03/20 01:34 Respiratory Depth Normal 03/03/20 01:34 Respiratory Pattern Normal 03/03/20 01:34 Blood Pressure 115/58 L 03/03/20 05:32 Blood Pressure Mean 63 02/19/20 23:00 Blood Pressure Position Supine 02/19/20 17:27 Pulse Oximetry 94 L 03/03/20 05:32 Oxygen Delivery Method Room Air 03/03/20 05:32 Oxygen Flow Rate 0 03/03/20 05:32 Pain Level 8 03/02/20 21:10 Comment 02/25/20 07:18 Intake & Output 06/03/02/20 03/03/20 11:59 23:59 11:59 Intake Total 120 / 655 535 / 655 Output Total 450 / 1150 700 / 1150 725 / 725 Balance -330 / -495 -165 / -495 -725 / -725 Weight 94.1 kg 94.9 kg Intake: IV 280 / 280 Oral 120 / 370 250 / 370 Injectate 5 / 5 Left Hip 5 / 5 Output: Drainage 50 / 50 0 / 50 25 / 25 Left Hip 50 / 50 0 / 50 25 / 25 Urine 400 / 1100 700 / 1100 700 / 700 Other: Urine Color Yellow Yellow Urine Appearance Clear Clear Clear Urine Odor Normal Strong Comment voided in toilet, missed hat Stool Size Large Moderate Stool Characteristics Liquid Brown Voiding Methods Bedside Commode Toilet Toilet Laboratory Results WBC 10.02 k/cumm (4.4-10.8) 03/01/20 05:05 RBC 3.70 m/cumm (4.00-5.20) L 03/01/20 05:05 Hgb 9.6 g/dL (12.0-15.5) L 03/01/20 05:05 Hct 30.9 % (36.0-46.0) L 03/01/20 05:05 MCV 83.5 fL (80-95) 03/01/20 05:05 MCH 25.9 pg (27.0-33.0) L 03/01/20 05:05 MCHC 31.1 g/dL (32.0-36.0) L 03/01/20 05:05 RDW 17.1 % (11.7-14.6) H 03/01/20 05:05 Plt Count 292 x1000/uL (130-400) 03/01/20 05:05 MPV 9.7 fL (8.0-11.0) 03/01/20 05:05 Immature Gran % 1.7 % 03/01/20 05:05 Neutrophils % 62.4 03/01/20 05:05 Band Neutrophils % 0.0 % 02/22/20 06:50 Lymphocytes % 21.6 03/01/20 05:05 Atypical Lymphs % 0 02/22/20 06:50 Monocytes % 12.6 03/01/20 05:05 Eosinophils % 1.3 03/01/20 05:05 Basophils % 0.4 03/01/20 05:05 Absolute Neutrophils 6.26 k/cumm (1.2-6.7) 03/01/20 05:05 Absolute Lymphocytes 2.16 k/cumm (1.2-3.4) 03/01/20 05:05 Absolute Monocytes 1.26 k/cumm (0.11-0.7) H 03/01/20 05:05 Absolute Eosinophils 0.13 k/cumm (0.0-0.7) 03/01/20 05:05 Absolute Basophils 0.04 k/cumm (0.0-0.2) 03/01/20 05:05 Differential Comment Agrees w/ instrument 02/25/20 07:49 RBC Morphology See below 02/25/20 07:49 Polychromasia Present 02/25/20 07:49 Hypochromasia 1+ 02/25/20 07:49 Poikilocytosis 1+ 02/22/20 06:50 Anisocytosis 1+ 02/25/20 07:49 PT 10.6 sec (9.3-11.0) 02/28/20 06:35 INR 1.1 (0.9-1.1) 02/28/20 06:35 APTT 32.0 sec (21.0-31.4) H D 03/01/20 10:45 D-Dimer 2673 ng/mlFEU (<500) H 02/19/20 20:30 Sodium 138 mmol/L (136-145) 03/01/20 05:05 Potassium 3.7 mmol/L (3.5-5.1) 03/01/20 05:05 Chloride 102 mmol/L (98-107) 03/01/20 05:05 Carbon Dioxide 33.6 mmol/L (21.0-32.0) H 03/01/20 05:05 Anion Gap 2.4 mmol/L (3-11) L 03/01/20 05:05 BUN 11 mg/dL (7-18) 03/01/20 05:05 Creatinine 1.10 mg/dL (0.55-1.02) H 03/01/20 05:05 Estimated GFR/1.73 m2 48.69 (mL/min/1.73m2) 03/01/20 05:05 Glucose 169 mg/dL (74-106) H 03/01/20 05:05 Hemoglobin A1c 9.8 % (3.8-5.6) H 02/20/20 07:05 Lactate 1.7 mmol/L (0.6-1.4) H 02/19/20 20:30 Calcium 7.8 mg/dL (8.5-10.1) L 03/01/20 05:05 Magnesium 2.0 mg/dL (1.8-2.4) 02/26/20 07:10 Iron 14 ug/dL (50-170) L 02/20/20 07:05 TIBC 141 ug/dL (250-450) L 02/20/20 07:05 Transferrin % Sat 10 % (15-50) L 02/20/20 07:05 Ferritin 823 ng/mL (8-252) H 02/20/20 07:05 Total Bilirubin 0.5 mg/dL (0.2-1.0) 03/01/20 05:05 AST 26 U/L (15-37) 03/01/20 05:05 ALT 17 U/L (14-59) 03/01/20 05:05 Alkaline Phosphatase 117 U/L (46-116) H 03/01/20 05:05 Creatine Kinase 16 U/L (26-192) L 02/20/20 07:05 Troponin I Cancelled 02/19/20 23:34 C-Reactive Protein 11.32 mg/dL (0.0-0.3) H 03/01/20 05:05 NT-Pro-B Natriuret Pep 2839 pg/mL (<300) H 03/01/20 05:05 Total Protein 6.8 g/dL (6.4-8.2) 03/01/20 05:05 Albumin 1.5 g/dL (3.4-5.0) L 03/01/20 05:05 Lipase 93 U/L (73-393) 02/19/20 20:30 Procalcitonin 1.2 ng/mL 02/24/20 06:30 Urine Color Yellow (Yellow) 02/22/20 20:00 Urine Clarity Cloudy (Clear) 02/22/20 20:00 Urine pH 6.0 (5-8) 02/22/20 20:00 Ur Specific Dexter 1.010 (1.005-1.025) 02/22/20 20:00 Urine Protein 30 mg/dL (Negative) H 02/22/20 20:00 Urine Ketones Negative mg/dL (Negative) 02/22/20 20:00 Urine Blood Trace-intact (Negative) H 02/22/20 20:00 Urine Nitrite Negative (Negative) 02/22/20 20:00 Urine Bilirubin Negative (Negative) 02/22/20 20:00 Urine Urobilinogen 1.0 EU/dL (Up TO 0.2) H 02/22/20 20:00 Ur Leukocyte Esterase Small (Negative) H 02/22/20 20:00 Urine RBC 3-5 HPF (0-2) H 02/22/20 20:00 Urine WBC 10-20 HPF (0-5) H 02/22/20 20:00 Ur Epithelial Cells Rare HPF (Negative) 02/22/20 20:00 Urine Crystals Many amorphous HPF (Negative) 02/22/20 20:00 Urine Bacteria Many HPF (Negative) 02/22/20 20:00 Urine Casts Negative LPF (Negative) 02/22/20 20:00 Urine Mucus Negative (Negative) 02/22/20 20:00 Ur Culture Indicated? Yes 02/22/20 20:00 Urine Glucose Negative mg/dL (Negative) 02/22/20 20:00 Stool Campylobacter PCR Negative (Negative) 02/23/20 17:50 Stool Salmonella PCR Negative (Negative) 02/23/20 17:50 Stool Shigella PCR Negative (Negative) 02/23/20 17:50 Vancomycin Trough 18.6 ug/mL (10.0-20.0) 03/02/20 10:14 COVID-19 PCR Negative (Negative) 02/19/20 23:17 Nasopharyn COVID-19 PCR Not Applicable 02/19/20 23:17 Shiga Toxin (PCR) Negative (Negative) 02/23/20 17:50 Ref Test Perform Site [place] [facility] 02/19/20 23:17
[2020-03-03] MEDS: guaiFENesin 600 MG TABCR PO (08:14)
[2020-03-03] MEDS: Metoprolol 50 MG TAB PO (08:15)
[2020-03-03] MEDS: Ferrous Gluconate 324 MG TAB PO (08:15)
[2020-03-03] MEDS: Cetirizine 10 MG TAB PO (08:15)
[2020-03-03] MEDS: Ascorbic Acid 500 MG TAB PO (08:15)
[2020-03-03] MEDS: Benzonatate 100 MG CAP PO (08:15)
[2020-03-03] MEDS: Atorvastatin 40 MG TAB PO (08:15)
[2020-03-03] MEDS: Lactobacillus Acidophilus CAP 1 CAP PO ×2 (08:15→13:24)
[2020-03-03] MEDS: Normal Saline Flush 10 ML SYR 20 ML IVP (08:17)
[2020-03-03] MEDS: Insulin Aspart 300 UNITS/3 ML PEN SC ×2 (08:29→11:51)
[2020-03-03 08:53] VITALS: BP 113/54; PULSE 88; RESP 16; TEMP 36.1; O2SAT 92
[2020-03-03] MEDS: Aspirin E.C. 81 MG TABEC PO (09:33)
[2020-03-03] MEDS: Psyllium PKT 1 EACH PO (09:35)
[2020-03-03 11:55] VITALS: BP 123/49; PULSE 78; RESP 16; TEMP 36.5; O2SAT 90
[2020-03-03] MEDS: Acetaminophen 325 MG TAB PO (13:24)
[2020-03-03] MEDS: VANCOMYCIN 750 MG in Normal Saline 250 ML 250 MG IV (14:02)
--- NOTE | 2020-03-03 14:23 | W.PM.DS.N ---
Date of service: 03/03/20 Time of Service: 14:23 DS: Diagnosis Discharge Diagnosis (1) Sepsis due to methicillin resistant Staphylococcus aureus (MRSA): Status: Resolved Asessment and Plan: Sepsis has resolved and her abdominal pain and chest pains are no more, however She will continue w/ Vancomcyin with adjustments by Pharmacist for total of 6 weeks from her first negative blood culture. Her first neg. blood culture was on 02/21 which would complete her antibiotic treatment on 04/04. She needs follow up in 2 weeks in IR at [facility] for ARUN drain check. (2) Staphylococcus aureus bacteremia: Status: Acute Asessment and Plan: as above (3) Renal abscess: Status: Acute Asessment and Plan: She had 60 mL of pus drained by the IR radiologist, Dr. Rosales Puga. She is to have a recheck of her ARUN drain in 2 weeks. (4) UTI (urinary tract infection): Status: Acute Asessment and Plan: her urine cultures were no growth, however it appears that she probably had a pyelonephritis that developed into a renal abscess of her left kidney. Treatment as noted above. Dr. Nichols feels that more likely the infection started elsewhere and seeded the kidney. Nevertheless, drainage and antibiotics as listed above is appropriate management. If abscess does not clear then more invasive surgery would be warranted. (5) Renal mass, left: Status: Suspected Asessment and Plan: a renal mass was suspected based upon her CT findings however this probably is all just d/t abscess. Nevertheless 4 core biopsies were sent by IR at [facility] for pathology. Results should be available next week. (6) Decubitus ulcer: Status: Acute Asessment and Plan: continue local wound care by wound care nurse. currently applying Mepilex dressing. (7) Diabetic neuropathy: Status: Chronic Asessment and Plan: not currently on any gabapentin. however, she has not really complained of much symptoms. (8) Hypertension: Status: Chronic Asessment and Plan: bp well controlled in the 110's to 120's. Currently treated w/ low dose metoprolol. apparently intolerant of lisinopril. Unclear as to why she is not on losartan but at present her bp is controlled. (9) DVT prophylaxis: Status: Acute Asessment and Plan: cont. lovenox 40 mg SC daily (10) Cellulitis of right lower extremity: Status: Resolved Asessment and Plan: wound looks clean and no erythema nor induration over her right lower leg (11) Anemia: Status: Chronic Asessment and Plan: cont. ferrous gluconate and monitor her CBC weekly. (12) Long-term insulin use in type 2 diabetes: Status: Acute Asessment and Plan: Continue basal bolus insulin therapy (13) Type 2 diabetes mellitus with complications: Status: Chronic Asessment and Plan: Continue basal bolus insulin therapy and monitor blood sugars before meals and at bedtime (14) Discharge planning issues: Status: Acute Asessment and Plan: Plan is for discharge home upon completion of her antibiotic treatment. Her should be allowed to come in and visit with her as he is her social support and is also able to help her make medical decisions Discharge Plan Disposition Patient Disposition: [facility] SWING BED LEVEL 1 Condition: Good Discharge Details Chief Complaint: GenMedical Reason For Visit: RENAL MASS,UTI,DEHYDRATION,RT LEG SWELLING,SACRAL Admit Date/Time: 02/19/20 22:49 Admit Provider: Ortiz Orlando Attending Provider: Ortiz Orlando Primary Care Provider: Manuelito Wilcox ED Provider: More Razo Home Meds and New Rx's Prescriptions: No Action metoprolol tartrate 50 mg tablet 50 mg PO BID Qty: 180 RF: 4 atorvastatin [Lipitor] 40 mg tablet 40 mg PO DAILY Qty: 90 RF: 3 Novolin N NPH U-100 Insulin 100 unit/mL suspension 50 unit subcut QHS Qty: 4 RF: 4 Novolin R Regular U-100 Insuln 100 unit/mL solution 5 - 20 unit SC TID Qty: 10 RF: 5 SIDE KICK GLUCOMETER RF: 0 (DME) BD Insulin Syringe 1 EACH syringe 1 syringe Sub-Q DIRECTED Qty: 400 RF: 11 nitroglycerin [Nitrostat] 0.4 MG tablet, sublingual 0.4 mg Sublingual Q5 MIN PRN X3 PRNQty: 25 RF: 4 cetirizine [Zyrtec] 10 MG tablet 10 mg PO DAILY Qty: 90 RF: 1 (DME) Aerochamber MV spacer See Dose Instructions .Route .MEDSUPPLY Qty: 1 RF: 0 aspirin [Aspir-81] 81 MG tablet,delayed release (DR/EC) 81 mg PO DAILY RF: 0 acetaminophen [Tylenol Extra Strength] 500 MG tablet 1 - 2 tab PO Q6H PRN PRN (Reason: Pain) RF: 0 calcium carbonate [Calcium 600] 600 MG tablet 1,200 mg PO BID RF: 0 Discharge Instructions Instructions: MRSA (Methicillin-Resistant Staphylococcus Aureus) (DC), Bacteremia (DC) Additional Instructions: follow up with Interventional radiology at [facility] in 2 weeks for check of your ARUN drain Activity:: Activity as Tolerated Equipment/Supplies:: No Equipment Needed Diet:: Carb Counting Discharge Orders Discharge Orders: Discharge Order (Routine); Ordered 03/03/20 Ordered By: Greg Shukla Discharge Data Discharge Date/Time-TO BE ENTERED AT DEPARTURE: 03/03/20 14:25 DS: Summary Status at Discharge Functional status at discharge: uses cane/walker Overall status at discharge: patient is progressing back to baseline Mental Status: mental status grossly normal Speech and Movement: speech and movement normal Mood: congruent mood Affect: normal affect Time Spent with Patient providing and/or coordinating discharge services: Greater than 30 minutes Exam Narrative Exam Narrative: Elderly female sitting up in her chair in no acute distress. She is alert and oriented person place time circumstance. She has questions about yesterday's procedure. I explained to her that they use CT guidance to insert a catheter into the left renal abscess and they obtain cultures as well as biopsies. There is minimal serosanguineous drainage in the ARUN drain this morning. Lungs are clear to auscultation Except at the left lung base there is some slight rales. I believe this to be secondary to atelectasis and splinting from when she had the flank pain.. Heart is regular rate and rhythm. Abdomen is obese soft nontender. Left flank is nontender ARUN drain with minimal serosanguineous drainage. Lower extremities edematous and obese. Right wound is covered with a dressing. I removed the dressing to look at the wound and it is superficial and not draining any pus. Psych Mental Status: mental status grossly normal Speech and Movement: speech and movement normal Mood: congruent mood Affect: normal affect DS: Data Vitals/I&O Vitals and I&O: Vital Signs Temperature 36.5 C 03/03/20 11:55 Temperature Source Tympanic 03/03/20 11:55 Pulse 78 03/03/20 11:55 Pulse Rhythm Regular 03/03/20 08:35 Pulse 92 H 02/19/20 23:00 Respiratory Rate 16 03/03/20 11:55 Respiratory Effort 03/03/20 08:35 Respiratory Depth Shallow 03/03/20 08:35 Respiratory Pattern Normal 03/03/20 08:35 Blood Pressure 123/49 L 03/03/20 11:55 Blood Pressure Mean 63 02/19/20 23:00 Blood Pressure Position Supine 02/19/20 17:27 Pulse Oximetry 90 L 03/03/20 11:55 Oxygen Delivery Method Room Air 03/03/20 11:55 Oxygen Flow Rate 0 03/03/20 11:55 Pain Level 7 03/03/20 13:24 Comment 03/03/20 08:53 Intake & Output 03/02/20 03/03/20 03/03/20 23:59 11:59 23:59 Intake Total 535 / 655 510 / 510 Output Total 700 / 1150 725 / 725 Balance -165 / -495 -215 / -215 Weight 94.9 kg Intake: IV 280 / 280 270 / 270 Oral 250 / 370 240 / 240 Injectate 5 / 5 Left Hip 5 / 5 Output: Drainage 0 / 50 25 / 25 Left Hip 0 / 50 25 / 25 Urine 700 / 1100 700 / 700 Other: Urine Color Yellow Yellow Urine Appearance Clear Clear Urine Odor Normal Strong Comment Pt voided once Stool Size Moderate Stool Characteristics Liquid Brown Voiding Methods Toilet Toilet Data Completed and Pending Labs on day of discharge: Preliminary micro results at discharge 02/21/20 07:45 Blood Culture - Preliminary Blood Staph aureus, MRSA PFSH Medical History (Updated 03/03/20 @ 19:42 by Greg Shukla) Allergic rhinitis ASCVD (arteriosclerotic cardiovascular disease) Carpal tunnel syndrome of right wrist (Inactive 02/28/15) Chronic cough (Inactive) Closed fracture of humerus (Inactive 06/28/13) Diabetic foot ulcer with osteomyelitis (Inactive 05/31/14) right second toe, distal amputation 05/29, [place] Diabetic neuropathy DM type 2 causing complication Essential hypertension Family history of malignant neoplasm of breast (Inactive 11/01/14) Kidney stone (Inactive 03/17/12) Loss of sense of smell (Inactive 11/01/14) and loss of taste CO (myocardial infarction) Myocardial infarction (Inactive 01/14/12) 12/25 inferior CO, cath and stent at [facility] (EF 35%) Pyelonephritis Pyelonephritis (Inactive 08/04/12) LEFT HYDRONEPHROSIS AND DOUBLE COLLECTING SYSTEM 2013 surgery, Dr Peewee Burgos [facility] Wound abscess (Inactive 11/25/17) Surgical History (Updated 03/03/20 @ 19:29 by Greg Shukla) Abdominal hysterectomy 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 Grandfather No problems noted. Grandmother Diabetes Grandmother No problems noted. Daughter No problems noted. 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
--- NOTE | 2020-03-03 17:48 | CMPROGNOTE_ITS ---
- If Service Date Differs Date of service: 03/03/20 Time of Service: 17:48 Care Management Progress Note S/O: Kizzy will transition to SWB level 1 today for IV abx course as well as PT. CM met with her and Justin to go over full SWB assessment and SWB contract. All questions and concerns were addressed. She is happy to remain at [facility] for the duration of her IV abx. She is very happy with the care she has received at [facility]. CM will continue to follow. A: Kizzy is a 75 year old female admitted to [facility] on 02/19/20 with a left renal mass. P: Kizzy will transition to SWB level 1 today to complete her IV abx course and to have continued PT. Once her goals are met she will return home, likely with new services. Her Justin is identified as her support person, and is permitted to visit during her stay. CM will continue to follow and support discharge planning considerations.
== END 2020-03-03 14:25 | disposition swing bed (61) | DRG 871 ==
LOC: ER 23:12 → MS 02-20 00:12
PROVIDERS: Internal Medicine; Admitting Provider Family Medicine; Emergency Provider Physician Assistant; PCP Family Medicine; Visit Provider Family Medicine
DX: A41.02 Sepsis due to Methicillin resistant Staphylococcus aureus (principal); N15.1 Renal and perinephric abscess; C64.2 Malignant neoplasm of left kidney, except renal pelvis; N39.0 Urinary tract infection, site not specified; L03.115 Cellulitis of right lower limb; L02.415 Cutaneous abscess of right lower limb; E86.0 Dehydration; I25.10 Atherosclerotic heart disease of native coronary artery without angina pectoris; J30.9 Allergic rhinitis, unspecified; E11.40 Type 2 diabetes mellitus with diabetic neuropathy, unspecified; I10 Essential (primary) hypertension; Z79.4 Long term (current) use of insulin; I87.2 Venous insufficiency (chronic) (peripheral); L89.312 Pressure ulcer of right buttock, stage 2; N28.9 Disorder of kidney and ureter, unspecified; R05 Cough; L73.9 Follicular disorder, unspecified; E66.9 Obesity, unspecified; Z68.38 Body mass index [BMI] 38.0-38.9, adult; B96.1 Klebsiella pneumoniae [K. pneumoniae] as the cause of diseases classified elsewhere; E11.65 Type 2 diabetes mellitus with hyperglycemia; D50.9 Iron deficiency anemia, unspecified
CPT/HCPCS: 10061; 36410; 36415; 36569; 49405; 71275; 74177; 76770; 76881; 80048; 80053; 82550; 83690; 84145; 87040; 87077; 87505; 93005; 93306; 96361; 96365; 96375; 97110; 97162; 99221; 99222; 99231; 99232; 99233; 99239; 99253; 99254; 99285; J1650; NC; U0003; 71045; 74150; 76700; 80202; 81003; 81015; 82728; 83036; 83540; 83550; 83605; 83735; 83880; 84484; 85025; 85379; 85610; 85730; 86140; 87070; 87086; 87186; 87205; 93010; 93971; 94667; A0425; A0428; J0696; J1941; J2270; J2405; J3490

== ENCOUNTER 2020-03-03 14:08 | Inpatient (IN) | payer MEDICARE, SELFPAY ==
--- NOTE | 2020-03-03 14:21 | HPE_ITS ---
Date of service: 03/03/20 Time of Service: 14:22 Assessment and Plan Assessment and plan (1) Staphylococcus aureus bacteremia: Status: Acute Assessment and plan: She will continue w/ Vancomcyin with adjustments by Pharmacist for total of 6 weeks from her first negative blood culture. Her first neg. blood culture was on 02/21 which would complete her antibiotic treatment on 04/04. She needs follow up in 2 weeks in IR at [facility] for AURN drain check. (2) Renal abscess: Status: Acute Assessment and plan: As above (3) Renal mass, left: Status: Suspected Assessment and plan: Check on results of her core biopsies that were obtained this week. Pathology should be available from [facility] next week. (4) Decubitus ulcer: Status: Acute Assessment and plan: continue local wound care by wound care nurse. currently applying Mepilex dressing. Qualifiers: Pressure injury location: sacral region Pressure injury stage: stage 2 Qualified Code(s): L89.152 - Pressure ulcer of sacral region, stage 2 (5) Anemia: Status: Chronic Assessment and plan: cont. ferrous gluconate and monitor her CBC weekly. Qualifiers: Anemia type: iron deficiency Iron deficiency anemia type: unspecified iron deficiency Qualified Code(s): D50.9 - Iron deficiency anemia, unspecified (6) Hypertension: Status: Chronic Assessment and plan: Continue low-dose metoprolol. Monitor blood press ures. She has been intolerant of an KEVIN inhibitor but is unclear as to why she has not been tried on an arm. 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 (8) Diabetic neuropathy: Status: Chronic Assessment and plan: Not currently on any Lyrica or gabapentin. However patient has not really complained of any neuropathic pain (9) Long-term insulin use in type 2 diabetes: Status: Acute (10) DVT prophylaxis: Status: Acute Assessment and plan: Continue enoxaparin 40 mg subcu daily (11) Discharge planning issues: Status: Acute Assessment and plan: Plan is for discharge home upon completion of her antibiotic treatment. Her should be allowed to come in and visit with her as he is her social support and is also able to help her make medical decisions History of Present Illness History of Present Illness Chief Complaint: MRSA Bacteremia Narrative: See my discharge summary from today for details. In summary this 75-year-old morbidly obese [place] female with a history of type 2 diabetes mellitus requiring in sulin with previous history of pyelonephritis presented to the emergency department with dyspnea and chest discomfort and left flank pain and abdominal pain and was subsequently found to have on CT scan what appeared to be a left renal mass. Blood cultures came back positive for MRSA. She was also found to have an infected hematoma over her right calf with some surrounding cellulitis. This is drained and found to have MRSA as well. She was treated with vancomycin and was referred to [facility] for interventional radiology biopsy of the left renal mass. The interventional radiologist Dr. Rosales Puga drain the left renal mass of 60 mL's of purulent fluid and sent it off for cultures. He obtained 4 core biopsies which are pending at this time. Patient's repeat blood cultures came back no growth on February 21 and she subsequently has had a midline converted over to a PICC line for ongoing vancomycin treatment. She will need 6 weeks of parenteral antibiotics. She will need a follow-up in 2 weeks with [facility] interventional radiology for assessment of her ARUN drain. If she fails to clear this abscess she may need further surgical intervention. Also if her core biopsy demonstrates a renal cell cancer she also may need further surgical intervention. 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, [place] Diabetic neuropathy DM type 2 causing complication Essential hypertension Family history of malignant neoplasm of breast (Inactive 11/01/14) Kidney stone (Inactive 03/17/12) Loss of sense of smell (Inactive 11/01/14) and loss of taste [place] (myocardial infarction) Myocardial infarction (Inactive 01/14/12) 12/25 inferior [place], cath and stent at [facility] (EF 35%) Pyelonephritis Pyelonephritis (Inactive 08/04/12) LEFT HYDRONEPHROSIS AND DOUBLE COLLECTING SYSTEM 2013 surgery, Dr Peewee Burg[facility] Wound abscess (Inactive 11/25/17) Surgical History Abdominal hysterectomy 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 Grandfather No problems noted. Grandmother Diabetes Grandmother No problems noted. Daughter No problems noted. Social History Smoking/Tobacco Use Status: Never Alcohol Intake: never Drug use: Never Substance use type: does not use Household members: other Details: 2 What type of physical activity do you participate in: none Do you feel safe at home: Yes Do you feel safe in your relationship?: Yes Additional Social history: Originally from [place], lives in her 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 Meds Home Medications and Allergies Home Medications Medication Instructions Recorded Confirmed Type acetaminophen [Tylenol Extra 1 - 2 tab PO Q6H PRN PRN 11/16/12 03/03/20 History Strength] aspirin [Aspir-81] 81 mg PO DAILY 11/16/12 03/03/20 History Side Kick Glucometer 01/20/13 08/17/19 History calcium carbonate [Calcium 600] 1,200 mg PO BID 05/17/14 03/03/20 History BD Insulin Syringe #400 syringe 02/28/15 09/16/19 History nitroglycerin [Nitrostat] 0.4 mg SUBLINGUAL Q5 MIN PRN X3 02/28/15 03/03/20 History PRN #25 tab cetirizine [Zyrtec] 10 mg PO DAILY #90 tab 11/07/15 03/03/20 History inhalational spacing device #1 each 07/31/18 08/17/19 Rx atorvastatin 40 mg tablet 40 mg PO DAILY #90 tab-cap 03/12/19 03/03/20 Rx metoprolol tartrate 50 mg tablet 50 mg PO BID #180 tab-cap 03/12/19 03/03/20 Rx insulin NPH isoph U-100 human 100 50 unit SUBCUT QHS #4 vial 08/17/19 03/03/20 History unit/mL subcutaneous suspension insulin regular human 100 unit/mL 5 - 20 unit SC TID #10 ml 08/17/19 03/03/20 Rx injection solution Allergies Allergy/AdvReac Type Severity Reaction Status Date / Time Penicillins Allergy Intermediate Itching, Verified 02/19/20 17:33 Swelling ciprofloxacin AdvReac Intermediate Dizziness/L Verified 02/19/20 17:33 ightheade Latex, Natural Rubber AdvReac Intermediate Skin Rash Verified 02/19/20 17:33 lisinopril AdvReac Intermediate cough Verified 02/19/20 17:33 metformin AdvReac Mild Diarrhea Verified 02/19/20 17:33 tylenol 3 AdvReac Intermediate tingling Uncoded 02/19/20 17:33 of tongue and lips Exam Narrative Exam Narrative: Elderly female sitting up in her chair in no acute distress. She is alert and oriented person place time circumstance. There is minimal serosanguineous drainage in the ARUN drain this morning. Lungs are clear to auscultation Except at the left lung base there is some slight rales. I believe this to be secondary to atelectasis and splinting from when she had the flank pain.. Heart is regular rate and rhythm. Abdomen is obese soft nontender. Left flank is nontender ARUN drain with minimal serosanguineous drainage. Lower extremities edematous and obese. Right wound is covered with a dressing. I removed the dressing to look at the wound and it is superficial and not draining any pus. Psych Mental Status: mental status grossly normal Speech and Movement: speech and movement normal Mood: congruent mood Affect: normal affect COVID-19 Screening In the past 14 days, have you traveled outside of [place]?: NO
[2020-03-03 16:10] VITALS: BP 119/49; PULSE 83; RESP 20; TEMP 36.3; O2SAT 92
[2020-03-03] MEDS: Furosemide 40 MG TAB PO (16:21)
[2020-03-03] MEDS: Potassium Chloride 20 MEQ TABCR PO ×2 (16:21→20:10)
[2020-03-03] MEDS: MORPHine 2 MG/ML SYR IVP ×2 (16:22→21:46)
[2020-03-03] MEDS: Insulin Aspart 300 UNITS/3 ML PEN SC ×2 (17:07→21:48)
--- NOTE | 2020-03-03 17:52 | CMPROGNOTE_ITS ---
- If Service Date Differs Date of service: 03/03/20 Time of Service: 17:52 Care Management Progress Note S/O: Kizzy will transition to SWB level 1 today for IV abx course as well as PT. CM met with her and Justin to go over full SWB assessment and SWB contract. All questions and concerns were addressed. She is happy to remain at [facility] for the duration of her IV abx. She is very happy with the care she has received at [facility]. CM will continue to follow. A: Kizzy is a 75 year old female admitted to [facility] on 02/19/20 with a left renal mass. P: Kizzy will transition to SWB level 1 today to complete her IV abx course and to have continued PT. Once her goals are met she will return home, likely with new services. Her Justin is identified as her support person, and is permitted to visit during her stay. CM will continue to follow and support discharge planning considerations.
--- NOTE | 2020-03-03 17:53 | CM.SWINGPC ---
- If Service Date Differs Date of service: 03/03/20 Time of Service: 17:53 Swingbed Plan of Care Plan of care: SWING BED PROGRAM ACTIVITIES/DISCHARGE PLAN OF CARE ACTIVITIES PLAN Date: 03/03/20 Identified Need: Life Enrichment during extended hospitalization. Intervention/Plan: Cart activities such as word search puzzles, coloring books, TV in room. Volunteer services when available. Initials KM DISCHARGE PLAN Date: 03/03/20 Identified Need: IV Abx 4-6 weeks, PT Intervention/Plan: IV abx for MRSA infection, wound care, PT services, SWB1 for monitoring and management. Initials KM
--- NOTE | 2020-03-03 17:57 | CMSA_ITS ---
- If Service Date Differs Date of service: 03/03/20 Time of Service: 17:57 SB Psychosocial/Act.Assessment - Hospital Admission Admission Date: 02/19/20 Admission From:: Home Diagnosis:: Renal Mass, Sepsis- MRSA - Swing Bed Admission Swing Bed Admit Date:: 03/03/20 Swing Bed Level of Care: Level 1/SNF - Social Supports PREVIOUS FUNCTIONAL STATUS/SOCIAL/FAMILY SUPPORTS:: Kizzy lives in [facility] with her Justin in a 2-level, single family home. They have one daughter, Claudia who lives closeby and is very supportive. Kizzy shared that she and Claudia are very close. Claudia has 3 children ages 2, 3 and 5. Kizzy has been independent with ADLs and care until about 3 weeks ago when she became ill. She has been relying on her for assistance. She has been using a cane and a walker to assist with ambulation as she has become very weak. 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 - Prior to Admission Living Arrangements/Environment Prior to Admission:: Home, with her , Carley pelletier. - Education Highest Grade Completed:: Graduated High School Where did you attend School:: [place], [place] Special Education/Training:: Weekend Caregiver - Work History Employment Status:: Retired Voacation:: Weekend Caregiver - : No 's Spouse: Yes - Benefits Financial: Social Security, Medicare, Commerical - Mandaeism Active Confucianism Member:: Yes Confucianism Affliation: Jehovah'[employer] Witness Automation Mechanic:: Justin Hopkins Will Confucianism Members or Automation Mechanic Visit:: Yes Importance of Chantal:: High, is phototypesetting equipment monitor - Advance Directives for Healthcare Advance Directives for Healthcare: Advance Directives Advance Directive Agent: Justin, primary. Claudia secondary. - Community Community Supports/Involvement: Kizzy is active in her bah[employer]. - Present Functional Status Physical Abilities:: Needs assistance, working with PT Cognitive:: Intact, AOx3 Communication:: good communication Behavior:: appropriate, pleasant - Medical History PAST MEDICAL HISTORY/PAST SURGICAL HISTORY:: Medical History . Allergic rhinitis. ASCVD (arteriosclerotic cardiovascular disease). Chronic cough (Acute). Diabetic neuropathy. DM type 2 causing complication. Essential hypertension. GA (myocardial infarction). Pyelonephritis. Surgical History . Abdominal hysterectomy. Amputation. 05/27/14; 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 LANDEROS. Cholecystectomy. lap. Coronary Artery Bypass Gaft (CABG). Coronary Stent. [facility]-03/19/16. ERCP. Left heart Cath. [facility]-03/19/16. Oophrectomy, Both. 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 Shoulder replacement. Stent placement. WITH 2 BYPASS GRAFTS-[facility] General Health:: Long medical history, has been declining at home recently. - Admission Data Reason for Swing Bed Admission:: IV Abx for MRSA infection, PT Discharge Plan:: Kizzy will complete her IV abx course at [facility], and will receive continued support from PT. She will return home with new services and palliative care follow up. Assessment: Kizzy will remain at [facility] for 4-6 weeks of IV abx and continued PT. CM offered cart/activity items for life enrichment during her stay. Once she is medically cleared she will return home with new services. Heavy Truck Mechanic: More Kirby Date Assessment was completed:: 03/03/20
[2020-03-03 19:59] VITALS: BP 121/50; PULSE 78; RESP 18; O2SAT 93
[2020-03-03] MEDS: Lactobacillus Acidophilus CAP 1 CAP PO (20:10)
[2020-03-03] MEDS: Metoprolol 50 MG TAB PO (20:10)
[2020-03-03] MEDS: Normal Saline Flush 10 ML SYR 20 ML IVP (20:11)
[2020-03-03] MEDS: Insulin Glargine 300 UNITS/3 ML PEN 16 UNITS SC (21:47)
[2020-03-03] MEDS: Enoxaparin 40 MG/0.4 ML SYR SC (21:48)
[2020-03-03] MEDS: Normal Saline Flush 10 ML SYR IVP (21:49)
[2020-03-04] MEDS: Normal Saline Flush 10 ML SYR IVP ×4 (03:38→19:35)
[2020-03-04] MEDS: VANCOMYCIN 750 MG in Normal Saline 250 ML 250 MG IV ×2 (03:38→18:45)
[2020-03-04 03:46] VITALS: BP 125/50; PULSE 84; RESP 17; TEMP 36.6; O2SAT 97
--- NOTE | 2020-03-04 07:13 | PT.INNT ---
Date of service: 03/04/20 Time of Service: 07:13 PT Notes Visit Reasons: MRSA BACTEREMIA, RENAL ABSCESS Kizzy was seen early this morning for another PT referral sent in yesterday. Benefits and goals of inpatient PT services under swing bed level 1 were shared with the patient. She acknowledges the importances of physical therapy but she remains firm with her stand that she does not need it right now. She elaborates that she is a lot better compared to when she first came in and that she would not like to be pushed into doing something she does not want to do. Exercise intensity and mobility progression were clarified with patient emphasizing that activities can be tailored to patient's pace. She remains unrelenting. She was informed that should she feel that she is ready to participate, she just needs to let nursing staff know. Dr. Augustine and Nurse Mendoza were both updated about patient's decision. Thank you for this referral.
[2020-03-04 07:20] VITALS: BP 111/43; PULSE 86; RESP 17; TEMP 36.7; O2SAT 90
[2020-03-04 07:20] LABS: Platelet Count 292 x1000/uL (130-400)
[2020-03-04] MEDS: Ascorbic Acid 500 MG TAB PO (08:05)
[2020-03-04] MEDS: Aspirin E.C. 81 MG TABEC PO (08:05)
[2020-03-04] MEDS: Atorvastatin 40 MG TAB PO (08:06)
[2020-03-04] MEDS: Cetirizine 10 MG TAB PO (08:06)
[2020-03-04] MEDS: Ferrous Gluconate 324 MG TAB PO (08:07)
[2020-03-04] MEDS: Insulin Aspart 300 UNITS/3 ML PEN SC ×4 (08:08→22:04)
[2020-03-04] MEDS: Furosemide 40 MG TAB PO (08:08)
[2020-03-04] MEDS: Metoprolol 50 MG TAB PO ×2 (08:09→19:35)
[2020-03-04] MEDS: Lactobacillus Acidophilus CAP 1 CAP PO ×3 (08:09→19:35)
[2020-03-04] MEDS: Potassium Chloride 20 MEQ TABCR PO ×2 (08:10→19:35)
[2020-03-04] MEDS: Psyllium PKT 1 EACH PO ×2 (08:10→19:34)
[2020-03-04] MEDS: Normal Saline Flush 10 ML SYR 20 ML IVP ×2 (08:10→19:35)
--- NOTE | 2020-03-04 13:29 | PHA.REVIEW ---
Pharmacy Admission Review - Admission Clinical Review (Last Reviewed 03/03/20 @ 19:57 by Greg Shukla) Renal abscess (Acute) Staphylococcus aureus bacteremia (Acute) DVT prophylaxis (Acute) Discharge planning issues (Acute) Decubitus ulcer (Acute) Long-term insulin use in type 2 diabetes (Acute) Penicillins Allergy (Intermediate, Verified 02/19/20 17:33) Itching, Swelling ciprofloxacin Adverse Reaction (Intermediate, Verified 02/19/20 17:33) Dizziness/Lightheade Latex, Natural Rubber Adverse Reaction (Intermediate, Verified 02/19/20 17:33) Skin Rash lisinopril Adverse Reaction (Intermediate, Verified 02/19/20 17:33) cough metformin Adverse Reaction (Mild, Verified 02/19/20 17:33) Diarrhea tylenol 3 Adverse Reaction (Intermediate, Uncoded 02/19/20 17:33) tingling of tongue and lips Height 5 ft 4 in Weight 94.6 kg - Comments Comments/Follow Ups: SWINGBED for IV abx through 04/04/20 - Renal Dosing Medications needing adjustments: Reviewed (crcl ~51ml/min using global rph) - Anticoagulation Anticoagulation: Plt Count 292 x1000/uL (130-400) 03/04/20 06:20 DVT Prohphylaxis: Reviewed Medications: Enoxaparin Therapeutic Anticoagulation: N/A - Opiate Usage Evaluate Pain Scale/Pains Meds: Reviewed Scheduled Bowel Reg ordered if on Opiates?: Yes - Relevant Labs Electrolytes, C-Reactive P, ESR: Reviewed - DM Control DM Control: Finger Stick Blood Glucose 227 Finger Stick Blood Glucose 227 Finger Stick Blood Glucose 197 Finger Stick Blood Glucose 197 Insulin Dosing: Reviewed - BP Control BP Control: Blood Pressure 111/43 Blood Pressure 125/50 - Comments Comments/Follow Ups: will return to [facility] for follwup with IR after 2 weeks. wound mgt orders to be entered
[2020-03-04 15:30] VITALS: BP 126/56; PULSE 83; RESP 18; TEMP 36.9; O2SAT 91
[2020-03-04 19:05] VITALS: BP 115/53; PULSE 86; RESP 18; TEMP 36.4; O2SAT 91
[2020-03-04] MEDS: Senna TAB 1 TAB PO (19:34)
[2020-03-04] MEDS: Docusate Sodium 100 MG CAP PO (19:34)
[2020-03-04] MEDS: MORPHine 2 MG/ML SYR IVP (19:34)
[2020-03-04] MEDS: Enoxaparin 40 MG/0.4 ML SYR SC (22:03)
[2020-03-04] MEDS: Insulin Glargine 300 UNITS/3 ML PEN 16 UNITS SC (22:04)
[2020-03-05] MEDS: MORPHine 2 MG/ML SYR IVP ×3 (00:02→22:18)
[2020-03-05] MEDS: Acetaminophen 325 MG TAB PO ×2 (00:03→12:20)
[2020-03-05] MEDS: Normal Saline Flush 10 ML SYR IVP ×3 (00:03→22:18)
[2020-03-05 04:20] VITALS: BP 118/55; PULSE 81; RESP 17; TEMP 36.1; O2SAT 92
[2020-03-05 07:20] VITALS: BP 128/48; PULSE 75; RESP 17; TEMP 36.6; O2SAT 90
[2020-03-05 07:28] LABS: BUN 9 mg/dL (7-18); C-Reactive Protein 7.03 mg/dL (0.0-0.3); Calcium 8.3 mg/dL (8.5-10.1); Chloride 102 mmol/L (98-107); Estimated GFR 48.69 (mL/min/1.73m2); Glucose 156 mg/dL (74-106); Magnesium 1.9 mg/dL (1.8-2.4); Potassium 3.9 mmol/L (3.5-5.1); Sodium 139 mmol/L (136-145)
[2020-03-05 07:33] LABS: Vancomycin, Trough 22.3 ug/mL (10.0-20.0)
[2020-03-05 08:09] LABS: Procalcitonin 0.1 ng/mL
[2020-03-05] MEDS: Aspirin E.C. 81 MG TABEC PO (08:33)
[2020-03-05] MEDS: Ascorbic Acid 500 MG TAB PO (08:33)
[2020-03-05] MEDS: Atorvastatin 40 MG TAB PO (08:34)
[2020-03-05] MEDS: Cetirizine 10 MG TAB PO (08:34)
[2020-03-05] MEDS: Docusate Sodium 100 MG CAP PO ×2 (08:34→20:25)
[2020-03-05] MEDS: Ferrous Gluconate 324 MG TAB PO (08:35)
[2020-03-05] MEDS: Furosemide 40 MG TAB PO (08:36)
[2020-03-05] MEDS: Metoprolol 50 MG TAB PO ×2 (08:36→20:26)
[2020-03-05] MEDS: Lactobacillus Acidophilus CAP 1 CAP PO ×3 (08:36→20:25)
[2020-03-05] MEDS: Insulin Aspart 300 UNITS/3 ML PEN SC ×3 (08:36→22:06)
[2020-03-05] MEDS: Psyllium PKT 1 EACH PO ×2 (08:37→20:25)
[2020-03-05] MEDS: Normal Saline Flush 10 ML SYR 20 ML IVP ×2 (08:37→20:27)
[2020-03-05] MEDS: Senna TAB 1 TAB PO ×2 (08:37→20:25)
[2020-03-05] MEDS: Potassium Chloride 20 MEQ TABCR PO ×2 (08:37→20:25)
[2020-03-05] MEDS: VANCOMYCIN 750 MG in Normal Saline 250 ML 250 MG IV (12:38)
[2020-03-05 16:10] VITALS: BP 111/49; PULSE 78; RESP 18; TEMP 37.2; O2SAT 92
[2020-03-05 22:01] VITALS: BP 134/76; PULSE 88; RESP 19; TEMP 36.1; O2SAT 94
[2020-03-05] MEDS: Enoxaparin 40 MG/0.4 ML SYR SC (22:06)
[2020-03-05] MEDS: Insulin Glargine 300 UNITS/3 ML PEN 16 UNITS SC (22:08)
[2020-03-06] MEDS: Acetaminophen 325 MG TAB PO (01:31)
[2020-03-06] MEDS: Normal Saline Flush 10 ML SYR IVP ×4 (01:59→14:12)
[2020-03-06] MEDS: MORPHine 2 MG/ML SYR IVP ×4 (01:59→21:41)
[2020-03-06 04:05] VITALS: BP 128/72; PULSE 78; RESP 17; TEMP 37.1; O2SAT 94
[2020-03-06] MEDS: VANCOMYCIN 750 MG in Normal Saline 250 ML 250 MG IV ×2 (04:06→21:40)
[2020-03-06 06:56] LABS: Abs Immature Grans 0.07 k/cumm (0.0-0.09); Absolute Basophil Count 0.02 k/cumm (0.0-0.2); Absolute Eosinophil Count 0.18 k/cumm (0.0-0.7); Absolute Lymphocyte Count 1.62 k/cumm (1.2-3.4); Absolute Monocyte Count 0.92 k/cumm (0.11-0.7); Absolute Neutrophil Count 5.52 k/cumm (1.2-6.7); Basophils % 0.2; Eosinophils % 2.2; HCT 32.1 % (36.0-46.0); HGB 9.5 g/dL (12.0-15.5); Immature Grans % 0.8 %; Lymphocytes % 19.4; Mean Corp. HGB Concentration 29.6 g/dL (32.0-36.0); Mean Corpuscular Hemoglobin 25.1 pg (27.0-33.0); Mean Corpuscular Volume 84.9 fL (80-95); Mean Platelet Volume 9.5 fL (8.0-11.0); Neutrophils % 66.4; Platelet Count 322 x1000/uL (130-400); RBC 3.78 m/cumm (4.00-5.20); RBC Distribution Width 17.4 % (11.7-14.6); White Blood Cell Count 8.33 k/cumm (4.4-10.8)
[2020-03-06 07:30] VITALS: BP 113/50; PULSE 75; RESP 17; TEMP 36.3; O2SAT 90
[2020-03-06 07:37] LABS: C-Reactive Protein 5.76 mg/dL (0.0-0.3); NT-proBNP 1561 pg/mL (<300)
[2020-03-06] MEDS: Docusate Sodium 100 MG CAP PO ×2 (08:07→21:53)
[2020-03-06] MEDS: Metoprolol 50 MG TAB PO ×2 (08:07→21:42)
[2020-03-06] MEDS: Aspirin E.C. 81 MG TABEC PO (08:07)
[2020-03-06] MEDS: Psyllium PKT 1 EACH PO ×2 (08:07→21:42)
[2020-03-06] MEDS: Furosemide 40 MG TAB PO (08:07)
[2020-03-06] MEDS: Ferrous Gluconate 324 MG TAB PO (08:07)
[2020-03-06] MEDS: Lactobacillus Acidophilus CAP 1 CAP PO ×3 (08:07→21:42)
[2020-03-06] MEDS: Ascorbic Acid 500 MG TAB PO (08:08)
[2020-03-06] MEDS: Atorvastatin 40 MG TAB PO (08:08)
[2020-03-06] MEDS: Senna TAB 1 TAB PO ×2 (08:08→21:42)
[2020-03-06] MEDS: Cetirizine 10 MG TAB PO (08:08)
[2020-03-06] MEDS: Potassium Chloride 20 MEQ TABCR PO ×2 (08:08→21:42)
[2020-03-06] MEDS: Insulin Aspart 300 UNITS/3 ML PEN SC ×4 (08:19→21:43)
[2020-03-06] MEDS: Normal Saline Flush 10 ML SYR 20 ML IVP ×2 (08:20→21:42)
[2020-03-06 16:22] VITALS: BP 113/64; PULSE 84; RESP 14; TEMP 36.6; O2SAT 93
[2020-03-06] MEDS: Insulin Glargine 300 UNITS/3 ML PEN 16 UNITS SC (21:43)
[2020-03-06] MEDS: Enoxaparin 40 MG/0.4 ML SYR SC (21:53)
[2020-03-07 00:23] VITALS: BP 125/75; PULSE 77; RESP 18; TEMP 37.1; O2SAT 100
[2020-03-07] MEDS: MORPHine 2 MG/ML SYR IVP ×2 (02:11→20:45)
[2020-03-07] MEDS: Normal Saline Flush 10 ML SYR IVP ×4 (02:12→20:45)
[2020-03-07 07:04] VITALS: BP 111/60; PULSE 89; RESP 17; TEMP 37; O2SAT 94
[2020-03-07 07:31] LABS: Abs Immature Grans 0.13 k/cumm (0.0-0.09); Absolute Basophil Count 0.04 k/cumm (0.0-0.2); Absolute Eosinophil Count 0.16 k/cumm (0.0-0.7); Absolute Lymphocyte Count 1.54 k/cumm (1.2-3.4); Absolute Monocyte Count 1.08 k/cumm (0.11-0.7); Absolute Neutrophil Count 5.86 k/cumm (1.2-6.7); Basophils % 0.5; Eosinophils % 1.8; HCT 33.3 % (36.0-46.0); HGB 10.1 g/dL (12.0-15.5); Immature Grans % 1.5 %; Lymphocytes % 17.5; Mean Corp. HGB Concentration 30.3 g/dL (32.0-36.0); Mean Corpuscular Hemoglobin 25.8 pg (27.0-33.0); Mean Corpuscular Volume 84.9 fL (80-95); Mean Platelet Volume 9.5 fL (8.0-11.0); Monocytes % 12.3; Neutrophils % 66.4; Platelet Count 378 x1000/uL (130-400); RBC 3.92 m/cumm (4.00-5.20); RBC Distribution Width 17.4 % (11.7-14.6); White Blood Cell Count 8.81 k/cumm (4.4-10.8)
[2020-03-07] MEDS: Normal Saline Flush 10 ML SYR 20 ML IVP ×2 (07:45→20:25)
[2020-03-07] MEDS: Senna TAB 1 TAB PO ×2 (07:45→20:25)
[2020-03-07] MEDS: Psyllium PKT 1 EACH PO ×2 (07:45→20:25)
[2020-03-07] MEDS: Aspirin E.C. 81 MG TABEC PO (07:45)
[2020-03-07] MEDS: Docusate Sodium 100 MG CAP PO ×2 (07:46→20:25)
[2020-03-07] MEDS: Ascorbic Acid 500 MG TAB PO (07:46)
[2020-03-07] MEDS: Cetirizine 10 MG TAB PO (07:46)
[2020-03-07] MEDS: Atorvastatin 40 MG TAB PO (07:46)
[2020-03-07] MEDS: Potassium Chloride 20 MEQ TABCR PO ×2 (07:46→20:25)
[2020-03-07] MEDS: Furosemide 40 MG TAB PO (07:47)
[2020-03-07] MEDS: Lactobacillus Acidophilus CAP 1 CAP PO ×2 (07:47→20:25)
[2020-03-07] MEDS: Insulin Aspart 300 UNITS/3 ML PEN SC ×4 (07:47→22:26)
[2020-03-07] MEDS: Ferrous Gluconate 324 MG TAB PO (07:47)
[2020-03-07] MEDS: Metoprolol 50 MG TAB PO ×2 (07:47→20:30)
[2020-03-07 13:23] LABS: Vancomycin, Trough 20.9 ug/mL (10.0-20.0)
[2020-03-07] MEDS: VANCOMYCIN 750 MG in Normal Saline 250 ML 250 MG IV (14:34)
[2020-03-07 15:25] VITALS: BP 119/70; PULSE 82; RESP 18; TEMP 37.2; O2SAT 91
[2020-03-07] MEDS: Insulin Aspart 300 UNITS/3 ML PEN 12 UNITS SC (17:50)
[2020-03-07] MEDS: Insulin Glargine 300 UNITS/3 ML PEN 16 UNITS SC (22:25)
[2020-03-07] MEDS: Enoxaparin 40 MG/0.4 ML SYR SC (22:28)
[2020-03-07 23:49] VITALS: BP 133/70; PULSE 94; RESP 18; TEMP 36.8; O2SAT 93
[2020-03-08] MEDS: VANCOMYCIN 750 MG in Normal Saline 250 ML 250 MG IV ×2 (06:26→22:19)
[2020-03-08] MEDS: Normal Saline Flush 10 ML SYR IVP ×2 (06:27→10:02)
[2020-03-08 07:04] LABS: Abs Immature Grans 0.07 k/cumm (0.0-0.09); Absolute Basophil Count 0.04 k/cumm (0.0-0.2); Absolute Eosinophil Count 0.14 k/cumm (0.0-0.7); Absolute Lymphocyte Count 1.33 k/cumm (1.2-3.4); Absolute Monocyte Count 1.03 k/cumm (0.11-0.7); Absolute Neutrophil Count 5.27 k/cumm (1.2-6.7); Basophils % 0.5; Eosinophils % 1.8; HCT 30.5 % (36.0-46.0); HGB 9.1 g/dL (12.0-15.5); Immature Grans % 0.9 %; Lymphocytes % 16.9; Mean Corp. HGB Concentration 29.8 g/dL (32.0-36.0); Mean Corpuscular Hemoglobin 25.3 pg (27.0-33.0); Mean Corpuscular Volume 84.7 fL (80-95); Mean Platelet Volume 9.6 fL (8.0-11.0); Monocytes % 13.1; Neutrophils % 66.8; Platelet Count 283 x1000/uL (130-400); RBC Distribution Width 17.3 % (11.7-14.6); White Blood Cell Count 7.88 k/cumm (4.4-10.8)
[2020-03-08 07:26] VITALS: BP 115/58; PULSE 81; RESP 17; TEMP 36.4; O2SAT 96
[2020-03-08] MEDS: Metoprolol 50 MG TAB PO ×2 (09:00→20:59)
[2020-03-08] MEDS: Lactobacillus Acidophilus CAP 1 CAP PO ×3 (09:00→20:59)
[2020-03-08] MEDS: Psyllium PKT 1 EACH PO ×2 (09:00→21:00)
[2020-03-08] MEDS: Cetirizine 10 MG TAB PO (09:00)
[2020-03-08] MEDS: Potassium Chloride 20 MEQ TABCR PO ×2 (09:00→20:59)
[2020-03-08] MEDS: Aspirin E.C. 81 MG TABEC PO (09:00)
[2020-03-08] MEDS: Atorvastatin 40 MG TAB PO (09:00)
[2020-03-08] MEDS: Furosemide 40 MG TAB PO (09:00)
[2020-03-08] MEDS: Ascorbic Acid 500 MG TAB PO (09:01)
[2020-03-08] MEDS: Insulin Aspart 300 UNITS/3 ML PEN SC ×3 (09:01→17:09)
[2020-03-08] MEDS: Senna TAB 1 TAB PO (09:01)
[2020-03-08] MEDS: Ferrous Gluconate 324 MG TAB PO (09:01)
[2020-03-08] MEDS: Normal Saline Flush 10 ML SYR 20 ML IVP ×2 (09:01→21:00)
[2020-03-08] MEDS: Docusate Sodium 100 MG CAP PO (09:01)
[2020-03-08] MEDS: Insulin Aspart 300 UNITS/3 ML PEN 12 UNITS SC ×2 (09:03→17:09)
[2020-03-08 15:35] VITALS: BP 135/58; PULSE 80; RESP 17; TEMP 37.1; O2SAT 93
[2020-03-08 19:31] VITALS: BP 129/55; PULSE 83; RESP 18; TEMP 36.7; O2SAT 93
[2020-03-08] MEDS: Enoxaparin 40 MG/0.4 ML SYR SC (22:19)
[2020-03-08] MEDS: Insulin Glargine 300 UNITS/3 ML PEN 16 UNITS SC (22:21)
[2020-03-08] MEDS: Acetaminophen 325 MG TAB PO (22:39)
[2020-03-09] MEDS: Normal Saline Flush 10 ML SYR IVP ×2 (00:51→15:49)
[2020-03-09] MEDS: MORPHine 2 MG/ML SYR IVP (00:51)
[2020-03-09 03:17] VITALS: BP 113/60; PULSE 69; RESP 17; TEMP 36.6; O2SAT 96
[2020-03-09 07:44] VITALS: BP 116/68; PULSE 71; RESP 17; TEMP 36.7; O2SAT 95
[2020-03-09] MEDS: Ferrous Gluconate 324 MG TAB PO (08:31)
[2020-03-09] MEDS: Lactobacillus Acidophilus CAP 1 CAP PO ×3 (08:31→21:02)
[2020-03-09] MEDS: Aspirin E.C. 81 MG TABEC PO (08:31)
[2020-03-09] MEDS: Cetirizine 10 MG TAB PO (08:31)
[2020-03-09] MEDS: Atorvastatin 40 MG TAB PO (08:32)
[2020-03-09] MEDS: Furosemide 40 MG TAB PO (08:32)
[2020-03-09] MEDS: Metoprolol 50 MG TAB PO ×2 (08:32→21:02)
[2020-03-09] MEDS: Potassium Chloride 20 MEQ TABCR PO ×2 (08:33→21:02)
[2020-03-09] MEDS: Ascorbic Acid 500 MG TAB PO (08:33)
[2020-03-09] MEDS: Insulin Aspart 300 UNITS/3 ML PEN 12 UNITS SC ×2 (08:34→12:27)
[2020-03-09] MEDS: Normal Saline Flush 10 ML SYR 20 ML IVP ×2 (08:36→22:34)
--- NOTE | 2020-03-09 08:46 | WOUNDCONS ---
- If Service Date Differs Date of service: 03/09/20 Time of Service: 08:46 Wound Initial Evaluation Narrative: Follow-up today from wound consult done on 03/02/20. Pt agreeable to assessment. Original wound continues to be resolved on right buttocks. Blanchable purple/reddened intact skin noted on bilateral buttocks. Area presenting as a slit on top of Gluteal cleft noted on last consultation is still present but has improved; area remains open measuring 0.2x0.1x0.1 cm . Recommend applying Z-gaurd zinc cream at this time TID and PRN. Informed Pt to continue to relive pressure from buttocks by changing position at least ever 30 mins while in chair. Noteable- Pt does have I&D site on right lower calf being managed by surgical services, positive for MRSA in wound, area is bright red, warm, and indurated. Peggy Shipman, clinical coordinator notified of wound status by nursing on 03/08/20. Dr. Tobar in to see Pt on 03/09/20 morning. She used a hemostat to I&D site again and took a repeat wound culture. She wants Dressing orders changed to neosporin and a bandaid BID and PRN. Will continue to follow Mrs. Hopkins while she is a patient in the hospital. Thank you for the consult.
--- NOTE | 2020-03-09 10:25 | W.PM.PROGNOT ---
Date of Service Date of service: 03/09/20 Time of Service: 10:25 Subjective Subjective Interval history since last seen: Asked to see patient by nursing because the wound on her posterior right upper calf is more red and swollen. Patient still has significant kidney issues. 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 She has MRSA in the wound and and her blood. She is been here in the hospital for 2 weeks. She is has been on 2 weeks of vancomycin. The wound was opened and drained on approximately February 23. It have been healed. Today it does look more red and swollen. I did use a hemostat and probed the wound. There is no purulent drainage and it bleeds readily. There is no cavity or tracking. It is in may be a half an inch deep. I did reculture the wound. Does not need to be I&D further. would have nursing wash it with soap and water twice a day and apply bacitracin and a Band-Aid to it. Will follow Objective Objective Clinical Data: Vital Signs Temperature 36.7 C 03/09/20 07:44 Temperature Source Temporal Artery Scan 03/09/20 07:44 Pulse 71 03/09/20 07:44 Pulse Rhythm Regular 03/09/20 09:20 Respiratory Rate 17 03/09/20 07:44 Respiratory Effort 03/09/20 09:20 Respiratory Depth Normal 03/09/20 09:20 Respiratory Pattern Normal 03/09/20 09:20 Blood Pressure 116/68 03/09/20 07:44 Pulse Oximetry 95 03/09/20 07:44 Oxygen Delivery Method Room Air 03/09/20 07:44 Oxygen Flow Rate 0 03/09/20 07:44 Pain Level 0 03/09/20 07:44 Comment 03/03/20 19:59 Intake & Output 03/08/20 03/08/20 03/09/20 11:59 23:59 11:59 Intake Total 733 / 1453 720 / 1453 65 / 65 Output Total 483 / 483 Balance 250 / 970 720 / 970 57 / 57 Weight 88.3 kg 87.6 kg Intake: IV 250 / 520 270 / 520 10 / 10 Oral 480 / 930 450 / 930 50 / 50 Injectate 3 / 3 5 / 5 LT flank 3 / 3 5 / 5 Output: Drainage LT flank Urine 475 / 475 Other: Urine Color Pale Yellow Yellow Urine Appearance Clear Clear Clear Urine Odor None Normal Comment Small amount of urine with pt's loose stool Stool Size Moderate Stool Characteristics Soft Liquid Voiding Methods Toilet Toilet Laboratory Results WBC 7.88 k/cumm (4.4-10.8) 03/08/20 06:40 RBC 3.60 m/cumm (4.00-5.20) L 03/08/20 06:40 Hgb 9.1 g/dL (12.0-15.5) L 03/08/20 06:40 Hct 30.5 % (36.0-46.0) L 03/08/20 06:40 MCV 84.7 fL (80-95) 03/08/20 06:40 MCH 25.3 pg (27.0-33.0) L 03/08/20 06:40 MCHC 29.8 g/dL (32.0-36.0) L 03/08/20 06:40 RDW 17.3 % (11.7-14.6) H 03/08/20 06:40 Plt Count 283 x1000/uL (130-400) 03/08/20 06:40 MPV 9.6 fL (8.0-11.0) 03/08/20 06:40 Immature Gran % 0.9 % 03/08/20 06:40 Neutrophils % 66.8 03/08/20 06:40 Lymphocytes % 16.9 03/08/20 06:40 Monocytes % 13.1 03/08/20 06:40 Eosinophils % 1.8 03/08/20 06:40 Basophils % 0.5 03/08/20 06:40 Absolute Neutrophils 5.27 k/cumm (1.2-6.7) 03/08/20 06:40 Absolute Lymphocytes 1.33 k/cumm (1.2-3.4) 03/08/20 06:40 Absolute Monocytes 1.03 k/cumm (0.11-0.7) H 03/08/20 06:40 Absolute Eosinophils 0.14 k/cumm (0.0-0.7) 03/08/20 06:40 Absolute Basophils 0.04 k/cumm (0.0-0.2) 03/08/20 06:40 Sodium 139 mmol/L (136-145) 03/05/20 07:00 Potassium 3.9 mmol/L (3.5-5.1) 03/05/20 07:00 Chloride 102 mmol/L (98-107) 03/05/20 07:00 Carbon Dioxide 33.0 mmol/L (21.0-32.0) H 03/05/20 07:00 Anion Gap 4.0 mmol/L (3-11) 03/05/20 07:00 BUN 9 mg/dL (7-18) 03/05/20 07:00 Creatinine 1.10 mg/dL (0.55-1.02) H 03/05/20 07:00 Estimated GFR/1.73 m2 48.69 (mL/min/1.73m2) 03/05/20 07:00 Glucose 156 mg/dL (74-106) H 03/05/20 07:00 Calcium 8.3 mg/dL (8.5-10.1) L 03/05/20 07:00 Magnesium 1.9 mg/dL (1.8-2.4) 03/05/20 07:00 C-Reactive Protein 5.76 mg/dL (0.0-0.3) H 03/06/20 06:17 NT-Pro-B Natriuret Pep 1561 pg/mL (<300) H 03/06/20 06:17 Procalcitonin 0.1 ng/mL 03/05/20 07:00 Vancomycin Trough 20.9 ug/mL (10.0-20.0) H* 03/07/20 11:10
--- NOTE | 2020-03-09 12:02 | W.DIABETESNO ---
Date of service: 03/09/20 Time of Service: 12:02 Diabetes Note NOTE: Kizzy on extended ABX for MRSA on right lower calf. Following carb controlled diet with varied intake last couple of days. Per wound consult, wound on buttocks resolved, on solorzano showing redness, swelling. Blood sugars well controlled and range <180 mg/dl for last couple of days. Weight loss of 26 lbs noted since admission, most likely due to anti diuertic treatment. Will continue to encourage adequate fluid intake. Due to wound not healing as expected and varied meal intake, recommend adding liquid protein 1 oz TID, along with 220 mg zinc sulfate x 14 days to aid in wound healing. Time Spent in Nutritional Counseling and Treatment: 10 min
--- NOTE | 2020-03-09 12:25 | PDOC.CMACT ---
- If Service Date Differs Date of service: 03/09/20 Time of Service: 12:25 Care Management Activity Note S/O: Kizzy was sitting up in her chair when CM met with her. Her was by her side, which she was very appreciative of him being able to visit. She declined cart items at this time. She is enjoying being able to talk on the phone with her family and visiting with her . She is happy with the care she is receiving here at [facility]. A: Kizzy is a 75 year old female admitted to [facility] on SWB 1 for IV abx. P: Kizzy will remain at [facility] for IV abx for the course of treatment, until 04/04/20, per report. She will have follow up at [facility] while on SWB, which will be a down and back. She will continue to work with PT to gain strength. She will also have wound care and Palliative care following her. Her , Justin is identified as her support person and is permitted to visit. Once ready for discharge, she will have RN and PT. CM will continue to follow.
[2020-03-09] MEDS: Insulin Aspart 300 UNITS/3 ML PEN SC ×2 (12:27→22:38)
[2020-03-09 12:51] LABS: Abs Immature Grans 0.07 k/cumm (0.0-0.09); Absolute Basophil Count 0.06 k/cumm (0.0-0.2); Absolute Eosinophil Count 0.21 k/cumm (0.0-0.7); Absolute Lymphocyte Count 1.58 k/cumm (1.2-3.4); Absolute Monocyte Count 0.92 k/cumm (0.11-0.7); Absolute Neutrophil Count 4.14 k/cumm (1.2-6.7); Basophils % 0.9; HGB 9.3 g/dL (12.0-15.5); Lymphocytes % 22.6; Mean Corpuscular Hemoglobin 25.8 pg (27.0-33.0); Mean Corpuscular Volume 85.9 fL (80-95); Mean Platelet Volume 10.7 fL (8.0-11.0); Monocytes % 13.2; Neutrophils % 59.3; Platelet Count 290 x1000/uL (130-400); RBC 3.61 m/cumm (4.00-5.20); RBC Distribution Width 17.7 % (11.7-14.6); White Blood Cell Count 6.98 k/cumm (4.4-10.8)
[2020-03-09] MEDS: Bacitracin 1 PACKET (12:58)
[2020-03-09 13:17] LABS: Anisocytosis 1+; Diff Comment RBC Morph Reviewed; Polychromasia Present
[2020-03-09 13:35] LABS: Vancomycin, Trough 24.1 ug/mL (10.0-20.0)
[2020-03-09] MEDS: VANCOMYCIN 750 MG in Normal Saline 250 ML 250 MG IV (15:48)
[2020-03-09 16:20] VITALS: BP 110/59; PULSE 70; RESP 16; TEMP 36.5; O2SAT 95
[2020-03-09 18:52] VITALS: BP 128/53; PULSE 83; RESP 18; TEMP 36.9; O2SAT 93
[2020-03-09] MEDS: Docusate Sodium 100 MG CAP PO (21:02)
[2020-03-09] MEDS: Psyllium PKT 1 EACH PO (21:02)
[2020-03-09] MEDS: Senna TAB 1 TAB PO (21:02)
[2020-03-09] MEDS: Bacitracin 1 PACKET TP (21:03)
[2020-03-09] MEDS: Insulin Glargine 300 UNITS/3 ML PEN 16 UNITS SC (22:36)
[2020-03-09] MEDS: Enoxaparin 40 MG/0.4 ML SYR SC (22:36)
[2020-03-10] MEDS: MORPHine 2 MG/ML SYR IVP (03:01)
[2020-03-10] MEDS: Normal Saline Flush 10 ML SYR IVP ×5 (03:01→16:00)
[2020-03-10 03:09] VITALS: BP 99/56; PULSE 73; RESP 18; TEMP 36.5; O2SAT 92
[2020-03-10 07:16] VITALS: BP 112/76; PULSE 72; RESP 19; TEMP 36.3; O2SAT 94
[2020-03-10] MEDS: Lactobacillus Acidophilus CAP 1 CAP PO ×3 (08:06→20:16)
[2020-03-10] MEDS: Cetirizine 10 MG TAB PO (08:07)
[2020-03-10] MEDS: Ferrous Gluconate 324 MG TAB PO (08:07)
[2020-03-10] MEDS: Furosemide 40 MG TAB PO (08:07)
[2020-03-10] MEDS: Aspirin E.C. 81 MG TABEC PO (08:07)
[2020-03-10] MEDS: Potassium Chloride 20 MEQ TABCR PO ×2 (08:07→20:16)
[2020-03-10] MEDS: Ascorbic Acid 500 MG TAB PO (08:07)
[2020-03-10] MEDS: Atorvastatin 40 MG TAB PO (08:07)
[2020-03-10] MEDS: Bacitracin 1 PACKET TP ×2 (08:08→20:16)
[2020-03-10] MEDS: Metoprolol 50 MG TAB PO ×2 (08:08→20:16)
[2020-03-10] MEDS: Insulin Aspart 300 UNITS/3 ML PEN 12 UNITS SC ×2 (08:08→11:44)
[2020-03-10] MEDS: Normal Saline Flush 10 ML SYR 20 ML IVP ×2 (08:08→20:17)
[2020-03-10] MEDS: Insulin Aspart 300 UNITS/3 ML PEN SC ×2 (08:09→21:49)
[2020-03-10 08:37] LABS: Abs Immature Grans 0.06 k/cumm (0.0-0.09); Absolute Basophil Count 0.05 k/cumm (0.0-0.2); Absolute Eosinophil Count 0.23 k/cumm (0.0-0.7); Absolute Lymphocyte Count 1.61 k/cumm (1.2-3.4); Absolute Monocyte Count 0.97 k/cumm (0.11-0.7); Absolute Neutrophil Count 4.42 k/cumm (1.2-6.7); Basophils % 0.7; Eosinophils % 3.1; HCT 32.9 % (36.0-46.0); Immature Grans % 0.8 %; Lymphocytes % 21.9; Mean Corp. HGB Concentration 30.4 g/dL (32.0-36.0); Mean Corpuscular Hemoglobin 25.9 pg (27.0-33.0); Mean Corpuscular Volume 85.2 fL (80-95); Mean Platelet Volume 9.9 fL (8.0-11.0); Monocytes % 13.2; Neutrophils % 60.3; Platelet Count 331 x1000/uL (130-400); RBC 3.86 m/cumm (4.00-5.20); RBC Distribution Width 17.4 % (11.7-14.6); White Blood Cell Count 7.34 k/cumm (4.4-10.8)
[2020-03-10 08:50] LABS: ALT 16 U/L (14-59); AST 29 U/L (15-37); Albumin 2.2 g/dL (3.4-5.0); Alkaline Phosphatase 89 U/L (46-116); Anion Gap 5.6 mmol/L (3-11); BUN 13 mg/dL (7-18); Bilirubin, Direct 0.17 mg/dL (0.00-0.20); Bilirubin, Total 0.4 mg/dL (0.2-1.0); C-Reactive Protein 3.16 mg/dL (0.0-0.3); CO2 29.4 mmol/L (21.0-32.0); CREATININE 1.46 mg/dL (0.55-1.02); Calcium 8.7 mg/dL (8.5-10.1); Chloride 101 mmol/L (98-107); Estimated GFR 35.12 (mL/min/1.73m2); Glucose 177 mg/dL (74-106); Magnesium 2.3 mg/dL (1.8-2.4); Potassium 4.3 mmol/L (3.5-5.1); Sodium 136 mmol/L (136-145); Total Protein 8.7 g/dL (6.4-8.2)
[2020-03-10 09:08] LABS: Procalcitonin < 0.1 ng/mL
[2020-03-10] MEDS: VANCOMYCIN 750 MG in Normal Saline 250 ML 250 MG IV (10:05)
[2020-03-10] MEDS: Normal Saline 500 ML 30 ML IV (10:05)
[2020-03-10 15:27] VITALS: BP 129/63; PULSE 85; RESP 18; TEMP 36.5; O2SAT 96
[2020-03-10 17:04] LABS: Vancomycin, Random 29.2 ug/mL (5.0-10.0)
--- NOTE | 2020-03-10 18:25 | W.PM.PROGNOT ---
Date of Service Date of service: 03/10/20 Time of Service: 18:25 Assessment and Plan Assessment and plan (1) Staphylococcus aureus bacteremia: Status: Acute Assessment and plan: MRSA with evidence of MRSA L renal abscess s/p IR drain and R calf abscess s/p I&D. No evidence of endocarditis, CRP continuously improving. Continue vancomycin through 04/04, pharmacy dosing. I noticed slight worsening in kidney function correlating with high troughs. Follow up with [facility] on March 15 for drain check (?re-biopsy) - paperwork filled out. (2) Renal abscess: Status: Acute Assessment and plan: As above (3) Renal mass, left: Status: Suspected Assessment and plan: s/p bx at [facility] - results c/w xanthogranulomatous pyelonephritis. D/w Dr Nichols - the patient may have to have a partial or a complete nephrectomy after she is doing with her antiobiotic course. I expect that that would happen at [facility] - Dr Nichols is following along. (4) Xanthogranulomatous pyelonephritis: Status: Acute Assessment and plan: As above (5) Decubitus ulcer: Status: Acute Assessment and plan: continue wound care Qualifiers: Pressure injury location: sacral region Pressure injury stage: stage 2 Qualified Code(s): L89.152 - Pressure ulcer of sacral region, stage 2 (6) Anemia: Status: Chronic Assessment and plan: Continue ferrous gluconate. Qualifiers: Anemia type: iron deficiency Iron deficiency anemia type: unspecified iron deficiency Qualified Code(s): D50.9 - Iron deficiency anemia, unspecified (7) Hypertension: Status: Chronic Assessment and plan: Continue metoprolol. 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 (10) DVT prophylaxis: Status: Acute Assessment and plan: Continue enoxaparin as the patient is not very mobile in her room (11) Discharge planning issues: Status: Acute Assessment and plan: Encourage PT. Last day of abx is 04/04, however, may require transfer to [facility] upon completion of abx for partial or complete nephrectomy. Will have to be coordinated with Dr Nichols. Subjective Subjective Interval history since last seen: Kizzy states that she overall feels much better. Output in her ARUN drain has been minimal. She still gets LUQ pain sometimes and now reports an occasional RUQ pain, though she is not having it now. I asked her to let us know if she got it again so that we could examin her. She denies dizziness, chest pain, shortness of breath, nausea. She does endorse soft/diarrhea-like stools x 2. I encouraged her to work with physical therapy. Exam Narrative Exam Narrative: General: pleasant obese female, laying comfortably in bed, appears to look better to me HEENT: EOMI, MMM Heart: RRR, no m/r/g Lungs: CTAB Abdomen: soft, nontender, nondistended; ARUN drain in place Extremities: trace edema BLE's, no c/c; R calf wound dressed - I undressed it, there was no drainage or bleeding. There is still some induration, but I was not able to express any purulent material. Objective Objective Clinical Data: Abnormal lab results 03/10/20 03/10/20 03/10/20 Range/Units 08:18 08:18 16:04 RBC 3.86 L (4.00-5.20) m/cumm Hgb 10.0 L (12.0-15.5) g/dL Hct 32.9 L (36.0-46.0) % MCH 25.9 L (27.0-33.0) pg MCHC 30.4 L (32.0-36.0) g/dL RDW 17.4 H (11.7-14.6) % Absolute Monocytes 0.97 H (0.11-0.7) k/cumm Creatinine 1.46 H (0.55-1.02) mg/dL Glucose 177 H (74-106) mg/dL C-Reactive Protein 3.16 H (0.0-0.3) mg/dL Total Protein 8.7 H (6.4-8.2) g/dL Albumin 2.2 L (3.4-5.0) g/dL Random Vancomycin 29.2 H* (5.0-10.0) ug/mL Vital Signs Temperature 36.5 C 03/10/20 15:27 Temperature Source Tympanic 03/10/20 15:27 Pulse 85 03/10/20 15:27 Pulse Rhythm Regular 03/10/20 07:58 Respiratory Rate 18 03/10/20 15:27 Respiratory Effort Non-Labored 03/10/20 07:58 Respiratory Depth Normal 03/10/20 07:58 Respiratory Pattern Normal 03/10/20 07:58 Blood Pressure 129/63 03/10/20 15:27 Pulse Oximetry 96 03/10/20 15:27 Oxygen Delivery Method Room Air 03/10/20 15:27 Oxygen Flow Rate 0 03/10/20 15:27 Pain Level 0 03/10/20 15:27 Comment 03/10/20 15:00 Intake & Output 03/09/20 03/10/20 03/10/20 23:59 11:59 23:59 Intake Total 390 / 1655 603.5 / 1113.5 510 / 1113.5 Output Total 550 / 558 8 / 408 400 / 408 Balance -160 / 1097 595.5 / 705.5 110 / 705.5 Weight 87.4 kg Intake: IV 290 / 300 350.5 / 380.5 30 / 380.5 Oral 100 / 1350 250 / 730 480 / 730 Injectate 3 / 3 LT flank 3 / 3 Output: Drainage 8 / 8 LT flank 8 8 Urine 550 / 550 400 / 400 Other: Urine Color Yellow Yellow Pale Yellow Straw Urine Appearance Clear Clear Clear Urine Odor None None Voiding Methods Toilet Toilet Toilet Laboratory Results WBC 7.34 k/cumm (4.4-10.8) 03/10/20 08:18 RBC 3.86 m/cumm (4.00-5.20) L 03/10/20 08:18 Hgb 10.0 g/dL (12.0-15.5) L 03/10/20 08:18 Hct 32.9 % (36.0-46.0) L 03/10/20 08:18 MCV 85.2 fL (80-95) 03/10/20 08:18 MCH 25.9 pg (27.0-33.0) L 03/10/20 08:18 MCHC 30.4 g/dL (32.0-36.0) L 03/10/20 08:18 RDW 17.4 % (11.7-14.6) H 03/10/20 08:18 Plt Count 331 x1000/uL (130-400) 03/10/20 08:18 MPV 9.9 fL (8.0-11.0) 03/10/20 08:18 Immature Gran % 0.8 % 03/10/20 08:18 Neutrophils % 60.3 03/10/20 08:18 Lymphocytes % 21.9 03/10/20 08:18 Monocytes % 13.2 03/10/20 08:18 Eosinophils % 3.1 03/10/20 08:18 Basophils % 0.7 03/10/20 08:18 Absolute Neutrophils 4.42 k/cumm (1.2-6.7) 03/10/20 08:18 Absolute Lymphocytes 1.61 k/cumm (1.2-3.4) 03/10/20 08:18 Absolute Monocytes 0.97 k/cumm (0.11-0.7) H 03/10/20 08:18 Absolute Eosinophils 0.23 k/cumm (0.0-0.7) 03/10/20 08:18 Absolute Basophils 0.05 k/cumm (0.0-0.2) 03/10/20 08:18 Differential Comment Rbc morph reviewed 03/09/20 06:20 RBC Morphology See below 03/09/20 06:20 Polychromasia Present 03/09/20 06:20 Anisocytosis 1+ 03/09/20 06:20 Sodium 136 mmol/L (136-145) 03/10/20 08:18 Potassium 4.3 mmol/L (3.5-5.1) 03/10/20 08:18 Chloride 101 mmol/L (98-107) 03/10/20 08:18 Carbon Dioxide 29.4 mmol/L (21.0-32.0) 03/10/20 08:18 Anion Gap 5.6 mmol/L (3-11) 03/10/20 08:18 BUN 13 mg/dL (7-18) 03/10/20 08:18 Creatinine 1.46 mg/dL (0.55-1.02) H 03/10/20 08:18 Estimated GFR/1.73 m2 35.12 (mL/min/1.73m2) 03/10/20 08:18 Glucose 177 mg/dL (74-106) H 03/10/20 08:18 Calcium 8.7 mg/dL (8.5-10.1) 03/10/20 08:18 Magnesium 2.3 mg/dL (1.8-2.4) 03/10/20 08:18 Total Bilirubin 0.4 mg/dL (0.2-1.0) 03/10/20 08:18 Conjugated Bilirubin 0.17 mg/dL (0.00-0.20) 03/10/20 08:18 AST 29 U/L (15-37) 03/10/20 08:18 ALT 16 U/L (14-59) 03/10/20 08:18 Alkaline Phosphatase 89 U/L (46-116) 03/10/20 08:18 C-Reactive Protein 3.16 mg/dL (0.0-0.3) H 03/10/20 08:18 NT-Pro-B Natriuret Pep 1561 pg/mL (<300) H 03/06/20 06:17 Total Protein 8.7 g/dL (6.4-8.2) H 03/10/20 08:18 Albumin 2.2 g/dL (3.4-5.0) L 03/10/20 08:18 Procalcitonin < 0.1 ng/mL 03/10/20 08:18 Vancomycin Trough 24.1 ug/mL (10.0-20.0) H* 03/09/20 12:59 Random Vancomycin 29.2 ug/mL (5.0-10.0) H* 03/10/20 16:04
[2020-03-10] MEDS: Psyllium PKT 1 EACH PO (20:16)
[2020-03-10] MEDS: Insulin Glargine 300 UNITS/3 ML PEN 16 UNITS SC (21:48)
[2020-03-10] MEDS: Enoxaparin 40 MG/0.4 ML SYR SC (21:48)
[2020-03-10 23:38] VITALS: BP 134/80; PULSE 73; RESP 18; TEMP 36.1; O2SAT 96
[2020-03-11] MEDS: VANCOMYCIN 750 MG in Normal Saline 250 ML 250 MG IV (05:47)
[2020-03-11] MEDS: Normal Saline Flush 10 ML SYR IVP (05:48)
[2020-03-11 07:30] VITALS: BP 113/60; PULSE 83; RESP 20; TEMP 36.6; O2SAT 99
[2020-03-11] MEDS: Cetirizine 10 MG TAB PO (07:55)
[2020-03-11] MEDS: Ferrous Gluconate 324 MG TAB PO (07:55)
[2020-03-11] MEDS: Furosemide 20 MG TAB PO (07:55)
[2020-03-11] MEDS: Ascorbic Acid 500 MG TAB PO (07:55)
[2020-03-11] MEDS: Atorvastatin 40 MG TAB PO (07:55)
[2020-03-11] MEDS: Lactobacillus Acidophilus CAP 1 CAP PO ×2 (07:56→20:49)
[2020-03-11] MEDS: Normal Saline Flush 10 ML SYR 20 ML IVP ×2 (07:56→20:51)
[2020-03-11] MEDS: Potassium Chloride 20 MEQ TABCR PO ×2 (07:56→20:49)
[2020-03-11] MEDS: Metoprolol 50 MG TAB PO ×2 (07:56→20:49)
[2020-03-11] MEDS: Aspirin E.C. 81 MG TABEC PO (07:56)
[2020-03-11] MEDS: Bacitracin 1 PACKET TP ×2 (07:56→20:49)
[2020-03-11] MEDS: Insulin Aspart 300 UNITS/3 ML PEN SC ×2 (07:57→12:37)
[2020-03-11] MEDS: Insulin Aspart 300 UNITS/3 ML PEN 12 UNITS SC ×3 (07:57→17:35)
--- NOTE | 2020-03-11 12:17 | PDOC.CMPRO ---
- If Service Date Differs Date of service: 03/11/20 Time of Service: 12:17 Care Management Progress Note S/O: NELLI met with Kizzy in her room she is sitting up in the chair. She expresses her wishes to be able to return home and either do outpatient abx or home infusions. CM will fax script to [facility] home infusion pending coverage and cost. NELLI contacted both [facility] and [facility] Kizzy does not have the coverage that would cover the entire cost and she does not have the means to pay for the patient share. She states if the Abx are not covered she would be willing to come to the hospital once a day for infusions. Kizzy has a PICC in place. She states that her spouse is a good support and would be willing to provide transportation. She is not looking forward to spending another 24 days in the hospital. She states that she and her spouse are currently staying in [place] on [address] [facility] [address] while her home is being repaired. NELLI explained to her that this would not be a barrier to services. Kizzy will need home health services for assistance with dressing and drain care for the ARUN drain. She states her spouse is able to bring her to [facility] for her appointment on 03/15/20. A: Kizzy is a 75 year old female with renal abscess and staff aureus bacteremia currently receiving IV abx end date 04/04/2020 P: Home with outpatient infusion she will return everyday at 1000 for her daily Vancomycin. Dose will be adjusted today to 1 gram every 24 hours. Kizzy will need new home health services for the ARUN drain and monitoring. Kizzy will plan to be discharged at 1300 on Friday with her spouse via private car.
[2020-03-11 18:09] VITALS: BP 115/67; PULSE 84; RESP 18; TEMP 36.4; O2SAT 96
[2020-03-11] MEDS: Enoxaparin 40 MG/0.4 ML SYR SC (21:57)
[2020-03-11] MEDS: Insulin Glargine 300 UNITS/3 ML PEN 16 UNITS SC (21:58)
[2020-03-11 23:22] VITALS: BP 136/68; PULSE 67; RESP 19; TEMP 36.7; O2SAT 98
[2020-03-12 07:12] VITALS: BP 124/71; PULSE 67; RESP 17; TEMP 37; O2SAT 96
[2020-03-12] MEDS: Insulin Aspart 300 UNITS/3 ML PEN 12 UNITS SC (08:00)
[2020-03-12] MEDS: Potassium Chloride 20 MEQ TABCR PO (08:02)
[2020-03-12] MEDS: Atorvastatin 40 MG TAB PO (08:02)
[2020-03-12] MEDS: Furosemide 20 MG TAB PO (08:02)
[2020-03-12] MEDS: Bacitracin 1 PACKET TP (08:02)
[2020-03-12] MEDS: Ascorbic Acid 500 MG TAB PO (08:02)
[2020-03-12] MEDS: Aspirin E.C. 81 MG TABEC PO (08:02)
[2020-03-12] MEDS: Normal Saline Flush 10 ML SYR 20 ML IVP (08:03)
[2020-03-12] MEDS: Ferrous Gluconate 324 MG TAB PO (08:03)
[2020-03-12] MEDS: Cetirizine 10 MG TAB PO (08:03)
[2020-03-12] MEDS: Lactobacillus Acidophilus CAP 1 CAP PO (08:03)
[2020-03-12] MEDS: Metoprolol 50 MG TAB PO (08:03)
--- NOTE | 2020-03-12 08:17 | W.PM.DS.N ---
Date of service: 03/12/20 Time of Service: 08:17 DS: Diagnosis Discharge Diagnosis (1) Staphylococcus aureus bacteremia: Start date: 03/12/20 Start time: 08:17 Status: Acute Asessment and Plan: MRSA with evidence of MRSA L renal abscess s/p IR drain and R calf abscess s/p I&D. No evidence of endocarditis, CRP continuously improving. Continue vancomycin through 04/04, pharmacy dosing. Follow up with [facility] on March 15 for drain check (?re-biopsy) - paperwork filled out. Will follow up with outpatient infusion vanco 1 gm q 24 hours and weekly labs (2) Renal abscess: Start date: 03/12/20 Start time: 08:19 Status: Acute Asessment and Plan: as above (3) Renal mass, left: Start date: 03/12/20 Start time: 08:19 Status: Suspected Asessment and Plan: s/p bx at [facility] - results c/w xanthogranulomatous pyelonephritis. D/w Dr Nichols - the patient may have to have a partial or a complete nephrectomy after she is done with her antiobiotic course. I expect that that would happen at [facility] - Dr Nichols is following along (4) Xanthogranulomatous pyelonephritis: Start date: 03/12/20 Start time: 08:19 Status: Acute Asessment and Plan: as above (5) Decubitus ulcer: Start date: 03/12/20 Start time: 08:20 Status: Acute Asessment and Plan: continue wound care (6) Anemia: Start date: 03/12/20 Start time: 08:20 Status: Chronic Asessment and Plan: continue ferrous gluconate (7) Hypertension: Start date: 03/12/20 Start time: 08:21 Status: Chronic Asessment and Plan: continue metoprolol (8) Type 2 diabetes mellitus with complications: Start date: 03/12/20 Start time: 08:25 Status: Chronic Asessment and Plan: continue basal bolus insulin (9) Diabetic neuropathy: Start date: 03/12/20 Start time: 08:25 Status: Chronic Asessment and Plan: Will need follow up as an outpatient Discharge Plan Disposition Patient Disposition: HOME W/HOME HEALTH SERVICE Condition: Improving Discharge Details Reason For Visit: MRSA BACTEREMIA, RENAL ABSCESS Admit Date/Time: 03/03/20 14:08 Admit Provider: Greg Shukla Attending Provider: Greg Shukla Primary Care Provider: Manuelito Wilcox Hospital Course Hospital Course: MRSA Bacteremia In summary this 75-year-old morbidly obese pleasant female with a history of type 2 diabetes mellitus requiring insulin with previous history of pyelonephritis presented to the emergency department with dyspnea and chest discomfort and left flank pain and abdominal pain and was subsequently found to have on CT scan what appeared to be a left renal mass. Blood cultures came back positive for MRSA. She was also found to have an infected hematoma over her right calf with some surrounding cellulitis. This was drained and found to have MRSA as well. She was treated with vancomycin and was referred to [facility] for interventional radiology biopsy of the left renal mass. The interventional radiologist Dr. Rosaels Puga drained the left renal mass of 60 mL's of purulent fluid and sent it off for cultures. He obtained 4 core biopsies which are pending at this time. Patient's repeat blood cultures came back no growth on February 21 and she subsequently has had a midline converted over to a PICC line for ongoing vancomycin treatment. She will need 6 weeks of parenteral antibiotics. She will need a follow-up in 2 weeks with [facility] interventional radiology for assessment of her ARUN drain. Appointment for March 15. If she fails to clear this abscess she may need further surgical intervention. Also if her core biopsy demonstrates a renal cell cancer she also may need further surgical intervention. Dr Nichols is following patient as well and she may need partial to full nephrectomy. During treatment creatinine started to increase. Vancomycin changed to 1 gm every 24 hours her end date will by April 04. She will be discharged home and receive outpatient infusion through outpatient infusion room daily with weekly labs and PICC care. Home Health will be ordered for nursing to assist with wound care and drain care. She denies CP, SOB, n/V/d. Follow up with PCP in one week. Home Meds and New Rx's Prescriptions: New Triple Antibiotic 3.5mg-400 unit- 5,000 unit/gram Ointment 1 applic topical TID Qty: 1 RF: 0 potassium chloride [Klor-Con M20] 20 mEq Tablet,Er Particles/Crystals 20 meq PO BID Qty: 10 RF: 0 ascorbic acid (vitamin C) [Vitamin C] 500 mg Tablet 500 mg PO DAILY Qty: 20 RF: 0 furosemide 20 mg Tablet 20 mg PO DAILY Qty: 20 RF: 0 bacitracin zinc 500 unit/gram Packet 1 packet topical BID Qty: 1 RF: 0 acidophilus-pectin, citrus 25 million cell -100 mg Tablet 1 cap PO TID Qty: 90 RF: 0 Lantus Solostar U-100 Insulin 100 unit/mL (3 mL) Insulin Pen 16 units subcut HS Qty: 1 RF: 0 ferrous gluconate 324 mg (37.5 mg iron) Tablet 324 mg PO DAILY Qty: 30 RF: 0 tramadol 50 mg tablet 50 mg PO DAILY Qty: 10 RF: 0 Continued metoprolol tartrate 50 mg tablet 50 mg PO BID Qty: 180 RF: 4 atorvastatin [Lipitor] 40 mg tablet 40 mg PO DAILY Qty: 90 RF: 3 Novolin N NPH U-100 Insulin 100 unit/mL suspension 50 unit subcut QHS Qty: 4 RF: 4 Novolin R Regular U-100 Insuln 100 unit/mL solution 5 - 20 unit SC TID Qty: 10 RF: 5 SIDE KICK GLUCOMETER RF: 0 nitroglycerin [Nitrostat] 0.4 MG tablet, sublingual 0.4 mg Sublingual Q5 MIN PRN X3 PRNQty: 25 RF: 4 cetirizine [Zyrtec] 10 MG tablet 10 mg PO DAILY Qty: 90 RF: 1 aspirin [Aspir-81] 81 MG tablet,delayed release (DR/EC) 81 mg PO DAILY RF: 0 acetaminophen [Tylenol Extra Strength] 500 MG tablet 1 - 2 tab PO Q6H PRN PRN (Reason: Pain) RF: 0 calcium carbonate [Calcium 600] 600 MG tablet 1,200 mg PO BID RF: 0 No Action (DME) BD Insulin Syringe 1 EACH syringe 1 syringe Sub-Q DIRECTED Qty: 400 RF: 11 (DME) Aerochamber MV spacer See Dose Instructions .Route .MEDSUPPLY Qty: 1 RF: 0 Discharge Instructions Instructions: MRSA (Methicillin-Resistant Staphylococcus Aureus) (DC), Diabetic Peripheral Neuropathy (DC), DASH Eating Plan (DC), Diabetic Kidney Disease (ED), Diabetes and Your Skin (DC), Diabetes and Nutrition (DC) Additional Instructions: Follow up with your PCP in 1 week. You have new prescriptions: lasix twice a day, potassium twice a day Lantus 16 units at night to help control blood sugar Vitamin C, Iron tabs Tramadol for pain Arrive to infusion center starting in morning for daily infusions of vancomycin your appt time is at 10 am arrive 15 mins prior to appt time. You will have weekly labs, follow up with your PCP for lab results. Eat a yogurt daily up to one month after antibiotics to help with healthy gut. Follow up with Dr. Nichols Referrals: INTERVENTIONAL RADIOLOGY [Other] - 03/15/20 12:10 pm Activity:: Activity as Tolerated Equipment/Supplies:: No Equipment Needed Diet:: Carb Counting Discharge Orders Discharge Orders: Discharge Order (Routine); Ordered 03/12/20 Ordered By: Selena Cota DS: Summary Status at Discharge Functional status at discharge: independent ambulation Overall status at discharge: patient is progressing back to baseline Mental Status: mental status grossly normal Speech and Movement: speech and movement normal Mood: congruent mood Affect: normal affect Exam Narrative Exam Narrative: General: pleasant obese female, sitting up in chair, appears to look better to me HEENT: EOMI, MMM Heart: RRR, no m/r/g Lungs: CTAB Abdomen: soft, nontender, nondistended; ARUN drain in place Extremities: trace edema BLE's, no c/c; R calf wound dressed - It was undressed , there was no drainage or bleedingl. Psych Mental Status: mental status grossly normal Speech and Movement: speech and movement normal Mood: congruent mood Affect: normal affect DS: Data Vitals/I&O Vitals and I&O: Vital Signs Temperature 37.0 C 03/12/20 07:12 Temperature Source Temporal Artery Scan 03/12/20 07:12 Pulse 67 03/12/20 07:12 Pulse Rhythm Regular 03/11/20 19:50 Respiratory Rate 17 03/12/20 07:12 Respiratory Effort Non-Labored 03/11/20 19:50 Respiratory Depth Normal 03/11/20 19:50 Respiratory Pattern Normal 03/11/20 19:50 Blood Pressure 124/71 03/12/20 07:12 Pulse Oximetry 96 03/12/20 07:12 Oxygen Delivery Method Room Air 03/12/20 07:12 Oxygen Flow Rate 0 03/12/20 07:12 Pain Level 0 03/12/20 07:12 Comment 03/11/20 17:40 Intake & Output 03/11/20 03/11/20 03/12/20 11:59 23:59 11:59 Intake Total 1127.5 / 1507.5 380 / 1507.5 Output Total 909 / 1709 800 / 1709 300 / 300 Balance 218.5 / -201.5 -420 / -201.5 -300 / -300 Weight 87.4 kg Intake: IV 324.5 / 344.5 20 / 344.5 Oral 800 / 1160 360 / 1160 Injectate LT flank Output: Drainage LT flank Urine 900 / 1700 800 / 1700 300 / 300 Other: Urine Color Yellow Yellow Yellow Urine Appearance Clear Clear Clear Urine Odor Normal Normal Comment Void x1 in the toilet. Briefs were changed. Stool Size Large Small Stool Characteristics Soft Soft Brown Formed Brown Voiding Methods Toilet Toilet Toilet Data Completed and Pending Labs on day of discharge: Preliminary micro results at discharge 03/09/20 09:06 Skin Culture - Preliminary Leg - Right Upper Staph aureus, MRSA PFSH Medical History Allergic rhinitis ASCVD (arteriosclerotic cardiovascular disease) Carpal tunnel syndrome of right wrist (Inactive 02/28/15) Chronic cough (Inactive) Closed fracture of humerus (Inactive 06/28/13) Diabetic foot ulcer with osteomyelitis (Inactive 05/31/14) right second toe, distal amputation 05/29, [place] Diabetic neuropathy DM type 2 causing complication Essential hypertension Family history of malignant neoplasm of breast (Inactive 11/01/14) Kidney stone (Inactive 03/17/12) 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 LANDEROS Cholecystectomy lap Coronary Artery Bypass Gaft (CABG) Coronary Stent [facility] History of amputation (Inactive) History of coronary artery bypass surgery (Inactive 03/21/16) Left heart Cath [facility]16 Oophrectomy, Both Repair of bifurcated ureter of left kidney Shoulder replacement Status post coronary artery stent placement (Inactive) Stent placement WITH 2 BYPASS GRAFTS-[facility] Family History Mother Personal history of malignant neoplasm LUNG Father Personal history of malignant neoplasm LUNG Sister Personal history of malignant neoplasm BREAST Grandfather No problems noted. Grandfather No problems noted. Grandmother Diabetes Grandmother No problems noted. Daughter No problems noted. 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
--- NOTE | 2020-03-12 09:13 | PDOC.CMDIS ---
- If Service Date Differs Date of service: 03/12/20 Time of Service: 09:13 LACE Index Scoring Tool - Questions: Length of Stay (in days): 14 or more Acuity (Admit via E.D.?): Yes Comorbidities: Diabetes w/o Complication, Liver or Renal Disease E.D. Visits: 2 - Answers: Total Score: 17 Risk of Readmission: High Risk Care Management Discharge Reason for Hospitalization: Renal Abscess, MRSA bacteremia Discharge Plan: Kizzy is being discharged home today with home health services for drain care. She will return to the infusion room once a day at 1000 for IV vancomycin and have weekly labs. She has an appointment [place] [facility] [place]2020 at 1210. CM contacted [facility] and reviewed instructions, directions and if a support person can go with her. CM confirmed that she can have one family or friend to bring her to . Kizzy is thankful to be discharged and is grateful to be returning home. Her spouse will pick her and transport via private car. She will remain with her PICC in place. CM provided contact information for any questions or concerns after discharge. Patient/Family Education Needs: Discharge education, limitations and follow up plan of care. Reviewed the ARUN drain and who to contact if she has any difficulty with the drain. Services Needed at Discharge: Home Health Care Services
--- NOTE | 2020-03-12 09:46 | PDOC.HHF2F ---
Home Health Certification Home Health Certification: 1. Encounter Date and Reason I certify that KATTY JIMENEZ was seen by Selena Cota on 03/12/20 and that I had a [id number] encounter with this patient that meets the physician face to face encounter requirements. 2. Clinical Findings Supporting Skilled Need and Homebound Status I certify that home health services are medically necessary, include either intermittent assisted and/or physical/speech therapy, and that this patient is homebound in that absences from the home require considerable and taxing effort and are infrequent or of short duration, or are attributable to the need to receive medical care. [X] (a) Attached documentation from encounter provides clinical findings supporting skilled need and homebound status (including what assistance patient requires to leave the home). The encounter with the patient was in whole, or in part, for the following medical condition, which is the primary reason for home health care: MRSA BACTEREMIA, RENAL ABSCESS Senior Living: Patient would benefit from wound care and drain care. Homebound: Unable to leave home without assistance. 3. Certification and Authentication I certify that I composed the above information based on my clinical judgement relating to this patient's medical condition and, if applicable, clinical findings communicated to me by the NPP or inpatient physician who performed the Home Health Referral. All further orders will be obtained through __Esperanza Wilcox (Community Based Physician - PCP)
[2020-03-12] MEDS: Normal Saline 500 ML 30 ML IV (10:32)
[2020-03-12] MEDS: Normal Saline Flush 10 ML SYR IVP ×2 (10:32→12:48)
[2020-03-12] MEDS: VANCOMYCIN 1,000 MG in Normal Saline 250 ML 250 MG IV (10:32)
== END 2020-03-12 13:10 | disposition home health service (06) | DRG 871 ==
PROVIDERS: Internal Medicine; Admitting Provider Internal Medicine; PCP Family Medicine; Visit Provider Family Medicine
DX: R78.81 Bacteremia (principal); N15.1 Renal and perinephric abscess; L02.415 Cutaneous abscess of right lower limb; N11.8 Other chronic tubulo-interstitial nephritis; Z79.2 Long term (current) use of antibiotics; B95.62 Methicillin resistant Staphylococcus aureus infection as the cause of diseases classified elsewhere; L89.152 Pressure ulcer of sacral region, stage 2; I10 Essential (primary) hypertension; D50.9 Iron deficiency anemia, unspecified; E11.42 Type 2 diabetes mellitus with diabetic polyneuropathy; Z79.4 Long term (current) use of insulin; E66.01 Morbid (severe) obesity due to excess calories; Z68.33 Body mass index [BMI] 33.0-33.9, adult; Z71.3 Dietary counseling and surveillance
CPT/HCPCS: 36415; 80048; 80076; 84145; 87077; 99231; 99306; 99309; 99316; J1650; 80202; 83735; 83880; 85025; 85049; 86140; 87070; 87186; 87324; J2270; J3490

== ENCOUNTER 2020-03-14 02:06 | Outpatient (RCR) | payer MEDICARE, SELFPAY ==
[2020-03-13] MEDS: VANCOMYCIN 1,000 MG in Normal Saline 250 ML 250 MG IV (10:16)
[2020-03-13] MEDS: Normal Saline Flush 10 ML SYR IVP (10:25)
[2020-03-14] MEDS: VANCOMYCIN 1,000 MG in Normal Saline 250 ML 200 MG IV (10:49)
[2020-03-14] MEDS: Normal Saline Flush 10 ML SYR IVP (10:51)
== END 2020-03-14 23:59 | disposition home or self-care (01) ==
LOC: INF 02:06
PROVIDERS: PCP Family Medicine; Visit Provider Nurse Practitioner Family
DX: R78.81 Bacteremia (principal); B95.62 Methicillin resistant Staphylococcus aureus infection as the cause of diseases classified elsewhere; Z79.2 Long term (current) use of antibiotics
CPT/HCPCS: 96365; 96366

== ENCOUNTER → 2020-03-23 12:46 | Outpatient (BNVA) | payer MEDICARE, SELFPAY | PROVIDERS: PCP Family Medicine; Referring Provider Family Medicine; Visit Provider Nurse Practitioner Gerontology | DX: N11.8 Other chronic tubulo-interstitial nephritis (principal); N28.89 Other specified disorders of kidney and ureter; E11.40 Type 2 diabetes mellitus with diabetic neuropathy, unspecified; I10 Essential (primary) hypertension; Z79.4 Long term (current) use of insulin; R78.81 Bacteremia; N15.1 Renal and perinephric abscess; Z45.2 Encounter for adjustment and management of vascular access device | CPT/HCPCS: 96365; 99204; 99215 ==

== ENCOUNTER 2020-04-04 01:51 | Outpatient (RCR) | payer MEDICARE, SELFPAY ==
[2020-03-15] MEDS: Normal Saline Flush 10 ML SYR IVP (07:00)
[2020-03-15 07:14] LABS: Abs Immature Grans 0.05 k/cumm (0.0-0.09); Absolute Basophil Count 0.03 k/cumm (0.0-0.2); Absolute Lymphocyte Count 1.32 k/cumm (1.2-3.4); Absolute Monocyte Count 0.96 k/cumm (0.11-0.7); Absolute Neutrophil Count 4.23 k/cumm (1.2-6.7); Basophils % 0.4; Eosinophils % 4.4; HCT 34.1 % (36.0-46.0); HGB 10.2 g/dL (12.0-15.5); Immature Grans % 0.7 %; Lymphocytes % 19.2; Mean Corp. HGB Concentration 29.9 g/dL (32.0-36.0); Mean Corpuscular Hemoglobin 25.6 pg (27.0-33.0); Mean Corpuscular Volume 85.7 fL (80-95); Mean Platelet Volume 9.3 fL (8.0-11.0); Monocytes % 13.9; Neutrophils % 61.4; Platelet Count 355 x1000/uL (130-400); RBC 3.98 m/cumm (4.00-5.20); RBC Distribution Width 17.6 % (11.7-14.6); White Blood Cell Count 6.89 k/cumm (4.4-10.8)
[2020-03-15 07:31] LABS: Anion Gap 6.2 mmol/L (3-11); BUN 13 mg/dL (7-18); CO2 26.8 mmol/L (21.0-32.0); CREATININE 1.28 mg/dL (0.55-1.02); Calcium 8.9 mg/dL (8.5-10.1); Chloride 105 mmol/L (98-107); Estimated GFR 40.88 (mL/min/1.73m2); Glucose 169 mg/dL (74-106); Potassium 3.6 mmol/L (3.5-5.1); Sodium 138 mmol/L (136-145); Vancomycin, Trough 19.1 ug/mL (10.0-20.0)
[2020-03-15 07:46] LABS: C-Reactive Protein 1.76 mg/dL (0.0-0.3)
[2020-03-15] MEDS: VANCOMYCIN 1,000 MG in Normal Saline 250 ML 250 MG IV (08:00)
[2020-03-16] MEDS: VANCOMYCIN 1,000 MG in Normal Saline 250 ML 250 MG IV (11:21)
[2020-03-16] MEDS: Normal Saline Flush 10 ML SYR IVP (11:26)
[2020-03-17] MEDS: Normal Saline Flush 10 ML SYR IVP (10:50)
[2020-03-17] MEDS: VANCOMYCIN 1,000 MG in Normal Saline 250 ML 250 MG IV (10:50)
[2020-03-18 11:23] LABS: CREATININE 1.31 mg/dL (0.55-1.02); Vancomycin, Trough 17.7 ug/mL (10.0-20.0)
[2020-03-18] MEDS: VANCOMYCIN 1,000 MG in Normal Saline 250 ML 250 MG IV (11:27)
[2020-03-18] MEDS: Normal Saline Flush 10 ML SYR IVP (11:27)
[2020-03-19] MEDS: Normal Saline Flush 10 ML SYR IVP (10:49)
[2020-03-19] MEDS: VANCOMYCIN 1,000 MG in Normal Saline 250 ML 250 MG IV (10:49)
[2020-03-20] MEDS: VANCOMYCIN 1,000 MG in Normal Saline 250 ML 250 MG IV (10:52)
[2020-03-20] MEDS: Normal Saline Flush 10 ML SYR IVP (13:30)
[2020-03-21 11:14] LABS: Abs Immature Grans 0.03 k/cumm (0.0-0.09); Absolute Basophil Count 0.02 k/cumm (0.0-0.2); Absolute Eosinophil Count 0.24 k/cumm (0.0-0.7); Absolute Lymphocyte Count 1.23 k/cumm (1.2-3.4); Absolute Monocyte Count 0.63 k/cumm (0.11-0.7); Absolute Neutrophil Count 3.95 k/cumm (1.2-6.7); Basophils % 0.3; Eosinophils % 3.9; HCT 35.2 % (36.0-46.0); HGB 10.5 g/dL (12.0-15.5); Immature Grans % 0.5 %; Lymphocytes % 20.2; Mean Corp. HGB Concentration 29.8 g/dL (32.0-36.0); Mean Corpuscular Hemoglobin 25.6 pg (27.0-33.0); Mean Corpuscular Volume 85.9 fL (80-95); Mean Platelet Volume 9.6 fL (8.0-11.0); Monocytes % 10.3; Neutrophils % 64.8; Platelet Count 311 x1000/uL (130-400); RBC Distribution Width 17.1 % (11.7-14.6)
[2020-03-21 11:31] LABS: Anion Gap 7.4 mmol/L (3-11); BUN 14 mg/dL (7-18); CO2 29.6 mmol/L (21.0-32.0); CREATININE 1.29 mg/dL (0.55-1.02); Chloride 101 mmol/L (98-107); Estimated GFR 40.51 (mL/min/1.73m2); Glucose 306 mg/dL (74-106); Magnesium 1.8 mg/dL (1.8-2.4); Potassium 3.8 mmol/L (3.5-5.1); Sodium 138 mmol/L (136-145); Vancomycin, Trough 17.7 ug/mL (10.0-20.0)
[2020-03-21] MEDS: VANCOMYCIN 1,000 MG in Normal Saline 250 ML 250 MG IV (11:38)
[2020-03-21] MEDS: Normal Saline Flush 10 ML SYR IVP (11:38)
[2020-03-21 11:39] LABS: C-Reactive Protein 0.61 mg/dL (0.0-0.3)
[2020-03-22] MEDS: VANCOMYCIN 1,000 MG in Normal Saline 250 ML 250 MG IV (10:52)
[2020-03-22] MEDS: Normal Saline Flush 10 ML SYR IVP (10:52)
[2020-03-23] MEDS: VANCOMYCIN 1,000 MG in Normal Saline 250 ML 250 MG IV (10:47)
[2020-03-23] MEDS: Normal Saline Flush 10 ML SYR IVP (10:48)
[2020-03-24] MEDS: VANCOMYCIN 1,000 MG in Normal Saline 250 ML 250 MG IV (10:43)
[2020-03-24] MEDS: Normal Saline Flush 10 ML SYR IVP (10:53)
[2020-03-25 11:25] LABS: Vancomycin, Trough 17.8 ug/mL (10.0-20.0)
[2020-03-25 11:43] LABS: CREATININE 1.35 mg/dL (0.55-1.02); Estimated GFR 38.44 (mL/min/1.73m2)
[2020-03-25] MEDS: Normal Saline Flush 10 ML SYR IVP (12:06)
[2020-03-25] MEDS: VANCOMYCIN 1,000 MG in Normal Saline 250 ML 133 MG IV (12:07)
[2020-03-26] MEDS: VANCOMYCIN 1,000 MG in Normal Saline 250 ML 133 MG IV (10:50)
[2020-03-26] MEDS: Normal Saline Flush 10 ML SYR IVP (10:50)
[2020-03-27] MEDS: VANCOMYCIN 1,000 MG in Normal Saline 250 ML 250 MG IV (11:26)
[2020-03-27] MEDS: Normal Saline Flush 10 ML SYR IVP (11:27)
[2020-03-28] MEDS: VANCOMYCIN 1,000 MG in Normal Saline 250 ML 250 MG IV (10:48)
[2020-03-28] MEDS: Normal Saline Flush 10 ML SYR IVP (11:00)
[2020-03-29] MEDS: VANCOMYCIN 1,000 MG in Normal Saline 250 ML 250 MG IV (10:59)
[2020-03-29] MEDS: Normal Saline Flush 10 ML SYR IVP (11:00)
[2020-03-29 12:30] LABS: Abs Immature Grans 0.03 k/cumm (0.0-0.09); Absolute Basophil Count 0.02 k/cumm (0.0-0.2); Absolute Eosinophil Count 0.33 k/cumm (0.0-0.7); Absolute Lymphocyte Count 1.18 k/cumm (1.2-3.4); Absolute Monocyte Count 0.83 k/cumm (0.11-0.7); Absolute Neutrophil Count 6.39 k/cumm (1.2-6.7); Basophils % 0.2; Eosinophils % 3.8; HCT 33.4 % (36.0-46.0); Immature Grans % 0.3 %; Lymphocytes % 13.4; Mean Corp. HGB Concentration 29.9 g/dL (32.0-36.0); Mean Corpuscular Hemoglobin 25.9 pg (27.0-33.0); Mean Corpuscular Volume 86.5 fL (80-95); Mean Platelet Volume 10.3 fL (8.0-11.0); Monocytes % 9.5; Neutrophils % 72.8; Platelet Count 215 x1000/uL (130-400); RBC 3.86 m/cumm (4.00-5.20); RBC Distribution Width 17.3 % (11.7-14.6); White Blood Cell Count 8.78 k/cumm (4.4-10.8)
[2020-03-29 12:44] LABS: Anion Gap 5.7 mmol/L (3-11); BUN 11 mg/dL (7-18); CO2 31.3 mmol/L (21.0-32.0); CREATININE 1.12 mg/dL (0.55-1.02); Calcium 8.8 mg/dL (8.5-10.1); Chloride 104 mmol/L (98-107); Estimated GFR 47.69 (mL/min/1.73m2); Glucose 168 mg/dL (74-106); Magnesium 1.9 mg/dL (1.8-2.4); Potassium 3.8 mmol/L (3.5-5.1); Sodium 141 mmol/L (136-145)
[2020-03-29 13:11] LABS: C-Reactive Protein 2.13 mg/dL (0.0-0.3)
[2020-03-29 13:17] LABS: Vancomycin, Trough 53.6 ug/mL (10.0-20.0)
[2020-03-30] MEDS: VANCOMYCIN 1,000 MG in Normal Saline 250 ML 250 MG IV (10:55)
[2020-03-30] MEDS: Normal Saline Flush 10 ML SYR IVP (10:58)
[2020-03-31] MEDS: VANCOMYCIN 1,000 MG in Normal Saline 250 ML 250 MG IV (10:48)
[2020-03-31] MEDS: Normal Saline Flush 10 ML SYR IVP (10:49)
[2020-04-01] MEDS: Normal Saline Flush 10 ML SYR IVP (11:08)
[2020-04-01 11:19] LABS: Vancomycin, Trough 13.7 ug/mL (10.0-20.0)
[2020-04-01] MEDS: VANCOMYCIN 1,000 MG in Normal Saline 250 ML 250 MG IV (11:29)
[2020-04-02] MEDS: VANCOMYCIN 1,000 MG in Normal Saline 250 ML 250 MG IV (10:40)
[2020-04-02] MEDS: Normal Saline Flush 10 ML SYR IVP (10:45)
[2020-04-03] MEDS: VANCOMYCIN 1,000 MG in Normal Saline 250 ML 250 MG IV (10:48)
[2020-04-03] MEDS: Normal Saline Flush 10 ML SYR IVP (10:49)
[2020-04-04] MEDS: VANCOMYCIN 1,000 MG in Normal Saline 250 ML 250 MG IV (10:49)
[2020-04-04] MEDS: Normal Saline Flush 10 ML SYR IVP (10:49)
== END 2020-04-14 23:59 | disposition home or self-care (01) ==
LOC: INF 01:51
PROVIDERS: Internal Medicine; PCP Family Medicine; Visit Provider Nurse Practitioner Family
DX: R78.81 Bacteremia (principal); N15.1 Renal and perinephric abscess; Z45.2 Encounter for adjustment and management of vascular access device
CPT/HCPCS: 36592; 80048; 96365; 96366; 80202; 82565; 83735; 85025; 86140

== ENCOUNTER 2020-04-28 20:30 | Outpatient (REF) | payer MEDICARE, SELFPAY ==
[2020-04-28 20:55] LABS: Bilirubin Negative (Negative); Blood Trace-intact (Negative); Clarity Cloudy (Clear); Glucose Negative (Negative); Ketones Negative (Negative); Leukocyte Esterase Large (Negative); Nitrite Negative (Negative); Urobilinogen 0.2 EU/dL (Up TO 0.2); pH 6.5 (5-8)
[2020-04-28 21:16] LABS: WBC >50 HPF (0-5)
[2020-04-28 21:17] LABS: Bacteria Packed HPF (Negative); C & S Indicated? Yes
== END 2020-04-28 20:50 ==
LOC: LBN 20:30
PROVIDERS: PCP Family Medicine; Visit Provider Family Medicine
DX: N39.0 Urinary tract infection, site not specified (principal)
CPT/HCPCS: 87077; 81003; 81015; 87086; 87186

== ENCOUNTER 2020-06-21 00:46 | Outpatient (CLI) | payer MEDICARE, SELFPAY ==
--- NOTE | 2020-06-21 07:30 | DI.US_ITS ---
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 COMPARISON: US US UPPER EXTREMITY VENOUS RT from 03/01/2020 FINDINGS: The kidneys are normal in size and shape. There is no renal mass or hydronephrosis. There are 4 mil limeter and 8 millimeter non-obstructing left renal calculi, posterior acoustic shadowing and twinkle artifact are noted and are confirmatory. There are bilateral ureteral jets visualized in the urinary bladder which appears normal. Pre and po stvoid urinary bladder volume, 82 cc and 0 cc respectively. IMPRESSION: Left renal nonobstructing calculi noted as described above. No other significant findings DATA REPOSITORY:
== END 2020-06-21 01:06 ==
PROVIDERS: PCP Family Medicine; Visit Provider Nurse Practitioner Gerontology
DX: N20.0 Calculus of kidney (principal)
CPT/HCPCS: 76770

== ENCOUNTER → 2020-06-27 11:05 | Outpatient (BNVA) | payer MEDICARE, SELFPAY | PROVIDERS: PCP Family Medicine; Referring Provider Family Medicine; Visit Provider Nurse Practitioner Gerontology | DX: N11.8 Other chronic tubulo-interstitial nephritis (principal); N20.0 Calculus of kidney; N28.89 Other specified disorders of kidney and ureter; E11.42 Type 2 diabetes mellitus with diabetic polyneuropathy; I10 Essential (primary) hypertension; Z79.4 Long term (current) use of insulin | CPT/HCPCS: 99213 ==

== ENCOUNTER 2021-04-16 11:28 | Outpatient (REF) | payer MEDICARE, SELFPAY ==
[2021-04-17 22:56] LABS: Campylobacter PCR Negative (Negative); Salmonella PCR Negative (Negative); Shiga Toxin PCR Negative (Negative); Shigella/Enteroinvasive Ecoli Negative (Negative)
== END 2021-04-16 11:29 | disposition home or self-care (01) ==
LOC: LBN 11:28
PROVIDERS: PCP Family Medicine; Visit Provider Physician Assistant
DX: R19.7 Diarrhea, unspecified (principal)
CPT/HCPCS: 87505

== ENCOUNTER 2021-07-26 01:19 | Outpatient (CLI) | payer MEDICARE, SELFPAY ==
--- NOTE | 2021-07-26 07:15 | DI.US_ITS ---
Exam(s) US RENAL EXAM: US RENAL CLINICAL HISTORY: Monitoring kidney stones and hx of kidney abcess,PYELONEPHRITIS, N11.8,. TECHNIQUE: Fox scale, color and spectral Doppler were used. COMPARISON: CT CT CHEST PE ABD PELVIS W from 02/19/[address] ABDOMEN PELVIS W from 02/19/2020 FINDINGS: Resolution is limited by patient body habitus. Renal size in cm: Right: 9.6 left: 11.6 Echogenicity: Normal Hydronephrosis: No Cyst or mass: No Nephrolithiasis: 9 millimeter stone lower pole left kidney. Other small echogenic foci could represe nt additional parenchymal calcifications versus vascular calcifications. No right renal stones seen although the stone was demonstrated at the lower pole of the right kidney on prior CT. Bladder: Not prepped, not evaluated. IMPRESSION: 9 millimeter stone lower poleLeft kidney.No hydronephrosis. DATA REPOSITORY:
== END 2021-07-26 01:39 ==
PROVIDERS: PCP Family Medicine; Visit Provider Nurse Practitioner Gerontology
DX: N20.0 Calculus of kidney (principal); N11.8 Other chronic tubulo-interstitial nephritis
CPT/HCPCS: 76770

== ENCOUNTER → 2021-07-30 14:52 | Outpatient (BNVA) | payer MEDICARE, SELFPAY | PROVIDERS: PCP Family Medicine; Referring Provider Family Medicine; Visit Provider Nurse Practitioner Gerontology | DX: N20.0 Calculus of kidney (principal); N11.8 Other chronic tubulo-interstitial nephritis; N28.89 Other specified disorders of kidney and ureter | CPT/HCPCS: 99213 ==

== ENCOUNTER 2021-08-12 07:30 | Emergency (ER) | payer MEDICARE, SELFPAY ==
[2021-08-12] VITALS (18 sets, daily range): BP systolic 119–173; BP diastolic 50–84; PULSE 51–85; RESP 10–23; TEMP 36.3; O2SAT 86–97
--- NOTE | 2021-08-12 07:15 | RT.EKG_ITS ---
APPROVED REPORT Exam: Resting ECG Reason for Exam: chest pain Patient Location: E HR:56 bpm ECG Measurements Heart Rate 56 AXIS HI 175 P 46 QRSd 107 QRS 89 QT 464 T -40 QTc 444 Conclusion Sinus bradycardia...rate< 60 Ventricular premature complex...V complex w/ short R-R interval Borderline T abnormalities, diffuse leads...T flat/neg There are no significant changes compared to prior EKG performed on 02/19/2020 at 19:37.
--- NOTE | 2021-08-12 08:00 | DI.CT_ITS ---
Exam(s) CT CHEST/ABD/PEL W EXAM: CT CHEST/ABD/PEL W CLINICAL HISTORY: epigastric pain, low back pain, vomiting. TECHNIQUE: Imaging Protocol: Axial computed tomography images with coronal and sagittal reformatted images were created and reviewed CONTRAST MATERIAL: Intravenous: Omnipaque 350 Contrast volume:100 ml Oral: None COMPARISON: CT CT CHEST PE ABD PELVIS W from 02/19/2020 FINDINGS: CHEST: LUNGS: Mild increased markings in the lung bases. No pleural effusions. No ominous pulmonary nodule s. No findings in trachea and mainstem bronchi.. MEDIASTINUM: There is no hilar nor mediastinal adenopathy. Visualized thyroid unremarkable. CARDIAC: Sternotomy wires. Coronary artery calcification. Heart size normal. No pericardial effusi on.Caliber of the thoracic aorta is within normal limits. OSSEOUS: No significant osseous lesions.Right shoulder prosthesis; reverse type.. ABDOMEN: There is no ascites. LIVER: There are no focal hepatic lesions nor dilatation of intrahepatic ducts. GALLBLADDER/BILIARY: Gallbladder surgically absent. CBD diameter is slightly prominent, consistent w ith post cholecystectomy status and age. PANCREAS: No evidence of pancreatic mass nor dilatation of the pancreatic duct. SPLEEN: Spleen is not enlarged. There are no intrasplenic lesions. Splenic and portal veins are hurst nt. ADRENALS: There are no significant adrenal masses. KIDNEYS: In the left kidney the previously present large abscess has resolved and there is no longer involvement of the spleen. Spleen appears unremarkable.. There is still some calculi in left kidney which are nonobstructive. Right kidney: There is a 7 millimeter calculus in the upper right ureter at the ureteropelvic junctio n, this calculus previously present in the right kidney on the prior CT study. There is dilatation o f the collecting system above this level and air-gas seen within the infundibulum I. There is right s ided perinephric streaking also noted. No formed abscess at this time. There is air seen in the lef t ureter as well as within nondistended urinary bladder.. There are no calculi at the ureterovesical junctions nor in the urinary bladder. ABDOMINAL AORTA: Abdominal aorta is not enlarged. LYMPH NODES: There is no retroperitoneal nor paraaortic adenopathy. ABDOMINAL WALL: Anterior abdominal wall pannus hernia with wide mouth. GI: There is no evidence of bowel obstruction. PELVIS: LYMPH NODES: There is no intrapelvic nor inguinal adenopathy. GI: No evidence of appendicitis.No evidence of sigmoid diverticulitis. URINARY BLADDER: Air is seen within the urinary bladder. No diverticuli. No obvious masses. REPRODUCTIVE: Uterus is atrophic or surgically absent. No abnormal adnexal masses. No free fluid in the pelvis. OSSEOUS: No significant osseous lesions. IMPRESSION: 1. Compared to the prior CT scan of February 2020 there is now mild right-sided hydronephrosis related to an obstructive calculus at the ureteropelvic junction measuring 7 x 5 millimeters. There is gas see n within the right renal collecting system but no evidence of gas within the actual renal parenchyma and there is no abscess in the right kidney (as was in the opposite-left kidney on the prior CT scan of the of February 2020). There is also gas within the urinary bladder. Emphysematous pyelitis suspecte d. 2. There are calculi in the left kidney, nonobstructive. The large abscess which was evident in the left kidney and spleen on the February 2020 study have resolved. Spleen appears unremarkable at this paola e. No remaining abscess in the left kidney. No dilatation of the left renal collecting system. 3. Uterus is surgically absent. No abnormal adnexal masses. No free fluid. 4. RADIATION DOSE DELIVERED: 1,925.57mGy.cm Total DLP DATA REPOSITORY: All CT scans at this facility are submitted to the National Radiology Data Registry (NRDR) Dose Index Registry (DIR) with the [employer] (ACR). RADIATION OPTIMIZATION: All CT scans at this facility use at least one of these dose optimization te chniques: automated exposure control; mA and/or kV adjustment per patient size (includes targeted exa ms where dose is matched to clinical indication); or iterative reconstruction.
--- NOTE | 2021-08-12 08:14 | W.ED.GENAD ---
Discharge Plan Disposition Patient Disposition: [facility] Condition: Improving Discharge Details Clinical Impression: Obstructive pyelonephritis Primary Care Provider: Manuelito Wilcox ED Provider: Sin Lira Home Meds and New Rx's Prescriptions: No Action Humulin N NPH U-100 Insulin 100 unit/mL suspension 20 - 30 unit SC QPM Qty: 10 RF: 4 Novolin R Regular U-100 Insuln 100 unit/mL solution 5 - 20 unit SC TID Qty: 10 RF: 5 atorvastatin [Lipitor] 40 mg tablet 40 mg PO DAILY Qty: 90 RF: 3 ferrous gluconate 324 mg (37.5 mg iron) tablet 324 mg PO DAILY Qty: 90 RF: 3 nitroglycerin [Nitrostat] 0.4 mg tablet, sublingual 0.4 mg Sublingual Q5 MIN PRN X3 PRN (Reason: chest pain) Qty: 25 RF: 0 Trulicity 0.75 mg/0.5 mL pen injector 0.75 mg subcut QWEEK Qty: 2 RF: 5 diphenoxylate-atropine [Lomotil] 2.5-0.025 mg tablet 1 tab PO QID PRN (Reason: diarrhea) Qty: 30 RF: 0 metronidazole [Flagyl] 500 mg tablet 500 mg PO BID Qty: 14 RF: 0 SIDE KICK GLUCOMETER RF: 0 (DME) BD Insulin Syringe 1 EACH syringe 1 syringe Sub-Q DIRECTED Qty: 400 RF: 11 cetirizine [Zyrtec] 10 MG tablet 10 mg PO DAILY Qty: 90 RF: 1 Hold Instructions: Home Medication placed on hold at Doctor's office (DME) Aerochamber MV spacer See Dose Instructions .Route .MEDSUPPLY Qty: 1 RF: 0 fexofenadine 60 mg tablet 60 mg PO BID PRN (Reason: Allergies) Qty: 60 RF: 5 albuterol sulfate [Ventolin HFA] 90 mcg/actuation HFA aerosol inhaler 1 - 2 puff IH Q4H PRN (Reason: shortness of breath or wheezing) Qty: 8.5 RF: 2 metoprolol tartrate 50 mg tablet 50 mg PO BID Qty: 180 RF: 4 aspirin [Aspir-81] 81 MG tablet,delayed release (DR/EC) 81 mg PO DAILY RF: 0 acetaminophen [Tylenol Extra Strength] 500 MG tablet 1 - 2 tab PO Q6H PRN PRN (Reason: Pain) RF: 0 calcium carbonate [Calcium 600] 600 MG tablet 1,200 mg PO BID RF: 0 Triple Antibiotic 3.5mg-400 unit- 5,000 unit/gram Ointment 1 applic topical TID Qty: 1 RF: 0 ascorbic acid (vitamin C) [Vitamin C] 500 mg Tablet 500 mg PO DAILY Qty: 20 RF: 0 acidophilus-pectin, citrus 25 million cell -100 mg Tablet 1 cap PO TID Qty: 90 RF: 0 Medical Decision Making 76-year-old female diabetic with a history of coronary artery disease presents with the onset of predominantly right-sided low back pain last night that seem to radiate towards her abdomen and several anteriorly in the epigastrium. She then developed nausea and vomiting. She took 2 sublingual nitroglycerin at home with no significant effect. She arrived to the ER afebrile, pulse of 63, blood pressure 119/79. Her abdomen is slightly distended and she is tender in the epigastrium, right flank and both paracolic gutters to palpation. Differential diagnosis is broad including aortic pathology, renal colic, UTI, bowel obstruction, ACS. Patient IV access established, placed on pvc monitor, given parenteral analgesia and referred for CT imaging. Laboratories noted a white count of 8, hematocrit 42, platelets 169. Sodium 141, potassium 3.6, chloride 105, bicarb 30, BUN 18, creatinine 1.2. Troponin negative. SARS-CoV-2 PCR negative. Urinalysis: Numerous bacteria and white blood cells. Imaging reveals right ureteropelvic junction calculus measuring 8 x 5 mm, mild right hydronephrosis, gas in the right renal collecting system. Emphysematous pyelonephritis suspected. 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 Patient is allergic to penicillins which cause swelling as well as ciprofloxacin. Urine sent for culture and patient given ceftriaxone. Case discussed with on-call urology at [facility], , who accepts the patient in transfer. Lab Data Lab results reviewed: Yes I reviewed the patient's lab results. Labs: 08/12/21 10:20 Urine - Reflex from Ua Urine Culture - Pending Laboratory Tests Range/Units 08/12/21 08/12/21 08/12/21 08:00 08:00 08:40 WBC (4.4-10.8) 10^3/uL 8.86 RBC (3.93-5.22) 10^6/uL 4.68 Hgb (11.2-15.7) g/dL 13.5 Hct (36.0-46.0) % 42.1 MCV (80-95) fL 90.0 MCH (27.0-33.0) pg 28.8 MCHC (32.0-36.0) % 32.1 RDW (11.7-14.6) % 14.6 Plt Count (130-400) 10^3/uL 169 MPV (8.0-11.0) fL 11.6 H Immature Gran % 0.8 Neutrophils % 79.0 Lymphocytes % 10.7 Monocytes % 7.7 Eosinophils % 1.5 Basophils % 0.3 Nucleated RBC % % 0 Absolute Neutrophils (1.2-6.7) 10^3/uL 7.00 H Absolute Lymphocytes (1.2-3.4) 10^3/uL 0.95 L Absolute Monocytes (0.1-0.8) 10^3/uL 0.68 Absolute Eosinophils (0.0-0.7) 10^3/uL 0.13 Absolute Basophils (0.0-0.2) 10^3/uL 0.03 Sodium (136-145) mmol/L 141 Potassium (3.5-5.1) mmol/L 3.6 Chloride (98-107) mmol/L 105 Carbon Dioxide (21.0-32.0) mmol/L 30.7 Anion Gap (3-11) mmol/L 5.3 BUN (7-18) mg/dL 18 Creatinine (0.55-1.02) mg/dL 1.2 H Estimated GFR/1.73 m2 (mL/min/1.73m2) 43.91 Glucose (74-106) mg/dL 202 H Calcium (8.5-10.1) mg/dL 8.9 Magnesium (1.8-2.4) mg/dL 1.8 Total Bilirubin (0.2-1.0) mg/dL 0.4 AST (15-37) U/L 29 ALT (14-59) U/L 25 Alkaline Phosphatase (46-116) U/L 86 Troponin I (<0.06) ng/mL < 0.05 Total Protein (6.4-8.2) g/dL 7.7 Albumin (3.4-5.0) g/dL 3.3 L Lipase (73-393) U/L 65 Urine Color (Yellow) Urine Clarity (Clear) Urine pH (5-8) Ur Specific Bunn (1.005-1.025) Urine Protein (Negative) mg/dL Urine Ketones (Negative) mg/dL Urine Blood (Negative) Urine Nitrite (Negative) Urine Bilirubin (Negative) Urine Urobilinogen (Up TO 0.2) EU/dL Ur Leukocyte Esterase (Negative) Urine RBC Urine WBC (0-5) HPF Ur Epithelial Cells Urine Crystals Urine Bacteria (Negative) HPF Urine Mucus Ur Culture Indicated? Urine Glucose (Negative) mg/dL COVID-19 Source Nasal/Nares SARS-CoV-2 (PCR) (Negative) Negative Range/Units 08/12/21 10:20 WBC (4.4-10.8) 10^3/uL RBC (3.93-5.22) 10^6/uL Hgb (11.2-15.7) g/dL Hct (36.0-46.0) % MCV (80-95) fL MCH (27.0-33.0) pg MCHC (32.0-36.0) % RDW (11.7-14.6) % Plt Count (130-400) 10^3/uL MPV (8.0-11.0) fL Immature Gran % Neutrophils % Lymphocytes % Monocytes % Eosinophils % Basophils % Nucleated RBC % % Absolute Neutrophils (1.2-6.7) 10^3/uL Absolute Lymphocytes (1.2-3.4) 10^3/uL Absolute Monocytes (0.1-0.8) 10^3/uL Absolute Eosinophils (0.0-0.7) 10^3/uL Absolute Basophils (0.0-0.2) 10^3/uL Sodium (136-145) mmol/L Potassium (3.5-5.1) mmol/L Chloride (98-107) mmol/L Carbon Dioxide (21.0-32.0) mmol/L Anion Gap (3-11) mmol/L BUN (7-18) mg/dL Creatinine (0.55-1.02) mg/dL Estimated GFR/1.73 m2 (mL/min/1.73m2) Glucose (74-106) mg/dL Calcium (8.5-10.1) mg/dL Magnesium (1.8-2.4) mg/dL Total Bilirubin (0.2-1.0) mg/dL AST (15-37) U/L ALT (14-59) U/L Alkaline Phosphatase (46-116) U/L Troponin I (<0.06) ng/mL Total Protein (6.4-8.2) g/dL Albumin (3.4-5.0) g/dL Lipase (73-393) U/L Urine Color (Yellow) Yellow Urine Clarity (Clear) Turbid Urine pH (5-8) 6.5 Ur Specific Bunn (1.005-1.025) 1.020 Urine Protein (Negative) mg/dL 30 H Urine Ketones (Negative) mg/dL Trace H Urine Blood (Negative) Moderate H Urine Nitrite (Negative) Negative Urine Bilirubin (Negative) Negative Urine Urobilinogen (Up TO 0.2) EU/dL 0.2 Ur Leukocyte Esterase (Negative) Moderate H Urine RBC Not Applicable Urine WBC (0-5) HPF >50 H Ur Epithelial Cells Not Applicable Urine Crystals Not Applicable Urine Bacteria (Negative) HPF Many Urine Mucus Not Applicable Ur Culture Indicated? Yes Urine Glucose (Negative) mg/dL 100 COVID-19 Source SARS-CoV-2 (PCR) (Negative) HPI General Mode of arrival: EMS. Date/Time Provider Initiated Documentation: 08/12/21 08:00. Limitations to Documentation: no limitations. Information obtained by: patient. History of Present Illness 76 year old F presents to the emergency department with the chief complaint of Epigastric pain and vomiting, described as moderate, and is localized to the abdomen. Patient reports radiation to back. Patient started experiencing this hour(s) and it has been intermittent. No relieving factors improve symptom(s), No exacerbating factors reported . Patient notes loss of appetite and nausea/vomiting; denies chest pain, fever/chills and headaches. Patient did receive the following treatments prior to arrival, other (Nitroglycerin x2, no effect) Related Data Home Medications Medication Instructions Recorded Confirmed acetaminophen [Tylenol Extra 1 - 2 tab PO Q6H PRN PRN 11/16/12 08/12/21 Strength] aspirin [Aspir-81] 81 mg PO DAILY 11/16/12 08/12/21 Side Kick Glucometer 01/20/13 07/30/21 calcium carbonate [Calcium 600] 1,200 mg PO BID 05/17/14 08/12/21 BD Insulin Syringe #400 syringe 02/28/15 07/30/21 cetirizine [Zyrtec] 10 mg PO DAILY #90 tab 11/07/15 08/12/21 inhalational spacing device #1 each 07/31/18 07/30/21 insulin regular human 100 unit/mL 5 - 20 unit SC TID #10 ml 08/17/19 08/12/21 injection solution acidophilus-pectin, citrus 1 cap PO TID #90 tab 03/12/20 08/12/21 ascorbic acid (vitamin C) [Vitamin 500 mg PO DAILY #20 tab 03/12/20 08/12/21 C] myerxodn-qqvsdwqidEs-pzszwtjuK 1 applic TOPICAL TID #1 gm 03/12/20 08/12/21 [Triple Antibiotic] fexofenadine 60 mg tablet 60 mg PO BID PRN #60 tab 04/27/20 08/12/21 insulin NPH isoph U-100 human 100 20 - 30 unit SC QPM #10 ml 05/23/20 08/12/21 unit/mL subcutaneous suspension diphenoxylate-atropine 2.5 1 tab PO QID PRN #30 tab 04/18/21 08/12/21 mg-0.025 mg tablet metronidazole 500 mg tablet 500 mg PO BID #14 tab 04/18/21 08/12/21 atorvastatin 40 mg tablet 40 mg PO DAILY #90 tab-cap 05/25/21 08/12/21 dulaglutide 0.75 mg/0.5 mL 0.75 mg SUBCUT QWEEK #2 ml 05/25/21 08/12/21 subcutaneous pen injector ferrous gluconate 324 mg (37.5 mg 324 mg PO DAILY #90 tab 05/25/21 08/12/21 iron) tablet nitroglycerin 0.4 mg sublingual 0.4 mg SUBLINGUAL Q5 MIN PRN X3 05/25/21 08/12/21 tablet PRN #25 tab albuterol sulfate 90 mcg/actuation 1 - 2 puff IH Q4H PRN #8.5 g 06/19/21 08/12/21 aerosol inhaler metoprolol tartrate 50 mg tablet 50 mg PO BID #180 tab-cap 07/18/21 08/12/21 Previous Rx's Medication Instructions Recorded inhalational spacing device #1 each 07/31/18 insulin regular human 100 unit/mL 5 - 20 unit SC TID #10 ml 08/17/19 injection solution acidophilus-pectin, citrus 1 cap PO TID #90 tab 03/12/20 ascorbic acid (vitamin C) [Vitamin 500 mg PO DAILY #20 tab 03/12/20 C] oiqpxdqv-tnqmcjfpkTc-azuwfnmkU 1 applic TOPICAL TID #1 gm 03/12/20 [Triple Antibiotic] fexofenadine 60 mg tablet 60 mg PO BID PRN #60 tab 04/27/20 insulin NPH isoph U-100 human 100 20 - 30 unit SC QPM #10 ml 05/23/20 unit/mL subcutaneous suspension diphenoxylate-atropine 2.5 1 tab PO QID PRN #30 tab 04/18/21 mg-0.025 mg tablet metronidazole 500 mg tablet 500 mg PO BID #14 tab 04/18/21 atorvastatin 40 mg tablet 40 mg PO DAILY #90 tab-cap 05/25/21 dulaglutide 0.75 mg/0.5 mL 0.75 mg SUBCUT QWEEK #2 ml 05/25/21 subcutaneous pen injector ferrous gluconate 324 mg (37.5 mg 324 mg PO DAILY #90 tab 05/25/21 iron) tablet nitroglycerin 0.4 mg sublingual 0.4 mg SUBLINGUAL Q5 MIN PRN X3 05/25/21 tablet PRN #25 tab albuterol sulfate 90 mcg/actuation 1 - 2 puff IH Q4H PRN #8.5 g 06/19/21 aerosol inhaler metoprolol tartrate 50 mg tablet 50 mg PO BID #180 tab-cap 07/18/21 Allergies Allergy/AdvReac Type Severity Reaction Status Date / Time Penicillins Allergy Intermediate Itching, Verified 08/12/21 07:54 Swelling ciprofloxacin AdvReac Intermediate Dizziness/L Verified 08/12/21 07:54 ightheade Latex, Natural Rubber AdvReac Intermediate Skin Rash Verified 08/12/21 07:54 lisinopril AdvReac Intermediate cough Verified 08/12/21 07:54 metformin AdvReac Mild Diarrhea Verified 08/12/21 07:54 cephalexin AdvReac Intermediate Dizziness/L Uncoded 08/12/21 07:54 ightheade tylenol 3 AdvReac Intermediate tingling Uncoded 08/12/21 07:54 of tongue and lips General Stated Complaint: Chest Pain DAYA: 2 Review of Systems Narrative: Recently has been well. No known sick contacts. No suspicious food exposures. Has had a recent cough with production of sputum. 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) Diabetic retinopathy (Chronic) 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) Hyperlipidemia (Chronic) Diabetes mellitus type 2 in obese (Acute) Long-term insulin use in type 2 diabetes (Acute) Medical History Allergic rhinitis ASCVD (arteriosclerotic cardiovascular disease) Carpal tunnel syndrome of right wrist (02/28/15) Chronic cough Closed fracture of humerus (06/28/13) 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 Grandfather No problems noted. Grandmother Diabetes Grandmother No problems noted. Daughter No problems noted. 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 Pleasant, well groomed, interactive. HEAD: Normocephalic, atraumatic ENT: Mucous membranes moist, oropharynx unremarkable, External ear exam unremarkable EYES: PERRL, EOMI NECK: Full ROM, no LEONIDES, no menigismus CHEST/RESP: Nontender, clear to auscultation bilateral, no wheeze/rhonchi/rales CARDIOVASCULAR: RRR, no murmur, rub josie. 2+ Rad pulse bilateral ABDOMEN: Soft, diminished bowel sounds, less distended, tender in the epigastrium as well as fairly diffusely both left and right abdomen Back: Right flank tenderness, no midline tenderness EXT: Full ROM, trace peripheral edema, no rash Neuro: Grossly normal neurologic exam, conversant, interactive. Psych: Speech fluent, thoughts congruent, affect normal Course Vital Signs Vital signs: Vital Signs Pulse 55 L 08/12/21 07:36 Respiratory Rate 16 08/12/21 07:36 Blood Pressure 160/62 H 08/12/21 07:36 Temperature 36.3 C L 08/12/21 07:47 Temperature Source Temporal Artery Scan 08/12/21 07:47 Pulse 63 08/12/21 07:47 Pulse 67 08/12/21 07:47 Respiratory Rate 16 08/12/21 07:47 Respiratory Effort Non-Labored 08/12/21 07:59 Blood Pressure 119/79 08/12/21 07:47 Blood Pressure Mean 86 08/12/21 07:47 Blood Pressure Position Supine 08/12/21 07:47 Pulse Oximetry 97 08/12/21 07:47 Oxygen Delivery Method Room Air 08/12/21 07:47 Oxygen Flow Rate 0 08/12/21 07:47 Pain Level 10 08/12/21 07:47
[2021-08-12] MEDS: Ondansetron 4 MG/2 ML VIAL IVP ×2 (08:24→10:53)
[2021-08-12 08:30] LABS: Abs Immature Grans 0.07 10^3/uL (0.0-0.06); Absolute Basophil Count 0.03 10^3/uL (0.0-0.2); Absolute Eosinophil Count 0.13 10^3/uL (0.0-0.7); Absolute Lymphocyte Count 0.95 10^3/uL (1.2-3.4); Absolute Monocyte Count 0.68 10^3/uL (0.1-0.8); Basophils % 0.3; Eosinophils % 1.5; HCT 42.1 % (36.0-46.0); HGB 13.5 g/dL (11.2-15.7); Immature Grans % 0.8; Lymphocytes % 10.7; MCH 28.8 pg (27.0-33.0); MCHC 32.1 % (32.0-36.0); MPV 11.6 fL (8.0-11.0); Monocytes % 7.7; Nucleated RBC 0 %; Platelet Count 169 10^3/uL (130-400); RBC 4.68 10^6/uL (3.93-5.22); RDW 14.6 % (11.7-14.6); RDW-SD 47.9 fL; WBC 8.86 10^3/uL (4.4-10.8)
[2021-08-12] MEDS: Normal Saline 1,000 ML 125 ML IV (08:33)
[2021-08-12 08:46] LABS: Source Nasal/Nares
[2021-08-12 08:51] LABS: ALT 25 U/L (14-59); AST 29 U/L (15-37); Albumin 3.3 g/dL (3.4-5.0); Alkaline Phosphatase 86 U/L (46-116); Anion Gap 5.3 mmol/L (3-11); BUN 18 mg/dL (7-18); Bilirubin, Total 0.4 mg/dL (0.2-1.0); CO2 30.7 mmol/L (21.0-32.0); CREATININE 1.2 mg/dL (0.55-1.02); Calcium 8.9 mg/dL (8.5-10.1); Chloride 105 mmol/L (98-107); Estimated GFR 43.91 (mL/min/1.73m2); Glucose 202 mg/dL (74-106); Potassium 3.6 mmol/L (3.5-5.1); Sodium 141 mmol/L (136-145); Total Protein 7.7 g/dL (6.4-8.2)
[2021-08-12 08:52] LABS: Lipase 65 U/L (73-393); Magnesium 1.8 mg/dL (1.8-2.4); Troponin I < 0.05 ng/mL (<0.06)
[2021-08-12 09:28] LABS: COVID-19 PCR Negative (Negative)
--- NOTE | 2021-08-12 10:00 | DI.VRAD_ITS ---
Addendum created by Lala Diaz MD on 08/12/2021 10:00:37 AM EST: Findings were discussed with YANDEL House on 08/12/2021 10:00 AM EST Initial report created on 08/12/2021 10:00:21 AM EST: PROCEDURE INFORMATION: Exam: CT Chest With Contrast; Diagnostic Exam date and time: 08/12/2021 8:14 AM Age: 76 years old Clinical indication: Other: Epigastric pain, low back pain, vomiting TECHNIQUE: Imaging protocol: Diagnostic computed tomography of the chest with contrast. Radiation optimization: All CT scans at this facility use at least one of these dose optimization techniques: automated exposure control; mA and/or kV adjustment per patient size (includes targeted exams where dose is matched to clinical indication); or iterative reconstruction. Contrast material: OMNIPAQUE 350; Contrast volume: 100 ml; Contrast route: INTRAVENOUS (IV); COMPARISON: CT CHEST PE ABD PELVIS W 02/19/2020 8:43 PM FINDINGS: Lungs: Unremarkable. No consolidation. No masses. Pleural spaces: Unremarkable. No pneumothorax. No pleural effusion. Heart: Unremarkable. No cardiomegaly. No pericardial effusion. Aorta: Unremarkable. No aortic aneurysm. Lymph nodes: Unremarkable. No enlarged lymph nodes. Bones/joints: Unremarkable. No acute fracture. Soft tissues: Unremarkable. IMPRESSION: No acute findings. PROCEDURE INFORMATION: Exam: CT Abdomen And Pelvis With Contrast Exam date and time: 08/12/2021 8:14 AM Age: 76 years old Clinical indication: Other: Epigastric pain, low back pain, vomiting TECHNIQUE: Imaging protocol: Computed tomography of the abdomen and pelvis with contrast. Contrast material: OMNIPAQUE 350; Contrast volume: 100 ml; Contrast route: INTRAVENOUS (IV); COMPARISON: CT CHEST PE ABD PELVIS W 02/19/2020 8:43 PM FINDINGS: Liver: Normal. No mass. Gallbladder and bile ducts: Previous cholecystectomy. Pancreas: Normal. No ductal dilation. Spleen: Normal. No splenomegaly. Adrenal glands: Normal. No mass. Kidneys and ureters: Mild right hydronephrosis with obstructing calculus at the ureteropelvic junction measuring 8 x 5 mm. Gas is noted in the right renal collecting system. There is no gas within the renal parenchyma. Emphysematous pyelitis suspected. Interval resolution of previously seen left renal abscess, with cortical scarring along the inferior pole. Nonobstructing left renal calculus. No left hydronephrosis. Stomach and bowel: Unremarkable. No obstruction. No mucosal thickening. Appendix: No evidence of appendicitis. Intraperitoneal space: Unremarkable. No free air. No significant fluid collection. Vasculature: Unremarkable. No abdominal aortic aneurysm. Lymph nodes: Unremarkable. No enlarged lymph nodes. Urinary bladder: Gas within the urinary bladder. Reproductive: Unremarkable as visualized. Bones/joints: Unremarkable. No acute fracture. Soft tissues: Unremarkable. IMPRESSION: 1. Mild right hydronephrosis with obstructing calculus at the ureteropelvic junction measuring 8 x 5 mm. Gas is noted in the right renal collecting system. There is no gas within the renal parenchyma. Emphysematous pyelitis suspected. 2. Gas within the urinary bladder. Dictated and Authenticated by: Lala Diaz MD. Ordering:CECILIA Vogt MD
[2021-08-12 10:25] LABS: Bilirubin Negative (Negative); Blood Moderate (Negative); Clarity Turbid (Clear); Glucose 100 mg/dL (Negative); Ketones Trace mg/dL (Negative); Leukocyte Esterase Moderate (Negative); Nitrite Negative (Negative); Urobilinogen 0.2 EU/dL (Up TO 0.2); pH 6.5 (5-8)
[2021-08-12] MEDS: cefTRIAXone 1 GM/50 ML BAG IVPB (10:25)
[2021-08-12] MEDS: Omnipaque 350 MG/ML 100 ML BTL IJ (10:25)
[2021-08-12] MEDS: Normal Saline Flush 10 ML SYR IVP (10:27)
[2021-08-12 10:36] LABS: WBC >50 HPF (0-5)
[2021-08-12 10:37] LABS: Bacteria Many HPF (Negative); C & S Indicated? Yes
[2021-08-12] MEDS: MORPHine 10 MG/ML VIAL 6 MG IVP (10:53)
[2021-08-12 12:04] LABS: Troponin I < 0.05 ng/mL (<0.06)
--- NOTE | 2021-08-15 09:48 | NUR.NOTE ---
Nursing Note: Urine culture result faxed to [facility] [address] Khurram Bales [facility] fax
== END 2021-08-12 12:10 | disposition short-term general hospital (02) ==
PROVIDERS: Emergency Provider Emergency Medicine; PCP Family Medicine
DX: N13.6 Pyonephrosis (principal); R11.2 Nausea with vomiting, unspecified; Z87.440 Personal history of urinary (tract) infections; Z87.442 Personal history of urinary calculi; Z20.822 Contact with and (suspected) exposure to COVID-19; Z03.818 Encounter for observation for suspected exposure to other biological agents ruled out
CPT/HCPCS: 36415; 51701; 74177; 80053; 83690; 87077; 87635; 93005; 96361; 96365; 96375; 96376; 99285; 71260; 81003; 81015; 83735; 84484; 85025; 87086; 87186; 93010; J0696; J2270; J2405; J3490

== ENCOUNTER 2021-08-31 20:47 | Outpatient (REF) | payer MEDICARE, SELFPAY ==
[2021-08-31 19:06] LABS: Bilirubin Negative (Negative); Blood Moderate (Negative); Clarity Clear (Clear); Glucose Negative (Negative); Ketones Negative (Negative); Leukocyte Esterase Moderate (Negative); Nitrite Negative (Negative); Specific Gravity 1.025 (1.005-1.025); Urobilinogen 0.2 EU/dL (Up TO 0.2); pH 5.5 (5-8)
[2021-08-31 19:52] LABS: Bacteria Moderate HPF (Negative); C & S Indicated? No/Sq. Contamination; Casts Negative LPF (Negative); Crystals Negative HPF (Negative); Epithelial Cells Moderate HPF (Negative); Mucus Negative (Negative); WBC >50 HPF (0-5)
== END 2021-08-31 20:48 | disposition home or self-care (01) ==
LOC: LBN 20:47
PROVIDERS: PCP Family Medicine; Visit Provider Family Medicine
DX: N39.0 Urinary tract infection, site not specified (principal)
CPT/HCPCS: 81003; 81015

== ENCOUNTER 2021-09-04 20:26 | Outpatient (REF) | payer MEDICARE, SELFPAY ==
[2021-09-04 22:09] LABS: Bilirubin Negative (Negative); Blood Moderate (Negative); Clarity Clear (Clear); Glucose Negative (Negative); Ketones Negative (Negative); Leukocyte Esterase Small (Negative); Nitrite Negative (Negative); Specific Gravity 1.025 (1.005-1.025); Urobilinogen 0.2 EU/dL (Up TO 0.2); pH 5.5 (5-8)
[2021-09-04 22:34] LABS: Bacteria Few HPF (Negative); Crystals Negative HPF (Negative); Epithelial Cells Few HPF (Negative); RBC 20-50 HPF (0-2); WBC >50 HPF (0-5)
[2021-09-04 22:35] LABS: C & S Indicated? Yes; Mucus Negative (Negative)
== END 2021-09-04 20:27 | disposition home or self-care (01) ==
LOC: LBN 20:26
PROVIDERS: PCP Family Medicine; Visit Provider Family Medicine
DX: N39.0 Urinary tract infection, site not specified (principal)
CPT/HCPCS: 81003; 81015; 87086

== ENCOUNTER 2021-10-10 00:51 | Outpatient (CLI) | payer MEDICARE, SELFPAY ==
--- NOTE | 2021-10-10 07:45 | DI.US_ITS ---
Exam(s) US RENAL EXAM: US RENAL CLINICAL HISTORY: s/p ureteroscopy 4 to 6-week standard of care RADHA, kidney stone TECHNIQUE: Ultrasound of both kidneys performed using standard protocol. COMPARISON: US US RENAL from 07/26/[address] CHEST/ABD/PEL W from 08/12/2021 FINDINGS: RIGHT KIDNEY: Measures 11.5 cm in length. No cysts evident. Normal cortical thickness and corticomedullary differen tiation .No solid masses No intrarenal calculi nor hydronephrosis.Previously present hydronephrosis in July 2021 (caused b y calculus in the upper right ureter at that time) is not seen on these images of the right kidney. At that time there was also some air-gas in the right kidney. LEFT KIDNEY: Measures 10.1 cm in length. Left kidney smaller than the right exhibits some cortical scarring well as intrarenal calculi the mid and lower pole, as evident on the July 2021 CT scan. These are in the mid and lower poles and measure 6 and 4 millimeters. No obvious mass in the left kidney. No obv ious cysts. URINARY BLADDER: Not prepped. IMPRESSION: 1. Previously present hydronephrosis of the right kidney seen on the CT scan of July 2021 is not seen at this time. This was previously caused by calculus in the upper right ureter. Please note t hat there was gas in the right kidney evident on that prior study. This would be somewhat difficult to assess with ultrasound for accurate comparison. 2. Smaller and somewhat scarred left kidney again noted which contains multiple calculi, as was also evident on the prior CT scan of July 2021 No hydronephrosis on either side. DATA REPOSITORY:
== END 2021-10-10 01:11 ==
PROVIDERS: PCP Family Medicine; Visit Provider Nurse Practitioner Gerontology
DX: N20.0 Calculus of kidney (principal); N11.1 Chronic obstructive pyelonephritis; N28.89 Other specified disorders of kidney and ureter
CPT/HCPCS: 76770

== ENCOUNTER → 2021-10-16 12:54 | Outpatient (BNVA) | payer MEDICARE, SELFPAY | PROVIDERS: PCP Family Medicine; Referring Provider Family Medicine; Visit Provider Nurse Practitioner Gerontology | DX: N20.0 Calculus of kidney (principal); N11.8 Other chronic tubulo-interstitial nephritis; N28.89 Other specified disorders of kidney and ureter | CPT/HCPCS: 81003; 99214 ==

== ENCOUNTER 2021-10-16 17:02 | Outpatient (REF) | payer MEDICARE, SELFPAY | END 2021-10-16 17:03 | disposition home or self-care (01) | LOC: LBN 17:02 | PROVIDERS: PCP Family Medicine; Visit Provider Nurse Practitioner Gerontology | DX: N20.0 Calculus of kidney (principal) | CPT/HCPCS: 87077; 87086; 87186 ==

== ENCOUNTER → 2022-04-29 01:39 | Outpatient (CLI) | payer MEDICARE, SELFPAY ==
--- NOTE | 2022-04-29 07:45 | DI.US_ITS ---
Exam(s) US RENAL EXAM: US RENAL CLINICAL HISTORY: monitoring kidney stones, pyelonephritis,n20.0,n11.8 TECHNIQUE: Ultrasound of both kidneys performed using standard protocol. COMPARISON: CT CT CHEST/ABD/PEL W from 08/12/2021 US US RENAL from 10/10/2021 FINDINGS: RIGHT KIDNEY: Measures 10.4 cm in length. No cysts evident. Normal cortical thickness and corticomedullary differen tiation .No solid masses No intrarenal calculi nor hydronephrosis. LEFT KIDNEY: Measures 10.7 cm in length. No cysts evident. Cortical scarring again noted. Calculus in the lower pole left kidney noted, measuring 10 x 8 millimeters, previously present. There is also a small cyst in the lower pole left kidney measures 1.2 x 1.1 cm. URINARY BLADDER: Prevoid volume is 176 cc Postvoid volume is 9 cc No evidence of bladder mass nor diverticuli. Ureterovesical jets: Right seen. Left was not seen. IMPRESSION: 1. No significant ultrasound findings in the right kidney. 2. Lower pole 10 millimeter calculus again noted in the left kidney. Also cortical scarring which i s better seen on the prior CT scan than on ultrasound. No hydronephrosis. 3. Small cyst in the left kidney noted (inferior pole region). DATA REPOSITORY:
== END ==
PROVIDERS: PCP Family Medicine; Visit Provider Nurse Practitioner Gerontology
DX: N11.8 Other chronic tubulo-interstitial nephritis (principal); N20.0 Calculus of kidney
CPT/HCPCS: 76770

== ENCOUNTER → 2022-05-10 10:20 | Outpatient (BNVA) | payer MEDICARE, SELFPAY | PROVIDERS: PCP Family Medicine; Referring Provider Family Medicine; Visit Provider Urology | DX: N11.8 Other chronic tubulo-interstitial nephritis (principal); N20.0 Calculus of kidney | CPT/HCPCS: 99214 ==

== ENCOUNTER 2022-11-08 00:55 | Outpatient (CLI) | payer MEDICARE, SELFPAY ==
--- NOTE | 2022-11-08 08:15 | DI.US_ITS ---
Exam(s) US RENAL EXAM: US RENAL CLINICAL HISTORY: monitor known kidney stones,N20.0. TECHNIQUE: Fox scale, color and spectral Doppler were used. COMPARISON: CT CT CHEST/ABD/PEL W from 08/12/2021 FINDINGS: Renal size in cm: Right: 11.5 left: 11.8. Left renal parenchymal cortical thinning. Echogenicity: Normal Hydronephrosis: No Cyst or mass: No Nephrolithiasis: 1.3 centimeter maximal dimension stone lower pole left kidney. Bladder:Not well evaluated due to under distension. Prevoid vol:18 mL Postvoid vol:Not performed IMPRESSION: 13 millimeter stone lower pole left kidney. DATA REPOSITORY:
== END 2022-11-08 01:15 ==
LOC: DI 00:56
PROVIDERS: PCP Family Medicine; Visit Provider Urology
DX: N20.0 Calculus of kidney (principal)
CPT/HCPCS: 76770

== ENCOUNTER 2023-03-07 11:03 | Inpatient (IN) | payer MEDICARE, SELFPAY ==
[2023-03-07] VITALS (35 sets, daily range): BP systolic 112–163; BP diastolic 46–97; PULSE 80–96; RESP 17–18; TEMP 36.8–37.9; O2SAT 92–99
--- NOTE | 2023-03-07 11:26 | W.ED.GENAD ---
Discharge Plan Disposition Patient Disposition: Admit to [facility] Discharge Details Clinical Impression: Osteomyelitis, Type 2 diabetes mellitus with complications Admit Date/Time: 03/07/23 14:31 Admit Provider: Mukul Garcia Attending Provider: Mukul Garcia Primary Care Provider: Manuelito Wilcox ED Provider: Beni Salinas Discharge Data Discharge Date/Time-TO BE ENTERED AT DEPARTURE: 03/07/23 16:47 Medical Decision Making Patient presenting to the emergency department for chief complaint of right foot infection. Patient reports approximately 1 month ago she had a corn on her lateral aspect of her fifth toe on the right foot. Then it started to look infected so she saw podiatry that put her on an antibiotic which she is unaware of which one it was. Patient has had worsening symptoms and could not get back into podiatry and was seen by primary care provider today who sent her to the emergency department. Patient has purulent drainage from open wound to lateral aspect of the right fifth great toe with significant swelling of the toe along with edema to the foot. Patient denies all other symptoms and exam is otherwise unremarkable. We will plan on checking labs and will start patient on vancomycin for suspicion of cellulitis with potential for wet gangrene. Will perform CT imaging to see if there is any bony involvement. CT imaging does show signs of osteomyelitis. We will continue antibiotics. Did speak with radiologist who questioned a possible metallic foreign body and requested plain film images. Plain film imaging did show what seems to be a metallic foreign body. This does not correlate with patient's symptoms but given that patient has ongoing infection with diabetes and current complications do not feel that risk outweighs benefit of attempting to further evaluate foreign body until infection has reduced called and spoke to hospitalist who agreed to have patient admitted for continued IV antibiotics and further wound consultation or other consultation as needed. Imaging Data Radiologic Study: Imaging: CT Scan Radiologist's impression: Exam(s) a CT:CT lower extremity RT wo Exam(s) CT LOWER EXTREMITY RT WO EXAM: CT LOWER EXTREMITY RT WO CLINICAL HISTORY: right foot infection. TECHNIQUE: Imaging Protocol: Axial computed tomography images with coronal and sagittal reformatted images were created and reviewed. COMPARISON: No exams were available for comparison FINDINGS: Bones: There are destructive changes seen in the middle phalanx of the little toe. There is soft tissue swelling of the 5th toe with subcutaneous air. Bony alignment is satisfactory. There are degenerative changes seen in the foot. No lytic or sclerotic lesions are identified. There is a 0.5 cm linear density which appears to be metallic in the soft tissues adjacent to the middle phalanx of the 5th toe. This may represent a foreign body. Soft Tissues: Soft tissue swelling and subcutaneous air of the 5th toe. IMPRESSION: 1. Soft tissue swelling and subcutaneous air in the 5th toe with destructive changes involving the middle phalanx suspicious for osteomyelitis. 2. 0.5 cm linear density within the air in soft tissue collection adjacent to the 5th toe. This may represent a foreign body. Lab Data Lab results reviewed: Yes I reviewed the patient's lab results. HPI General Mode of arrival: ambulatory. Date/Time Provider Initiated Documentation: 03/07/23 11:08. Limitations to Documentation: no limitations. Information obtained by: patient, family and RN notes reviewed. History of Present Illness 78 year old F presents to the emergency department with the chief complaint of Right foot infection, described as moderate, with intensity rated at 2. Quality is described as aching, and is localized to the right and lower extremity. Patient reports no radiation. Patient started experiencing this month(s) (1) and it has been constant. No relieving factors improve symptom(s), No exacerbating factors reported . Patient notes no other symptoms.. Patient did receive the following treatments prior to arrival, other (Unknown antibiotic) Related Data Home Medications Medication Instructions Recorded Confirmed acetaminophen 500 mg tablet 1 - 2 tab PO Q6H PRN PRN Pain 11/16/12 03/07/23 (Tylenol Extra Strength) aspirin 81 mg tablet,delayed 81 mg PO DAILY 11/16/12 03/07/23 release (Aspir-) calcium carbonate 600 mg calcium 1,200 mg PO BID 05/17/14 03/07/23 (1,500 mg) tablet (Calcium) insulin syringe-needle U-100 1 mL #400 SYRGS 02/28/15 03/07/23 26 x 1/2 (BD Insulin Syringe) cetirizine 10 mg tablet (Zyrtec) 10 mg PO DAILY #90 tabs 11/07/15 03/07/23 inhalational spacing device #1 ea 07/31/18 03/07/23 (Aerochamber MV spacer) acidophilus 25 million 1 cap PO TID #90 tabs 03/12/20 03/07/23 cell-pectin, citrus 100 mg tablet ascorbic acid (vitamin C) 500 mg 500 mg PO DAILY #20 tabs 03/12/20 03/07/23 tablet (Vitamin C) fexofenadine 60 mg tablet 60 mg PO BID PRN Allergies #60 tabs 04/27/20 03/07/23 insulin NPH isoph U-100 human 100 35 unit (0.35 mL) subcut QPM #30 mL 04/30/22 03/07/23 unit/mL subcutaneous suspension (Humulin N NPH U-100 Insulin (isophane susp)) nitroglycerin 0.4 mg sublingual 0.4 mg sublingual Q5 MIN PRN X3 04/30/22 03/07/23 tablet (Nitrostat) PRN chest pain #25 tabs metoprolol tartrate 50 mg tablet 50 mg PO BID #180 tab-caps 08/26/22 03/07/23 atorvastatin 40 mg tablet (Lipitor) 40 mg PO DAILY #90 tab-caps 09/12/22 03/07/23 ferrous gluconate 324 mg (37.5 mg 324 mg PO DAILY #90 tabs 09/12/22 03/07/23 iron) tablet insulin lispro 200 unit/mL (3 mL) 5 - 20 unit (0.025 - 0.1 mL) 09/20/22 03/07/23 subcutaneous pen (Humalog KwikPen subcut TID #18 mL U-200 Insulin) pen needle, diabetic 32 gauge x #100 ea 09/25/22 03/07/23 5/32 (1st Tier Unifine Pentips) dulaglutide 1.5 mg/0.5 mL 1.5 mg (0.5 mL) subcut QWEEK #2 mL 11/27/22 03/07/23 subcutaneous pen injector (Trulicity) albuterol sulfate 90 mcg/actuation 1 - 2 puff inhalation Q4H PRN 12/17/22 03/07/23 aerosol inhaler (Ventolin HFA) shortness of breath or wheezing #8.5 grams linezolid 600 mg tablet (Zyvox) 600 mg PO Q12H 42 days #84 tabs 03/11/23 Previous Rx's Medication Instructions Recorded inhalational spacing device #1 ea 07/31/18 (Aerochamber MV spacer) acidophilus 25 million 1 cap PO TID #90 tabs 03/12/20 cell-pectin, citrus 100 mg tablet ascorbic acid (vitamin C) 500 mg 500 mg PO DAILY #20 tabs 03/12/20 tablet (Vitamin C) fexofenadine 60 mg tablet 60 mg PO BID PRN Allergies #60 tabs 04/27/20 insulin NPH isoph U-100 human 100 35 unit (0.35 mL) subcut QPM #30 mL 04/30/22 unit/mL subcutaneous suspension (Humulin N NPH U-100 Insulin (isophane susp)) nitroglycerin 0.4 mg sublingual 0.4 mg sublingual Q5 MIN PRN X3 04/30/22 tablet (Nitrostat) PRN chest pain #25 tabs metoprolol tartrate 50 mg tablet 50 mg PO BID #180 tab-caps 08/26/22 atorvastatin 40 mg tablet (Lipitor) 40 mg PO DAILY #90 tab-caps 09/12/22 ferrous gluconate 324 mg (37.5 mg 324 mg PO DAILY #90 tabs 09/12/22 iron) tablet insulin lispro 200 unit/mL (3 mL) 5 - 20 unit (0.025 - 0.1 mL) 09/20/22 subcutaneous pen (Humalog KwikPen subcut TID #18 mL U-200 Insulin) pen needle, diabetic 32 gauge x #100 ea 09/25/22 (1st Tier Unifine Pentips) dulaglutide 1.5 mg/0.5 mL 1.5 mg (0.5 mL) subcut QWEEK #2 mL 11/27/22 subcutaneous pen injector (Trulicity) albuterol sulfate 90 mcg/actuation 1 - 2 puff inhalation Q4H PRN 12/17/22 aerosol inhaler (Ventolin HFA) shortness of breath or wheezing #8.5 grams linezolid 600 mg tablet (Zyvox) 600 mg PO Q12H 42 days #84 tabs 03/11/23 Allergies Allergy/AdvReac Type Severity Reaction Status Date / Time Penicillins Allergy Intermediate Itching, Verified 03/07/23 10:27 Swelling ciprofloxacin AdvReac Intermediate Dizziness/L Verified 03/07/23 10:27 ightheade Latex, Natural Rubber AdvReac Intermediate Skin Rash Verified 03/07/23 10:27 lisinopril AdvReac Intermediate cough Verified 03/07/23 10:27 metformin AdvReac Mild Diarrhea Verified 03/07/23 10:27 cephalexin AdvReac Intermediate Dizziness/L Uncoded 03/07/23 10:27 ightheade tylenol 3 AdvReac Intermediate tingling Uncoded 03/07/23 10:27 of tongue and lips General Stated Complaint: Cellulitis DAYA: 3 Review of Systems Constitutional Constitutional: Denies body ache(s), Denies chills and Denies fever(s) Cardiovascular Cardiovascular: Denies chest pain and Denies dyspnea Respiratory Respiratory: Denies dyspnea Gastrointestinal Gastrointestinal: Denies abdominal pain, Denies nausea and Denies vomiting Musculoskeletal Musculoskeletal: Reports numbness Integumentary/Breasts Skin/Breast: Reports as per HPI, Reports lesions, Reports non-healing lesions, Reports erythema and Reports skin ulcer Neurologic Neurologic: Reports numbness PFSH All Active Problems (Updated 03/11/23 @ 13:27 by Greg Shukla MD) MRSA cellulitis of right foot (Acute) Foreign body in right foot (Acute) Atrial fibrillation (Chronic) Osteomyelitis (Acute) Toe infection (Acute) Diabetes mellitus type 2 in obese (Acute) Hyperlipidemia (Chronic) Obstructive pyelonephritis (Acute) Kidney stone (Acute 03/17/12) Xanthogranulomatous pyelonephritis (Acute) Renal abscess (Acute) 03/02/20- [facility]; S/P DRAINAGE-KB Staphylococcus aureus bacteremia (Acute) DVT prophylaxis (Acute) UTI (urinary tract infection) (Acute) Discharge planning issues (Acute) Decubitus ulcer (Acute) Anemia (Chronic) Diabetic neuropathy (Chronic) with wound on 1st MTP left she will continue to see podiatry and will see him next week continue to check feet every day Hypertension (Chronic) Same meds avoid excess salt Type 2 diabetes mellitus with complications (Chronic 06/29/15) Other seasonal allergic rhinitis (Acute 06/01/15) 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) Diabetic retinopathy (Chronic) 03/14/14; OPTICAL EXPRESSIONS; INCREASED RETINOPATHY SINCE LAST VIST 10/09/21 MILD RETINOPATHY B/L 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/24 CABGX3 (TERRY TO LAD AND SVG DIAG AND OM2 Long-term insulin use in type 2 diabetes (Acute) Medical History Allergic rhinitis ASCVD (arteriosclerotic cardiovascular disease) Carpal tunnel syndrome of right wrist (02/28/15) Chronic cough Closed fracture of humerus (06/28/13) Diabetic foot ulcer with osteomyelitis (05/31/14) right second toe, distal amputation 05/29, [place] Diabetic neuropathy DM type 2 causing complication Essential hypertension Family history of malignant neoplasm of breast (11/01/14) Loss of sense of smell (11/01/14) and loss of taste MN (myocardial infarction) Myocardial infarction (01/14/12) 12/25 inferior MN, cath and stent at [facility] (EF 35%) Palliative care patient Pyelonephritis Pyelonephritis (08/04/12) LEFT HYDRONEPHROSIS AND DOUBLE COLLECTING SYSTEM 2013 surgery, Dr Peewee [facility] Wound abscess (11/25/17) Surgical History Abdominal hysterectomy 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 LANDEROS Cholecystectomy lap Coronary Artery Bypass Gaft (CABG) Coronary Stent [facility]-03/19/16 ERCP History of amputation History of coronary artery bypass surgery (03/21/16) Left heart Cath [facility]-03/19/16 Oophrectomy, Both Repair of bifurcated ureter of left kidney Shoulder replacement Status post coronary artery stent placement Stent placement WITH 2 BYPASS GRAFTS-[facility] Family History Mother , 72 Personal history of malignant neoplasm LUNG Father , 64 Personal history of malignant neoplasm LUNG Sister Personal history of malignant neoplasm BREAST Grandmother Diabetes Social History Smoking/Tobacco Use Status: Never Smoking risk assessment performed?: Yes Alcohol Intake: never Drug use: Never Substance use type: does not use Caregiver/Support person: No Household members: spouse Housing: house Communication Needs: Corrective Lenses Do you need help understanding health information?: Never Pets and animals: Yes Pets and animals: dog(s) Sexually active: No Do you think of yourself as: straight/heterosexual Current gender identity: female What is your relationship status?: How often do you talk on the phone with friends or family?: three or more times per week How often do you get together with friends or relatives?: twice per week How often do you attend jehovah's witness or yazdanism services?: 4 or more times per year Do you belong to any clubs or organized social groups?: yes Panel score (0-1 are the most socially isolated patients): 4 What type of physical activity do you participate in: none Frequency: does not exercise Chantal/Restorationism: Sikhism Special chantal needs: No Seatbelt use: always Helmet use: No Drive intox or ride w/intox jeep driver: No Do you feel safe at home: Yes Do you feel safe in your relationship?: Yes Additional Social history: Originally from [place], lives in her [place] with her Justin 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, 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 Exam Const General: cooperative, no acute distress and not ill appearing Orientation: alert, awake and oriented x3 HENMT Mouth: moist mucous membranes Resp Effort & Inspection: normal respiratory effort, able to speak in complete sentences and no respiratory distress Cardio Rate: regular rate Rhythm: regular rhythm Pulses: dorsalis pedis present Neuro General: patient alert, patient awake, patient oriented x3, moves all extremities and no focal motor deficits Sensory Exam: no sensory deficits noted Extrem Right lower extremity: ankle Details: edema Details: 2+ and foot Details: abnormal to inspection Details: erythematous, edema Location: diffusely Details: 2+, vascular exam Details: dorsalis pedis pulse present and normal capillary refill and other (Erythema and swelling to fifth toe with significant dorsal foot erythema) Course Vital Signs Vital signs: Vital Signs Temperature 37.1 C 03/07/23 11:09 Pulse 91 H 03/07/23 11:09 Respiratory Rate 18 03/07/23 11:09 Blood Pressure 163/57 H 03/07/23 11:09 Pulse Oximetry 99 03/07/23 11:09 Temperature 37.1 C 03/07/23 11:09 Temperature Source Oral 03/07/23 11:09 Pulse 91 H 03/07/23 11:09 Respiratory Rate 18 03/07/23 11:09 Respiratory Effort Normal 03/07/23 11:17 Blood Pressure 163/57 H 03/07/23 11:09 Blood Pressure Position Supine 03/07/23 11:09 Pulse Oximetry 99 03/07/23 11:09 Oxygen Delivery Method Room Air 03/07/23 11:09 Oxygen Flow Rate 0 03/07/23 11:09 Lab/Test Results Lab/Test Results: 03/07/23 11:20 Blood Blood Culture - Pending 03/07/23 11:20 Blood Blood Culture - Pending
--- NOTE | 2023-03-07 11:30 | DI.CT_ITS ---
Exam(s) CT LOWER EXTREMITY RT WO EXAM: CT LOWER EXTREMITY RT WO CLINICAL HISTORY: right foot infection. TECHNIQUE: Imaging Protocol: Axial computed tomography images with coronal and sagittal reformatted images were created and reviewed. COMPARISON: No exams were available for comparison FINDINGS: Bones: There are destructive changes seen in the middle phalanx of the little toe. There is soft ti ssue swelling of the 5th toe with subcutaneous air. Bony alignment is satisfactory. There are degen erative changes seen in the foot. No lytic or sclerotic lesions are identified. There is a 0.5 cm li near density which appears to be metallic in the soft tissues adjacent to the middle phalanx of the 5 th toe. This may represent a foreign body. Soft Tissues: Soft tissue swelling and subcutaneous air of the 5th toe. IMPRESSION: 1. Soft tissue swelling and subcutaneous air in the 5th toe with destructive changes involving the mi ddle phalanx suspicious for osteomyelitis. 2. 0.5 cm linear density within the air in soft tissue collection adjacent to the 5th toe. This may represent a foreign body. 3. Findings were discussed with Beni Salinas at 2:12 p.m. on 03/07/2023. RADIATION DOSE DELIVERED: 327.97mGy.cm Total DLP 327.97mGy.cm Total DLP DATA REPOSITORY: All CT scans at this facility are submitted to the National Radiology Data Registry (NRDR) Dose Index Registry (DIR) with the [employer] (A[employer]). RADIATION OPTIMIZATION: All CT scans at this facility use at least one of these dose optimization te chniques: automated exposure control; mA and/or kV adjustment per patient size (includes targeted exa ms where dose is matched to clinical indication); or iterative reconstruction.
[2023-03-07] MEDS: Acetaminophen 325 MG TAB 650 MG PO (11:47)
[2023-03-07] MEDS: VANCOMYCIN/WATER (PEG) 1.5 GM/300 ML BAG IVPB (11:48)
[2023-03-07 11:50] LABS: Lactate 2.3 mmol/L (0.6-1.4)
[2023-03-07 12:09] LABS: ALT 24 U/L (14-59); AST 30 U/L (15-37); Alkaline Phosphatase 100 U/L (46-116); Anion Gap 5.6 mmol/L (3-11); BUN 11 mg/dL (7-18); Bilirubin, Total 0.7 mg/dL (0.2-1.0); C-Reactive Protein 7.72 mg/dL (0.0-0.3); CO2 30.4 mmol/L (21.0-32.0); CREATININE 1.1 mg/dL (0.55-1.02); Chloride 100 mmol/L (98-107); Estimated GFR 52.08 (mL/min/1.73m2); Glucose 371 mg/dL (74-106); Magnesium 1.8 mg/dL (1.8-2.4); Potassium 4.2 mmol/L (3.5-5.1); Sodium 136 mmol/L (136-145); Total Protein 8.2 g/dL (6.4-8.2)
[2023-03-07 12:18] LABS: Abs Immature Grans 0.04 10^3/uL (0.0-0.06); Absolute Basophil Count 0.02 10^3/uL (0.0-0.2); Absolute Eosinophil Count 0.12 10^3/uL (0.0-0.7); Absolute Lymphocyte Count 1.05 10^3/uL (1.2-3.4); Absolute Monocyte Count 0.91 10^3/uL (0.1-0.8); Basophils % 0.3; Eosinophils % 1.6; HCT 38.5 % (36.0-46.0); HGB 12.3 g/dL (11.2-15.7); Immature Grans % 0.5; Lymphocytes % 14.1; MCH 28.3 pg (27.0-33.0); MCHC 31.9 % (32.0-36.0); MCV 89 fL (80-95); MPV 11.1 fL (8.0-11.0); Monocytes % 12.2; Neutrophils % 71.3; Platelet Count 152 10^3/uL (130-400); RBC 4.35 10^6/uL (3.93-5.22); RDW 13.7 % (11.7-14.6); RDW-SD 44.6 fL; WBC 7.44 10^3/uL (4.4-10.8)
[2023-03-07 12:20] LABS: ESR 35 mm/hr (0-30)
[2023-03-07 12:29] LABS: INR 1.1 (0.9-1.1); Prothrombin Time 10.7 sec (9.3-11.0)
[2023-03-07] MEDS: Insulin REGULAR-Human 100 UNITS/ML UNIT 15 UNITS SC (14:12)
[2023-03-07] MEDS: CEFEPIME 2 GM in Normal Saline 100 ML IVPB (14:12)
--- NOTE | 2023-03-07 14:39 | DI.RAD_ITS ---
Exam(s) XR FOOT RT LIMITED EXAM: XR FOOT RT LIMITED CLINICAL HISTORY: possible FB. TECHNIQUE: 2D digital imaging was performed of the right foot. Two images were obtained. AP, obliq ue and lateral views were obtained. COMPARISON: CR,XR XR TOE LT THIRD from 09/16/2019 FINDINGS: BONES: No acute fracture is present. No bony destructive lesion is seen. JOINTS: No dislocation present. SOFT TISSUE: The curvilinear density adjacent to the PIP joint of the 5th toe is a calcification. Th ere is promise swelling and gas in the soft tissues of the 5th toe. There is a 1 cm linear radiopaqu e density in the soft tissues on the plantar surface of the foot at the level of the distal 2nd and 3 rd metatarsals suspicious for foreign body. IMPRESSION: 1. Soft tissue swelling and subcutaneous gas of the 5th toe. Please refer to the CT scan of the foot from the same day. Findings on the CT scan or suggestive of osteomyelitis particularly involving th e middle phalanx of the 5th toe. 2. Density adjacent to the PIP joint of the 5th toes consistent with calcification. No foreign body. 3. There is a 1 cm foreign body in the soft tissues on the dorsum of the foot at the level of the dis ruth 2nd and 3rd metatarsals. 4. The findings were discussed with Beni Sailnas at 3 p.m. on 03/07/2023. DATA REPOSITORY: RADIATION DOSE DELIVERED:
[2023-03-07] MEDS: metroNIDAZOLE 500 MG/100 ML BAG 100 MG IVPB (15:06)
[2023-03-07] MEDS: Heparin 5,000 UNITS/ML VIAL 5000 UNITS SC ×2 (15:24→22:24)
[2023-03-07] MEDS: Insulin Aspart 300 UNITS/3 ML PEN SC (17:49)
--- NOTE | 2023-03-07 17:53 | HPE_ITS ---
Date of service: 03/07/23 Time of Service: 17:53 Assessment and Plan Assessment and plan (1) Osteomyelitis: Status: Acute Assessment and plan: R 5th digit middle phalynx. Cefepime, Vanc and Flagyl initiated. Obtain culture of drainage from the open area of the toe. When improved adequately to transition to oral antibiotic, will refer back to her check totaler for likely amputation. (2) Toe infection: Status: Acute Assessment and plan: As above. (3) Diabetes mellitus type 2 in obese: Status: Acute Assessment and plan: Cont NPH insulin at HS. She uses a sliding scale AC dosing of insulin at home but it appears to be too high of a dose for now given her current blood glucose. Will utilize moderate SS. (4) Cellulitis of right lower extremity: Status: Resolved Assessment and plan: Involvement of superficial cellulitis of the dorsum of the foot; source is open lesion on lateral 5th digit. As above. (5) Diabetic neuropathy: Status: Chronic Assessment and plan: No pain or sensation to touch at site of open area of right 5th digit or the foot. (6) Hypertension: Status: Chronic Assessment and plan: Cont metoprolol. Qualifiers: Hypertension type: essential hypertension Qualified Code(s): I10 - Essential (primary) hypertension (7) ASCVD (arteriosclerotic cardiovascular disease): Assessment and plan: No CP Cont aspirin, BB, statin. History of Present Illness History of Present Illness Chief Complaint: Right foot cellulitis Narrative: This is a 78 yo female with a PMH of DM2 on insulin, ASCVD, HTN, diabetic neuropathy, anemia. She noted a corn on the lateral 5th digit of the right foot appx 1 month ago. She saw podiatry (Dr Perales) and was prescribed an antibiotic. No improvement and saw her PCP (couldn't get in with her check totaler) on the day of this admission. She noted increased swelling and redness this AM. In the ED she was afebrile with a normal WBC count. CRP 7.72. On exam in ED there was noted purulent drainage from open wound on lateral right fifth digit, swelling of the digit and erythema onto the dorsum of the foot. CT of the right foot showed: 1. Soft tissue swelling and subcutaneous air in the 5th toe with destructive changes involving the middle phalanx suspicious for osteomyelitis. 2. 0.5 cm linear density within the air in soft tissue collection adjacent to the 5th toe.? This may represent a foreign body. Cefepime, Vancomycin and Flagyl initiated. Xray of the foot to further evaluate for a foreign body showed: Density adjacent to the PIP joint of the 5th toes consistent with calcification.? No foreign body. There is a 1 cm foreign body in the soft tissues on the dorsum of the foot at the level of the distal 2nd and 3rd metatarsals. Review of Systems All systems reviewed & are unremarkable except as noted in HPI and below PFSH All Active Problems (Updated 03/07/23 @ 18:36 by Mukul Garica MD) Atrial fibrillation (Chronic) Osteomyelitis (Acute) Toe infection (Acute) Diabetes mellitus type 2 in obese (Acute) Hyperlipidemia (Chronic) Obstructive pyelonephritis (Acute) Kidney stone (Acute 03/17/12) Xanthogranulomatous pyelonephritis (Acute) Renal abscess (Acute) 03/02/20- 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) Diabetic retinopathy (Chronic) 03/14/14; OPTICAL EXPRESSIONS; INCREASED RETINOPATHY SINCE LAST VIST 10/09/21 MILD RETINOPATHY B/L 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/24 CABGX3 (TERRY TO LAD AND SVG DIAG AND OM2 Long-term insulin use in type 2 diabetes (Acute) Medical History Allergic rhinitis ASCVD (arteriosclerotic cardiovascular disease) Carpal tunnel syndrome of right wrist (02/28/15) Chronic cough Closed fracture of humerus (06/28/13) Diabetic foot ulcer with osteomyelitis (05/31/14) right second toe, distal amputation 05/29, [place] Diabetic neuropathy DM type 2 causing complication Essential hypertension Family history of malignant neoplasm of breast (11/01/14) 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 [place] (EF 35%) Palliative care patient Pyelonephritis Pyelonephritis (08/04/12) LEFT HYDRONEPHROSIS AND DOUBLE COLLECTING SYSTEM 2013 surgery, Dr Peewee [facility] Wound abscess (11/25/17) Surgical History Abdominal hysterectomy 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 LANDEROS Cholecystectomy lap Coronary Artery Bypass Gaft (CABG) Coronary Stent [facility] [place]-03/19/16 ERCP History of amputation History of coronary artery bypass surgery (03/21/16) Left heart Cath [facility] [place]-03/19/16 Oophrectomy, Both Repair of bifurcated ureter of left kidney Shoulder replacement Status post coronary artery stent placement Stent placement WITH 2 BYPASS GRAFTS-[facility] [place] Family History Mother , 72 Personal history of malignant neoplasm LUNG Father , 64 Personal history of malignant neoplasm LUNG Sister Personal history of malignant neoplasm BREAST Grandmother Diabetes Social History Smoking/Tobacco Use Status: Never Smoking risk assessment performed?: Yes Alcohol Intake: never Drug use: Never Substance use type: does not use Caregiver/Support person: No Household members: spouse Housing: house Communication Needs: Corrective Lenses Do you need help understanding health information?: Never Pets and animals: Yes Pets and animals: dog(s) Sexually active: No Do you think of yourself as: straight/heterosexual Current gender identity: female What is your relationship status?: How often do you talk on the phone with friends or family?: three or more times per week How often do you get together with friends or relatives?: twice per week How often do you attend adventist or yazidism services?: 4 or more times per year Do you belong to any clubs or organized social groups?: yes Panel score (0-1 are the most socially isolated patients): 4 What type of physical activity do you participate in: none Frequency: does not exercise Chantal/Lutheran: Zoroastrian Special chantal needs: No Seatbelt use: always Helmet use: No Drive intox or ride w/intox chair car driver: No Do you feel safe at home: Yes Do you feel safe in your relationship?: Yes Additional Social history: Originally from [place], lives in her [place] with her Justin 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, 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 Meds Allergies and Home Medications Allergies Allergy/AdvReac Type Severity Reaction Status Date / Time Penicillins Allergy Intermediate Itching, Verified 03/07/23 10:27 Swelling ciprofloxacin AdvReac Intermediate Dizziness/L Verified 03/07/23 10:27 ightheade Latex, Natural Rubber AdvReac Intermediate Skin Rash Verified 03/07/23 10:27 lisinopril AdvReac Intermediate cough Verified 03/07/23 10:27 metformin AdvReac Mild Diarrhea Verified 03/07/23 10:27 cephalexin AdvReac Intermediate Dizziness/L Uncoded 03/07/23 10:27 ightheade tylenol 3 AdvReac Intermediate tingling Uncoded 03/07/23 10:27 of tongue and lips Home Medications Medication Instructions Recorded Confirmed Type acetaminophen 500 mg tablet 1 - 2 tab PO Q6H PRN PRN Pain 11/16/12 03/07/23 History (Tylenol Extra Strength) aspirin 81 mg tablet,delayed 81 mg PO DAILY 11/16/12 03/07/23 History release (Aspir-) calcium carbonate 600 mg calcium 1,200 mg PO BID 05/17/14 03/07/23 History (1,500 mg) tablet (Calcium) insulin syringe-needle U-100 1 mL #400 SYRGS 02/28/15 03/07/23 History 26 x 1/2 (BD Insulin Syringe) cetirizine 10 mg tablet (Zyrtec) 10 mg PO DAILY #90 tabs 11/07/15 03/07/23 History inhalational spacing device #1 ea 07/31/18 03/07/23 Rx (Aerochamber MV spacer) acidophilus 25 million 1 cap PO TID #90 tabs 03/12/20 03/07/23 Rx cell-pectin, citrus 100 mg tablet ascorbic acid (vitamin C) 500 mg 500 mg PO DAILY #20 tabs 03/12/20 03/07/23 Rx tablet (Vitamin C) fexofenadine 60 mg tablet 60 mg PO BID PRN Allergies #60 tabs 04/27/20 03/07/23 Rx insulin NPH isoph U-100 human 100 35 unit (0.35 mL) subcut QPM #30 mL 04/30/22 03/07/23 Rx unit/mL subcutaneous suspension (Humulin N NPH U-100 Insulin (isophane susp)) nitroglycerin 0.4 mg sublingual 0.4 mg sublingual Q5 MIN PRN X3 04/30/22 03/07/23 Rx tablet (Nitrostat) PRN chest pain #25 tabs metoprolol tartrate 50 mg tablet 50 mg PO BID #180 tab-caps 08/26/22 03/07/23 Rx atorvastatin 40 mg tablet (Lipitor) 40 mg PO DAILY #90 tab-caps 09/12/22 03/07/23 Rx ferrous gluconate 324 mg (37.5 mg 324 mg PO DAILY #90 tabs 09/12/22 03/07/23 Rx iron) tablet insulin lispro 200 unit/mL (3 mL) 5 - 20 unit (0.025 - 0.1 mL) 09/20/22 03/07/23 Rx subcutaneous pen (Humalog KwikPen subcut TID #18 mL U-200 Insulin) pen needle, diabetic 32 gauge x #100 ea 09/25/22 03/07/23 Rx 5/32 (1st Tier Unifine Pentips) dulaglutide 1.5 mg/0.5 mL 1.5 mg (0.5 mL) subcut QWEEK #2 mL 11/27/22 03/07/23 Rx subcutaneous pen injector (Trulicity) albuterol sulfate 90 mcg/actuation 1 - 2 puff inhalation Q4H PRN 12/17/22 03/07/23 Rx aerosol inhaler (Ventolin HFA) shortness of breath or wheezing #8.5 grams Exam Narrative Exam Narrative: Lying in bed. Conversant. Const General: cooperative, no acute distress and not ill appearing Orientation: alert, awake and oriented x3 HENMT Mouth: moist mucous membranes Eyes General: appearance normal, both eyes and all related structures Sclera: sclerae normal Resp Effort & Inspection: normal respiratory effort and able to speak in complete sentences Auscultation: clear to auscultation bilaterally Cardio Rate: regular rate Rhythm: regular rhythm GI Inspection: non-distended Palpation: soft and nontender Neuro General: patient alert, patient awake, patient oriented x3, moves all extremities and no focal motor deficits Extrem Right lower extremity: ankle Details: edema Details: 2+ and foot Details: abnormal to inspection Details: erythematous (Dorsum of foot. ), edema Location: diffusely Details: 2+, vascular exam Details: dorsalis pedis pulse present and normal capillary refill and other (Erythema and swelling to fifth toe with lateral open wound. Significant dorsal foot erythema. ) Psych Appearance: grossly normal Mental Status: mental status grossly normal Affect: normal affect Results Labs 03/07/23 12:10 03/07/23 11:38 Labs: Laboratory Results - last 24 hr 03/07/23 03/07/23 03/07/23 11:20 11:38 11:38 WBC RBC Hgb Hct MCV MCH MCHC RDW Plt Count MPV Immature Gran % Neutrophils % Band Neutrophils % Lymphocytes % Atypical Lymphs % Monocytes % Eosinophils % Basophils % Metamyelocytes % Myelocytes % Promyelocytes % Other Cells % Nucleated RBC % Absolute Neutrophils Absolute Lymphocytes Absolute Monocytes Absolute Eosinophils Absolute Basophils RBC Morphology Polychromasia Hypochromasia Poikilocytosis Basophilic Stippling Anisocytosis Microcytosis Macrocytosis Spherocytes Tear Drop Cells Ovalocytes Stomatocytes [place] Bodies [place] Cells/Echinocytes Acanthocytes (Spur) Schistocytes ESR PT Cancelled INR Cancelled VBG Lactate 2.3 H* Sodium 136 Potassium 4.2 Chloride 100 Carbon Dioxide 30.4 Anion Gap 5.6 BUN 11 Creatinine 1.1 H Est GFR (CKD-EPI 2020) 52.08 Glucose 371 H Calcium 9.0 Magnesium 1.8 Total Bilirubin 0.7 AST 30 ALT 24 Alkaline Phosphatase 100 C-Reactive Protein 7.72 H Total Protein 8.2 Albumin 3.0 L 03/07/23 03/07/23 03/07/23 11:38 11:38 12:10 WBC Cancelled 7.44 RBC Cancelled 4.35 Hgb Cancelled 12.3 Hct Cancelled 38.5 MCV Cancelled 89 MCH Cancelled 28.3 MCHC Cancelled 31.9 L RDW Cancelled 13.7 Plt Count Cancelled 152 MPV Cancelled 11.1 H Immature Gran % Cancelled 0.5 Neutrophils % Cancelled 71.3 Band Neutrophils % Cancelled Lymphocytes % Cancelled 14.1 Atypical Lymphs % Cancelled Monocytes % Cancelled 12.2 Eosinophils % Cancelled 1.6 Basophils % Cancelled 0.3 Metamyelocytes % Cancelled Myelocytes % Cancelled Promyelocytes % Cancelled Other Cells % Cancelled Nucleated RBC % Cancelled 0.0 Absolute Neutrophils Cancelled 5.30 Absolute Lymphocytes Cancelled 1.05 L Absolute Monocytes Cancelled 0.91 H Absolute Eosinophils Cancelled 0.12 Absolute Basophils Cancelled 0.02 RBC Morphology Cancelled Polychromasia Cancelled Hypochromasia Cancelled Poikilocytosis Cancelled Basophilic Stippling Cancelled Anisocytosis Cancelled Microcytosis Cancelled Macrocytosis Cancelled Spherocytes Cancelled Tear Drop Cells Cancelled Ovalocytes Cancelled Stomatocytes Cancelled [place] Bodies Cancelled [place] Cells/Echinocytes Cancelled Acanthocytes (Spur) Cancelled Schistocytes Cancelled ESR Cancelled PT INR VBG Lactate Sodium Potassium Chloride Carbon Dioxide Anion Gap BUN Creatinine Est GFR (CKD-EPI 2020) Glucose Calcium Magnesium Total Bilirubin AST ALT Alkaline Phosphatase C-Reactive Protein Total Protein Albumin 03/07/23 03/07/23 12:10 12:10 WBC RBC Hgb Hct MCV MCH MCHC RDW Plt Count MPV Immature Gran % Neutrophils % Band Neutrophils % Lymphocytes % Atypical Lymphs % Monocytes % Eosinophils % Basophils % Metamyelocytes % Myelocytes % Promyelocytes % Other Cells % Nucleated RBC % Absolute Neutrophils Absolute Lymphocytes Absolute Monocytes Absolute Eosinophils Absolute Basophils RBC Morphology Polychromasia Hypochromasia Poikilocytosis Basophilic Stippling Anisocytosis Microcytosis Macrocytosis Spherocytes Tear Drop Cells Ovalocytes Stomatocytes [place] Bodies [place] Cells/Echinocytes Acanthocytes (Spur) Schistocytes ESR 35 H PT 10.7 INR 1.1 VBG Lactate Sodium Potassium Chloride Carbon Dioxide Anion Gap BUN Creatinine Est GFR (CKD-EPI 2020) Glucose Calcium Magnesium Total Bilirubin AST ALT Alkaline Phosphatase C-Reactive Protein Total Protein Albumin Last Vital Signs Temp 36.8 C 03/07/23 17:07 Pulse 90 03/07/23 17:07 Resp 17 03/07/23 17:07 BP 118/69 03/07/23 17:07 Pulse Ox 94 03/07/23 17:07 Time Spent Time spent with Patient: 40-54 minutes Time was spent: preparing to see the patient(eg.review tests), obtaining and/or reviewing separately otained hiistory, ordering medications,tests, procedures, referring, communicating with other health home care provider, indepentently interpreting results and counseling the patient
[2023-03-07] MEDS: Insulin NPH-Human 300 UNITS/3 ML PEN 35 UNIT SC (22:23)
[2023-03-07] MEDS: Metoprolol 50 MG TAB PO (22:24)
[2023-03-08 00:44] VITALS: TEMP 38.1
[2023-03-08] MEDS: Acetaminophen 325 MG TAB PO (00:44)
[2023-03-08] MEDS: metroNIDAZOLE 500 MG/100 ML BAG 100 MG IVPB ×3 (00:46→15:56)
[2023-03-08] MEDS: Normal Saline 500 ML IV (00:47)
[2023-03-08 01:44] VITALS: TEMP 36.8
[2023-03-08] MEDS: CEFEPIME 2 GM in Normal Saline 100 ML IVPB ×2 (01:55→14:02)
[2023-03-08 07:38] VITALS: BP 107/63; PULSE 77; RESP 16; TEMP 36.9; O2SAT 94
[2023-03-08 07:39] LABS: Abs Immature Grans 0.02 10^3/uL (0.0-0.06); Absolute Basophil Count 0.01 10^3/uL (0.0-0.2); Absolute Eosinophil Count 0.28 10^3/uL (0.0-0.7); Absolute Monocyte Count 0.45 10^3/uL (0.1-0.8); Absolute Neutrophil Count 3.98 10^3/uL (1.2-6.7); Basophils % 0.2; Eosinophils % 5.1; HCT 37.6 % (36.0-46.0); HGB 12.4 g/dL (11.2-15.7); Immature Grans % 0.4; Lymphocytes % 14.4; MCV 88 fL (80-95); Monocytes % 8.1; Neutrophils % 71.8; Platelet Count 181 10^3/uL (130-400); RBC 4.28 10^6/uL (3.93-5.22); RDW 13.7 % (11.7-14.6); RDW-SD 44.2 fL; WBC 5.54 10^3/uL (4.4-10.8)
[2023-03-08 07:49] LABS: Anion Gap 8.2 mmol/L (3-11); BUN 10 mg/dL (7-18); CO2 25.8 mmol/L (21.0-32.0); Calcium 8.6 mg/dL (8.5-10.1); Chloride 104 mmol/L (98-107); Estimated GFR 58.39 (mL/min/1.73m2); Glucose 202 mg/dL (74-106); Potassium 3.6 mmol/L (3.5-5.1); Sodium 138 mmol/L (136-145)
[2023-03-08] MEDS: Aspirin E.C. 81 MG TABEC PO (09:21)
[2023-03-08] MEDS: Atorvastatin 40 MG TAB PO (09:21)
[2023-03-08] MEDS: Cetirizine 10 MG TAB PO (09:21)
[2023-03-08] MEDS: Metoprolol 50 MG TAB PO ×2 (09:21→20:22)
[2023-03-08] MEDS: Normal Saline 500 ML 100 ML IV (09:22)
[2023-03-08] MEDS: Heparin 5,000 UNITS/ML VIAL 5000 UNITS SC ×2 (09:22→15:57)
[2023-03-08] MEDS: Insulin Aspart 300 UNITS/3 ML PEN SC ×3 (09:33→16:51)
--- NOTE | 2023-03-08 10:03 | PGE_ITS ---
Date of Service Date of service: 03/08/23 Time of Service: 10:03 Assessment and Plan Assessment and plan (1) Osteomyelitis: Status: Acute Assessment and plan: R 5th digit middle phalynx. Cefepime, Vanc and Flagyl initiated. Culture of drainage from the open area of the toe pending. When improved adequately to transition to oral antibiotic, will refer back to her special needs librarian for likely amputation. Also with ulcerated lesion on dorsum of left middle toe; no drainage or loreta thema. Apply bactroban TIG. (2) Toe infection: Status: Acute Assessment and plan: As above. (3) Diabetes mellitus type 2 in obese: Status: Acute Assessment and plan: Cont NPH insulin at HS. She uses a sliding scale AC dosing of insulin at home but it appears to be too high of a dose for now given her current blood glucose. Initiated moderate SS initially; change to resistant. (4) Cellulitis of right lower extremity: Status: Resolved Assessment and plan: Involvement of superficial cellulitis of the dorsum of the foot; source is open lesion on lateral 5th digit. As above. (5) Diabetic neuropathy: Status: Chronic Assessment and plan: No pain or sensation to touch at site of open area of right 5th digit or the foot. (6) Hypertension: Status: Chronic Assessment and plan: Cont metoprolol. Qualifiers: Hypertension type: essential hypertension Qualified Code(s): I10 - Essential (primary) hypertension (7) ASCVD (arteriosclerotic cardiovascular disease): Assessment and plan: No CP Cont aspirin, BB, statin. Subjective Subjective Patient reports: afebrile; denies nausea, vomiting or shortness of breath Interval history since last seen: Describes some pain in the left foot into the leg. Exam Narrative Exam Narrative: Sitting in recliner. Const General: cooperative, no acute distress and not ill appearing Orientation: alert, awake and oriented x3 HENMT Mouth: moist mucous membranes Eyes General: appearance normal, both eyes and all related structures Sclera: sclerae normal Resp Effort & Inspection: normal respiratory effort and able to speak in complete sentences Auscultation: clear to auscultation bilaterally Cardio Rate: regular rate Rhythm: regular rhythm GI Inspection: non-distended Palpation: soft and nontender Neuro General: patient alert, patient awake, patient oriented x3, moves all extremities and no focal motor deficits Extrem Ankle/foot/toe images: 1. Open lesion w/o current drainage. 2. Dusky red erythema 3. lesion with eschar / no drainage or erythema. Psych Appearance: grossly normal Mental Status: mental status grossly normal Affect: normal affect Objective Last Vital Signs Temp 36.9 C 03/08/23 07:38 Pulse 77 03/08/23 07:38 Resp 16 03/08/23 07:38 BP 107/63 03/08/23 07:38 Pulse Ox 94 03/08/23 07:38 Laboratory Results - last 24 hr 03/07/23 03/07/23 03/07/23 11:20 11:38 11:38 WBC RBC Hgb Hct MCV MCH MCHC RDW Plt Count MPV Immature Gran % Neutrophils % Band Neutrophils % Lymphocytes % Atypical Lymphs % Monocytes % Eosinophils % Basophils % Metamyelocytes % Myelocytes % Promyelocytes % Other Cells % Nucleated RBC % Absolute Neutrophils Absolute Lymphocytes Absolute Monocytes Absolute Eosinophils Absolute Basophils RBC Morphology Polychromasia Hypochromasia Poikilocytosis Basophilic Stippling Anisocytosis Microcytosis Macrocytosis Spherocytes Tear Drop Cells Ovalocytes Stomatocytes [place] Bodies [place] Cells/Echinocytes Acanthocytes (Spur) Schistocytes ESR PT Cancelled INR Cancelled VBG Lactate 2.3 H* Sodium 136 Potassium 4.2 Chloride 100 Carbon Dioxide 30.4 Anion Gap 5.6 BUN 11 Creatinine 1.1 H Est GFR (CKD-EPI 2020) 52.08 Glucose 371 H Calcium 9.0 Magnesium 1.8 Total Bilirubin 0.7 AST 30 ALT 24 Alkaline Phosphatase 100 C-Reactive Protein 7.72 H Total Protein 8.2 Albumin 3.0 L 03/07/23 03/07/23 03/07/23 11:38 11:38 12:10 WBC Cancelled 7.44 RBC Cancelled 4.35 Hgb Cancelled 12.3 Hct Cancelled 38.5 MCV Cancelled 89 MCH Cancelled 28.3 MCHC Cancelled 31.9 L RDW Cancelled 13.7 Plt Count Cancelled 152 MPV Cancelled 11.1 H Immature Gran % Cancelled 0.5 Neutrophils % Cancelled 71.3 Band Neutrophils % Cancelled Lymphocytes % Cancelled 14.1 Atypical Lymphs % Cancelled Monocytes % Cancelled 12.2 Eosinophils % Cancelled 1.6 Basophils % Cancelled 0.3 Metamyelocytes % Cancelled Myelocytes % Cancelled Promyelocytes % Cancelled Other Cells % Cancelled Nucleated RBC % Cancelled 0.0 Absolute Neutrophils Cancelled 5.30 Absolute Lymphocytes Cancelled 1.05 L Absolute Monocytes Cancelled 0.91 H Absolute Eosinophils Cancelled 0.12 Absolute Basophils Cancelled 0.02 RBC Morphology Cancelled Polychromasia Cancelled Hypochromasia Cancelled Poikilocytosis Cancelled Basophilic Stippling Cancelled Anisocytosis Cancelled Microcytosis Cancelled Macrocytosis Cancelled Spherocytes Cancelled Tear Drop Cells Cancelled Ovalocytes Cancelled Stomatocytes Cancelled [place] Bodies Cancelled [place] Cells/Echinocytes Cancelled Acanthocytes ([place]) Cancelled Schistocytes Cancelled ESR Cancelled PT INR VBG Lactate Sodium Potassium Chloride Carbon Dioxide Anion Gap BUN Creatinine Est GFR (CKD-EPI 2020) Glucose Calcium Magnesium Total Bilirubin AST ALT Alkaline Phosphatase C-Reactive Protein Total Protein Albumin 03/07/23 03/07/23 03/08/23 12:10 12:10 06:17 WBC RBC Hgb Hct MCV MCH MCHC RDW Plt Count MPV Immature Gran % Neutrophils % Band Neutrophils % Lymphocytes % Atypical Lymphs % Monocytes % Eosinophils % Basophils % Metamyelocytes % Myelocytes % Promyelocytes % Other Cells % Nucleated RBC % Absolute Neutrophils Absolute Lymphocytes Absolute Monocytes Absolute Eosinophils Absolute Basophils RBC Morphology Polychromasia Hypochromasia Poikilocytosis Basophilic Stippling Anisocytosis Microcytosis Macrocytosis Spherocytes Tear Drop Cells Ovalocytes Stomatocytes [place] Bodies [place] Cells/Echinocytes Acanthocytes ([place]) Schistocytes ESR 35 H PT 10.7 INR 1.1 VBG Lactate Sodium 138 Potassium 3.6 Chloride 104 Carbon Dioxide 25.8 Anion Gap 8.2 BUN 10 Creatinine 1.0 Est GFR (CKD-EPI 2020) 58.39 Glucose 202 H Calcium 8.6 Magnesium Total Bilirubin AST ALT Alkaline Phosphatase C-Reactive Protein Total Protein Albumin 03/08/23 06:17 WBC 5.54 RBC 4.28 Hgb 12.4 Hct 37.6 MCV 88 MCH 29.0 MCHC 33.0 RDW 13.7 Plt Count 181 MPV 11.0 Immature Gran % 0.4 Neutrophils % 71.8 Band Neutrophils % Lymphocytes % 14.4 Atypical Lymphs % Monocytes % 8.1 Eosinophils % 5.1 Basophils % 0.2 Metamyelocytes % Myelocytes % Promyelocytes % Other Cells % Nucleated RBC % 0.0 Absolute Neutrophils 3.98 Absolute Lymphocytes 0.80 L Absolute Monocytes 0.45 Absolute Eosinophils 0.28 Absolute Basophils 0.01 RBC Morphology Polychromasia Hypochromasia Poikilocytosis Basophilic Stippling Anisocytosis Microcytosis Macrocytosis Spherocytes Tear Drop Cells Ovalocytes Stomatocytes [place] Bodies [place] Cells/Echinocytes Acanthocytes (Spur) Schistocytes ESR PT INR VBG Lactate Sodium Potassium Chloride Carbon Dioxide Anion Gap BUN Creatinine Est GFR (CKD-EPI 2020) Glucose Calcium Magnesium Total Bilirubin AST ALT Alkaline Phosphatase C-Reactive Protein Total Protein Albumin Time Spent with Patient Time Spent with Patient: 25-34 minutes Time was spent: preparing to see the patient(eg.review tests), obtaining and/or reviewing separately otained hiistory, ordering medications,tests, procedures, referring, communicating with other health career resource specialist, indepentently interpreting results and counseling the patient
[2023-03-08] MEDS: VANCOMYCIN/WATER (PEG) 1.5 GM/300 ML BAG IVPB (11:38)
[2023-03-08] MEDS: Mupirocin 2% 15 GM TUBE TP ×3 (11:38→20:01)
[2023-03-08] MEDS: Normal Saline Flush 10 ML SYR IVP ×2 (11:55→15:56)
[2023-03-08 15:16] VITALS: BP 109/65; PULSE 89; RESP 16; TEMP 37; O2SAT 97
[2023-03-08] MEDS: Insulin NPH-Human 300 UNITS/3 ML PEN 35 UNIT SC (20:25)
[2023-03-08 23:00] VITALS: BP 111/63; PULSE 72; RESP 18; TEMP 36.5; O2SAT 95
[2023-03-09] MEDS: Heparin 5,000 UNITS/ML VIAL 5000 UNITS SC ×3 (00:58→14:27)
[2023-03-09] MEDS: metroNIDAZOLE 500 MG/100 ML BAG 100 MG IVPB (01:54)
[2023-03-09] MEDS: CEFEPIME 2 GM in Normal Saline 100 ML IVPB (03:03)
[2023-03-09 07:30] VITALS: BP 106/47; PULSE 84; RESP 19; TEMP 36.7; O2SAT 94
[2023-03-09] MEDS: Mupirocin 2% 15 GM TUBE TP ×3 (07:45→19:42)
[2023-03-09] MEDS: Aspirin E.C. 81 MG TABEC PO (07:45)
[2023-03-09] MEDS: Cetirizine 10 MG TAB PO (07:45)
[2023-03-09] MEDS: Atorvastatin 40 MG TAB PO (07:45)
[2023-03-09] MEDS: Insulin Aspart 300 UNITS/3 ML PEN SC ×3 (07:45→17:26)
[2023-03-09] MEDS: Metoprolol 50 MG TAB PO ×2 (07:46→19:41)
[2023-03-09] MEDS: Normal Saline Flush 10 ML SYR IVP ×2 (09:45→11:52)
--- NOTE | 2023-03-09 10:18 | PHACLINREV_ITS ---
Pharmacy Admission Review Admission Clinical Review Admission Pharmacy Review: (Updated 03/07/23 @ 18:36 by Mukul Garcia MD) Osteomyelitis (Acute) Toe infection (Acute) Diabetes mellitus type 2 in obese (Acute) Penicillins Allergy (Intermediate, Verified 03/07/23 10:27) Itching, Swelling ciprofloxacin Adverse Reaction (Intermediate, Verified 03/07/23 10:27) Dizziness/Lightheade Latex, Natural Rubber Adverse Reaction (Intermediate, Verified 03/07/23 10:27) Skin Rash lisinopril Adverse Reaction (Intermediate, Verified 03/07/23 10:27) cough metformin Adverse Reaction (Mild, Verified 03/07/23 10:27) Diarrhea cephalexin Adverse Reaction (Intermediate, Uncoded 03/07/23 10:27) Dizziness/Lightheade tylenol 3 Adverse Reaction (Intermediate, Uncoded 03/07/23 10:27) tingling of tongue and lips Resuscitation Status Full Code Height 5 ft 4 in Weight 85.729 kg Comments Comments/Follow Ups: Osteo/Cellulitis, Foot wound sample culture: just resulted likely MRSA, De-escalated Anbx coverage, Fever overnight, WBC 5.5, pain zero Note: PCN allergy, does see senior production manager, failed outpt Bactrim Pharmacy Admission Review Renal Dosing Renal Dosing: BUN 10 mg/dL (7-18) 03/08/23 06:17 Creatinine 1.0 mg/dL (0.55-1.02) 03/08/23 06:17 CrCl~50ml/min Medications needing adjustments: Reviewed (Vanco being managed by pharmacy, Cef epime was renally adjusted (now dc'd)) Anticoagulation Anticoagulation: Hgb 12.4 g/dL (11.2-15.7) 03/08/23 06:17 Hct 37.6 % (36.0-46.0) 03/08/23 06:17 Plt Count 181 10^3/uL (130-400) 03/08/23 06:17 INR 1.1 (0.9-1.1) 03/07/23 12:10 Creatinine 1.0 mg/dL (0.55-1.02) 03/08/23 06:17 DVT Prophylaxis: Reviewed Medications: Heparin Relevant Labs Relevant Labs: ESR 35 mm/hr (0-30) H 03/07/23 12:10 Sodium 138 mmol/L (136-145) 03/08/23 06:17 Potassium 3.6 mmol/L (3.5-5.1) 03/08/23 06:17 Chloride 104 mmol/L (98-107) 03/08/23 06:17 Magnesium 1.8 mg/dL (1.8-2.4) 03/07/23 11:38 C-Reactive Protein 10.20 mg/dL (0.0-0.3) H 03/08/23 10:04 elevated Lactate, C-reactive increased, ESR elevated, electrolytes WNL DM Control DM Control: Poorly controlled, BG 202, HgA1c 7.3 Insulin Dosing: Reviewed (Aspart scale and NPH 35u QPM) Cardiac Review EF%, KEVIN's, B-Blockers, Diuretics: Reviewed (Metoprolol Tartrate with hold parameters) Home Meds Home Med List reviewed: Reviewed Relevent Home Meds Not ordered & why?: NTG SL, Ferrous Gluconate, Trulicity, Vit C-not needed for this admission Pharmacy Antibiotic Review Relevant Labs: Relevant Labs 03/08/23 10:04 C-Reactive Protein 10.20 H Pharmacy Antibiotic Activity: C/S review (Vanco trough ordered for 03/10/23 @ 11am, wound culture growing possible MRSA) Comments Comments/Follow Ups: Osteo/Cellulitis, Foot wound sample culture: just resulted likely MRSA, De-escalated Anbx coverage, Fever overnight, WBC 5.5, pain zero Note: PCN allergy, does see senior production manager, failed outpt Bactrim Antibiotic Activity Antibiotic Information Antibiotic Review Info: Vanco for wound culture growing MRSA...senstivities pending Antibiotic Review Antibiotic Information Antibiotic Review Info: Vanco for wound culture growing MRSA...senstivities pending
[2023-03-09 10:35] VITALS: BP 100/50; PULSE 78; RESP 18; TEMP 36.7; O2SAT 94
[2023-03-09] MEDS: Normal Saline 500 ML 100 ML IV (11:52)
[2023-03-09] MEDS: VANCOMYCIN/WATER (PEG) 1.5 GM/300 ML BAG IVPB (11:52)
[2023-03-09 15:36] VITALS: BP 119/74; PULSE 77; RESP 16; TEMP 36.5; O2SAT 97
--- NOTE | 2023-03-09 15:47 | INITIAL_ITS ---
Date of service: 03/09/23 Time of Service: 15:47 Care Management Initial Assmt Initial Assessment REASON FOR HOSPITALIZATION:: Cellulitis, Osteomyelitis PREVIOUS FUNCTIONAL STATUS/SOCIAL/FAMILY SUPPORTS:: Resides with , Justin, is independent at baseline and has supportive family, including daughter, Claudia ([phone]). 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 ADVANCE DIRECTIVES:: None on file Has patient been provided with info about the portal/API?: No Did the patient sign up for the portal?: No CODE STATUS:: Full Code INSURANCE COVERAGE / FINANCIAL ISSUES:: Lance THOMPSON CURRENT HOME/COMMUNITY SERVICES/EQUIPMENT:: Esthetician/Skin Therapist: [facility]; Dr. Perales PRIMARY CARE PHYSICIAN:: Manuelito Wilcox POTENTIAL DISCHARGE NEEDS:: Podiatry and wound follow up care in the community PATIENT/FAMILY EDUCATION NEEDS:: Review discharge instructions, discuss Ask Me Three. ANTICIPATED BARRIERS TO DISCHARGE:: None identified. TRANSPORTATION:: Via private vehicle with family PLAN:: Anticipate Kizzy will return home with outpatient follow up. She will follow up with her PCP and plan of care as prescribed. She will transport via private vehicle with her . PFSH All Active Problems (Updated 03/07/23 @ 18:36 by Mukul Garcia MD) Atrial fibrillation (Chronic) Osteomyelitis (Acute) Toe infection (Acute) Diabetes mellitus type 2 in obese (Acute) Hyperlipidemia (Chronic) Obstructive pyelonephritis (Acute) Kidney stone (Acute 03/17/12) Xanthogranulomatous pyelonephritis (Acute) Renal abscess (Acute) 03/02/20- [facility]; S/P DRAINAGE-KB Staphylococcus aureus bacteremia (Acute) DVT prophylaxis (Acute) UTI (urinary tract infection) (Acute) Discharge planning issues (Acute) Decubitus ulcer (Acute) Anemia (Chronic) Diabetic neuropathy (Chronic) with wound on 1st MTP left she will continue to see podiatry and will see him next week continue to check feet every day Hypertension (Chronic) Same meds avoid excess salt Type 2 diabetes mellitus with complications (Chronic 06/29/15) Other seasonal allergic rhinitis (Acute 06/01/15) 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) Diabetic retinopathy (Chronic) 03/14/14; OPTICAL EXPRESSIONS; INCREASED RETINOPATHY SINCE LAST VIST 10/09/21 MILD RETINOPATHY B/L 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/24 CABGX3 (TERRY TO LAD AND SVG DIAG AND OM2 Long-term insulin use in type 2 diabetes (Acute) Medical History Allergic rhinitis ASCVD (arteriosclerotic cardiovascular disease) Carpal tunnel syndrome of right wrist (02/28/15) Chronic cough Closed fracture of humerus (06/28/13) Diabetic foot ulcer with osteomyelitis (05/31/14) right second toe, distal amputation 05/29, Bouchra Diabetic neuropathy DM type 2 causing complication Essential hypertension Family history of malignant neoplasm of breast (11/01/14) Loss of sense of smell (11/01/14) and loss of taste [place] (myocardial infarction) Myocardial infarction (01/14/12) 12/25 inferior [place], cath and stent at [facility] (EF 35%) Palliative care patient Pyelonephritis Pyelonephritis (08/04/12) LEFT HYDRONEPHROSIS AND DOUBLE COLLECTING SYSTEM 2013 surgery, Dr Peewee Burgos Urology Wound abscess (11/25/17) Surgical History Abdominal hysterectomy 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 LANDEROS Cholecystectomy lap Coronary Artery Bypass Gaft (CABG) Coronary Stent [facility]-03/19/16 ERCP History of amputation History of coronary artery bypass surgery (03/21/16) Left heart Cath [facility]-03/19/16 Oophrectomy, Both Repair of bifurcated ureter of left kidney Shoulder replacement Status post coronary artery stent placement Stent placement WITH 2 BYPASS GRAFTS-[facility] Family History Mother , 72 Personal history of malignant neoplasm LUNG Father , 64 Personal history of malignant neoplasm LUNG Sister Personal history of malignant neoplasm BREAST Grandmother Diabetes Social History Smoking/Tobacco Use Status: Never Smoking risk assessment performed?: Yes Alcohol Intake: never Drug use: Never Substance use type: does not use Caregiver/Support person: No Household members: spouse Housing: house Communication Needs: Corrective Lenses Do you need help understanding health information?: Never Pets and animals: Yes Pets and animals: dog(s) Sexually active: No Do you think of yourself as: straight/heterosexual Current gender identity: female What is your relationship status?: How often do you talk on the phone with friends or family?: three or more times per week How often do you get together with friends or relatives?: twice per week How often do you attend quaker or moravian services?: 4 or more times per year Do you belong to any clubs or organized social groups?: yes Panel score (0-1 are the most socially isolated patients): 4 What type of physical activity do you participate in: none Frequency: does not exercise Chantal/Confucianist: Oriental Orthodox Special chantal needs: No Seatbelt use: always Helmet use: No Drive intox or ride w/intox regional otr company driver: No Do you feel safe at home: Yes Do you feel safe in your relationship?: Yes Additional Social history: Originally from [place], [place] [facility] [place] her Justin 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
--- NOTE | 2023-03-09 15:48 | PGE_ITS ---
Date of Service Date of service: 03/09/23 Time of Service: 15:54 Assessment and Plan Assessment and plan (1) Osteomyelitis: Status: Acute Assessment and plan: R 5th digit middle phalynx. Cefepime, Vanc and Flagyl initiated. Culture of drainage from the open area of the toe growing MRSA D/C cefepime and flagyl; cont. Vancomycin. Will see if linezolid is covered by her insurance. Will speak with her platform operations director, Dr Perales, regarding disposition. He is not in the office on Mondays but will call and see if a message can be left. Will likely require amputation of the toe. Also with ulcerated lesion on dorsum of left middle toe; no drainage or erythema. Apply bactroban TIG. (2) Toe infection: Status: Acute Assessment and plan: As above. (3) Diabetes mellitus type 2 in obese: Status: Acute Assessment and plan: Cont NPH insulin at HS. She uses a sliding scale AC dosing of insulin at home but it appears to be too high of a dose for now given her current blood glucose. Initiated moderate SS initially; changed to resistant. Cont evening NPH and add an am NPH dosage d/t elevated glucose at noon today. (4) Cellulitis of right lower extremity: Status: Resolved Assessment and plan: Involvement of superficial cellulitis of the dorsum of the foot; source is open lesion on lateral 5th digit. As above. (5) Diabetic neuropathy: Status: Chronic Assessment and plan: No pain or sensation to touch at site of open area of right 5th digit or the foot. (6) Hypertension: Status: Chronic Assessment and plan: Cont metoprolol. Qualifiers: Hypertension type: essential hypertension Qualified Code(s): I10 - Essential (primary) hypertension (7) ASCVD (arteriosclerotic cardiovascular disease): Assessment and plan: No CP Cont aspirin, BB, statin. Subjective Subjective Patient reports: no new complaints, tolerating a regular diet and afebrile; den ies nausea, vomiting or shortness of breath Exam Narrative Exam Narrative: Sitting in recliner. Pleasant and cooperative. Const General: cooperative, no acute distress and not ill appearing Orientation: alert, awake and oriented x3 HENMT Mouth: moist mucous membranes Eyes General: appearance normal, both eyes and all related structures Sclera: sclerae normal Resp Effort & Inspection: normal respiratory effort and able to speak in complete sentences Auscultation: clear to auscultation bilaterally Cardio Rate: regular rate Rhythm: regular rhythm GI Inspection: non-distended Palpation: soft and nontender Neuro General: patient alert, patient awake, patient oriented x3, moves all extremities and no focal motor deficits Extrem Ankle/foot/toe images: 1. Mepilex covering wound. 2. Dusky erythema that hasn't increased in area. Psych Appearance: grossly normal Mental Status: mental status grossly normal Affect: normal affect Objective Last Vital Signs Temp 36.5 C 03/09/23 15:36 Pulse 77 03/09/23 15:36 Resp 16 03/09/23 15:36 BP 119/74 03/09/23 15:36 Pulse Ox 97 03/09/23 15:36 Time Spent with Patient Time Spent with Patient: 25-34 minutes Time was spent: preparing to see the patient(eg.review tests), obtaining and/or reviewing separately otained hiistory, ordering medications,tests, procedures, referring, communicating with other health out of school hours care worker, indepentently interpreting results, counseling the patient and care coordination
[2023-03-09 19:35] VITALS: BP 114/51; PULSE 66; RESP 20; TEMP 36.4; O2SAT 98
[2023-03-09] MEDS: Insulin NPH-Human 300 UNITS/3 ML PEN 35 UNIT SC (19:41)
[2023-03-10 00:13] VITALS: BP 116/71; PULSE 75; RESP 18; TEMP 36.7; O2SAT 99
[2023-03-10 06:58] LABS: Abs Immature Grans 0.08 10^3/uL (0.0-0.06); Absolute Basophil Count 0.03 10^3/uL (0.0-0.2); Absolute Lymphocyte Count 1.04 10^3/uL (1.2-3.4); Absolute Monocyte Count 0.52 10^3/uL (0.1-0.8); Absolute Neutrophil Count 3.41 10^3/uL (1.2-6.7); Basophils % 0.5; Eosinophils % 7.3; HCT 35.2 % (36.0-46.0); HGB 11.5 g/dL (11.2-15.7); Immature Grans % 1.5; MCH 28.9 pg (27.0-33.0); MCHC 32.7 % (32.0-36.0); MCV 88 fL (80-95); MPV 10.7 fL (8.0-11.0); Monocytes % 9.5; Neutrophils % 62.2; Platelet Count 189 10^3/uL (130-400); RBC 3.98 10^6/uL (3.93-5.22); RDW 13.8 % (11.7-14.6); RDW-SD 44.7 fL; WBC 5.48 10^3/uL (4.4-10.8)
[2023-03-10 07:06] VITALS: BP 109/69; PULSE 76; RESP 16; TEMP 36.6; O2SAT 96
[2023-03-10 07:16] LABS: Anion Gap 9.9 mmol/L (3-11); BUN 19 mg/dL (7-18); C-Reactive Protein 4.74 mg/dL (0.0-0.3); CO2 25.1 mmol/L (21.0-32.0); CREATININE 1.2 mg/dL (0.55-1.02); Calcium 8.7 mg/dL (8.5-10.1); Chloride 105 mmol/L (98-107); Estimated GFR 46.91 (mL/min/1.73m2); Glucose 94 mg/dL (74-106); Potassium 3.5 mmol/L (3.5-5.1); Sodium 140 mmol/L (136-145)
[2023-03-10] MEDS: Cetirizine 10 MG TAB PO (09:01)
[2023-03-10] MEDS: Atorvastatin 40 MG TAB PO (09:01)
[2023-03-10] MEDS: Aspirin E.C. 81 MG TABEC PO (09:01)
[2023-03-10] MEDS: Metoprolol 50 MG TAB PO ×2 (09:02→21:35)
[2023-03-10] MEDS: Heparin 5,000 UNITS/ML VIAL 5000 UNITS SC ×4 (09:02→23:05)
[2023-03-10] MEDS: Mupirocin 2% 15 GM TUBE TP (09:02)
[2023-03-10] MEDS: Normal Saline Flush 10 ML SYR IVP ×2 (09:03→14:37)
[2023-03-10] MEDS: Insulin NPH-Human 300 UNITS/3 ML PEN 15 UNIT SC (09:12)
--- NOTE | 2023-03-10 10:44 | IN_ITS ---
Date of service: 03/10/23 Time of Service: 09:18 PT Notes Visit Reasons: Cellulitis, Osteomyelitis Physical Therapy Inpatient Initial Evaluation Date: 03/10/2023 Referring Doctor: Mukul Garcia MD PT Orders: PT CONSULT: Eval/Treat Precautions: Fall. Standard. WBAT on B LE without AD. Post-op shoes on when OOB. Patient Profile/Admitting Diagnosis: Patient is a 78-year-old female who presented to the Ed on 03/07/2023 due to suspected right foot infection. Patient is admitted for management of right fifth digit middle phalanx osteomyelitis that is MRSA positive, diabetes DM type II, cellulitis of right LE, diabetic neuropathy, hypertension, and ASCVD. PMHX: All Active Problems?(Updated 03/07/23 @ 18:36 by Mukul Garcia MD) Atrial fibrillation (Chronic) Osteomyelitis (Acute) Toe infection (Acute) Diabetes mellitus type 2 in obese (Acute) Hyperlipidemia (Chronic) Obstructive pyelonephritis (Acute) Kidney stone (Acute 03/17/12) Xanthogranulomatous pyelonephritis (Acute) Renal abscess (Acute) 03/02/20- [facility] S/P DRAINAGE-KB Staphylococcus aureus bacteremia (Acute) DVT prophylaxis (Acute) UTI (urinary tract infection) (Acute) Discharge planning issues (Acute) Decubitus ulcer (Acute) Anemia (Chronic) Diabetic neuropathy (Chronic) with wound on 1st MTP left she will continue to see podiatry and will see him next week continue to check feet every dayHypertension (Chronic) Same meds avoid excess salt Type 2 diabetes mellitus with complications (Chronic 06/29/15) Other seasonal allergic rhinitis (Acute 06/01/15) 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 MILD RETINOPATHY B/L 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/24 CABGX3 (TERRY TO LAD AND SVG DIAG AND OM2 Long-term insulin use in type 2 diabetes (Acute) Medical History? Allergic rhinitis ASCVD (arteriosclerotic cardiovascular disease) Carpal tunnel syndrome of right wrist (02/28/15) Chronic cough Closed fracture of humerus (06/28/13) Diabetic foot ulcer with osteomyelitis (05/31/14) right second toe, distal amputation 05/29, Bouchra Diabetic neuropathy DM type 2 causing complication Essential hypertension Family history of malignant neoplasm of breast (11/01/14) Loss of sense of smell (11/01/14) and loss of taste [place] (myocardial infarction) Myocardial infarction (01/14/12) 12/25 inferior [place], cath and stent at [facility] (EF 35%) Palliative care patient Pyelonephritis Pyelonephritis (08/04/12) LEFT HYDRONEPHROSIS AND DOUBLE COLLECTING SYSTEM 2013 surgery, Dr Peewee Burgos Urology Wound abscess (11/25/17) Surgical History? Abdominal hysterectomy 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 LANDEROS Cholecystectomy lap Coronary Artery Bypass Gaft (CABG) Coronary Stent [facility]16ERCP History of amputation History of coronary artery bypass surgery (03/21/16) Left heart Cath [facility]-03/19/16 Oophrectomy, Both Repair of bifurcated ureter of left kidney Shoulder replacement Status post coronary artery stent placement Stent placement WITH 2 BYPASS GRAFTS-[facility] Social History/Home Situation: Lives with in a private home with one-step. Independent with all aspects of ADLs prior to admission. Equipment Owned/DME: None Subjective: States that she has been moving inside her room with no assistance. Agreeable to ensuring that her right foot is protected by wearing postop shoes until she is seen by bead preparer. States that left foot is not doing as much, okay with use of the postop shoes on the left side. Seated on bedside chair Objective: General Observation: Seated on bedside chair Mental Status: Alert and oriented as to person, place, time, and purpose. Able to pay attention, focus, and respond appropriately. Pain: Denies Vital Signs: WNL as closely monitored by nursing staff ROM: Right Upper Extremity: Shoulder Flexion WFL. Shoulder abduction WFL. Elbow flexion WFL. Wrist flexion WFL. Functional opening and closing of hand WFL. Left Upper Extremity: Shoulder Flexion WFL. Shoulder abduction WFL. Elbow flexion WFL. Wrist flexion WFL. Functional opening and closing of hand WFL. Right Lower Extremity: Hip flexion WFL. Hip abduction WFL. Knee flexion WFL. Ankle dorsiflexion WFL. Ankle plantarflexion WFL. IP on R 5th toe NT. Left Lower Extremity: Hip flexion WFL. Hip abduction WFL. Knee flexion WFL. Ankle dorsiflexion WFL. Ankle plantarflexion WFL. IP on L toes WFL. Strength: Right Upper Extremity: Shoulder flexors 4/5. Shoulder abductors 4/5. Elbow flexors 5/5. Elbow extensors 5/5. Plasterer Stucco strong. Left Upper Extremity: Shoulder flexors 4/5. Shoulder abductors 4/5. Elbow flexors 5/5. Elbow extensors 5/5. Plasterer Stucco strong. Right Lower Extremity: Hip flexors 4/5. Hip abductors 4/5. Knee flexors 4/5. Knee extensors 5/5. Ankle dorsiflexors 3/5. Ankle plantarflexors 3/5. IPs 3/5. Left Lower Extremity: Hip flexors 4/5. Hip abductors 4/5. Knee flexors 4/5. Knee extensors 5/5. Ankle dorsiflexors 3/5. Ankle plantarflexors 3/5. IPs 1st-4th toes 3/5. IPs 5th toe NT. Bed Mobility/Transfers: Rolling independent Supine to sit independent Sit to supine independent Sit to stand independent Stand to sit independent Bed to reclining chair independent Reclining chair to bed independent Gait: Instructed patient with level surface ambulation of 150 feet requiring superv ision assist. Alee decreased. Step height decreased. Step length decreased. New post op shoes trial worked well for patient today. No ambulatory walking device needed. No LOB. No SOB. THERA EX/ROOM EX: Seated marches x 10 LAQs x 10 Ankle Df/PF x 10 Balance: Static Sitting: Normal Dynamic Sitting: Normal Static Standing: Good Dynamic Standing: good Special Tests: Mobility Limitations Standardized Measure [facility] AM-PAC 6 clicks Basic Mobility Inpatient Short Form: Raw Score: 24 CMS Score: 0% deficit Informed Consent/Education: Patient was instructed in purpose of PT consult and plan of care. Agreeable to proceed with established PT POC to achieve personal goals. Assessment: Trialled new post-op shoes to prevent further skin breakdown while awaiting podiatry consult. Will be reassessed for post-op re-evalauation should toe/foot surgery is warranted. Patient is assessed as a 47642 low complexity based on the following: History: 78-year-old female with past medical history as indicated above Examination:As above Presentation: Stable Decision Makin low complexity Goals: Goals X1 week 1. Independent gait on level surface with use of no AD for at least 300 feet without report of pain nor dyspnea 2. Independent stair negotiation while holding onto B rails for at least 3 steps without report of pain nor dyspnea 3. Independent with home exercise program 4. Good static and dynamic standing balance/tolerance Plan of Care/Treatment Plan: 1x/day, 3 days/week x 2 weeks. Plan of care has been reviewed with the INVENTORY CONTROL PLANNER providing the service under Physical Therapy direction. Initiate Physical Therapy intervention for pain management as needed, strengthening, bed mobility, transfers, gait, stairs, balance training, and use of assistive device. DISCHARGE RECOMMENDATIONS: [X] Home with no service. HOme when medically cleared by hospitalist. [] Home with services [specify] [] Home with outpatient PT [] [] SNF for continued rehabilitation [] [] Jail Care [] [] SNF versus LTC based on ability to participate and progress [] TREATMENT CODE/TIME: 71931 x 15 minutes, 79012 x 26 minutes beginning at 9:18 AM. Thank you for the opportunity to participate in the care of this patient. Tracie Thompson PT, DPT, CLT [facility] [place], [place]
[2023-03-10 11:30] LABS: Vancomycin, Trough 15.3 ug/mL (10.0-20.0)
[2023-03-10] MEDS: VANCOMYCIN/WATER (PEG) 1.5 GM/300 ML BAG IVPB (12:11)
--- NOTE | 2023-03-10 14:43 | CMPROGNOTE_ITS ---
Date of service: 03/10/23 Time of Service: 14:43 Care Management Progress Note Progress Note Text Progress Note Text: S/O: Kizzy was sitting in her chair when CM met with her. She is awake and easy to engage in conversation. Dr. Garcia is contacting Drapery Operator at [facility] (Dr. Perales) to discuss disposition recommendations, which may require toe amputation. CM will check to see if linezolid is covered by her insurance, once RX is sent to her pharmacy.. CM will continue to follow. A: 78 year old female admitted to [facility] on 03/07/23 for Cellulitis, Osteomyelitis P: Kizzy may need to transfer to [facility] or tertiary facility for a toe amputation. Anticipate, she will return home on PO abx with New [facility] RN/PT services (if indicated) when medically ready per provider. She will follow up with her PCP, [facility]. Podiatry (Dr. Perales) and plan of care as prescribed. She will transport via private vehicle with her . CM will continue to support discharge planning.
[2023-03-10] MEDS: Collagenase 30 GM TUBE TP (14:47)
--- NOTE | 2023-03-10 15:14 | WOUNDCONS ---
- If Service Date Differs Date of service: 03/10/23 Time of Service: 13:00 Wound Initial Evaluation Narrative: This is a 78 year old female with diabetes with peripheral neuropathy. She does not routinely inspect her feet. Her is the one who normally assist her with her socks and shoes. She has been seeing a Hand Plug Shaper in [place] but he is currently not available. She had been treated with Amoxicillin for 10 days for a toe infection on the right 5th toe. However, on Friday of last week her noted that the toe was draining purulent exudate and that the top of the foot was stop sign red and hot. She attempted to call her Hand Plug Shaper and her PCP on Friday but neither one was available, therefore she presented to the ED. The CT scan of the foot shows: IMPRESSION: 1. Soft tissue swelling and subcutaneous air in the 5th toe with destructive changes involving the middle phalanx suspicious for osteomyelitis. 2. 0.5 cm linear density within the air in soft tissue collection adjacent to the 5th toe. This may represent a foreign body. A plain xray of the foot also showed a possible foreign body. IMPRESSION: 1. Soft tissue swelling and subcutaneous gas of the 5th toe. Please refer to the CT scan of the foot from the same day. Findings on the CT scan or suggestive of osteomyelitis particularly involving the middle phalanx of the 5th toe. 2. Density adjacent to the PIP joint of the 5th toes consistent with calcification. No foreign body. 3. There is a 1 cm foreign body in the soft tissues on the dorsum of the foot at the level of the distal 2nd and 3rd metatarsals. Labs: WBC has been within normal range since admission. Lactate 2.0 CRP from 10.2 to 4.74 Has been getting vancomycin for MRSA positive culture. Trough level 15.3 Blood cultures are negative. Patient history: Atrial fibrillation (Chronic) Osteomyelitis (Acute) Toe infection (Acute) Diabetes mellitus type 2 in obese (Acute) Hyperlipidemia (Chronic) Obstructive pyelonephritis (Acute) Kidney stone (Acute 03/17/12) Xanthogranulomatous pyelonephritis (Acute) Renal abscess (Acute) 03[place]02/20[place] [facility] [place]P DRAINAGE-KB Staphylococcus aureus bacteremia (Acute) DVT prophylaxis (Acute) UTI (urinary tract infection) (Acute) Discharge planning issues (Acute) Decubitus ulcer (Acute) Anemia (Chronic) Diabetic neuropathy (Chronic) with wound on 1st MTP left she will continue to see podiatry and will see him next week continue to check feet every day Hypertension (Chronic) Same meds avoid excess salt Type 2 diabetes mellitus with complications (Chronic 06/29/15) Other seasonal allergic rhinitis (Acute 06/01/15) 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) Diabetic retinopathy (Chronic) 03/14/14; OPTICAL EXPRESSIONS; INCREASED RETINOPATHY SINCE LAST VIST 10/09/21 MILD RETINOPATHY B/L 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/24 CABGX3 (TERRY TO LAD AND SVG DIAG AND OM2 Long-term insulin use in type 2 diabetes (Acute) Medical History Allergic rhinitis ASCVD (arteriosclerotic cardiovascular disease) Carpal tunnel syndrome of right wrist (02/28/15) Chronic cough Closed fracture of humerus (06/28/13) Diabetic foot ulcer with osteomyelitis (05/31/14) right second toe, distal amputation 05/29, [place] Diabetic neuropathy DM type 2 causing complication Essential hypertension Family history of malignant neoplasm of breast (11/01/14) Loss of sense of smell (11/01/14) and loss of taste [place] (myocardial infarction) Myocardial infarction (01/14/12) 12/25 inferior [place], cath and stent at [facility] [place] (EF 35%) Palliative care patient Pyelonephritis Pyelonephritis (08/04/12) LEFT HYDRONEPHROSIS AND DOUBLE COLLECTING SYSTEM 2013 surgery, Dr Peewee [facility] Wound abscess (11/25/17) Surgical History Abdominal hysterectomy 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 LANDEROS Cholecystectomy lap Coronary Artery Bypass G[place] (CABG) Coronary Stent [facility] [place] ERCP History of amputation History of coronary artery bypass surgery (03/21/16) Left heart Cath [facility] [place]19[place]16 Oophrectomy, Both Repair of bifurcated ureter of left kidney Shoulder replacement Status post coronary artery stent placement Stent placement WITH 2 BYPASS GRAFTS[place] [place] Body Four View: 1 - right 5th toe 2 - Left third toe - Wound Right 5th metatarsal Wound Type: Maceration, Diabetic Ulcer, Partial Thickness Wound General Appearance: Open to air, Reddened, Unapproximated, Other (yellow slough, peeling skin) Wound Bed Greatest Portion: Blanched/Dull, Yellow (Slough) Wound Bed Lesser Portion: Dusky Red Wound Surrounding Tissue Appearance: [place], Edematous-pitting Percent of Wound Bed Granulated/Red: 20 Percent of Wound Bed Slough/Yellow: 80 Percent of Wound Bed Eschar/Black: 0 Wound Length: 1.18 in (3.0 cm) Wound Width: 0.47 in (1.2cm) Wound Depth: 0.08 in (0.2cm) Wound Drainage Amount: Minimal Wound Drainage Odor: None/Absent Wound Drainage Description: Bloody Wound Topical Solution/Irrigant: Saline Irrigant Wound Debridement Method: Forceps, Other (scissors, debrisoft sponge) Wound Debridement Result: Healthy Tissue Revealed, Yellow Sloughing Remains Wound Debridement Amount of Tissue Removed: Moderate Additional Other Comments: Remove devitalized and nonviable peeling skin from toe and top of foot. Left third toe Wound Type: Diabetic Ulcer Wound General Appearance: Open to air, Unapproximated Wound Bed Greatest Portion: Dusky Red Wound Bed Lesser Portion: Yellow (Slough) Wound Surrounding Tissue Appearance: [place] Percent of Wound Bed Granulated/Red: 0 Percent of Wound Bed Slough/Yellow: 100 Percent of Wound Bed Eschar/Black: 0 Wound Length: 0.39 in (1cm) Wound Width: 0.2 in (0.5cm) Wound Depth: 0.04 in (0.1cm) Wound Drainage Amount: None Wound Drainage Odor: None/Absent Wound Drainage Description: No drainage Additional Other Comments: No debridement as top layer of yellow slough is intact. - Circulation, Sensation, Motion Edema Degree: 3+ (ankle edema) Peripheral Pulse Strength: Normal Capillary Refill: Greater than 3 seconds Sensation Description: Numbness Skin Temperature: Warm Skin Color: Pale - DONNA Left DONNA: 1.14 Right DONNA: 1.04 Blood Pressure: 145/57 Pulse: 58 - Pain Pain Level: 0 Pain Scale Used: Adult Pain Description: Numbness Remove nonviable detacted tissue from right 5th toe. Still present is attached nonviable tissue. Pt states that her diabetic shoes were old and needed replacement. Didn't realize the impact on her feet until this toe became infected. Has new shoes ordered. Discussed daily inpection of her feet. - Photo Photo: - Treatment/Dressing Change Topicals/Ointments: Santyl Cleanse With: Saline Dressing Types: Mepilex w/Border - Nutrition Education Reviewed Nutrition Education: Yes Note: Discussed the importance of blood sugar control and increased protein for wound healing. - Recomendation Recomendation:: Right 5th toe: 1. Clean the wound with sterile saline. 2. Pat dry. 3. Apply nickel thick santyl gel to the open areas of the toe. 4. Apply a mepilex dressing with border to the toe. 5. Change daily and prn. Left 3rd toe: 1. Clean the wound with sterile saline. 2. Pat dry. 3. Apply nickel thick santyl gel to the open areas of the toe. 4. Apply a mepilex dressing with border to the toe. 5. Change daily and prn. Keep feet elevated while in bed or in recliner. Make sure footwear is well fitting. Physcian/Nurse Practioner Notified: Yes Referrals: Dietary (Provider plans to contact patient's Hand Plug Shaper once they are available. ), Podiatry Treatment Time - Time Total Time Spent with Patient: 90 minutes - Patient Will be Seen Weekly Treatment: daily - For: For:: 2 weeks
[2023-03-10 15:43] VITALS: BP 106/65; PULSE 72; RESP 16; TEMP 36.6; O2SAT 95
[2023-03-10 15:59] VITALS: BP 145/57; PULSE 58
--- NOTE | 2023-03-10 16:55 | W.PM.PROGNOT ---
Date of Service Date of service: 03/10/23 Time of Service: 16:55 Assessment and Plan Assessment and plan (1) Osteomyelitis: Status: Acute Assessment and plan: R 5th digit middle phalynx. Cefepime, Vanc and Flagyl initiated. Culture of drainage from the open area of the toe growing MRSA D/C cefepime and flagyl; cont. Vancomycin. Will see if linezolid is covered by her insurance. Will speak with her shredded filler cutter operator, Dr Perales, regarding disposition. Left message at his office. He is not in the office on Mondays. Will likely require amputation of the toe. Also with ulcerated lesion on dorsum of left middle toe; no drainage or erythema. Apply bactroban TIG. (2) Toe infection: Status: Acute Assessment and plan: As above. (3) Diabetes mellitus type 2 in obese: Status: Acute Assessment and plan: Cont NPH insulin at HS. She uses a sliding scale AC dosing of insulin at home but it appears to be too high of a dose for now given her current blood glucose. Initiated moderate SS initially; changed to resistant. Cont evening NPH and add an am NPH dosage d/t elevated glucose at noon today. (4) Cellulitis of right lower extremity: Status: Resolved Assessment and plan: Involvement of superficial cellulitis of the dorsum of the foot; source is open lesion on lateral 5th digit. Source likely the wound on the 5th digit. She does also have a foreign body in the dorsum of the foot; looks like a small needle. As above. (5) Diabetic neuropathy: Status: Chronic Assessment and plan: No pain or sensation to touch at site of open area of right 5th digit or the foot. (6) Hypertension: Status: Chronic Assessment and plan: Cont metoprolol. Qualifiers: Hypertension type: essential hypertension Qualified Code(s): I10 - Essential (primary) hypertension (7) ASCVD (arteriosclerotic cardiovascular disease): Assessment and plan: No CP Cont aspirin, BB, statin. Subjective Subjective Patient reports: no new complaints, tolerating a regular diet and afebrile; denies nausea, vomiting or shortness of breath Exam Narrative Exam Narrative: Sitting in recliner. Pleasant and cooperative. Const General: cooperative, no acute distress and not ill appearing Orientation: alert, awake and oriented x3 HENMT Mouth: moist mucous membranes Eyes General: appearance normal, both eyes and all related structures Sclera: sclerae normal Resp Effort & Inspection: normal respiratory effort and able to speak in complete sentences Auscultation: clear to auscultation bilaterally Cardio Rate: regular rate Rhythm: regular rhythm GI Inspection: non-distended Palpation: soft and nontender Neuro General: patient alert, patient awake, patient oriented x3, moves all extremities and no focal motor deficits Extrem Ankle/foot/toe images: 1. Swollen, macerated. open wound with small amount of drainage. 2. Dusky erythema. Psych Appearance: grossly normal Mental Status: mental status grossly normal Affect: normal affect Objective Last Vital Signs Temp 36.6 C 03/10/23 15:43 Pulse 72 03/10/23 15:43 Resp 16 03/10/23 15:43 BP 145/57 H 03/10/23 15:59 Pulse Ox 95 03/10/23 15:43 Laboratory Results - last 24 hr 03/10/23 03/10/23 03/10/23 06:05 06:05 11:08 WBC 5.48 RBC 3.98 Hgb 11.5 Hct 35.2 L MCV 88 MCH 28.9 MCHC 32.7 RDW 13.8 Plt Count 189 MPV 10.7 Immature Gran % 1.5 Neutrophils % 62.2 Lymphocytes % 19.0 Monocytes % 9.5 Eosinophils % 7.3 Basophils % 0.5 Nucleated RBC % 0.0 Absolute Neutrophils 3.41 Absolute Lymphocytes 1.04 L Absolute Monocytes 0.52 Absolute Eosinophils 0.40 Absolute Basophils 0.03 Sodium 140 Potassium 3.5 Chloride 105 Carbon Dioxide 25.1 Anion Gap 9.9 BUN 19 H Creatinine 1.2 H Est GFR (CKD-EPI 2020) 46.91 Glucose 94 Calcium 8.7 C-Reactive Protein 4.74 H Vancomycin Trough 15.3 Time Spent with Patient Time Spent with Patient: 25-34 minutes Time was spent: preparing to see the patient(eg.review tests), obtaining and/or reviewing separately otained hiistory, ordering medications,tests, procedures, referring, communicating with other health caregiver services home, indepentently interpreting results and counseling the patient
[2023-03-10] MEDS: Insulin Aspart 300 UNITS/3 ML PEN SC (17:20)
[2023-03-10] MEDS: Insulin NPH-Human 300 UNITS/3 ML PEN 35 UNIT SC (21:34)
[2023-03-10 21:35] VITALS: BP 116/70; PULSE 72; RESP 18; O2SAT 95
[2023-03-11 06:26] LABS: Anion Gap 8.7 mmol/L (3-11); BUN 19 mg/dL (7-18); CO2 24.3 mmol/L (21.0-32.0); CREATININE 1.2 mg/dL (0.55-1.02); Calcium 8.5 mg/dL (8.5-10.1); Chloride 106 mmol/L (98-107); Estimated GFR 46.91 (mL/min/1.73m2); Glucose 139 mg/dL (74-106); Potassium 3.8 mmol/L (3.5-5.1); Sodium 139 mmol/L (136-145)
[2023-03-11 07:16] VITALS: BP 113/69; PULSE 81; RESP 17; TEMP 36.9; O2SAT 96
[2023-03-11] MEDS: Atorvastatin 40 MG TAB PO (07:32)
[2023-03-11] MEDS: Metoprolol 50 MG TAB PO (07:32)
[2023-03-11] MEDS: Cetirizine 10 MG TAB PO (07:32)
[2023-03-11] MEDS: Furosemide 20 MG/2 ML VIAL IVP (07:33)
[2023-03-11] MEDS: Aspirin E.C. 81 MG TABEC PO (07:33)
[2023-03-11] MEDS: Insulin NPH-Human 300 UNITS/3 ML PEN 15 UNIT SC (07:35)
[2023-03-11] MEDS: Insulin Aspart 300 UNITS/3 ML PEN SC ×2 (07:36→12:17)
[2023-03-11] MEDS: Collagenase 30 GM TUBE TP (07:37)
[2023-03-11] MEDS: VANCOMYCIN/WATER (PEG) 1.5 GM/300 ML BAG IVPB (12:16)
--- NOTE | 2023-03-11 13:19 | W.PM.DS.N ---
Date of service: 03/11/23 Time of Service: 13:19 DS: Diagnosis Discharge Diagnosis (1) Osteomyelitis: Status: Acute Asessment and Plan: Patient is a 78-year-old female with past medical history of type 2 diabetes mellitus requiring insulin, ASCVD, HTN, diabetic neuropathy who reports she developed a corn on the lateral fifth digit of her right foot about a month ago. She is followed by her plumbing warehouse helper Dr. Perales at [facility] and would feel [place]. She was previously prescribed an antibiotic by her plumbing warehouse helper but when it did not improve she saw her PCP on 03/07/2023 as she allegedly cannot get into see her plumbing warehouse helper that day. She was complained of increased swelling redness and pain over the dorsum of her right foot and her right fifth toe. In the ED she had routine lab work and xray of her right foot and subsequent CT w/out contrast of her right lower extremity. Blood cultures were obtained and came back no growth to date. Xray of her right foot demonstrated the following: IMPRESSION: 1. Soft tissue swelling and subcutaneous gas of the 5th toe. Please refer to the CT scan of the foot from the same day. Findings on the CT scan or suggestive of osteomyelitis particularly involving the middle phalanx of the 5th toe. 2. Density adjacent to the PIP joint of the 5th toes consistent with calcification. No foreign body. 3. There is a 1 cm foreign body in the soft tissues on the dorsum of the foot at the level of the distal 2nd and 3rd metatarsals. 4. The findings were discussed with Beni Salinas at 3 p.m. on 03/07/2023. CT scan of the RLE w/out contrast demonstrated the followoing: IMPRESSION: 1. Soft tissue swelling and subcutaneous air in the 5th toe with destructive changes involving the middle phalanx suspicious for osteomyelitis. 2. 0.5 cm linear density within the air in soft tissue collection adjacent to the 5th toe. This may represent a foreign body. 3. Findings were discussed with Beni Salinas at 2:12 p.m. on 03/07/2023. Patient did not have leukocytosis or fever on admission but developed low grade fever of 38.1 on the mica machine operator of 03/08. She was begun on vancomycin iv dosed per pharmacy ( after intial loading dose of 1.5 gm given while in the ED. MRSA screen was negative from her nares but her wound culture grew MRSA from the surface wound Wound care nurse consult was obtained on 03/10 and patient wa found to have not only the right 5th toe wound w/ gas pocket and purulent discharge from the proximal phalanx but also a developing ulcer over the left 3rd toe which was superficial. See wound care nurses recommendations below: (see her full consult note from 03/10 for details of exam and treatment provided. Recomendation:: Right 5th toe: 1. Clean the wound with sterile saline. 2. Pat dry. 3. Apply nickel thick santyl gel to the open areas of the toe. 4. Apply a mepilex dressing with border to the toe. 5. Change daily and prn. Left 3rd toe: 1. Clean the wound with sterile saline. 2. Pat dry. 3. Apply nickel thick santyl gel to the open areas of the toe. 4. Apply a mepilex dressing with border to the toe. 5. Change daily and prn. Keep feet elevated while in bed or in recliner. Make sure footwear is well fitting. As we have no podiatry here at [facility] and our surgeons do not operate on feet, it was recommended that patient follow up w/ her plumbing warehouse helper, Dr. Perales in the near future. We secured an appointment for tomorrow 03/12. Patient will be discharged home on 6 week course of Zyvox 600 mg bid. As her pharmacy could not get the Rx filled today, two doses were given to the patient from our pharmacy for her to take home. (2) Toe infection: Status: Acute (3) MRSA cellulitis of right foot: Status: Acute (4) Foreign body in right foot: Status: Acute (5) Diabetes mellitus type 2 in obese: Status: Acute (6) Cellulitis of right lower extremity: Status: Resolved Asessment and Plan: suspected FB in the right foot near the 5th toe. Patient has osteomyelitis of the right 5th toe and an ulcer over the dorsum of the 5th toe. Wound culture is positive for MRSA (7) Diabetic neuropathy: Status: Chronic Discharge Plan Disposition Patient Disposition: Home Condition: Improving Discharge Details Reason For Visit: Cellulitis, Osteomyelitis Admit Date/Time: 03/07/23 14:31 Admit Provider: Mukul Garcia Attending Provider: Mukul Garcia Primary Care Provider: Manuelito Wilcox Home Meds and New Rx's Prescriptions: New linezolid [Zyvox] 600 mg tablet 600 mg PO Q12H 42 Days Qty: 84 0RF Continued Trulicity 1.5 mg/0.5 mL pen injector 1.5 mg subcut QWEEK Qty: 2 11RF Humulin N NPH U-100 Insulin 100 unit/mL suspension 35 unit SC QPM Qty: 30 4RF nitroglycerin [Nitrostat] 0.4 mg tablet, sublingual 0.4 mg Sublingual Q5 MIN PRN X3 PRN (Reason: chest pain) Qty: 25 0RF Rx Instructions: 1 TAB SL Q5MIN PRN X 3 (DME) BD Insulin Syringe 1 EACH syringe 1 syringe Sub-Q DIRECTED Qty: 400 Rx Instructions: 0.5ML X 31G 8MM SHORT NEEDLE, USE WITH INSULIN DIRECTED cetirizine [Zyrtec] 10 MG tablet 10 mg PO DAILY Qty: 90 Hold Instructions: Home Medication placed on hold at Doctor's office (DME) Aerochambcatherine MV spacer See Dose Instructions .Route .MEDSUPPLY Qty: 1 0RF Dose Instruction: As directed Rx Instructions: As directed fexofenadine 60 mg tablet 60 mg PO BID PRN (Reason: Allergies) Qty: 60 5RF metoprolol tartrate 50 mg tablet 50 mg PO BID Qty: 180 4RF Rx Instructions: 1 TAB BID atorvastatin [Lipitor] 40 mg tablet 40 mg PO DAILY Qty: 90 3RF ferrous gluconate 324 mg (37.5 mg iron) tablet 324 mg PO DAILY Qty: 90 3RF Humalog KwikPen Insulin 200 unit/mL (3 mL) insulin pen 5 - 20 unit subcut TID Qty: 18 8RF (DME) pen needle, diabetic [1st Tier Unifine Pentips] 32 gauge x 5/32 needle See Rx Instructions .Route Qty: 100 11RF Rx Instructions: test TID albuterol sulfate [Ventolin HFA] 90 mcg/actuation HFA aerosol inhaler 1 - 2 puff IH Q4H PRN (Reason: shortness of breath or wheezing) Qty: 8.5 2RF aspirin [Aspir-81] 81 MG tablet,delayed release (DR/EC) 81 mg PO DAILY acetaminophen [Tylenol Extra Strength] 500 MG tablet 1 - 2 tab PO Q6H PRN PRN (Reason: Pain) Patient Comments: has not taken recently 05/17/14 calcium carbonate [Calcium 600] 600 MG tablet 1,200 mg PO BID ascorbic acid (vitamin C) [Vitamin C] 500 mg Tablet 500 mg PO DAILY Qty: 20 0RF acidophilus-pectin, citrus 25 million cell -100 mg Tablet 1 cap PO TID Qty: 90 0RF Discharge Instructions Instructions: Osteomyelitis (DC), Linezolid (By mouth) Referrals: [facility] [Outside] - 03/12/23 1:00 pm (Dr Perales Podiatry ) Manuelito Wilcox MD [Primary Care Provider] - 03/19/23 1:15 pm Activity:: Activity as Tolerated Equipment/Supplies:: No Equipment Needed Diet:: Carb Counting Discharge Orders Discharge Orders: Discharge Order (Routine); Ordered 03/11/23 Ordered By: Greg Shukla DS: Summary Time Spent with Patient providing and/or coordinating discharge services: Greater than 30 minutes Status at Discharge Functional status at discharge: independent ambulation Overall status at discharge: patient is not back to baseline Mental Status: mental status grossly normal Speech and Movement: speech and movement normal Mood: congruent mood Affect: normal affect Exam Narrative Exam Narrative: Kizzy is sitting up at the bedside. She is wearing a postop shoe on her right foot. The dorsum of the right foot is slightly erythematous but the coloration is fading, the right 5th toe has purulent ulcer over the dorsum at the proximal phalanx; pedal pulses are intact albeit diminished; there is no pain w/ palpation and no crepitus over the dorsum of her right foot and no pain w/ dorsiflexion or plantar flexion of the foot Psych Mental Status: mental status grossly normal Speech and Movement: speech and movement normal Mood: congruent mood Affect: normal affect DS: Data Vitals/I&O Vitals and I&O: Vital Signs Temperature 36.9 C 03/11/23 07:16 Temperature Source Tympanic 03/11/23 07:16 Pulse 81 03/11/23 07:16 Pulse Rhythm Regular 03/11/23 08:00 Pulse 58 L 03/10/23 15:59 Respiratory Rate 17 03/11/23 07:16 Respiratory Effort Normal, Non-Labored 03/11/23 08:00 Respiratory Depth Normal 03/11/23 08:00 Respiratory Pattern Normal 03/11/23 08:00 Blood Pressure 113/69 03/11/23 07:16 Blood Pressure Mean 72 03/07/23 16:00 Blood Pressure Position Supine 03/07/23 11:09 Pulse Oximetry 96 03/11/23 07:16 Oxygen Delivery Method Room Air 03/11/23 07:16 Oxygen Flow Rate 0 03/11/23 07:16 Pain Level 0 03/11/23 08:00 Comment Pt. asleep at this time. Pt. doesn't display any s/s of pain at this time. RN aware of pt.'s BP. 03/09/23 11:09 Intake & Output 03/10/23 03/11/23 03/11/23 23:59 11:59 23:59 Intake Total 310 / 310 Balance 310 / 310 Intake: IV 310 / 310 Other: Urine Appearance Clear Sediment Voiding Methods Toilet Data Completed and Pending Completed studies during hospitalization [Text1]: CT scan of the right lower extremity w/out contrast: demonstrated the following: IMPRESSION: 1. Soft tissue swelling and subcutaneous air in the 5th toe with destructive changes involving the middle phalanx suspicious for osteomyelitis. 2. 0.5 cm linear density within the air in soft tissue collection adjacent to the 5th toe.? This may represent a foreign body. 3. Findings were discussed with Beni Salinas at 2:12 p.m. on 03/07/2023 Right foot xray done 03/07 demonstrated the following: IMPRESSION: 1. Soft tissue swelling and subcutaneous gas of the 5th toe.? Please refer to the CT scan of the foot from the same day.? Findings on the CT scan or suggestive of osteomyelitis particularly involving the middle phalanx of the 5th toe. 2. Density adjacent to the PIP joint of the 5th toes consistent with calcification.? No foreign body. 3. There is a 1 cm foreign body in the soft tissues on the dorsum of the foot at the level of the distal 2nd and 3rd metatarsals. 4. The findings were discussed with Beni Salinas at 3 p.m. on 03/07/2023. Labs on day of discharge: Labs from last 24 hours 03/11/23 05:49 Sodium 139 Potassium 3.8 Chloride 106 Carbon Dioxide 24.3 Anion Gap 8.7 BUN 19 H Creatinine 1.2 H Est GFR (CKD-EPI 2020) 46.91 Glucose 139 H Calcium 8.5 Preliminary micro results at discharge 03/07/23 11:38 Blood Culture - Preliminary Blood NO GROWTH 72 HOURS 03/07/23 11:40 Blood Culture - Preliminary Blood NO GROWTH 72 HOURS PFSH All Active Problems (Updated 03/11/23 @ 13:27 by Greg Shukla MD) MRSA cellulitis of right foot (Acute) Foreign body in right foot (Acute) Atrial fibrillation (Chronic) Osteomyelitis (Acute) Toe infection (Acute) Diabetes mellitus type 2 in obese (Acute) Hyperlipidemia (Chronic) Obstructive pyelonephritis (Acute) Kidney stone (Acute 03/17/12) Xanthogranulomatous pyelonephritis (Acute) Renal abscess (Acute) 03/02/20- [facility] [place]; S/P DRAINAGE-KB Staphylococcus aureus bacteremia (Acute) DVT prophylaxis (Acute) UTI (urinary tract infection) (Acute) Discharge planning issues (Acute) Decubitus ulcer (Acute) Anemia (Chronic) Diabetic neuropathy (Chronic) with wound on 1st MTP left she will continue to see podiatry and will see him next week continue to check feet every day Hypertension (Chronic) Same meds avoid excess salt Type 2 diabetes mellitus with complications (Chronic 06/29/15) Other seasonal allergic rhinitis (Acute 06/01/15) 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) Diabetic retinopathy (Chronic) 03/14/14; OPTICAL EXPRESSIONS; INCREASED RETINOPATHY SINCE LAST VIST 10/09/21 MILD RETINOPATHY B/L 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/24 CABGX3 (TERRY TO LAD AND SVG DIAG AND OM2 Long-term insulin use in type 2 diabetes (Acute) Medical History Allergic rhinitis ASCVD (arteriosclerotic cardiovascular disease) Carpal tunnel syndrome of right wrist (02/28/15) Chronic cough Closed fracture of humerus (06/28/13) Diabetic foot ulcer with osteomyelitis (05/31/14) right second toe, distal amputation 05/29, [place]ouchra Diabetic neuropathy DM type 2 causing complication Essential hypertension Family history of malignant neoplasm of breast (11/01/14) Loss of sense of smell (11/01/14) and loss of taste SD (myocardial infarction) Myocardial infarction (01/14/12) 12/25 inferior SD, cath and stent at [facility] [place] (EF 35%) Palliative care patient Pyelonephritis Pyelonephritis (08/04/12) LEFT HYDRONEPHROSIS AND DOUBLE COLLECTING SYSTEM 2013 surgery, Dr Peewee Burgos Urology Wound abscess (11/25/17) Surgical History Abdominal hysterectomy 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 LANDEROS Cholecystectomy lap Coronary Artery Bypass Gaft (CABG) Coronary Stent [facility] [place]-03/19/16 ERCP History of amputation History of coronary artery bypass surgery (03/21/16) Left heart Cath [facility] [place]-03/19/16 Oophrectomy, Both Repair of bifurcated ureter of left kidney Shoulder replacement Status post coronary artery stent placement Stent placement WITH 2 BYPASS GRAFTS-[facility] [place] Family History Mother , 72 Personal history of malignant neoplasm LUNG Father , 64 Personal history of malignant neoplasm LUNG Sister Personal history of malignant neoplasm BREAST Grandmother Diabetes Social History Smoking/Tobacco Use Status: Never Smoking risk assessment performed?: Yes Alcohol Intake: never Drug use: Never Substance use type: does not use Caregiver/Support person: No Household members: spouse Housing: house Communication Needs: Corrective Lenses Do you need help understanding health information?: Never Pets and animals: Yes Pets and animals: dog(s) Sexually active: No Do you think of yourself as: straight/heterosexual Current gender identity: female What is your relationship status?: How often do you talk on the phone with friends or family?: three or more times per week How often do you get together with friends or relatives?: twice per week How often do you attend nondenominational or restoration services?: 4 or more times per year Do you belong to any clubs or organized social groups?: yes Panel score (0-1 are the most socially isolated patients): 4 What type of physical activity do you participate in: none Frequency: does not exercise Chantal/Sabianism: Jewish Special chantal needs: No Seatbelt use: always Helmet use: No Drive intox or ride w/intox stage driver: No Do you feel safe at home: Yes Do you feel safe in your relationship?: Yes Additional Social history: Originally from [place], lives in her [place] with her Justin 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
--- NOTE | 2023-03-11 14:29 | CMDISCH_ITS ---
Date of service: 03/11/23 Time of Service: 13:00 LACE Index Scoring Tool Questions: Length of Stay (in days): 4 - 6 Was the patient admitted via the E.D.?: Yes Comorbidities: Diabetes w/o Complication and with End Organ Damage E.D. Visits: 1 Answers: Total Score: 11 Risk of Readmission: High Risk Care Management Discharge Plan Reason for Hospitalization: Cellulitis, Osteomyelitis Discharge Plan: Kizzy is discharged home via private vehicle with family. She will follow up with outpatient providers and discharge plan of care as instructed. She will follow up with [facility]/Podiatry and her PCP, as scheduled. [facility] was unable verify insurance coverage for Linezolid, prior to discharge. Kizzy is instructed to notify CM, if any problems picking up the RX. No HH services are ordered prior to discharge. Patient/Family Education Needs: Review discharge instructions, limitations, medications and plan to follow up with outpatient providers. Discuss ask me three and goals of self care.
--- NOTE | 2023-03-11 14:35 | CHAPLAIN ---
Kizzy was resting in bed when I visited this morning. Her is the coffee break attendant at the [facility]. We had a brief visit. I introduced myself and offered support. Kizzy was discharged later in the day.
--- NOTE | 2023-03-14 09:11 | INDS_ITS ---
Date of service: 03/11/23 PT Notes Visit Reasons: Cellulitis, Osteomyelitis Physical Therapy Inpatient Discharge Summary Date: 03/10/2023 Dates of Service: 03/10/2023 only Referring Doctor:? Mukul Garcia? PT Orders: PT CONSULT: Eval/Treat Precautions: Fall. Standard.? WBAT on B LE without AD.? Post-op shoes on when OOB. Patient Profile/Admitting Diagnosis:? Patient is a 78-year-old female who presented to the Ed on 03/07/2023 due to suspected right foot infection.? Patient is admitted for management of right fifth digit middle phalanx osteomyelitis that is MRSA positive, diabetes DM type II, cellulitis of right LE, diabetic neuropathy, hypertension, and ASCVD. PMHX: All Active Problems?(Updated 03/07/23 @ 18:36 by Mukul Garcia MD) Atrial fibrillation (Chronic) Osteomyelitis (Acute) Toe infection (Acute) Diabetes mellitus type 2 in obese (Acute) Hyperlipidemia (Chronic) Obstructive pyelonephritis (Acute) Kidney stone (Acute 03/17/12) Xanthogranulomatous pyelonephritis (Acute) Renal abscess (Acute) 03/02/20- [facility] [place]; S/P DRAINAGE-KB Staphylococcus aureus bacteremia (Acute) DVT prophylaxis (Acute) UTI (urinary tract infection) (Acute) Discharge planning issues (Acute) Decubitus ulcer (Acute) Anemia (Chronic) Diabetic neuropathy (Chronic) with wound on 1st MTP left she will continue to see podiatry and will see him next week continue to check feet every dayHypertension (Chronic) Same meds avoid excess salt Type 2 diabetes mellitus with complications (Chronic 06/29/15) Other seasonal allergic rhinitis (Acute 06/01/15) 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 MILD RETINOPATHY B/L 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/24 CABGX3 (TERRY TO LAD AND SVG DIAG AND OM2 Long-term insulin use in type 2 diabetes (Acute) Medical History? Allergic rhinitis ASCVD (arteriosclerotic cardiovascular disease) Carpal tunnel syndrome of right wrist (02/28/15) Chronic cough Closed fracture of humerus (06/28/13) Diabetic foot ulcer with osteomyelitis (05/31/14) right second toe, distal amputation 05/29, Bouchra Diabetic neuropathy DM type 2 causing complication Essential hypertension Family history of malignant neoplasm of breast (11/01/14) Loss of sense of smell (11/01/14) and loss of taste OR (myocardial infarction) Myocardial infarction (01/14/12) 12/25 inferior OR, cath and stent at [facility] [place] (EF 35%) Palliative care patient Pyelonephritis Pyelonephritis (08/04/12) LEFT HYDRONEPHROSIS AND DOUBLE COLLECTING SYSTEM 2013 surgery, Dr Peewee Burgos Urology Wound abscess (11/25/17) Surgical History? Abdominal hysterectomy 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 LANDEROS Cholecystectomy lap Coronary Artery Bypass Gaft (CABG) Coronary Stent [facility] [place]-03/19/16ERCP History of amputation History of coronary artery bypass surgery (03/21/16) Left heart Cath [facility] [place]-03/19/16 Oophrectomy, Both Repair of bifurcated ureter of left kidney Shoulder replacement Status post coronary artery stent placement Stent placement WITH 2 BYPASS GRAFTS-[facility] [place] Social History/Home Situation: Lives with in a private home with one-step.? Independent with all aspects of ADLs prior to admission. Equipment Owned/DME: None Subjective: States that she has been moving inside her room with no assistance.? Agreeable to ensuring that her right foot is protected by wearing postop shoes until she is seen by mothers helper.? States that left foot is not doing as much, okay with use of the postop shoes on the left side.? Seated on bedside chair Objective: General Observation: Seated on bedside chair Mental Status: Alert and oriented as to person, place, time, and purpose. Able to pay attention, focus, and respond appropriately. Pain: Denies Vital Signs: WNL as closely monitored by nursing staff ROM: Right Upper Extremity: ? Shoulder Flexion WFL. Shoulder abduction WFL. Elbow flexion WFL. Wrist flexion WFL. Functional opening and closing of hand WFL. Left Upper Extremity:? Shoulder Flexion WFL. Shoulder abduction WFL. Elbow flexion WFL. Wrist flexion WFL. Functional opening and closing of hand WFL. Right Lower Extremity: Hip flexion WFL. Hip abduction WFL. Knee flexion WFL. Ankle dorsiflexion WFL. Ankle plantarflexion WFL.??IP on R 5th toe NT. Left Lower Extremity: Hip flexion WFL. Hip abduction WFL. Knee flexion WFL. Ankle dorsiflexion WFL. Ankle plantarflexion WFL. IP on L toes WFL. Strength: Right Upper Extremity: Shoulder flexors 4/5. Shoulder abductors 4/5. Elbow flexors 5/5. Elbow extensors 5/5. Dictionary Editor strong. Left Upper Extremity: Shoulder flexors 4/5. Shoulder abductors 4/5. Elbow flexors 5/5. Elbow extensors 5/5. Dictionary Editor strong. Right Lower Extremity: Hip flexors 4/5. Hip abductors 4/5. Knee flexors 4/5. Knee extensors 5/5. Ankle dorsiflexors 3/5. Ankle plantarflexors 3/5.?IPs 3/5. Left Lower Extremity: Hip flexors 4/5. Hip abductors 4/5. Knee flexors 4/5. Knee extensors 5/5. Ankle dorsiflexors 3/5. Ankle plantarflexors 3/5.?IPs 1st-4th toes 3/5.? IPs 5th toe NT. Bed Mobility/Transfers: Rolling independent Supine to sit independent Sit to supine independent Sit to stand independent Stand to sit independent Bed to reclining chair independent Reclining chair to bed independent Gait: Instructed patient with level surface ambulation of 150 feet requiring supervision assist. Alee decreased. Step height decreased. Step length decreased.? New post op shoes trial worked well for patient today.? No ambulatory walking device needed.? No LOB.? No SOB. THERA EX/ROOM EX: Seated marches x 10 LAQs x 10 Ankle Df/PF x 10 Balance: Static Sitting: Normal Dynamic Sitting: Normal Static Standing: Good Dynamic Standing: Good Assessment: Post op shoes provided for patient to ensure continued protection of skin in B feet until he is seen by the mothers helper. Goals: Goals X1 week 1. Independent gait on level surface with use of no AD for at least 300 feet without report of pain nor dyspnea Not applicable at this time 2. Independent stair negotiation while holding onto B rails for at least 3 steps without report of pain nor dyspnea MET 3. Independent with home exercise program MET 4. Good static and dynamic standing balance/tolerance MET DISCHARGE RECOMMENDATIONS: [X] ? Home with no service.? HOme when medically cleared by hospitalist. [] ? Home with services [specify] [] ? Home with outpatient PT [] [] ? SNF for continued rehabilitation [] [] ? Intermediate Care [] [] ? SNF versus LTC based on ability to participate and progress [] TREATMENT CODE/TIME: HI Thank you for the opportunity to participate in the care of this patient. Tracie Thompson PT, DPT, CLT [facility] [place], [place]
== END 2023-03-11 14:13 | disposition home or self-care (01) | DRG 638 ==
LOC: ER 14:26 → MS 16:47
PROVIDERS: Admitting Provider Family Medicine; Emergency Provider Nurse Practitioner Family; PCP Family Medicine; Visit Provider Family Medicine
DX: E11.69 Type 2 diabetes mellitus with other specified complication (principal); L03.115 Cellulitis of right lower limb; M86.8X7 Other osteomyelitis, ankle and foot; E11.42 Type 2 diabetes mellitus with diabetic polyneuropathy; Z79.4 Long term (current) use of insulin; I48.91 Unspecified atrial fibrillation; B95.62 Methicillin resistant Staphylococcus aureus infection as the cause of diseases classified elsewhere; E66.9 Obesity, unspecified; Z68.32 Body mass index [BMI] 32.0-32.9, adult; E78.5 Hyperlipidemia, unspecified; D64.9 Anemia, unspecified; I10 Essential (primary) hypertension; E11.319 Type 2 diabetes mellitus with unspecified diabetic retinopathy without macular edema; I25.10 Atherosclerotic heart disease of native coronary artery without angina pectoris; Z95.1 Presence of aortocoronary bypass graft; I25.2 Old myocardial infarction; Z95.5 Presence of coronary angioplasty implant and graft; E11.621 Type 2 diabetes mellitus with foot ulcer; L97.529 Non-pressure chronic ulcer of other part of left foot with unspecified severity; L97.511 Non-pressure chronic ulcer of other part of right foot limited to breakdown of skin; M79.5 Residual foreign body in soft tissue
CPT/HCPCS: 36415; 80048; 80053; 85652; 87040; 87077; 87081; 96365; 96367; 97161; 97530; 99285; 73620; 73700; 80202; 83605; 83735; 85025; 85610; 86140; 87070; 87186; 99222; 99232; 99239; J1644; J1941

== ENCOUNTER → 2023-05-02 00:39 | Outpatient (CLI) | payer MEDICARE, SELFPAY ==
--- NOTE | 2023-05-02 07:15 | DI.US_ITS ---
Exam(s) US RENAL EXAM: US RENAL CLINICAL HISTORY: monitor known left kidney stone,n20.0. TECHNIQUE: Fox scale, color and spectral Doppler were used. COMPARISON: CT CT CHEST/ABD/PEL W from 08/12/2021 US US RENAL from 04/29/2022 US US RENAL from 11/08/2022 FINDINGS: Renal size in cm: Right: 10.7 left: 11.4 Echogenicity: Normal Hydronephrosis: No Cyst or mass: No Nephrolithiasis: 2 stones are noted at the lower pole of the left kidney, measuring 1.5 and 8 millime ters in size. Bladder:Normal Prevoid vol:119 Postvoid vol:0 IMPRESSION: Left lower pole renal calculi. No hydronephrosis. DATA REPOSITORY:
== END ==
PROVIDERS: PCP Family Medicine; Visit Provider Urology
DX: N20.0 Calculus of kidney (principal)
CPT/HCPCS: 76770

== ENCOUNTER 2023-08-26 13:48 | Outpatient (REF) | payer MEDICARE, SELFPAY ==
[2023-08-26 21:04] LABS: COMMENT (LAB VIEW ONLY) 247.79 mg/dL; Microalb ug/mg Crea 22.5 ug/mg Cr
== END 2023-08-26 13:49 | disposition home or self-care (01) ==
LOC: LBN 13:48
PROVIDERS: PCP Family Medicine; Visit Provider Family Medicine
DX: E11.9 Type 2 diabetes mellitus without complications (principal)
CPT/HCPCS: 82043; 82570

== ENCOUNTER 2024-01-21 13:31 | Inpatient (IN) | payer MEDICARE, SELFPAY ==
[2024-01-21 13:30] VITALS: BP 118/98; PULSE 72; RESP 16; TEMP 36.8; O2SAT 99
--- NOTE | 2024-01-21 13:30 | RT.EKG_ITS ---
APPROVED REPORT Exam: Resting ECG Reason for Exam: fall Patient Location: E HR:71 bpm ECG Measurements Heart Rate 71 AXIS GA 167 P 18 QRSd 103 QRS 85 QT 395 T -49 QTc 430 Conclusion Sinus rhythm...normal P axis, V-rate 60- 99 Nonspecific T abnormalities, diffuse leads...T <-0.10mV, ant/lat/inf
--- NOTE | 2024-01-21 13:50 | ED.GENADUL_ITS ---
Discharge Plan Disposition Patient Disposition: Admit to [facility] Condition: Stable Discharge Details Chief Complaint: Orthopedic Clinical Impression: Closed left hip fracture Primary Care Provider: Manuelito Wilcox ED Provider: Cal Meesk Home Meds and New Rx's Prescriptions: No Action albuterol sulfate [Ventolin HFA] 90 mcg/actuation HFA aerosol inhaler 1 - 2 puff IH Q4H PRN (Reason: shortness of breath or wheezing) Qty: 8.5 2RF metoprolol tartrate 25 mg tablet 25 mg PO BID Qty: 90 3RF nitroglycerin [Nitrostat] 0.4 mg tablet, sublingual 0.4 mg Sublingual Q5 MIN PRN X3 PRN (Reason: chest pain) Qty: 25 0RF Rx Instructions: 1 TAB SL Q5MIN PRN X 3 Humulin N NPH U-100 Insulin 100 unit/mL suspension 45 unit SC QPM Qty: 30 4RF dulaglutide 3 mg/0.5 mL pen injector 3 mg subcut QWEEK Qty: 2 11RF (DME) BD Insulin Syringe 1 EACH syringe 1 syringe Sub-Q DIRECTED Qty: 400 Rx Instructions: 0.5ML X 31G 8MM SHORT NEEDLE, USE WITH INSULIN DIRECTED cetirizine [Zyrtec] 10 MG tablet 10 mg PO DAILY Qty: 90 Hold Instructions: Home Medication placed on hold at Doctor's office (DME) Aerochamber MV spacer See Dose Instructions .Route .MEDSUPPLY Qty: 1 0RF Dose Instruction: As directed Rx Instructions: As directed (DME) pen needle, diabetic [1st Tier Unifine Pentips] 32 gauge x 5/32 needle See Rx Instructions .Route Qty: 100 11RF Rx Instructions: test TID atorvastatin [Lipitor] 40 mg tablet 40 mg PO DAILY Qty: 90 3RF ferrous gluconate 324 mg (37.5 mg iron) tablet 324 mg PO DAILY Qty: 90 3RF Humalog KwikPen Insulin 200 unit/mL (3 mL) insulin pen 5 - 20 unit subcut TID Qty: 18 8RF aspirin [Aspir-81] 81 MG tablet,delayed release (DR/EC) 81 mg PO DAILY acetaminophen [Tylenol Extra Strength] 500 MG tablet 1 - 2 tab PO Q6H PRN PRN (Reason: Pain) Patient Comments: has not taken recently 05/17/14 calcium carbonate [Calcium 600] 600 MG tablet 1,200 mg PO BID ascorbic acid (vitamin C) [Vitamin C] 500 mg Tablet 500 mg PO DAILY Qty: 20 0RF HPI General Mode of arrival: EMS . Date/Time Provider Initiated Documentation: 01/21/24 13:34 . Limitations to Documentation: no limitations . Information obtained by: patient . History of Present Illness 78 year old F presents to the emergency department with the chief complaint of left hip pain, described as moderate, Quality is described as aching, and it has been constant. No relieving factors improve symptom(s), No exacerbating factors reported . Patient notes no other symptoms.. Patient did receive the following treatments prior to arrival, none Related Data Home Medications Medication Instructions Recorded Confirmed acetaminophen 500 mg tablet 1 - 2 tab PO Q6H PRN PRN Pain 11/16/12 01/21/24 (Tylenol Extra Strength) aspirin 81 mg tablet,delayed 81 mg PO DAILY 11/16/12 01/21/24 release (Aspir-) calcium carbonate (Calcium 600) 1,200 mg PO BID 05/17/14 01/21/24 insulin syringe-needle U-100 1 mL #400 SYRGS 02/28/15 01/21/24 26 x 1/2 (BD Insulin Syringe) cetirizine 10 mg tablet (Zyrtec) 10 mg PO DAILY #90 tabs 11/07/15 01/21/24 inhalational spacing device #1 ea 07/31/18 01/21/24 (Aerochamber MV spacer) ascorbic acid (vitamin C) 500 mg 500 mg PO DAILY #20 tabs 03/12/20 01/21/24 tablet (Vitamin C) nitroglycerin 0.4 mg sublingual 0.4 mg sublingual Q5 MIN PRN X3 04/30/22 01/21/24 tablet (Nitrostat) PRN chest pain #25 tabs dulaglutide 3 mg/0.5 mL 3 mg (0.5 mL) subcut QWEEK #2 mL 08/26/23 01/21/24 subcutaneous pen injector insulin NPH isoph U-100 human 100 45 unit (0.45 mL) subcut QPM #30 mL 08/26/23 01/21/24 unit/mL subcutaneous suspension (Humulin N NPH U-100 Insulin (isophane susp)) pen needle, diabetic 32 gauge x #100 ea 10/13/23 01/21/24 (1st Tier Unifine Pentips) atorvastatin 40 mg tablet (Lipitor) 40 mg PO DAILY #90 tab-caps 12/18/23 01/21/24 albuterol sulfate 90 mcg/actuation 1 - 2 puff inhalation Q4H PRN 12/23/23 01/21/24 aerosol inhaler (Ventolin HFA) shortness of breath or wheezing #8.5 grams metoprolol tartrate 25 mg tablet 25 mg PO BID #90 tabs 12/23/23 01/21/24 ferrous gluconate 324 mg (37.5 mg 324 mg PO DAILY #90 tabs 12/30/23 01/21/24 iron) tablet insulin lispro 200 unit/mL (3 mL) 5 - 20 unit (0.025 - 0.1 mL) 12/30/23 01/21/24 subcutaneous pen (Humalog KwikPen subcut TID #18 mL U-200 Insulin) Previous Rx's Medication Instructions Recorded inhalational spacing device #1 ea 07/31/18 (Aerochamber MV spacer) ascorbic acid (vitamin C) 500 mg 500 mg PO DAILY #20 tabs 03/12/20 tablet (Vitamin C) nitroglycerin 0.4 mg sublingual 0.4 mg sublingual Q5 MIN PRN X3 04/30/22 tablet (Nitrostat) PRN chest pain #25 tabs dulaglutide 3 mg/0.5 mL 3 mg (0.5 mL) subcut QWEEK #2 mL 08/26/23 subcutaneous pen injector insulin NPH isoph U-100 human 100 45 unit (0.45 mL) subcut QPM #30 mL 08/26/23 unit/mL subcutaneous suspension (Humulin N NPH U-100 Insulin (isophane susp)) pen needle, diabetic 32 gauge x #100 ea 10/13/23 (1st Tier Unifine Pentips) atorvastatin 40 mg tablet (Lipitor) 40 mg PO DAILY #90 tab-caps 12/18/23 albuterol sulfate 90 mcg/actuation 1 - 2 puff inhalation Q4H PRN 12/23/23 aerosol inhaler (Ventolin HFA) shortness of breath or wheezing #8.5 grams metoprolol tartrate 25 mg tablet 25 mg PO BID #90 tabs 12/23/23 ferrous gluconate 324 mg (37.5 mg 324 mg PO DAILY #90 tabs 12/30/23 iron) tablet insulin lispro 200 unit/mL (3 mL) 5 - 20 unit (0.025 - 0.1 mL) 12/30/23 subcutaneous pen (Humalog KwikPen subcut TID #18 mL U-200 Insulin) Allergies Allergy/AdvReac Type Severity Reaction Status Date / Time Penicillins Allergy Intermediate Itching, Verified 01/21/24 13:57 Swelling ciprofloxacin AdvReac Intermediate Dizziness/L Verified 01/21/24 13:57 ightheade Latex, Natural Rubber AdvReac Intermediate Skin Rash Verified 01/21/24 13:57 lisinopril AdvReac Intermediate cough Verified 01/21/24 13:57 metformin AdvReac Mild Diarrhea Verified 01/21/24 13:57 cephalexin AdvReac Intermediate Dizziness/L Uncoded 01/21/24 13:57 ightheade tylenol 3 AdvReac Intermediate tingling Uncoded 01/21/24 13:57 of tongue and lips General Stated Complaint: Orthopedic DAYA: 3 Review of Systems All systems reviewed & are unremarkable except as noted in HPI and below Constitutional Constitutional: Denies chills, Denies fever(s) and Denies weakness Cardiovascular Cardiovascular: Denies chest pain and Denies dyspnea Respiratory Respiratory: Denies cough and Denies dyspnea Gastrointestinal Gastrointestinal: Denies abdominal pain, Denies nausea and Denies vomiting Musculoskeletal Musculoskeletal: Denies joint swelling Neurologic Neurologic: Denies weakness Exam Const General: no acute distress Orientation: alert [facility] Head: normal to inspection Ears: external ears normal General nose exam: external nose normal Mouth: moist mucous membranes Eyes General: appearance normal, both eyes and all related structures Neck Neck: normal visual inspection Resp Effort & Inspection: normal respiratory effort and able to speak in complete sentences Auscultation: clear to auscultation bilaterally Cardio Jugular venous pressure: no JVD Rate: regular rate Heart Sounds: no murmurs GI Palpation: soft and nontender Skin General skin exam: no rashes or lesions noted Neuro General: patient alert and patient oriented x3 Extrem General: capillary refill normal Psych Mental Status: mental status grossly normal Course Vital Signs Vital signs: Vital Signs Temperature 36.8 C 01/21/24 13:30 Pulse 72 01/21/24 13:30 Respiratory Rate 16 01/21/24 13:30 Blood Pressure 118/98 H 01/21/24 13:30 Pulse Oximetry 99 01/21/24 13:30 Temperature 36.8 C 01/21/24 13:30 Pulse 72 01/21/24 13:30 Respiratory Rate 16 01/21/24 13:30 Respiratory Effort Normal 01/21/24 13:34 Blood Pressure 118/98 H 01/21/24 13:30 Pulse Oximetry 99 01/21/24 13:30 Oxygen Delivery Method Room Air 01/21/24 13:30 Oxygen Flow Rate 0 01/21/24 13:30 Pain Level 2 01/21/24 13:30 Medical Decision Making 28-year-old female with a history of diabetes, cardiovascular disease, who comes in with EMS with left hip pain. She says she was feeling well, was standing and went to move and then lost balance and fell striking her left hip on the floor, did not hit her head or have loss of consciousness and denies any preceding symptoms such as lightheadedness, chest pain, difficulty breathing. She is alert and oriented x 4 on arrival her left leg is externally rotated, has tenderness over the left lateral hip, intact distal sensation and pulses no pain in the knee, tib-fib or ankle or foot. Suspect hip fracture, will check EKG, troponin, CBC, CMP and obtain x-rays. Labs unremarkable, x-ray confirms femoral neck fracture. Ortho consulted, will plan for admission to the hospitalist. Patient feeling better, offered to have anesthesia place a nerve block but she declines this at this time. Differential Diagnosis Differential Diagnosis: Hip fracture, contusion Medical Records Medical records reviewed: Yes I reviewed the patient's medical records. Imaging Data Radiologic Study: Attestation: I personally reviewed and interpreted this imaging study as follows: Imaging: X-Ray Radiologist's impression: No acute findings on the chest x-ray Radiologic Study #2: Attestation: I personally reviewed and interpreted this imaging study as follows: Imaging: X-Ray Radiologist's impression: Femoral neck fracture on pelvis x-ray Radiologic Study #3: Attestation: I personally reviewed and interpreted this imaging study as follows: Imaging: X-Ray Radiologist's impression: Femoral neck fracture on femur x-ray Lab Data Lab results reviewed: Yes I reviewed the patient's lab results. ECG Data Attestation: I personally reviewed and interpreted this ECG (s) as follows: Prior ECG tracings: available for review Interpretation: Sinus rhythm, rate of 71, AR 167, no STEMI. Quality:SDOH Health Related Social Needs: No Data to Display PFSH All Active Problems (Updated 01/21/24 @ 15:42 by Cal Meeks MD) Closed left hip fracture (Acute) Facial lesion (Acute) Gait instability (Acute) MRSA cellulitis of right foot (Acute) Foreign body in right foot (Acute) Atrial fibrillation (Chronic) Osteomyelitis (Acute) Toe infection (Acute) Diabetes mellitus type 2 in obese (Acute) Hyperlipidemia (Chronic) Obstructive pyelonephritis (Acute) Kidney stone (Acute 03/17/12) Xanthogranulomatous pyelonephritis (Acute) Renal abscess (Acute) 03/02/20- [facility]; S/P DRAINAGE-KB Staphylococcus aureus bacteremia (Acute) DVT prophylaxis (Acute) UTI (urinary tract infection) (Acute) Discharge planning issues (Acute) Decubitus ulcer (Acute) Anemia (Chronic) Diabetic neuropathy (Chronic) with wound on 1st MTP left she will continue to see podiatry and will see him next week continue to check feet every day Hypertension (Chronic) Same meds avoid excess salt 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 -hb Palliative care patient Chronic cough Closed fracture of humerus (06/28/13) Family history of malignant neoplasm of breast (11/01/14) Wound abscess (11/25/17) Pyelonephritis (08/04/12) LEFT HYDRONEPHROSIS AND DOUBLE COLLECTING SYSTEM 2013 surgery, Dr Peewee [facility] Myocardial infarction (01/14/12) 12/25 inferior VA, cath and stent at [facility] (EF 35%) Loss of sense of smell (11/01/14) and loss of taste Diabetic foot ulcer with osteomyelitis (05/31/14) right second toe, distal amputation 05/29, [place] Carpal tunnel syndrome of right wrist (02/28/15) Allergic rhinitis Pyelonephritis DM type 2 causing complication VA (myocardial infarction) ASCVD (arteriosclerotic cardiovascular disease) Essential hypertension Diabetic neuropathy Surgical History History of amputation History of coronary artery bypass surgery (03/21/16) Status post coronary artery stent placement Stent placement WITH 2 BYPASS GRAFTS-[facility] Shoulder replacement Repair of bifurcated ureter of left kidney Oophrectomy, Both Left heart Cath [facility]-03/19/16 Abdominal hysterectomy ERCP Coronary Stent [facility]-03/19/16 Cholecystectomy lap Coronary Artery Bypass Gaft (CABG) 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 LANDEROS Family History Mother , 72 Personal history of malignant neoplasm LUNG Father , 64 Personal history of malignant neoplasm LUNG Sister Personal history of malignant neoplasm BREAST Grandmother Diabetes Social History Smoking/Tobacco Use Status: Never Smoking risk assessment performed?: Yes Alcohol Intake: never Drug use: Never Substance use type: does not use Caregiver/Support person: No Household members: spouse Housing: house Communication Needs: Corrective Lenses Do you need help understanding health information?: Never Pets and animals: Yes Pets and animals: dog(s) Sexually active: No Do you think of yourself as: straight/heterosexual Current gender identity: female What is your relationship status?: How often do you talk on the phone with friends or family?: three or more times per week How often do you get together with friends or relatives?: twice per week How often do you attend orthodox or evangelical services?: 4 or more times per year Do you belong to any clubs or organized social groups?: yes Panel score (0-1 are the most socially isolated patients): 4 What type of physical activity do you participate in: none Frequency: does not exercise Chantal/Rastafarian: Gnosticism Special chantal needs: No Seatbelt use: always Helmet use: No Drive intox or ride w/intox bottom hoop driver: No Do you feel safe at home: Yes Do you feel safe in your relationship?: Yes Additional Social history: Originally from [place], lives in her 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
[2024-01-21] MEDS: HYDROmorphone 2 MG/ML SYR 0.5 MG IVP ×2 (14:32→20:23)
[2024-01-21] MEDS: Ketorolac 15 MG/ML VIAL IVP (14:32)
[2024-01-21] MEDS: ACETAMINOPHEN 1,000 MG/100 ML BTL 400 MG IVPB (14:33)
[2024-01-21 14:47] LABS: Abs Immature Grans 0.12 10^3/uL (0.0-0.06); Absolute Eosinophil Count 0.13 10^3/uL (0.0-0.7); Absolute Monocyte Count 0.64 10^3/uL (0.1-0.8); Absolute Neutrophil Count 10.02 10^3/uL (1.2-6.7); Basophils % 0.3 %; Eosinophils % 1.1 %; HCT 41.1 % (36.0-46.0); HGB 13.1 g/dL (11.2-15.7); Lymphocytes % 8.1 %; MCH 28.9 pg (27.0-33.0); MCHC 31.9 % (32.0-36.0); MCV 91 fL (80-95); Monocytes % 5.4 %; Neutrophils % 84.1 %; Platelet Count 151 10^3/uL (130-400); RBC 4.54 10^6/uL (3.93-5.22); RDW 14.8 % (11.7-14.6); RDW-SD 49.3 fL; WBC 11.91 10^3/uL (4.4-10.8)
[2024-01-21 14:50] LABS: Absolute Basophil Count 0.04 10^3/uL (0.0-0.2); Absolute Lymphocyte Count 0.96 10^3/uL (1.2-3.4)
[2024-01-21 14:52] LABS: ALT 30 U/L (14-59); AST 33 U/L (15-37); Albumin 3.2 g/dL (3.4-5.0); Alkaline Phosphatase 84 U/L (46-116); BUN 14 mg/dL (7-18); Bilirubin, Total 0.5 mg/dL (0.2-1.0); CREATININE 0.9 mg/dL (0.55-1.02); Calcium 8.7 mg/dL (8.5-10.1); Chloride 106 mmol/L (98-107); Estimated GFR 66.26 (mL/min/1.73m2); Glucose 157 mg/dL (74-106); Potassium 4.3 mmol/L (3.5-5.1); Sodium 144 mmol/L (136-145); Total Protein 7.4 g/dL (6.4-8.2)
[2024-01-21 14:59] LABS: Magnesium 1.9 mg/dL (1.8-2.4); Troponin I < 50 ng/L (< or =60)
[2024-01-21 15:00] LABS: INR 1.1 (0.9-1.1); PTT Activated 27.6 sec (23.6-32.8); Prothrombin Time 10.7 sec (9.1-11.1)
--- NOTE | 2024-01-21 15:05 | DI.RAD_ITS ---
Exam(s) XR CHEST 1V IN DI DEPT EXAM: XR CHEST 1V IN DI DEPT CLINICAL HISTORY: fall TECHNIQUE: 2D digital imaging was performed. COMPARISON: CT CT CHEST/ABD/PEL W from 08/12/2021 FINDINGS: LUNGS: Clear. No pleural abnormality seen. HEART: Normal size. Status post CABG. AORTA: Normal diameter. BONES: Sternal wires. Right shoulder prosthesis. Degenerative changes in the left shoulder and spin e. No grossly displaced rib fracture. Spine mainly obscured. Soft tissues: Unremarkable. IMPRESSION: No acute findings. DATA REPOSITORY: RADIATION DOSE DELIVERED:
--- NOTE | 2024-01-21 15:15 | DI.RAD_ITS ---
Exam(s) XR PELVIS AP XR FEMUR LT EXAM: XR PELVIS AP CLINICAL HISTORY: fall pain. TECHNIQUE: 2D digital imaging was performed. Single AP view of the pelvis. AP and cross-table late ral views of the femur COMPARISON: CR XR FEMUR LT from 01/21/2024 FINDINGS: The views of the femur limited by perched position and overlying material. BONES: Fracture seen extending through the femoral neck. Displacement superiorly and laterally and m ild angulation. No additional fractures seen distally in the left femur or in the pelvis. no bony d estructive lesion is seen. JOINTS: No dislocation present. There are degenerative changes of the hips. SOFT TISSUE: vascular calcifications IMPRESSION: Left femoral neck fracture. DATA REPOSITORY: RADIATION DOSE DELIVERED:
[2024-01-21 15:58] VITALS: BP 147/47; PULSE 65; O2SAT 95
--- NOTE | 2024-01-21 16:03 | HPE_ITS ---
Date of service: 01/21/24 Time of Service: 16:03 Assessment and Plan Assessment and plan (1) Closed left hip fracture: Status: Acute Assessment and plan: admitted to med surg under hospitalist services, fall was mechanical planned surgical repair for tomorrow. orthopedics consulted cleared for surgical repair, average risk based on ACS risk calculator NPO after midnight D5 LR in diabetic patient TEDS, SCD's I/S and cough and deep breathing harvey catheter placed. (2) Diabetes mellitus type 2 in obese: Status: Acute Assessment and plan: well controlled with A1C 6.8 in december 2023 diabetic diet sliding scale coverage AC, will be NPO after midnight, will initiate D5LR (3) Hypertension: Status: Chronic Assessment and plan: blood pressure well controlled Cont metoprolol. Qualifiers: Hypertension type: essential hypertension Qualified Code(s): I10 - Essential (primary) hypertension (4) ASCVD (arteriosclerotic cardiovascular disease): Assessment and plan: No chest pain, troponin neg, EKG is NSR no ischemic changes. remote CV surgery--[address] elevation and was transferred to [facility], where a cardiac catheterization showed a totally occluded right coronary artery. She had a 90% mid LAD and a 75% mid circumflex. She had a stent placed to the right coronary artery and then two months later had a triple vessel bypass when she had recovered. Her ejection fraction at the time of her procedure was 35% prior to her bypass and it increased back to 55%. She has been asymptomatic post- procedure with her stent being placed on 01/03/2012. Cont aspirin, BB, statin. (5) DVT prophylaxis: Status: Acute Assessment and plan: TEDS and SCDs pre-operatively (6) Discharge planning issues: Status: Acute Assessment and plan: case management will be following anticipate discharge [facility] vs home with services prior to returning home PT will be following \ discussed with Dr Orlando History of Present Illness History of Present Illness Chief Complaint: fall, left hip pain Narrative: This is a 78-year-old female patient who had a mechanical fall at home after losing her balance with isolated injury to left hip. She was transported to the hospital for evaluation ED workup did show isolated left hip fracture. Orthopedics was consulted. Plan will be for surgical repair on January 22, 2024. Her chronic diseases have been well-managed with no recent acute illness. She will be admitted to hospitalist services with orthopedic consultation. Review of Systems All systems reviewed & are unremarkable except as noted in HPI and below PFSH All Active Problems (Updated 01/21/24 @ 18:29 by Wayne Woody MD) Displaced fracture of left femoral neck (Acute 01/21/24) Closed left hip fracture (Acute) Facial lesion (Acute) Gait instability (Acute) MRSA cellulitis of right foot (Acute) Foreign body in right foot (Acute) Atrial fibrillation (Chronic) Osteomyelitis (Acute) Toe infection (Acute) Diabetes mellitus type 2 in obese (Acute) Hyperlipidemia (Chronic) Obstructive pyelonephritis (Acute) Kidney stone (Acute 03/17/12) Xanthogranulomatous pyelonephritis (Acute) Renal abscess (Acute) [place]02[place]20[place] [facility]P DRAINAGE-KB Staphylococcus aureus bacteremia (Acute) DVT prophylaxis (Acute) UTI (urinary tract infection) (Acute) Discharge planning issues (Acute) Decubitus ulcer (Acute) Anemia (Chronic) Diabetic neuropathy (Chronic) with wound on 1st MTP left she will continue to see podiatry and will see him next week continue to check feet every day Hypertension (Chronic) Same meds avoid excess salt Type 2 diabetes mellitus with complications (Chronic 06/29/15) Other seasonal allergic rhinitis (Acute 06/01/15) 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 -hb Palliative care patient Chronic cough Closed fracture of humerus (06/28/13) Family history of malignant neoplasm of breast (11/01/14) Wound abscess (11/25/17) Pyelonephritis (08/04/12) LEFT HYDRONEPHROSIS AND DOUBLE COLLECTING SYSTEM 2013 surgery, Dr Peewee [facility] Myocardial infarction (01/14/12) 12/25 inferior [place], cath and stent at [facility] (EF 35%) Loss of sense of smell (11/01/14) and loss of taste Diabetic foot ulcer with osteomyelitis (05/31/14) right second toe, distal amputation 05/29, [facility] Carpal tunnel syndrome of right wrist (02/28/15) Allergic rhinitis Pyelonephritis DM type 2 causing complication MO (myocardial infarction) ASCVD (arteriosclerotic cardiovascular disease) Essential hypertension Diabetic neuropathy Surgical History History of amputation History of coronary artery bypass surgery (03/21/16) Status post coronary artery stent placement Stent placement WITH 2 BYPASS GRAFTS[place] Shoulder replacement Repair of bifurcated ureter of left kidney Oophrectomy, Both Left heart Cath [facility]03[place]19[place]16 Abdominal hysterectomy ERCP Coronary Stent [facility]03[place]19[place] Cholecystectomy lap Coronary Artery Bypass Gaft (CABG) 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 LANDEROS Family History Mother , 72 Personal history of malignant neoplasm LUNG Father , 64 Personal history of malignant neoplasm LUNG Sister Personal history of malignant neoplasm BREAST Grandmother Diabetes Social History Smoking/Tobacco Use Status: Never Smoking risk assessment performed?: Yes Alcohol Intake: never Drug use: Never Substance use type: does not use Caregiver/Support person: No Household members: spouse Housing: house Communication Needs: Corrective Lenses Do you need help understanding health information?: Never Pets and animals: Yes Pets and animals: dog(s) Sexually active: No Do you think of yourself as: straight/heterosexual Current gender identity: female What is your relationship status?: How often do you talk on the phone with friends or family?: three or more times per week How often do you get together with friends or relatives?: twice per week How often do you attend rastafarian or muslim services?: 4 or more times per year Do you belong to any clubs or organized social groups?: yes Panel score (0-1 are the most socially isolated patients): 4 What type of physical activity do you participate in: none Frequency: does not exercise Chantal/Jewish: Tenriism Special chantal needs: No Seatbelt use: always Helmet use: No Drive intox or ride w/intox carry all driver: No Do you feel safe at home: Yes Do you feel safe in your relationship?: Yes Additional Social history: Originally from [place], lives in her [facility] with her Justin 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, 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 History History 2 Para 1 Hx # Term Pregnancies Multiple births Hx # Pregnancies Ectopic pregnancies AB induced Hx Number of Living Children AB spontaneous Meds Allergies and Home Medications Allergies Allergy/AdvReac Type Severity Reaction Status Date / Time Penicillins Allergy Intermediate Itching, Verified 01/21/24 13:57 Swelling ciprofloxacin AdvReac Intermediate Dizziness/L Verified 01/21/24 13:57 ightheade Latex, Natural Rubber AdvReac Intermediate Skin Rash Verified 01/21/24 13:57 lisinopril AdvReac Intermediate cough Verified 01/21/24 13:57 metformin AdvReac Mild Diarrhea Verified 01/21/24 13:57 cephalexin AdvReac Intermediate Dizziness/L Uncoded 01/21/24 13:57 ightheade tylenol 3 AdvReac Intermediate tingling Uncoded 01/21/24 13:57 of tongue and lips Home Medications Medication Instructions Recorded Confirmed Type acetaminophen 500 mg tablet 1 - 2 tab PO Q6H PRN PRN Pain 11/16/12 01/21/24 History (Tylenol Extra Strength) aspirin 81 mg tablet,delayed 81 mg PO DAILY 11/16/12 01/21/24 History release (Aspir-) calcium carbonate (Calcium 600) 1,200 mg PO BID 05/17/14 01/21/24 History insulin syringe-needle U-100 1 mL #400 SYRGS 02/28/15 01/21/24 History 26 x 1/2 (BD Insulin Syringe) cetirizine 10 mg tablet (Zyrtec) 10 mg PO DAILY #90 tabs 11/07/15 01/21/24 History inhalational spacing device #1 ea 07/31/18 01/21/24 Rx (Aerochamber MV spacer) ascorbic acid (vitamin C) 500 mg 500 mg PO DAILY #20 tabs 03/12/20 01/21/24 Rx tablet (Vitamin C) nitroglycerin 0.4 mg sublingual 0.4 mg sublingual Q5 MIN PRN X3 04/30/22 01/21/24 Rx tablet (Nitrostat) PRN chest pain #25 tabs dulaglutide 3 mg/0.5 mL 3 mg (0.5 mL) subcut QWEEK #2 mL 08/26/23 01/21/24 Rx subcutaneous pen injector insulin NPH isoph U-100 human 100 45 unit (0.45 mL) subcut QPM #30 mL 08/26/23 01/21/24 Rx unit/mL subcutaneous suspension (Humulin N NPH U-100 Insulin (isophane susp)) pen needle, diabetic 32 gauge x #100 ea 10/13/23 01/21/24 Rx /32 (1st Tier Unifine Pentips) atorvastatin 40 mg tablet (Lipitor) 40 mg PO DAILY #90 tab-caps 12/18/23 01/21/24 Rx albuterol sulfate 90 mcg/actuation 1 - 2 puff inhalation Q4H PRN 12/23/23 01/21/24 Rx aerosol inhaler (Ventolin HFA) shortness of breath or wheezing #8.5 grams metoprolol tartrate 25 mg tablet 25 mg PO BID #90 tabs 12/23/23 01/21/24 Rx ferrous gluconate 324 mg (37.5 mg 324 mg PO DAILY #90 tabs 12/30/23 01/21/24 Rx iron) tablet insulin lispro 200 unit/mL (3 mL) 5 - 20 unit (0.025 - 0.1 mL) 12/30/23 01/21/24 Rx subcutaneous pen (Humalog KwikPen subcut TID #18 mL U-200 Insulin) Exam Narrative Exam Narrative: Well-appearing female of stated age in no acute distress head is atraumatic normal cephalic normal appearance of face eyes noninjected nonicteric oral mucosas moist neck is supple with no JVD Cardiovascular, no murmur, regular rate and rhythm sinus rhythm no ST segment changes Respiratory with clear breath sounds bilaterally bases diminished Abdomen is soft nontender with positive bowel sounds Extremities left lower extremity rotated externally good sensation distally with strong pedal pulse no peripheral edema Neurologic she is awake alert oriented no focal deficits, good historian Psychiatric normal mood and affect Skin with no rashes or lesions Results Labs 01/21/24 14:28 01/21/24 14:23 Labs: Laboratory Results - last 24 hr 01/21/24 01/21/24 14:23 14:28 WBC 11.91 H RBC 4.54 Hgb 13.1 Hct 41.1 MCV 91 MCH 28.9 MCHC 31.9 L RDW 14.8 H Plt Count 151 MPV 11.0 Immature Gran % 1.0 Neutrophils % 84.1 Lymphocytes % 8.1 Monocytes % 5.4 Eosinophils % 1.1 Basophils % 0.3 Nucleated RBC % 0.0 Absolute Neutrophils 10.02 H Absolute Lymphocytes 0.96 L Absolute Monocytes 0.64 Absolute Eosinophils 0.13 Absolute Basophils 0.04 PT 10.7 INR 1.1 APTT 27.6 Sodium 144 Potassium 4.3 Chloride 106 Carbon Dioxide 29.0 Anion Gap 9.0 BUN 14 Creatinine 0.9 Est GFR (CKD-EPI 2020) 66.26 Glucose 157 H Calcium 8.7 Magnesium 1.9 Total Bilirubin 0.5 AST 33 ALT 30 Alkaline Phosphatase 84 Troponin I < 50 Total Protein 7.4 Albumin 3.2 L Last Vital Signs Temp 36.8 C 01/21/24 13:30 Pulse 65 01/21/24 15:58 Resp 16 01/21/24 13:30 BP 147/47 H 01/21/24 15:58 Pulse Ox 95 01/21/24 15:58 Time Spent Time spent with Patient: 55-74 minutes Time was spent: preparing to see the patient(eg.review tests), obtaining and/or reviewing separately otained hiistory, ordering medications,tests, procedures, indepentently interpreting results and counseling the patient
--- NOTE | 2024-01-21 16:06 | W.ORTHOCONSU ---
Assessment and Plan Assessment and plan (1) Displaced fracture of left femoral neck: Status: Acute Assessment and plan: 78-year-old female with displaced Left femoral neck fracture Medical admission and optimization for surgery. Bedrest, pain control, bilateral SCDs and/or YELENA hose. N.p.o. and hold chemical DVT prophylaxis after midnight pending surgery tomorrow: Left anterior total hip arthroplasty with Dr. Ricci versus posterior hip hemiarthroplasty with me depending on orthopedic evaluation in a.m. [facility] All Active Problems Displaced fracture of left femoral neck (Acute 01/21/24) Closed left hip fracture (Acute) Facial lesion (Acute) Gait instability (Acute) MRSA cellulitis of right foot (Acute) Foreign body in right foot (Acute) Atrial fibrillation (Chronic) Osteomyelitis (Acute) Toe infection (Acute) Diabetes mellitus type 2 in obese (Acute) Hyperlipidemia (Chronic) Obstructive pyelonephritis (Acute) Kidney stone (Acute 03/17/12) Xanthogranulomatous pyelonephritis (Acute) Renal abscess (Acute) 03/02/20- [facility] [place]; S/P DRAINAGE-KB Staphylococcus aureus bacteremia (Acute) DVT prophylaxis (Acute) UTI (urinary tract infection) (Acute) Discharge planning issues (Acute) Decubitus ulcer (Acute) Anemia (Chronic) Diabetic neuropathy (Chronic) with wound on 1st MTP left she will continue to see podiatry and will see him next week continue to check feet every day Hypertension (Chronic) Same meds avoid excess salt Type 2 diabetes mellitus with complications (Chronic 06/29/15) Other seasonal allergic rhinitis (Acute 06/01/15) 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 -hb Palliative care patient Chronic cough Closed fracture of humerus (06/28/13) Family history of malignant neoplasm of breast (11/01/14) Wound abscess (11/25/17) Pyelonephritis (08/04/12) LEFT HYDRONEPHROSIS AND DOUBLE COLLECTING SYSTEM 2013 surgery, Dr Peewee [facility] Myocardial infarction (01/14/12) 12/25 inferior [place], cath and stent at [facility] [place] (EF 35%) Loss of sense of smell (11/01/14) and loss of taste Diabetic foot ulcer with osteomyelitis (05/31/14) right second toe, distal amputation 05/29, [facility] Carpal tunnel syndrome of right wrist (02/28/15) Allergic rhinitis Pyelonephritis DM type 2 causing complication CA (myocardial infarction) ASCVD (arteriosclerotic cardiovascular disease) Essential hypertension Diabetic neuropathy Surgical History History of amputation History of coronary artery bypass surgery (03/21/16) Status post coronary artery stent placement Stent placement WITH 2 BYPASS GRAFTS-[facility] [place] Shoulder replacement Repair of bifurcated ureter of left kidney Oophrectomy, Both Left heart Cath [facility] [place]-03/19/16 Abdominal hysterectomy ERCP Coronary Stent [facility] [place]-03/19/16 Cholecystectomy lap Coronary Artery Bypass Gaft (CABG) 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 LANDEROS Family History Mother , 72 Personal history of malignant neoplasm LUNG Father , 64 Personal history of malignant neoplasm LUNG Sister Personal history of malignant neoplasm BREAST Grandmother Diabetes Social History Smoking/Tobacco Use Status: Never Smoking risk assessment performed?: Yes Alcohol Intake: never Drug use: Never Substance use type: does not use Caregiver/Support person: No Household members: spouse Housing: house Communication Needs: Corrective Lenses Do you need help understanding health information?: Never Pets and animals: Yes Pets and animals: dog(s) Sexually active: No Do you think of yourself as: straight/heterosexual Current gender identity: female What is your relationship status?: How often do you talk on the phone with friends or family?: three or more times per week How often do you get together with friends or relatives?: twice per week How often do you attend taoist or faith services?: 4 or more times per year Do you belong to any clubs or organized social groups?: yes Panel score (0-1 are the most socially isolated patients): 4 What type of physical activity do you participate in: none Frequency: does not exercise Chantal/Sikhism: Jehovah'S Witness Special chantal needs: No Seatbelt use: always Helmet use: No Drive intox or ride w/intox line haul driver: No Do you feel safe at home: Yes Do you feel safe in your relationship?: Yes Additional Social history: Originally from [place], lives in her [facility] with her Justin 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, 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1 Basophils % 0.3 Nucleated RBC % 0.0 Absolute Neutrophils 10.02 H Absolute Lymphocytes 0.96 L Absolute Monocytes 0.64 Absolute Eosinophils 0.13 Absolute Basophils 0.04 PT 10.7 INR 1.1 APTT 27.6 Sodium 144 Potassium 4.3 Chloride 106 Carbon Dioxide 29.0 Anion Gap 9.0 BUN 14 Creatinine 0.9 Est GFR (CKD-EPI 2020) 66.26 Glucose 157 H Calcium 8.7 Magnesium 1.9 Total Bilirubin 0.5 AST 33 ALT 30 Alkaline Phosphatase 84 Troponin I < 50 Total Protein 7.4 Albumin 3.2 L
[2024-01-21 16:56] LABS: Troponin I < 50 ng/L (< or =60)
[2024-01-21 16:58] VITALS: BP 127/52; PULSE 68; RESP 17; TEMP 36.4; O2SAT 95
[2024-01-21 19:58] VITALS: BP 134/73; PULSE 84; RESP 20; TEMP 36.3; O2SAT 95
[2024-01-21] MEDS: Calcium Carbonate 1.5 GM TAB PO (20:23)
[2024-01-21] MEDS: Metoprolol 25 MG TAB PO (20:23)
[2024-01-21] MEDS: Insulin NPH-Human 300 UNITS/3 ML PEN 10 UNIT SC (21:40)
[2024-01-22] VITALS (16 sets, daily range): BP systolic 99–125; BP diastolic 33–62; PULSE 66–86; RESP 12–24; TEMP 35.4–36.8; O2SAT 86–99; BMI 30.7
[2024-01-22] MEDS: HYDROmorphone 2 MG/ML SYR 0.5 MG IVP ×3 (02:54→12:30)
[2024-01-22] MEDS: Normal Saline Flush 10 ML SYR IVP ×3 (08:20→20:15)
[2024-01-22] MEDS: Calcium Carbonate 1.5 GM TAB PO ×2 (08:20→19:31)
[2024-01-22] MEDS: Cetirizine 10 MG TAB PO (08:20)
[2024-01-22] MEDS: Metoprolol 25 MG TAB PO (08:20)
[2024-01-22] MEDS: Ferrous Gluconate 324 MG TAB PO (08:20)
[2024-01-22] MEDS: Atorvastatin 40 MG TAB PO (08:20)
[2024-01-22] MEDS: Aspirin E.C. 81 MG TABEC PO ×2 (08:20→21:01)
--- NOTE | 2024-01-22 09:55 | OCONE_ITS ---
Date of service: 01/22/24 Time of Service: 07:20 History of Present Illness History of Present Illness Chief Complaint: Left hip pain Narrative: Kizzy is a 78-year-old lady who fell at home. She exquisite pain about the left hip and was unable to ambulate. She is brought to the emergency department and diagnosed with a displaced transcervical femoral neck fracture. She has been admitted to the medicine service. She has multiple medical comorbidities but all seem to be well-controlled. Given the fracture I was called in consultation. She denies any numbness or tingling. She denies any premorbid hip pain although she does have some history of low back pain as well as some gait abnormalities but no specific groin pain on the left side. No issues with wounds or skin issues about the left hip or groin. No distal pain. Consults Consult date: 01/22/24 Requesting physician: Ortiz Orlando Consult Reason Left hip fracture Assessment and Plan Assessment and plan (1) Displaced fracture of left femoral neck: Status: Acute Assessment and plan: Kizzy is a 78-year-old female who fell and suffered a neck fracture on the left side. Given the nature of the fracture, arthritis about the left hip, and her functional independence, I would recommend a hip replacement. This would fix the fracture but also treat the arthritis. While she was not terribly symptomatic about the arthritis she does have arthritic wear within the left hip and this would provide the best long-term prognosis for function. This is, some increased risk of dislocation, bleeding, perioperative complications but however, they are quite minimal and the absolute risk. I reviewed his risk to include the above is well as fracture, dislocation, blood clot, cardiopulmonary demise. Despite these risk, she elects to proceed. She is NPO. Will plan to proceed for an anterior hip arthroplasty with dual ability construct later today. I appreciate the medical management of her care. Review of Systems All systems reviewed & are unremarkable except as noted in HPI and below PFSH All Active Problems Displaced fracture of left femoral neck (Acute 01/21/24) Closed left hip fracture (Acute) Facial lesion (Acute) Gait instability (Acute) MRSA cellulitis of right foot (Acute) Foreign body in right foot (Acute) Atrial fibrillation (Chronic) Osteomyelitis (Acute) Toe infection (Acute) Diabetes mellitus type 2 in obese (Acute) Hyperlipidemia (Chronic) Obstructive pyelonephritis (Acute) Kidney stone (Acute 03/17/12) Xanthogranulomatous pyelonephritis (Acute) Renal abscess (Acute) [place] [facility] [place] Staphylococcus aureus bacteremia (Acute) DVT prophylaxis (Acute) UTI (urinary tract infection) (Acute) Discharge planning issues (Acute) Decubitus ulcer (Acute) Anemia (Chronic) Diabetic neuropathy (Chronic) with wound on 1st MTP left she will continue to see podiatry and will see him next week continue to check feet every day Hypertension (Chronic) Same meds avoid excess salt 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 -hb Palliative care patient Chronic cough Closed fracture of humerus (06/28/13) Family history of malignant neoplasm of breast (11/01/14) Wound abscess (11/25/17) Pyelonephritis (08/04/12) LEFT HYDRONEPHROSIS AND DOUBLE COLLECTING SYSTEM 2012 surgery, Dr Peewee [facility] Myocardial infarction (01/14/12) 12/25 inferior [place], [place] [facility] [place] Loss of sense of smell (11/01/14) and loss of taste Diabetic foot ulcer with osteomyelitis (05/31/14) right second toe, distal amputation 05/29, Bouchra Carpal tunnel syndrome of right wrist (02/28/15) Allergic rhinitis Pyelonephritis DM type 2 causing complication NC (myocardial infarction) ASCVD (arteriosclerotic cardiovascular disease) Essential hypertension Diabetic neuropathy Surgical History History of amputation History of coronary artery bypass surgery (03/21/16) Status post coronary artery stent placement Stent placement WITH 2 [place]PASS [place]FT[place] [place]er replacement Repair of bifurcated ureter of left kidney Oophrectomy, Both Left heart Cath [facility] [place] Abdominal hysterectomy ERCP Coronary Stent [facility] [place] Cholecystectomy lap Coronary Artery Bypass Gaft (CABG) 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 LANDEROS Family History Mother , 72 Personal history of malignant neoplasm LUNG Father , 64 Personal history of malignant neoplasm LUNG Sister Personal history of malignant neoplasm BREAST Grandmother Diabetes Social History Smoking/Tobacco Use Status: Never Smoking risk assessment performed?: Yes Alcohol Intake: never Drug use: Never Substance use type: does not use Caregiver/Support person: No Household members: spouse Housing: house Communication Needs: Corrective Lenses Do you need help understanding health information?: Never Pets and animals: Yes Pets and animals: dog(s) Sexually active: No Do you think of yourself as: straight/heterosexual Current gender identity: female What is your relationship status?: How often do you talk on the phone with friends or family?: three or more times per week How often do you get together with friends or relatives?: twice per week How often do you attend religion or gnosticism services?: 4 or more times per year Do you belong to any clubs or organized social groups?: yes Panel score (0-1 are the most socially isolated patients): 4 What type of physical activity do you participate in: none Frequency: does not exercise Chantal/Mormonism: Latter-Day Special chantal needs: No Seatbelt use: always Helmet use: No Drive intox 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 No acute distress. Alert and oriented x 3 peer Left lower extremity shortened and externally rotated. The left hip is evaluated without significant swelling or any signs of skin breakdown or infection. No notable ecchymosis. No significant pain with palpation throughout the left knee, left leg, left foot or left ankle. Sensation intact light touch of the deep and superficial peroneal nerve and tibial nerve. Faintly palpable DP and PT pulse. Results Last Vital Signs Temp 36.3 C L 01/21/24 19:58 Pulse 84 01/21/24 19:58 Resp 20 01/21/24 19:58 BP 134/73 01/21/24 19:58 Pulse Ox 95 01/21/24 19:58 Labs 01/21/24 14:28 01/21/24 14:23 Labs: Laboratory Results - last 24 hr 01/21/24 01/21/24 01/21/24 14:23 14:28 16:30 WBC 11.91 H RBC 4.54 Hgb 13.1 Hct 41.1 MCV 91 MCH 28.9 MCHC 31.9 L RDW 14.8 H Plt Count 151 MPV 11.0 Immature Gran % 1.0 Neutrophils % 84.1 Lymphocytes % 8.1 Monocytes % 5.4 Eosinophils % 1.1 Basophils % 0.3 Nucleated RBC % 0.0 Absolute Neutrophils 10.02 H Absolute Lymphocytes 0.96 L Absolute Monocytes 0.64 Absolute Eosinophils 0.13 Absolute Basophils 0.04 PT 10.7 INR 1.1 APTT 27.6 Sodium 144 Potassium 4.3 Chloride 106 Carbon Dioxide 29.0 Anion Gap 9.0 BUN 14 Creatinine 0.9 Est GFR (CKD-EPI 2020) 66.26 Glucose 157 H Calcium 8.7 Magnesium 1.9 Total Bilirubin 0.5 AST 33 ALT 30 Alkaline Phosphatase 84 Troponin I < 50 < 50 Total Protein 7.4 Albumin 3.2 L ABO/Rh A Positive Antibody Screen NEGATIVE Imaging Imaging Studies: X-ray of the left hip and femur demonstrates a displaced femoral neck fracture. There may be some changes of the lesser trochanter but I do not see any other suspicious lesions. There is notable arthritic change about the left hip with narrowing of the joint space, subchondral sclerosis and osteophytes. There is also seen significant degeneration and arthritis within the lower lumbar spine.
--- NOTE | 2024-01-22 12:21 | ANES.PREOP_ITS ---
General Info Date of Service Date Performed: 01/22/24 Height: 5 ft 4 in Weight: 81.2 kg Body Mass Index (BMI): 30.7 Surgical Procedure: Operation Date: 01/22/24 14:20 Proposed Procedure Side Surgeon p Hip Total Hip Anterior, Bimentum, Corail Left Rosales Ricci MD Meds Allergies and Home Medications Allergies Allergy/AdvReac Type Severity Reaction Status Date / Time Penicillins Allergy Intermediate Itching, Verified 01/21/24 13:57 Swelling ciprofloxacin AdvReac Intermediate Dizziness/L Verified 01/21/24 13:57 ightheade Latex, Natural Rubber AdvReac Intermediate Skin Rash Verified 01/21/24 13:57 lisinopril AdvReac Intermediate cough Verified 01/21/24 13:57 metformin AdvReac Mild Diarrhea Verified 01/21/24 13:57 cephalexin AdvReac Intermediate Dizziness/L Uncoded 01/21/24 13:57 ightheade tylenol 3 AdvReac Intermediate tingling Uncoded 01/21/24 13:57 of tongue and lips Home Medication Medication Instructions Recorded acetaminophen 500 mg tablet 1 - 2 tab PO Q6H PRN PRN Pain 11/16/12 (Tylenol Extra Strength) aspirin 81 mg tablet,delayed 81 mg PO DAILY 11/16/12 release (Aspir-) calcium carbonate (Calcium 600) 1,200 mg PO BID 05/17/14 insulin syringe-needle U-100 1 mL #400 SYRGS 02/28/15 26 x 1/2 (BD Insulin Syringe) cetirizine 10 mg tablet (Zyrtec) 10 mg PO DAILY #90 tabs 11/07/15 inhalational spacing device #1 ea 07/31/18 (Aerochamber MV spacer) ascorbic acid (vitamin C) 500 mg 500 mg PO DAILY #20 tabs 03/12/20 tablet (Vitamin C) nitroglycerin 0.4 mg sublingual 0.4 mg sublingual Q5 MIN PRN X3 04/30/22 tablet (Nitrostat) PRN chest pain #25 tabs dulaglutide 3 mg/0.5 mL 3 mg (0.5 mL) subcut QWEEK #2 mL 08/26/23 subcutaneous pen injector insulin NPH isoph U-100 human 100 45 unit (0.45 mL) subcut QPM #30 mL 08/26/23 unit/mL subcutaneous suspension (Humulin N NPH U-100 Insulin (isophane susp)) pen needle, diabetic 32 gauge x #100 ea 10/13/23 (1st Tier Unifine Pentips) atorvastatin 40 mg tablet (Lipitor) 40 mg PO DAILY #90 tab-caps 12/18/23 albuterol sulfate 90 mcg/actuation 1 - 2 puff inhalation Q4H PRN 12/23/23 aerosol inhaler (Ventolin HFA) shortness of breath or wheezing #8.5 grams metoprolol tartrate 25 mg tablet 25 mg PO BID #90 tabs 12/23/23 ferrous gluconate 324 mg (37.5 mg 324 mg PO DAILY #90 tabs 12/30/23 iron) tablet insulin lispro 200 unit/mL (3 mL) 5 - 20 unit (0.025 - 0.1 mL) 12/30/23 subcutaneous pen (Humalog KwikPen subcut TID #18 mL U-200 Insulin) Current Visit Medications: Current Medications Generic Name Dose Route Start Last Admin Trade Name Freq PRN Reason Stop Dose Admin Albuterol Sulfate 2 puff 01/21/24 18:18 Albuterol Hfa 8 Gm 60 Puff Inh IH Q4H PRN PRN shortness of breath or wheezing Aspirin 81 mg 01/22/24 08:30 Aspirin E.C. 81 Mg Tabec PO DAILY [facility] Atorvastatin Calcium 40 mg 01/22/24 08:30 Atorvastatin 40 Mg Tab PO DAILY [facility] Calcium Carbonate 1.5 gm 01/21/24 20:00 01/21/24 20:23 Calcium Carbonate 1.5 Gm Tab PO 1.5 gm BID [facility] Administration Cetirizine HCl 10 mg 01/22/24 08:30 Cetirizine 10 Mg Tab PO DAILY [facility] Device 1 each 01/21/24 19:00 Inhaler, Assist Device MC DIRECTED [facility] Dextrose 0 gm 01/21/24 18:17 Glucose Oral Gel 15 Gm/37.5 Gm Tube PO DIRECTED PRN Dextrose/Water 0 gm 01/21/24 18:17 Dextrose 50%-Water 25 Gm/50 Ml Syr IVP DIRECTED PRN Ferrous Gluconate 324 mg 01/22/24 08:30 Ferrous Gluconate 324 Mg Tab PO DAILY [facility] Hydromorphone HCl 0.5 mg 01/21/24 18:04 01/22/24 02:54 Hydromorphone 2 Mg/Ml Syr IVP 0.5 mg Q4H PRN PRN Administration Acetaminophen 1,000 mg in 100 mls @ 400 mls/hr 01/21/24 18:03 Ofirmev IVPB Q8H PRN PRN Dextrose/Lactated Ringer's 1,000 mls @ 75 mls/hr 01/21/24 23:59 01/22/24 00:00 Dextrose 5%-Lr IV 75 mls/hr INFUSION FABI Administration Tranexamic Acid/Sodium Chloride 1,000 mg in 100 mls @ 600 mls/hr 01/22/24 10:00 IVPB PREOP FABI IV Miscellaneous Supplies 1 each 01/21/24 13:45 Iv Access IV DIRECTED [facility] Insulin Aspart 0 units 01/22/24 08:00 Insulin Aspart 300 Units/3 Ml Pen SC 0800,1200,1700 [facility] Protocol Insulin Human NPH 10 unit 01/21/24 20:00 01/21/24 21:40 Insulin Nph-Human 300 Units/3 Ml Pen SC 10 unit QPM FABI Administration Metoprolol Tartrate 25 mg 01/21/24 20:00 01/21/24 20:23 Metoprolol 25 Mg Tab PO 25 mg BID FABI Administration Sodium Chloride 0 ml 01/21/24 13:34 Normal Saline Flush 10 Ml Syr IVP PRN PRN Sodium Chloride 0 ml 01/21/24 20:00 01/21/24 21:06 Normal Saline Flush 10 Ml Syr IVP Not Given BID FABI Sodium Chloride 0 ml 01/21/24 13:34 Normal Saline 10 Ml Vial IJ DIRECTED PRN PFSH Active Problems Active Problems: Problem Status Onset Code Displaced fracture of left femoral neck 01/21/24 S72.002A Closed left hip fracture S72.002A Facial lesion L98.9 Gait instability R26.81 MRSA cellulitis of right foot L03.115, B95.62 Foreign body in right foot S90.851A Atrial fibrillation I48.91 Osteomyelitis M86.9 Toe infection L08.9 Diabetes mellitus type 2 in obese E11.9, E66.9 Hyperlipidemia E78.5 Obstructive pyelonephritis N11.1 Kidney stone 03/17/12 N20.0 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 Renal abscess N15.1 Sepsis due to methicillin resistant Staphylococcus aureus (MRSA) A41.02 Staphylococcus aureus bacteremia R78.81, B95.61 DVT prophylaxis Z29.9 Cellulitis of right lower extremity L03.115 UTI (urinary tract infection) N39.0 Discharge planning issues Z02.9 Decubitus ulcer L89.90 Anemia D64.9 Diabetic neuropathy E11.40 Hypertension I10 Type 2 diabetes mellitus with complications 06/29/15 E11.8 Other seasonal allergic rhinitis 06/01/15 J30.2 Hypertension after donor nephrectomy requiring medication I97.3, Z90.5 Diabetic retinopathy E11.319 ASCVD (arteriosclerotic cardiovascular disease) 01/14/12 I25.10 Long-term insulin use in type 2 diabetes E11.9, Z79.4 Medical History Medical History 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 03/12/2023. - Palliative care patient Chronic cough Closed fracture of humerus (06/28/13) Family history of malignant neoplasm of breast (11/01/14) Wound abscess (11/25/17) Pyelonephritis (08/04/12) LEFT HYDRONEPHROSIS AND DOUBLE COLLECTING SYSTEM 2012 surgery, Dr Peewee [facility] Myocardial infarction (01/14/12) 12/25 inferior [place] [facility] [place] Loss of sense of smell (11/01/14) and loss of taste Diabetic foot ulcer with osteomyelitis (05/31/14) right second toe, distal amputation 05/29, Bouchra Carpal tunnel syndrome of right wrist (02/28/15) Allergic rhinitis Pyelonephritis DM type 2 causing complication NM (myocardial infarction) ASCVD (arteriosclerotic cardiovascular disease) Essential hypertension Diabetic neuropathy Surgical History Surgical History History of amputation History of coronary artery bypass surgery (03/21/16) Status post coronary artery stent placement [place] WITH 2 [place] [place] replacement Repair of bifurcated ureter of left kidney Oophrectomy, Both Left heart Cath [facility] [place] Abdominal hysterectomy ERCP Coronary St[place] [facility] [place] Cholecystectomy lap Coronary Artery Bypass Gaft (CABG) 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 LANDEROS Tobacco Smoking/Tobacco Use Status: Never Passive smoking exposure: Yes Alcohol Alcohol Intake: never Substance Use Substance use: Never Substance use type: does not use Prental History History 2 Para 1 Hx # Term Pregnancies Multiple births Hx # Pregnancies Ectopic pregnancies AB induced Hx Number of Living Children AB spontaneous Vital Signs and Lab Results Vital Signs Most Recent Vital Signs in EMR: Most Recent Vital Signs Temp Pulse Resp BP Pulse Ox 36.5 C 70 20 122/50 L 93 01/22/24 07:45 01/22/24 07:45 01/22/24 07:45 01/22/24 07:45 01/22/24 07:45 Point of Care Results Point of Care Results: Finger Stick Blood Glucose 102 01/22/24 11:50 Lab Results 01/21/24 14:28 01/21/24 14:23 Blood Type / Crossmatch: 2 Antibody Screen NEGATIVE 01/21/24 Complete Blood Count: 2 White Blood Count 11.91 10^3/uL (4.4-10.8) H 01/21/24 14:28 Red Blood Count 4.54 10^6/uL (3.93-5.22) 01/21/24 14:28 Hemoglobin 13.1 g/dL (11.2-15.7) 01/21/24 14:28 Hematocrit 41.1 % (36.0-46.0) 01/21/24 14:28 Platelet Count 151 10^3/uL (130-400) 01/21/24 14:28 Complete Metabolic Panel: 2 Sodium 144 mmol/L (136-145) 01/21/24 14:23 Potassium 4.3 mmol/L (3.5-5.1) 01/21/24 14:23 Chloride 106 mmol/L (98-107) 01/21/24 14:23 Carbon Dioxide 29.0 mmol/L (21.0-32.0) 01/21/24 14:23 BUN 14 mg/dL (7-18) 01/21/24 14:23 Creatinine 0.9 mg/dL (0.55-1.02) 01/21/24 14:23 Est GFR (CKD-EPI 2020) 66.26 (mL/min/1.73m2) 01/21/24 14:23 Magnesium 1.9 mg/dL (1.8-2.4) 01/21/24 14:23 Calcium 8.7 mg/dL (8.5-10.1) 01/21/24 14:23 Albumin 3.2 g/dL (3.4-5.0) L 01/21/24 14:23 Glucose 157 mg/dL (74-106) H 01/21/24 14:23 Hemoglobin A1c 6.8 % (4.5-5.7) H 12/23/23 16:06 Liver Function Panel: 2 Alanine Aminotransferase (ALT/SGPT) 30 U/L (14-59) 01/21/24 14: 23 Aspartate Amino Transf (AST/SGOT) 33 U/L (15-37) 01/21/24 14:23 Coagulation Panel: 2 INR International Normalized Ratio 1.1 (0.9-1.1) 01/21/24 14:2 8 Prothrombin Time 10.7 sec (9.1-11.1) 01/21/24 14:28 Activated Partial Thromboplast Time 27.6 sec (23.6-32.8) 14:28 Cardiac Panel: 2 Troponin I < 50 ng/L (< or =60) 01/21/24 Arterial Blood Gas: 2 No Data to Display Venous Blood Gas: 2 No Data to Display Pancreas Panel: 2 No Data to Display Thyroid Panel: 2 No Data to Display Infectious Disease: 2 No Data to Display Blood Cultures: 2 No Data to Display Toxicology Panel: 2 No Data to Display Imaging and Studies Imaging and Studies Study information below may be from another EMR and interpreted by another provider. Please see original notes in EMR for more complete details. EKG Summary: Conclusion Sinus rhythm...normal P axis, V-rate 60- 99 Nonspecific T abnormalities, diffuse leads...T <-0.10mV, ant/lat/inf 01/21/24 Echocardiogram Summary: Conclusion Left Ventricle : The left ventricle is normal size. The left ventricular systolic function is normal. The left ventricular ejection fraction is within the normal range. There is normal left ventricular wall thickness. There is normal LV segmental wall motion. The left ventricular diastolic function is normal. LVEF is 45%. Right Ventricle : Right ventricle is not well visualized. Right ventricular systolic function could not be assessed. Atria : The left atrium size is normal. The right atrium size is normal. Valves: There are no hemodynamically significant valvular lesions. There are no valvular vegetations visualized. Great Vessels : IVC is normal in size and collapses >50% with inspiration. Please see remainder of report for additional details. There is no prior echocardiographic images available for comparison. 02/22/20 Anesthesia Assessment and Plan Anesthesia History Personal History: No History of Anesthesia Complications Family History: No Family History of Anesthesia Complications Exercise Tolerance Exercise Tolerance: Metabolic Equivalents<4 Pertinent Negatives Pertinent Negatives: No Symptoms of GERD, No Major Cardiovascular Symptoms or Complaints and No Major Pulmonary Symptoms or Complaints Cardiac & Pulmonary Exam Cardiac Exam: Normal S1/S2 Heart Sounds Pulmonary Exam: Clear Bilateral Breath Sounds Cardiac and Pulmonary Comment:: No recent chest pain, uses inhaler for asthma every 2-3 days. Implantable Cardiac Device Does patient have a Pacemaker or an ICD?: No Airway Exam Known Difficult Airway: No Mallampati Class: 2 Mouth Opening: Normal (> 3cm) Thyromental Distance: Greater than 3 cm Neck Range of Motion: Full ROM Neck Circumference: Normal Teeth Condition: Normal Dentition ASA Classification ASA Score: ASA 3 Emergency Case?: No NPO Status NPO Status: NPO Clears >2 hours, Solids >8 hours Anesthesia Plan Resuscitation Status: Full Code Anesthesia Technique: General Anesthesia Airway Planned: Endotracheal Tube Monitors Used: Standard Monitors
--- NOTE | 2024-01-22 12:31 | INITIAL_ITS ---
Date of service: 01/22/24 Time of Service: 12:31 Care Management Initial Assmt Initial Assessment REASON FOR HOSPITALIZATION:: left hip fracture PREVIOUS FUNCTIONAL STATUS/SOCIAL/FAMILY SUPPORTS:: Kizzy and her Justin are currently staying [place]vern the house attached to the restoration where he is a slate worker. They are building a new, single level home in [facility] which they hope to move into within the next 2 weeks. They have one daughter, 2 granddaughters and 3 great grandchildren. 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 She is independent at baseline and does not receive any community services. CURRENT FUNCTIONAL STATUS:: Kizzy was in surgery to repair her hip fracture when CM visited. Her Justin was present and was gracious enough to answer questions and provide information. He talked about his daughter and the fact that they bought land next to her to build their new home. 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 The family seems very close and supportive. CM asked Justin about discharge plans and he reported that Kizzy will likely go home vs to a SNF. He shared that she has had home health services in the past and feels she would be open to it again if needed. ADVANCE DIRECTIVES:: on file. Justin Allison [facility] Has patient been provided with info about the portal/API?: Yes Did the patient sign up for the portal?: No CODE STATUS:: Full Code INSURANCE COVERAGE / FINANCIAL ISSUES:: Medicare [employer] PRIMARY CARE PHYSICIAN:: Manuelito Wilcox POTENTIAL DISCHARGE NEEDS:: follow up with Orthopedic surgeon, PCP and plan of care PATIENT/FAMILY EDUCATION NEEDS:: Review of discharge instructions, activity, limitations, follow up plan, discuss Ask Me Three TRANSPORTATION:: to be determined by disposition PLAN:: Anticipate Kizzy will be discharged home with new home health services for PT and possibly nursing. Shew will follow up with her community providers and plan of care and transport with family. CM will follow and continue to support discharge needs. PFSH All Active Problems Displaced fracture of left femoral neck (Acute 01/21/24) Closed left hip fracture (Acute) Facial lesion (Acute) Gait instability (Acute) MRSA cellulitis of right foot (Acute) Foreign body in right foot (Acute) Atrial fibrillation (Chronic) Osteomyelitis (Acute) Toe infection (Acute) Diabetes mellitus type 2 in obese (Acute) Hyperlipidemia (Chronic) Obstructive pyelonephritis (Acute) Kidney stone (Acute 03/17/12) Xanthogranulomatous pyelonephritis (Acute) Renal abscess (Acute) [place]02[place] [facility] DRA[place]-KB Staphylococcus aureus bacteremia (Acute) DVT prophylaxis (Acute) UTI (urinary tract infection) (Acute) Discharge planning issues (Acute) Decubitus ulcer (Acute) Anemia (Chronic) Diabetic neuropathy (Chronic) with wound on 1st MTP left she will continue to see podiatry and will see him next week continue to check feet every day Hypertension (Chronic) Same meds avoid excess salt Type 2 diabetes mellitus with complications (Chronic 06/29/15) Other seasonal allergic rhinitis (Acute 06/01/15) 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 -hb Palliative care patient Chronic cough Closed fracture of humerus (06/28/13) Family history of malignant neoplasm of breast (11/01/14) Wound abscess (11/25/17) Pyelonephritis (08/04/12) LEFT HYDRONEPHROSIS AND DOUBLE COLLECTING SYSTEM 2013 surgery, Dr Peewee [facility] Myocardial infarction (01/14/12) 12/25 inferior RI, cath and stent [place] [facility] [place]EF 35%) Loss of sense of smell (11/01/14) and loss of taste Diabetic foot ulcer with osteomyelitis (05/31/14) right second toe, distal amputation 05/29, [facility] Carpal tunnel syndrome of right wrist (02/28/15) Allergic rhinitis Pyelonephritis DM type 2 causing complication RI (myocardial infarction) ASCVD (arteriosclerotic cardiovascular disease) Essential hypertension Diabetic neuropathy Surgical History History of amputation History of coronary artery bypass surgery (03/21/16) Status post coronary artery stent placement Stent placement WITH 2 BYPASS GRAFTS[place] Shoulder replacement Repair of bifurcated ureter of left kidney Oophrectomy, Both Left heart Cath [facility] Abdominal hysterectomy ERCP Coronary Stent [facility] Cholecystectomy lap Coronary Artery Bypass Gaft (CABG) 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 LANDEROS Family History Mother , 72 Personal history of malignant neoplasm LUNG Father , 64 Personal history of malignant neoplasm LUNG Sister Personal history of malignant neoplasm BREAST Grandmother Diabetes Social History Smoking/Tobacco Use Status: Never Smoking risk assessment performed?: Yes Alcohol Intake: never Drug use: Never Substance use type: does not use Caregiver/Support person: No Household members: spouse Housing: house Communication Needs: Corrective Lenses Do you need help understanding health information?: Never Pets and animals: Yes Pets and animals: dog(s) Sexually active: No Do you think of yourself as: straight/heterosexual Current gender identity: female What is your relationship status?: How often do you talk on the phone with friends or family?: three or more times per week How often do you get together with friends or relatives?: twice per week How often do you attend restoration or judaism services?: 4 or more times per year Do you belong to any clubs or organized social groups?: yes Panel score (0-1 are the most socially isolated patients): 4 What type of physical activity do you participate in: none Frequency: does not exercise Chantal/Church: [employer] Special chantal needs: No Seatbelt use: always Helmet use: No Drive intox or ride w/intox powder truck driver: No Do you feel safe at home: Yes Do you feel safe in your relationship?: Yes Additional Social history: Originally from [place], lives in [place] [facility] with her Justin 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, 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 SDOH(Care Management) Screening Will the Patient Participate in the Screening?: Declined to provide Do you worry about having a steady place to live?: no Problems where you live: no known problems In the past 12 months, have you had to go without electric, gas, oil or water in your home?: no Have you or anyone in your house had to go without enough food to eat?: no Has lack of transportation kept you from medical appointments or from doing things needed for daily living?: no Has anyone in your support network made you feel unsafe for any reason?: no
[2024-01-22] MEDS: Lactated Ringers 1,000 ML 30 ML IV (13:17)
[2024-01-22] MEDS: ceFAZolin 2 GM/50 ML BAG 100 GM (13:53)
[2024-01-22] MEDS: TRANEXAMIC ACID/SOD. CHL. 1,000 MG/100 ML BAG 600 MG IVPB (14:04)
--- NOTE | 2024-01-22 15:35 | DI.RAD_ITS ---
Exam(s) XR HIP LT IN OR EXAM: XR HIP LT IN OR CLINICAL HISTORY: Displaced fracture of left femoral neck. TECHNIQUE: 2D and realtime digital imaging was performed. COMPARISON: CR XR PELVIS AP from 01/21/2024 FINDINGS: Hard copy images show placement of a left hip prosthesis. The alignment appears satisfactory. Please see procedure note for details. Fluoro time: 30.3seconds RADIATION DOSE DELIVERED: Ka,r=3.78 mGy
--- NOTE | 2024-01-22 16:00 | DI.RAD_ITS ---
Exam(s) XR HIP LT AP LAT ONLY EXAM: XR HIP LT AP LAT ONLY INDICATION: s/p L SEEMA for fracture. COMPARISON: XA XR HIP LT IN OR from 01/22/2024 TECHNIQUE: 2D digital imaging was performed. Two views. FINDINGS: A left hip prosthesis has been placed. The alignment appears satisfactory. Vascular calcifications noted. DATA REPOSITORY: RADIATION DOSE DELIVERED:
[2024-01-22] MEDS: HYDROmorphone 2 MG/ML SYR IVP ×2 (16:15→16:30)
[2024-01-22] MEDS: Normal Saline 10 ML VIAL IJ (16:16)
--- NOTE | 2024-01-22 16:16 | ROE_ITS ---
Date of service: 01/22/24 Time of Service: 14:00 Operative Note Operative Note DATE OF PROCEDURE: 01/22/24 PRE-OP DIAGNOSIS: Displaced Left Femoral Neck Fracture POST-OP DIAGNOSIS: same PROCEDURE: Left Anterior Total Hip Arthroplasty with Intraoperative Navigation SURGEON: Rosales Ricci ETHYLENE OXIDE PANELBOARD OPERATOR: Greg Jerez ANESTHESIA TYPE: Spinal Refer to Anesthesia Record ESTIMATED BLOOD LOSS: 350 PATHOLOGY: none sent TOURNIQUET TIME: 0 COMPLICATIONS: None Patient was transported to: PACU Patient's condition: stable Implants: 1. Depuy Bimentum Dual Mobility Acetabular Component, 49mm 2. Depuy Acetabular Liner, [id number] 3. Depuy Corail Standard 125 degree Collared Femoral Stem, Size 11 4. Depuy Altrx Ceramic Femoral Head, Size 28+5mm Indications: I have seen Kizzy in consultation for displaced femoral neck fracture about the left hip. Given the displaced nature of the fracture, her functional dependence, and concomitant arthritis, I recommended hip replacement. I discussed the technical details of a hip replacement. I explained the risks of the procedure to include, but not limited to, bleeding, infection, pain, stiffness, fracture, damage to nerves and vessels, damage to muscles and tendons, loosening, instability, leg length inequality, need for repeat procedure, blood clot and cardiopulmonary demise. Despite these risks, Kizzy elected to proceed. Findings: There was a comminuted transcervical fracture about the femoral neck. The bone quality distal femoral neck was actually quite good but the femoral head itself was difficult removed in whole given the poor quality of the bone. A dual mobility construct was placed. Procedure Description: Kizzy was seen previously on the medical surgical floor where the correct side was identified and marked. The consent was reviewed with the patient and signed. All questions were answered. She was taken back to the operating room. A general anesthestic was then administered. The feet were wrapped with cast padding and Coban and then placed into the boot liners and then into the boots. Care was taken to protect the skin and make sure the heels were fully down and the boots were stable. The patient was then positioned onto the HANA table. Both legs were held in a neutral position. SCDs were applied. The patient was then slid down onto a peroneal post. Prophylactic antibiotics in the form of Cefazolin were administered. 1g of Tranxemic Acid was given intravenously within 30 minutes of incision. The left leg was then prepped with Chloraprep and draped in a s tandard fashion. A second prep with Chloraprep was performed prior to placement of a shower-curtain type drape with Iodine impregnated skin protection. A timeout to confirm correct identity, side and site, procedure, allergies, anesthesia, and medical concerns was performed. An obliquely oriented incision was made starting lateral to the ASIS and running distal over the Tensor Fascia Daniella (TFL) muscle belly toward the fibular head, approximately 10cm. The skin and soft tissue was dissected sharply, through Keya?s fascia, and to the fascia of the TFL. With the fascia and superior border of the IT band identified, the fascia was incised with a new knife just above any perforators from the IT band. The TFL muscle belly was bluntly dissected away from the fascia and moved laterally. The fat between TFL and rectus was identified to ensure the dissection was not within the TFL. Blunt dissection created space between abductors and the capsule and retractor was placed over the lateral femoral neck. The fibers of the rectus femoris tendon were identified and these were freed from the anterior capsule. A second cobra retractor was placed around the medial femoral neck. The TFL was further retracted laterally to show the deep fascia. Careful dissection through this layer identified three main crossing vessels of the lateral femoral circumflex. These were cauterized in multiple locations and then cut without any noticeable bleeding. The TFL was further released bluntly from the deep fascia to expose anterior hip capsule and fat The Carlos orthopaedic retractor was then placed beneath the TFL and against sartorius and medial soft tissues to protect and retract the soft tissues. A T-capsulotomy was then performed starting at the superior lateral acetabulum and moving distally to the intertrochanteric ridge. These capsular flaps were tagged with a No. 1 Ethibond and elevated from within. The capsular flaps were released to the shoulder of the lateral neck and to the lesser trochanter to give excellent visualization of the proximal femur. Fracture hematoma was evacuated. The fracture line was easily visible and notably displaced with some comminution extending laterally and medially approximately 1 cm. A neck osteotomy was performed using an oscillating saw based on preoperative templates. This cut started in the shoulder and of the lateral neck and exited medially. The saw was at all times directed medially to avoid injury to the greater trochanter. Gross traction was applied to the leg and the osteotomy opened. The interval osteotomy was removed. The femoral head was slightly comminuted and had a hard time holding the corkscrew. Therefore removed in pieces. An anterior retractor was placed over the anterior wall between capsule and labrum and attached to the Gripper retraction system. The femur was rotated to 90 degrees and medial capsule was fully released until the lesser trochanter was palpable and visible; the femur was returned to 30 degrees. A posterior retractor was placed similarly between capsule and labrum. This provided excellent visualization. The contents of the cotyloid fossa were removed with electrocautery and the labrum was removed with a knife. There was a notable floor osteophyte. There was significant chondromalacia of the superior acetabulum. Acetabular reaming began with a 43mm reamer and the Bimentum dual mobility system. This first reaming was directed anterior to posterior and medial to get down to the true floor. This was inspected and reamed until the true floor was reached. The anterior retractor was then released and entry and exit was provided by traction on the capsular flaps. I then reamed sequentially up to a 49mm reamer where good fit was obtained. The larger reamers were oriented based on anatomical reference of the anterior and lateral coon to ensure proper abduction and anteversion. Positioning and size was confirmed with the fluoroscopy. A 49mm Depuy Bimentum dual mobility acetabular component was selected. The acetabulum was reamed around the periphery with the selected acetabular size to prevent a rim fit. The deep tissues were irrigated. The acetabular component was then impacted in a position of about 40-45 degrees of abduction and 15-20 degrees of anteversion, using the patient?s anatomy as the ultimate landmark. Fluoroscopy was used to confirm this. There was excellent ethernet network architect of the acetabular component and the inserting handle was removed. A portion of the darlene-articular cocktail was then injected around the acetabulum into the capsule and periosteum. This cocktail consisted of 123mg of Ropivacaine, 0.25mg of Epinephrine, 0.04mg of Clonidine, and 15mg of Ketorolac, diluted to 50cc. The leg was rotated to 120 degrees. Any remaining medial capsule was released until the lesser trochanter was easily palpable. A retractor was placed medially. The lateral capsule was further released into the shoulder to allow access to the greater trochanter. A Last retractor was placed over the greater trochanter which allowed the trochanter to flip in front of the capsule for excellent exposure. The leg was brought down into maximal extension and 20 degrees of adduction while ensuring there was no impingement on the acetabulum. Any remnant capsule within the trochanter was released. Piriformis and obturator externis were identified and protected. There was excellent access to the proximal femur. The lateral neck remnant was removed with a rongeur. A blunt canal probe was used to identify the canal and trajectory for later broaching. A box osteotome initiated the broach course. A small curved rasp and a curved curette were used to work laterally. Broaching then began with a size 8 Corail broach. This was inserted manually around the trochanter and into the canal before mallet blows. The broach was seated to a few millimeters below the cut level based on the neck cut and the preoperative template. Sequential broaching was continued manually until a tight fit was obtained with good rotational control of the femur. A trial standard 125 degree neck was inserted along with a +1 trial head. The leg was brought out of extension and adduction and then reduced with traction and internal rotation. The leg was stable anteriorly in a position of 30 degrees of extension and 90 degrees of external rotation. Fluoroscopy was used to ensure there was no fracture and the stem was seated well. Leg lengths were checked with an AP pelvis and pelvic reference points. TrueAbility navigation system was used to confirm appropriate positioning and leg length and offset. Once content with the desired offset and leg lengths, the leg was brought back into extension, external rotation and adduction. The periosteum and surrounding tissue was injected with remaining portion of the darlene-articular cocktail. On the back table, the dual mobility liner was placed onto the ceramic femoral head. The proximal femur was irrigated as well as the deep tissues. The Depuy Corail standard collared stem, size 11, was then manually inserted into the proximal femur making sure to control rotation. It was then malleted into position with light blows, giving breaks to allow bone expansion and decrease risk of fracture. The selected Depuy Altrx Ceramic Head, size 32+5mm, was then placed onto the clean and dry trunnion and secured with impaction onto the tapered fit. The leg was brought back out of extension and adduction and reduced with traction and internal rotation. Final x-ray images were obtained with fluoroscopy to confirm adequate positioning and no intraoperative fracture. The deep tissues were thoroughly irrigated with Surgiphor, betadine solution. This was allowed to sit in the wound for 3 minutes before being thoroughly irrigated out with normal saline. The capsule was then reapproximated with the previously placed Ethibond sutures. The TFL fascia was finally closed with a No. 2 Stratafix, barbed suture. Deep tissues were then reapproximated with 0 Vicryl and a running 2-0 Vicryl. The skin was closed with a running 4-0 Monocryl in a subcuticular fashion. This was reinforced with skin glue. A Mepilex silver dressing was applied. At the end of the case, all counts were correct. Kizzy was transferred to the hospital bed without difficulty and suffering no apparent complication. Kizzy has a good prognosis. Physical therapy will start today and without restrictions, weight-bearing as tolerated. Aspirin 81mg BID will be used for DVT prophylaxis.
--- NOTE | 2024-01-22 16:28 | CHAPLAIN ---
Kizzy was resting in bed when I visited. She said she fell and injured her hip and is having surgery at [address] Ricci. Kizzy and I know each other from pervious admissions. 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 He was visiting along with another family members. I will check in on Kizzy tomorrow.
--- NOTE | 2024-01-22 16:43 | W.ANESPOSTOP ---
Postoperative Evaluation Date, Time and Location Date Performed: 01/22/24 Time Performed: 16:43 Patient Location: PACU Vital Signs Most Recent Imported Vital Signs: Most Recent Vital Signs Temp Pulse Resp BP Pulse Ox 36.8 C 72 20 117/48 L 98 01/22/24 16:33 01/22/24 16:33 01/22/24 16:33 01/22/24 16:33 01/22/24 16:33 Pain Score Most Recent Pain Score: Most Recent Pain Score Pain Level 7 01/22/24 16:33 Assessment Mental Status: Awake (Alert & Oriented to Patient Baseline) Airway and Respiratory Function: Patent airway with normal (patient baseline) respiratory exam Cardiovascular Function: Hemodynamically Stable Hydration Status: Adequately Hydrated Nausea & Vomiting: No Nausea or Vomiting Pain: Pain is Moderate or Severe Postoperative Pain Management: Ongoing pain, patient will be managed as an inpatient Peripheral Nerve Block: Patient did not receive a nerve block
[2024-01-22] MEDS: ceFAZolin 1 GM/50 ML BAG 100 GM (18:21)
[2024-01-22] MEDS: DEXTROSE 5%-LACTATED RINGERS 1,000 ML 75 ML IV ×2 (18:54)
--- NOTE | 2024-01-22 18:58 | PGE_ITS ---
Date of Service Date of service: 01/22/24 Time of Service: 11:30 Assessment and Plan Assessment and plan (1) Displaced fracture of left femoral neck: Status: Acute Assessment and plan: NPO OR today Resume DVT prophylaxis with aspirin 81 mg change as per discussion with ortho CBC and BMP on 01/22 as per ortho PT consult consider multimodal pain management -Scheduled APAP -Considering celebrex and will discuss with Dr. pepe -PRN tramadol (2) Diabetes mellitus type 2 in obese: Status: Acute Assessment and plan: Fingersticks ACand HS with SSI and basal insulin dose from home regimen (3) Hypertension: Status: Chronic Assessment and plan: Continue metorprolol Qualifiers: Hypertension type: essential hypertension Qualified Code(s): I10 - Essential (primary) hypertension (4) On deep vein thrombosis (DVT) prophylaxis: Status: Acute Assessment and plan: On ASA BID as per Ortho (5) Discharge planning issues: Status: Acute Assessment and plan: Home with HH VS short term rehab discussed with Dr Orlando Subjective Subjective Patient reports: still having pain, pain is less, tolerating liquids well (NPO for OR ), voiding w/o difficulty, flatus, no bowel movement and afebrile; denies diarrhea, nausea, vomiting or shortness of breath Exam Narrative Exam Narrative: Constitutional The patient is in bed , without acute distress HENMT: . Facial structures with normal appearance Neuro:alert and oriented to self, person, place time and situation. No neurological focal deficit Resp: Normal respiratory pattern, speaks in full sentences, unlabored breathing, clear lung with decreased bases bilaterally Cardio: regular rhythm, S1, S2, no murmur, capillary refill<3 sec., positive pulses to all 4 ext. GI: Abdomen is not distended, soft and non tender, bowel sounds are present Integumentary: No skin lesions or rash Extremities: deferred Psych: RASS 0, congruent mood and normal affect. Objective Last Vital Signs Temp 36.1 C L 01/22/24 18:46 Pulse 71 01/22/24 18:46 Resp 14 01/22/24 18:46 BP 99/49 L 01/22/24 18:46 Pulse Ox 92 01/22/24 18:46 Time Spent with Patient Time Spent with Patient: 35-49 minutes Time was spent: preparing to see the patient(eg.review tests), obtaining and/or reviewing separately otained hiistory, ordering medications,tests, procedures, referring, communicating with other health health care facility administrator, indepentently interpreting results and counseling the patient
[2024-01-22] MEDS: Insulin NPH-Human 300 UNITS/3 ML PEN 10 UNIT SC (19:31)
[2024-01-23] MEDS: ceFAZolin 1 GM/50 ML BAG IVPB ×2 (02:05→10:21)
[2024-01-23 07:26] LABS: HCT 32.1 % (36.0-46.0); HGB 10.5 g/dL (11.2-15.7); MCH 29.1 pg (27.0-33.0); MCHC 32.7 % (32.0-36.0); MCV 89 fL (80-95); MPV 12.1 fL (8.0-11.0); Platelet Count 106 10^3/uL (130-400); RBC 3.61 10^6/uL (3.93-5.22); RDW 14.1 % (11.7-14.6); WBC 12.94 10^3/uL (4.4-10.8)
[2024-01-23 07:43] VITALS: BP 126/113; PULSE 91; RESP 16; TEMP 36.3; O2SAT 97
[2024-01-23 07:44] LABS: Anion Gap 7.3 mmol/L (3-11); BUN 17 mg/dL (7-18); CO2 27.7 mmol/L (21.0-32.0); Calcium 8.7 mg/dL (8.5-10.1); Chloride 105 mmol/L (98-107); Estimated GFR 58.39 (mL/min/1.73m2); Glucose 257 mg/dL (74-106); Potassium 4.4 mmol/L (3.5-5.1); Sodium 140 mmol/L (136-145)
[2024-01-23] MEDS: Cetirizine 10 MG TAB PO (08:27)
[2024-01-23] MEDS: Metoprolol 25 MG TAB PO ×2 (08:27→20:26)
[2024-01-23] MEDS: Aspirin E.C. 81 MG TABEC PO ×2 (08:27→20:26)
[2024-01-23] MEDS: Calcium Carbonate 1.5 GM TAB PO ×2 (08:27→20:26)
[2024-01-23] MEDS: Atorvastatin 40 MG TAB PO (08:27)
[2024-01-23] MEDS: Insulin Aspart 300 UNITS/3 ML PEN SC ×3 (08:28→18:27)
[2024-01-23] MEDS: Normal Saline Flush 10 ML SYR IVP ×2 (08:28→20:26)
[2024-01-23] MEDS: Ferrous Gluconate 324 MG TAB PO (08:28)
--- NOTE | 2024-01-23 08:29 | PDOC.CMPRO ---
Date of service: 01/23/24 Time of Service: 08:29 Care Management Progress Note Progress Note Text Progress Note Text: S/O:Kizzy was sitting up in a chair when CM met with her. She was pleasant and cooperative and engaged readily with CM. Her and daughter were visiting at the time and joined the conversation. Kizzy stated that she is feeling really good. She expressed how surprised she is that she is almost pain free. She described how much pain she was in pre-op and how, when she was awoken in the night and moved, she realized that she was no longer in pain. Kizzy was able to ambulate with PT both morning and afternoon. A: Kizzy is a 78 year old woman admitted on 01/21/24 with a fractured hip P:Anticipate Kizzy will be discharged home with new home health services for PT and possibly nursing. She will follow up with her community providers and plan of care and transport with family. CM will follow and continue to support discharge needs. SDOH(Care Management) Screening Will the Patient Participate in the Screening?: Declined to provide Do you worry about having a steady place to live?: no Problems where you live: no known problems In the past 12 months, have you had to go without electric, gas, oil or water in your home?: no Have you or anyone in your house had to go without enough food to eat?: no Has lack of transportation kept you from medical appointments or from doing things needed for daily living?: no Has anyone in your support network made you feel unsafe for any reason?: no
[2024-01-23 08:43] VITALS: BP 120/68
--- NOTE | 2024-01-23 09:26 | W.PM.PROGNOT ---
Date of Service Date of service: 01/23/24 Time of Service: 09:26 Assessment and Plan Assessment and plan (1) Displaced fracture of left femoral neck: Status: Acute Assessment and plan: NPO OR today Resume DVT prophylaxis with aspirin 81 mg change as per discussion with ortho CBC and BMP on 01/22 as per ortho PT consult multimodal pain management:Effective -Scheduled IV APAP converted to oral PRN -Considered celebrex if pain not controlled ; to be discussed with Dr. pepe -PRN tramadol PT in progress (2) Diabetes mellitus type 2 in obese: Status: Acute Assessment and plan: Continue Fingersticks ACand HS with SSI and basal insulin dose from home regimen (3) Hypertension: Status: Chronic Assessment and plan: Continue metorprolol Qualifiers: Hypertension type: essential hypertension Qualified Code(s): I10 - Essential (primary) hypertension (4) On deep vein thrombosis (DVT) prophylaxis: Status: Acute Assessment and plan: On ASA BID as per Ortho (5) Discharge planning issues: Status: Acute Assessment and plan: Home with HH VS short term rehab discussed with Dr Orlando Subjective Subjective Patient reports: pain is less, tolerating liquids well, tolerating a regular diet, voiding w/o difficulty, flatus and no bowel movement; denies diarrhea, nausea, vomiting, shortness of breath or fever Exam Narrative Exam Narrative: Constitutional The patient is in bed , without acute distress HENMT: . Facial structures with normal appearance Neuro:alert and oriented to self, person, place time and situation. No neurological focal deficit Resp: Normal respiratory pattern, speaks in full sentences, unlabored breathing, clear lung with decreased bases bilaterally Cardio: regular rhythm, S1, S2, no murmur, capillary refill<3 sec., positive pulses to all 4 ext. GI: Abdomen is not distended, soft and non tender, bowel sounds are present Integumentary: No skin lesions or rash Extremities: deferred Psych: RASS 0, congruent mood and normal affect. Objective Last Vital Signs Temp 36.3 C L 01/23/24 07:43 Pulse 91 H 01/23/24 07:43 Resp 16 01/23/24 07:43 BP 120/68 01/23/24 08:43 Pulse Ox 97 01/23/24 07:43 Laboratory Results - last 24 hr 01/23/24 07:00 WBC 12.94 H RBC 3.61 L Hgb 10.5 L D Hct 32.1 L MCV 89 MCH 29.1 MCHC 32.7 RDW 14.1 Plt Count 106 L MPV 12.1 H Sodium 140 Potassium 4.4 Chloride 105 Carbon Dioxide 27.7 Anion Gap 7.3 BUN 17 Creatinine 1.0 Est GFR (CKD-EPI 2020) 58.39 Glucose 257 H Calcium 8.7 Time Spent with Patient Time Spent with Patient: >50 minutes Time was spent: preparing to see the patient(eg.review tests), obtaining and/or reviewing separately otained hiistory, ordering medications,tests, procedures, referring, communicating with other health caretaker resort, indepentently interpreting results, counseling the patient and care coordination
--- NOTE | 2024-01-23 09:26 | PT.INIE ---
PT Notes Visit Reasons: fractured left hip Inpatient Physical Therapy Evaluation Date: 01/23/24 Referring Doctor: Dr. Ricci PT Orders: PT CONSULT: s/p anterior left SEEMA for fracture Precautions: WBAT Patient Profile/Admitting Diagnosis: Patient admitted after fall at home. Was found to have displaced left femoral neck fx, and underwent anterior SEEMA 01/22/24. Social History/Home Situation: Lives in a single level home with 1STE. Resides with her who is independent and supportive. Granddaughter is present at time of consultation and is supportive throughout. Equipment Owned/DME: FWW Subjective: Kizzy reports apprehension about walking. States that she has no pain to speak of, and was pleasantly surprised by how good she felt when she woke up. She does have a history of falls, but typically ambulates without device. She has not had pain meds this morning, and declines offer from nursing during PT session. Objective: General Observation: Resting in bed. Khan catheter in place. Mental Status: A&Ox3. Very pleasant and cooperative. Pain: 0/10 ROM: Right Upper Extremity: Flexion to 100* with deviation into scaption (s/p rTSA). Elbow and wrist motion WFL. Left Upper Extremity: Flexion to 120*. Elbow and wrist motion WFL. Right Lower Extremity: WFL Left Lower Extremity: Knee motion actively 0-100. Functional hip flexion to 90*. Rotation not assessed. Strength: Right Upper Extremity: Shoulder flexion 3-/5. Biceps 4/5. Triceps 4/5. Left Upper Extremity: Shoulder flexion 3-/5. Biceps 4/5. Triceps 4/5. Right Lower Extremity: Hip flexion 4+/5. Quads 4+/5. DF 3/5 or greater. Left Lower Extremity: Quads 3/5 or greater. Ankle DF 3/5 or greater. Sensation: diminished to bilat LEs, at baseline per patient Bed Mobility/Transfers: supine-sit: min A with head of bed elevated sit-stand: min A with bed elevated stand-sit: CGA Gait: Ambulates 30' with FWW, WBAT, CGA. Requires cues for FWW management and technique. Demonstrates slow, shuffling gait, with buckling of left knee x 2 (resoved with increased reliance on UE support to FWW). Provided patient education on reliance on FWW during ambulation for safety. Balance: Static Sitting: normal Dynamic Sitting: normal Static Standing: good Dynamic Standing: fair Special Tests: Mobility Limitations Standardized Measure [facility] AM-PAC 6 clicks Basic Mobility Inpatient Short Form: Raw Score: 18 CMS Score: 18 Informed Consent/Education: Patient instructed in purpose of PT consult and plan of care. Instructed in seated exercises for hourly completion (ankle pumps and LAQ). Assessment: Patient is a 78 year old female referred to physical therapy services with the diagnosis of left femoral neck fx, now 1 day s/p anterior SEEMA. Patient presents with clinical signs and symptoms consistent with post-op status, and complicated by subjective reports of chronic imbalance and history of falls. She has strong family support and tolerated early mobilization well today; anticipate she'll be safe to return home once medially stable. She currently demonstrates the following impairment level findings: 1. decreased LLE strength 2. decreased activity tolerance 3. decreased LLE ROM 4. gait impairments Impairments are contributing to the following functional limitations: 1. gait impairments 2. high risk for future falls 3. decreased independence with bed mobility and transfers 4. unable to ambulate community distances Patient is assessed as Low 94533 complexity based on the following: History: As above. Complicated by h/o falls, and extensive medical history including DM with diabetic neuropathy, and ASCVD with h/o STEMI. Examination: as above Presentation: stable Decision Making: low complexity Goals: Goals X1 week 1. Supine-Sit : supervision 2. Sit-Supine : supervision 3. Sit-Stand : supervision 4. Stand-Sit : supervision 5. Bed-Chair : supervision with FWW 6. Chair-Bed : supervision with FWW 7. Gait : : supervision with FWW x 300' 8. Stairs : able to safely manage 1 step with bilat rails and CGA Plan of Care/Treatment Plan: 1-2x/day, 7 days/week x 1 week. Plan of care has been reviewed with the MOTEL OPERATOR providing the service under Physical Therapy direction. Initiate Physical Therapy intervention for strengthening, bed mobility, transfers, gait, stairs, balance training, use of assistive device. DISCHARGE RECOMMENDATIONS: Home with PT TREATMENT CODE/TIME: [id number] ([id number], [id number]) Leslie Ennis, PT, DPT [facility] All Active Problems (Updated 01/22/24 @ 19:18 by Marii Montez APRN) On deep vein thrombosis (DVT) prophylaxis (Acute) Displaced fracture of left femoral neck (Acute 01/21/24) Closed left hip fracture (Acute) Facial lesion (Acute) Gait instability (Acute) MRSA cellulitis of right foot (Acute) Foreign body in right foot (Acute) Atrial fibrillation (Chronic) Osteomyelitis (Acute) Toe infection (Acute) Diabetes mellitus type 2 in obese (Acute) Hyperlipidemia (Chronic) Obstructive pyelonephritis (Acute) Kidney stone (Acute 03/17/12) Xanthogranulomatous pyelonephritis (Acute) Renal abscess (Acute) 03/02/20- [facility]; S/P DRAINAGE-KB Staphylococcus aureus bacteremia (Acute) DVT prophylaxis (Acute) UTI (urinary tract infection) (Acute) Discharge planning issues (Acute) Decubitus ulcer (Acute) Anemia (Chronic) Diabetic neuropathy (Chronic) with wound on 1st MTP left she will continue to see podiatry and will see him next week continue to check feet every day Hypertension (Chronic) Same meds avoid excess salt Type 2 diabetes mellitus with complications (Chronic 06/29/15) Other seasonal allergic rhinitis (Acute 06/01/15) 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 -hb Palliative care patient Chronic cough Closed fracture of humerus (06/28/13) Family history of malignant neoplasm of breast (11/01/14) Wound abscess (11/25/17) Pyelonephritis (08/04/12) LEFT HYDRONEPHROSIS AND DOUBLE COLLECTING SYSTEM 2013 surgery, Dr Peewee [facility] Myocardial infarction (01/14/12) 12/25 inferior DC, cath and stent at [facility] (EF 35%) Loss of sense of smell (11/01/14) and loss of taste Diabetic foot ulcer with osteomyelitis (05/31/14) right second toe, distal amputation 05/29, [place] Carpal tunnel syndrome of right wrist (02/28/15) Allergic rhinitis Pyelonephritis DM type 2 causing complication DC (myocardial infarction) ASCVD (arteriosclerotic cardiovascular disease) Essential hypertension Diabetic neuropathy Surgical History History of amputation History of coronary artery bypass surgery (03/21/16) Status post coronary artery stent placement Stent placement WITH 2 BYPASS GRAFTS-[facility] Shoulder replacement Repair of bifurcated ureter of left kidney Oophrectomy, Both Left heart Cath [facility]-03/19/16 Abdominal hysterectomy ERCP Coronary Stent [facility]-03/19/16 Cholecystectomy lap Coronary Artery Bypass Gaft (CABG) 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 LANDEROS
[2024-01-23] MEDS: traMADol 50 MG TAB PO (10:21)
--- NOTE | 2024-01-23 12:35 | W.PM.PROGNOT ---
Date of Service Date of service: 01/23/24 Time of Service: 12:35 Assessment and Plan Assessment and plan (1) Displaced fracture of left femoral neck: Status: Acute (2) History of total left hip replacement: Status: Acute Assessment and plan: Kizzy is doing well postop day #1 of a left total hip replacement as treatment for a femoral neck fracture of the left hip. She is going to continue with physical therapy to work on ambulation with a walker. She also is going to continue her aspirin for DVT prophylaxis. Dressing can remain in place. It sounds as though she is planning to spend the weekend in the hospital and may follow-up with orthopedics in approximately 2 weeks. Subjective Subjective Interval history since last seen: Kizzy is a 78-year-old female postop day #1 for a total hip replacement on the left side as treatment for a femoral neck fracture of her left hip. She states that today she is doing much better than she did yesterday. She was able to stand and walk with physical therapy and found it much easier than she thought it would be. She does notice some weakness and buckling of her knee when she tried to get up, however that quickly resolved as she started walking. She states that she essentially has no pain in the left hip and only some minor discomfort in the muscles in her thigh down to her knee. She is very happy with her progress so far. Exam Narrative Exam Narrative: Exam of the right hip today shows that the bandage over the incision is intact without drainage or seepage. She is able to demonstrate a straight leg raise although weakly. She has smooth internal and external rotation of the hip without pain. Sensation intact to light touch throughout the lower extremity. Objective Last Vital Signs Temp 97.3 F L 01/23/24 07:43 Pulse 91 H 01/23/24 07:43 Resp 16 01/23/24 07:43 BP 120/68 01/23/24 08:43 Pulse Ox 97 01/23/24 07:43 Laboratory Results - last 24 hr 01/23/24 07:00 WBC 12.94 H RBC 3.61 L Hgb 10.5 L D Hct 32.1 L MCV 89 MCH 29.1 MCHC 32.7 RDW 14.1 Plt Count 106 L MPV 12.1 H Sodium 140 Potassium 4.4 Chloride 105 Carbon Dioxide 27.7 Anion Gap 7.3 BUN 17 Creatinine 1.0 Est GFR (CKD-EPI 2020) 58.39 Glucose 257 H Calcium 8.7 Time Spent with Patient Time Spent with Patient: <25 minutes Time was spent: preparing to see the patient(eg.review tests), obtaining and/or reviewing separately otained hiistory and counseling the patient
--- NOTE | 2024-01-23 14:36 | PTTR_ITS ---
PT Notes Visit Reasons: fractured left hip Inpatient Physical Therapy Treatment Note [facility] Date: 01/23/24 PRECAUTIONS:fall, standard SUBJECTIVE: Kizzy states that she is feeling well. She states that she's gotten up with nursing for walks in her room twice since this morning. OBJECTIVE: ? PAIN: well managed Therapeutic Activities ([id number]): Direct one-on-one instruction in dynamic activities to improve functional performance. ? BED MOBILITY/TRANSFERS? Sit-stand: mod A initially. With cues for technique, able to complete with CGA only. Requires consistent cues for hand placement and forward weight shift. ? Stand-sit: CGA ? Provided skilled cues and instruction on performance and technique throughout. ? GAIT? Assistive Device: FWW? Weight bearing: WBAT Assist: CGA ? Distance:? 60' ? Deviation: step to gait pattern. Significant fatigue with ambulation. ? ASSESSMENT:? Improving tolerance to ambulation since this am, although with continued fatigue and need for CGA. Will continue progressing PT intervention, and encouraged frequent walks with nursing in her room. PLAN: Continue towards established goals. TREATMENT CODE/TIME: [id number] ([id number]) Leslie Ennis, PT, DPT [facility]
[2024-01-23] MEDS: Acetaminophen 325 MG TAB 650 MG PO (14:38)
[2024-01-23 15:41] VITALS: BP 103/52; PULSE 85; RESP 16; TEMP 36.5; O2SAT 92
[2024-01-23] MEDS: Insulin NPH-Human 300 UNITS/3 ML PEN 10 UNIT SC (20:26)
[2024-01-23 20:44] LABS: Bilirubin Negative (Negative); Blood Trace-intact (Negative); Clarity Clear (Clear); Glucose 100 mg/dL (Negative); Ketones Negative (Negative); Leukocyte Esterase Moderate (Negative); Nitrite Negative (Negative); Specific Gravity <= 1.005 (1.005-1.025); Urobilinogen 0.2 mg/dL (Up to 0.2); pH 5.5 (5-8)
[2024-01-23 20:53] LABS: Bacteria Rare HPF (Negative); C & S Indicated? No/Sq. Contamination; Casts Negative LPF (Negative); Crystals Negative HPF (Negative); Epithelial Cells Moderate HPF (Negative); Mucus Negative (Negative); Other Cells Rare Transitional (Negative); RBC 0-2 HPF (0-2); WBC 20-50 HPF (0-5)
[2024-01-23 23:30] VITALS: BP 114/47; PULSE 74; RESP 16; TEMP 36.3; O2SAT 93
[2024-01-24 06:42] LABS: Abs Immature Grans 0.07 10^3/uL (0.0-0.06); Absolute Basophil Count 0.04 10^3/uL (0.0-0.2); Absolute Eosinophil Count 0.15 10^3/uL (0.0-0.7); Absolute Lymphocyte Count 1.82 10^3/uL (1.2-3.4); Absolute Monocyte Count 0.94 10^3/uL (0.1-0.8); Absolute Neutrophil Count 5.61 10^3/uL (1.2-6.7); Basophils % 0.5 %; Eosinophils % 1.7 %; HCT 29.8 % (36.0-46.0); HGB 9.9 g/dL (11.2-15.7); Immature Grans % 0.8 %; Lymphocytes % 21.1 %; MCH 29.2 pg (27.0-33.0); MCHC 33.2 % (32.0-36.0); MCV 88 fL (80-95); MPV 11.9 fL (8.0-11.0); Monocytes % 10.9 %; Platelet Count 130 10^3/uL (130-400); RBC 3.39 10^6/uL (3.93-5.22); RDW 14.4 % (11.7-14.6); RDW-SD 46.3 fL; WBC 8.63 10^3/uL (4.4-10.8)
[2024-01-24 06:58] LABS: Anion Gap 7.7 mmol/L (3-11); BUN 23 mg/dL (7-18); CO2 29.3 mmol/L (21.0-32.0); Calcium 9.2 mg/dL (8.5-10.1); Chloride 106 mmol/L (98-107); Estimated GFR 58.39 (mL/min/1.73m2); Glucose 172 mg/dL (74-106); Potassium 4.1 mmol/L (3.5-5.1); Sodium 143 mmol/L (136-145)
[2024-01-24] MEDS: Calcium Carbonate 1.5 GM TAB PO ×2 (07:49→19:53)
[2024-01-24] MEDS: Acetaminophen 325 MG TAB 650 MG PO ×3 (07:49→17:58)
[2024-01-24] MEDS: Ferrous Gluconate 324 MG TAB PO (07:49)
[2024-01-24] MEDS: Atorvastatin 40 MG TAB PO (07:50)
[2024-01-24] MEDS: Cetirizine 10 MG TAB PO (07:50)
[2024-01-24] MEDS: Aspirin E.C. 81 MG TABEC PO ×2 (07:50→19:53)
--- NOTE | 2024-01-24 08:58 | PGE_ITS ---
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 She is doing well. She is able to mobilize. I soon as she would be able to go home with home health services in the next day or so. I will refer to physical therapy and the recommendations. I would also recommend that a new Mepilex dressings placed on the left wound prior to discharge. Discharge instructions were updated in the discharge document. She is weightbearing as tolerated. Resume aspirin, minimum of 162 mg daily, for DVT prophylaxis. Pain control with Tylenol and Celebrex and tramadol as needed. Subjective Subjective Interval history since last seen: Kizzy reports be doing well. She has significant less pain than she had before. She was able to mobilize with physical therapy and with nursing. She denies any instability. She denies any numbness or tingling. Exam Extrem Other: Evaluation of the left leg shows no significant pain with internal and external rotation. Mepilex dressings in place. No significant change of the skin around the left hip wound. Sensation intact to light touch of the femoral sided nerve distributions. Palpable DP and PT pulse. Objective Last Vital Signs Temp 36.3 C L 01/23/24 23:30 Pulse 74 01/23/24 23:30 Resp 16 01/23/24 23:30 BP 114/47 L 01/23/24 23:30 Pulse Ox 93 01/23/24 23:30 Laboratory Results - last 24 hr 01/23/24 01/24/24 20:32 06:30 WBC 8.63 RBC 3.39 L Hgb 9.9 L Hct 29.8 L MCV 88 MCH 29.2 MCHC 33.2 RDW 14.4 Plt Count 130 MPV 11.9 H Immature Gran % 0.8 Neutrophils % 65.0 Lymphocytes % 21.1 Monocytes % 10.9 Eosinophils % 1.7 Basophils % 0.5 Nucleated RBC % 0.0 Absolute Neutrophils 5.61 Absolute Lymphocytes 1.82 Absolute Monocytes 0.94 H Absolute Eosinophils 0.15 Absolute Basophils 0.04 Sodium 143 Potassium 4.1 Chloride 106 Carbon Dioxide 29.3 Anion Gap 7.7 BUN 23 H Creatinine 1.0 Est GFR (CKD-EPI 2020) 58.39 Glucose 172 H Calcium 9.2 Urine Color Yellow Urine Clarity Clear Urine pH 5.5 Ur Specific [place] <= 1.005 Urine Protein Negative Urine Ketones Negative Urine Blood Trace-intact H Urine Nitrite Negative Urine Bilirubin Negative Urine Urobilinogen 0.2 Ur Leukocyte Esterase Moderate H Urine RBC 0-2 Urine WBC 20-50 H Ur Epithelial Cells Moderate Urine Crystals Negative Urine Bacteria Rare Urine Casts Negative Urine Mucus Negative Urine Other Rare Transitional Ur Culture Indicated? No/Sq. Contamination Urine Glucose 100 H Time Spent with Patient Time Spent with Patient: <25 minutes Time was spent: preparing to see the patient(eg.review tests), obtaining and/or reviewing separately otained hiistory, ordering medications,tests, procedures, counseling the patient and care coordination
[2024-01-24] MEDS: Insulin Aspart 300 UNITS/3 ML PEN SC ×3 (09:29→17:17)
--- NOTE | 2024-01-24 09:34 | NUR.NOTE ---
Pt c/o one of her IVs being itching and needing to be replaced, so she pulled the drsg down. Explained about infection risk in doing so, pt demanded that it be replaced now. Nursing unable to do so immediately d/t morning med pass, will replace when able. Nursing Note:
[2024-01-24 09:47] VITALS: BP 92/42; PULSE 76; RESP 16; TEMP 36.2; O2SAT 96
[2024-01-24] MEDS: Normal Saline Flush 10 ML SYR IVP ×2 (09:49→19:53)
--- NOTE | 2024-01-24 09:53 | PDOC.CMDIS ---
Date of service: 01/25/24 Time of Service: 15:15 LACE Index Scoring Tool Questions: Length of Stay (in days): 3 Was the patient admitted via the E.D.?: Yes Comorbidities: Diabetes w/o Complication E.D. Visits: 0 Answers: Total Score: 7 Risk of Readmission: Low Risk Care Management Discharge Plan Reason for Hospitalization: left hip fracture Discharge Plan: Kizzy will return home with new orders of HH RN and PT. She will transport via private vehicle by her . She will follow up with her PCP and discharge plan of care. She is happy to be going home. Patient/Family Education Needs: Review discharge instructions and limitations, discussion of self care needs including ask me three. Services Needed at Discharge: Home Health Care Services (new HH PT) SDOH Health Related Social Needs: No Data to Display
--- NOTE | 2024-01-24 11:02 | W.PM.DS.N ---
Date of service: 01/25/24 Time of Service: 11:02 DS: Diagnosis Discharge Diagnosis (1) History of total left hip replacement: Discharge Plan Disposition Patient Disposition: Home W/Home Health Services Condition: Improving Discharge Details Reason For Visit: fractured left hip Admit Date/Time: 01/21/24 16:00 Admit Provider: Ortiz Orlando Attending Provider: Ortiz Orlando Primary Care Provider: Manuelito Wilcox Hospital Course Hospital Course: This 78-year-old female patient with a past medical history of insulin-dependent type 2 diabetes with neuropathy, anemia on iron supplementation who had a mechanical fall at home due to losing her balance with an isolated injury to her left presented at [facility] ED department on 01/21/2024 for evaluation. The patient was found to have a displaced transcervical femoral neck fracture of her left hip fracture as per imaging. Orthopedic's was consulted. The patient reported dysuria with insertion of indwelling Khan catheter. The patient had surgical repair of her left hip fracture with left hip replacement on January 22, 2024, including IV cefazolin for 3 doses darlene and postoperatively. Chronic diseases were managed as per home med regimen, except for her NPH insulin initially given at a lower dose but readjusted to home dose today. H&H postop was as low as 9.5 and 29.2 with admission levels at 13.1 and 41.1. Iron studies granted the administration of iron sucrose.The patient still reported dysuria on postop day 1, UA was collected and showed moderate leukoesterase without fever or leukocytosis. The lab mention that it was deemed contaminated and a culture was not pursued. The patient was treated with Bactrim DS and urine culture was ordered. Urine culture resulted in no growth in 24 hours, dysuria had resolved and the patient; antibiotics were discontinued. The patient experienced GI symptoms such as nausea vomiting after large bowel movement resolving with the administration of antiemetic medicine; the patient is tolerating oral intake. This morning the patient denies flatus, but the abdomen remains soft, nontender and not distended with positive bowel sounds. The patient will be discharged home with aspirin 81 mg twice a day for deep vein thrombosis prophylaxis status post hip replacement, celecoxib 200 mg oral twice a day for pain, famotidine daily, daily stool softeners and a suppository as needed daily, schedule acetaminophen for a total of 5 days, and as needed tramadol for pain not resolved by previously mentioned pain management medicines. The patient will need to follow-up with orthopedic surgery in 2 weeks. The patient will need to follow-up with her primary care physician within 7 days of discharge. The patient will be discharged home with home health physical therapy status post hip replacement and will need a safety evaluation in the home environment. The patient will also require home health nursing for dressing change to the left hip with silver Mepilex until seen by Dr. Ricci orthopedist, and to ensure that her condition is not worsening. Discussed with Dr. Shukla Home Meds and New Rx's Prescriptions: New aspirin 81 mg Tablet,Delayed Release (Dr/Ec) 81 mg PO BID Qty: 60 0RF celecoxib 200 mg Capsule 200 mg PO BID Qty: 60 0RF tramadol 50 mg Tablet 50 mg PO Q12H PRNQty: 6 0RF famotidine [Pepcid] 20 mg tablet 20 mg PO DAILY Qty: 30 0RF bisacodyl 10 mg Suppository 10 mg WI DAILY PRN PRNQty: 5 0RF docusate sodium [Colace] 100 mg capsule 100 mg PO BID Qty: 60 0RF acetaminophen 325 mg capsule 650 mg PO Q6H Qty: 40 0RF polyethylene glycol 3350 [Miralax] 17 gram/dose powder 17 g PO DAILY Qty: 119 0RF Continued albuterol sulfate [Ventolin HFA] 90 mcg/actuation HFA aerosol inhaler 1 - 2 puff IH Q4H PRN (Reason: shortness of breath or wheezing) Qty: 8.5 2RF metoprolol tartrate 25 mg tablet 25 mg PO BID Qty: 90 3RF nitroglycerin [Nitrostat] 0.4 mg tablet, sublingual 0.4 mg Sublingual Q5 MIN PRN X3 PRN (Reason: chest pain) Qty: 25 0RF Rx Instructions: 1 TAB SL Q5MIN PRN X 3 Humulin N NPH U-100 Insulin 100 unit/mL suspension 45 unit SC QPM Qty: 30 4RF dulaglutide 3 mg/0.5 mL pen injector 3 mg subcut QWEEK Qty: 2 11RF (DME) BD Insulin Syringe 1 EACH syringe 1 syringe Sub-Q DIRECTED Qty: 400 Rx Instructions: 0.5ML X 31G 8MM SHORT NEEDLE, USE WITH INSULIN DIRECTED cetirizine [Zyrtec] 10 MG tablet 10 mg PO DAILY Qty: 90 Hold Instructions: Home Medication placed on hold at Doctor's office (DME) Lashay MV spacer See Dose Instructions .Route .MEDSUPPLY Qty: 1 0RF Dose Instruction: As directed Rx Instructions: As directed (DME) pen needle, diabetic [1st Tier Unifine Pentips] 32 gauge x 5/32 needle See Rx Instructions .Route Qty: 100 11RF Rx Instructions: test TID atorvastatin [Lipitor] 40 mg tablet 40 mg PO DAILY Qty: 90 3RF ferrous gluconate 324 mg (37.5 mg iron) tablet 324 mg PO DAILY Qty: 90 3RF Humalog KwikPen Insulin 200 unit/mL (3 mL) insulin pen 5 - 20 unit subcut TID Qty: 18 8RF calcium carbonate [Calcium 600] 600 MG tablet 1,200 mg PO BID ascorbic acid (vitamin C) [Vitamin C] 500 mg Tablet 500 mg PO DAILY Qty: 20 0RF Held acetaminophen [Tylenol Extra Strength] 500 MG tablet 1 - 2 tab PO Q6H PRN PRN (Reason: Pain) Hold Instructions: Resume on 02/05/24. As per PCP Patient Comments: has not taken recently 05/17/14 Discontinued aspirin [Aspir-81] 81 MG tablet,delayed release (DR/EC) 81 mg PO DAILY Discharge Instructions Additional Instructions: Total Hip Discharge Instructions Activity: The most important activity is to walk. You should try to take short walks a few times a day. You have no restrictions on movement or positioning, but do not try to force what you do. You will find some stiffness and weakness with hip flexion (lifting your knee). Do not try to strengthen this too early, continue to practice walking and stairs and this will come. - Home health physical therapy will be utilized to improve your gait, strength, and mobility. - You should wear the YELENA hose on both legs for 2 weeks. Dressing: Keep the surgical dressing in place for at least one week. After the first week it may be removed and replace with light gauze and tape or nothing. It may get wet after 3 days but avoid soaking the dressing. If it gets wet, just lightly pat dry. It is important to always keep some gauze between skin folds, especially when you are sitting. Spend some time with the wound exposed when you are lying flat as the incision does wrinkle onto itself. Follow-up: 2 weeks If you have any acute concerns or questions, please do not hesitate to contact the office at [phone]. You may contact Dr. Ricci with any questions after hours through the hospital at [phone] or on his cell phone at [phone]. Stand Alone Forms: Nursing Discharge Form Referrals: Rosales Ricci MD [ [facility] STAFF PHYSICIAN] - (Office will call you tomorrow to make follow up appointment, if you do not here from them please call Friday to make an appointment.) Manuelito Wilcox MD [Primary Care Provider] - (Office will call you Friday to make a follow up appointment, please call them if you do not here from them to make a follow up appointment for 1-2 weeks.) Activity:: As per surgery discharge Equipment/Supplies:: No Equipment Needed Diet:: heart healthy diabetic Discharge Orders Discharge Orders: Discharge Order (Routine); Ordered 01/25/24 Ordered By: Marii Montez Discharge Data Discharge Date/Time-TO BE ENTERED AT DEPARTURE: 01/25/24 16:58 DS: Summary Time Spent with Patient providing and/or coordinating discharge services: Greater than 30 minutes Status at Discharge Functional status at discharge: uses cane/walker Overall status at discharge: patient is progressing back to baseline Mental Status: mental status grossly normal Speech and Movement: speech and movement normal Mood: anxious mood Affect: normal affect Quality:SDOH Health Related Social Needs: No Data to Display Exam Narrative Exam Narrative: Constitutional The patient is in bed , without acute distress HENMT: . Facial structures with normal appearance Neuro:alert and oriented X4 Resp: Normal respiratory pattern, speaks in full sentences, unlabored breathing, clear lung with decreased bases bilaterally Cardio: regular rhythm, S1, S2, positive pulses to all 4 ext., slight LE's edema GI: Abdomen is large not distended, soft and non tender, bowel sounds are present Integumentary: No skin lesions or rash on exposed skin, silver mepilex to left hip surgical site, no drainage or malodor Extremities:minimal Psych: RASS 0, congruent mood and normal affect. Psych Mental Status: mental status grossly normal Speech and Movement: speech and movement normal Mood: anxious mood Affect: normal affect DS: Data Vitals/I&O Vitals and I&O: Vital Signs Temperature 36.2 C L 01/24/24 09:47 Temperature Source Temporal Artery Scan 01/24/24 09:47 Pulse 76 01/24/24 09:47 Pulse Rhythm Regular 01/24/24 01:48 Respiratory Rate 16 01/24/24 09:47 Respiratory Effort Normal, Non-Labored 01/24/24 01:48 Respiratory Depth Normal 01/24/24 01:48 Respiratory Pattern Normal 01/24/24 01:48 Blood Pressure 92/42 L 01/24/24 09:47 Blood Pressure Mean 80 01/21/24 15:58 Blood Pressure Position Supine 01/21/24 15:58 Pulse Oximetry 96 01/24/24 09:47 Respiratory End-tidal CO2 39 01/22/24 16:48 Oxygen Delivery Method Room Air 01/24/24 09:47 Oxygen Flow Rate 0 01/24/24 09:47 Pain Level 0 01/24/24 09:47 Comment nurse notified. 01/23/24 15:41 Intake & Output 01/23/24 01/23/24 01/24/24 11:59 23:59 11:59 Intake Total 1038.75 / 1518.75 480 / 1518.75 0 / 0 Output Total 225 / 1225 1000 / 1225 300 / 300 Balance 813.75 / 293.75 -520 / 293.75 -300 / -300 Intake: IV 1038.75 / 1038.75 0 / 1038.75 0 / 0 Oral 480 / 480 Output: Urine 225 / 1225 1000 / 1225 300 / 300 Other: Urine Color Light Sudha Yellow Yellow Urine Appearance Cloudy Cloudy Clear Urine Odor Normal Normal Voiding Methods Bedside Commode Bedside Commode Data Completed and Pending Labs on day of discharge: Labs from last 24 hours 01/24/24 01/23/24 06:30 20:32 WBC 8.63 RBC 3.39 L Hgb 9.9 L Hct 29.8 L MCV 88 MCH 29.2 MCHC 33.2 RDW 14.4 Plt Count 130 MPV 11.9 H Immature Gran % 0.8 Neutrophils % 65.0 Lymphocytes % 21.1 Monocytes % 10.9 Eosinophils % 1.7 Basophils % 0.5 Nucleated RBC % 0.0 Absolute Neutrophils 5.61 Absolute Lymphocytes 1.82 Absolute Monocytes 0.94 H Absolute Eosinophils 0.15 Absolute Basophils 0.04 Sodium 143 Potassium 4.1 Chloride 106 Carbon Dioxide 29.3 Anion Gap 7.7 BUN 23 H Creatinine 1.0 Est GFR (CKD-EPI 2020) 58.39 Glucose 172 H Calcium 9.2 Urine Color Yellow Urine Clarity Clear Urine pH 5.5 Ur Specific [place] <= 1.005 Urine Protein Negative Urine Ketones Negative Urine Blood Trace-intact H Urine Nitrite Negative Urine Bilirubin Negative Urine Urobilinogen 0.2 Ur Leukocyte Esterase Moderate H Urine RBC 0-2 Urine WBC 20-50 H Ur Epithelial Cells Moderate Urine Crystals Negative Urine Bacteria Rare Urine Casts Negative Urine Mucus Negative Urine Other Rare Transitional Ur Culture Indicated? No/Sq. Contamination Urine Glucose 100 H PFSH All Active Problems (Updated 01/26/24 @ 00:09 by SUAD WINCHESTER) Displaced fracture of left femoral neck (Acute 01/21/24) s/p Anterior L SEEMA (01/22/24) Closed left hip fracture (Acute) Facial lesion (Acute) Gait instability (Acute) MRSA cellulitis of right foot (Acute) Foreign body in right foot (Acute) Atrial fibrillation (Chronic) Osteomyelitis (Acute) Toe infection (Acute) Diabetes mellitus type 2 in obese (Acute) Hyperlipidemia (Chronic) Obstructive pyelonephritis (Acute) Kidney stone (Acute 03/17/12) Xanthogranulomatous pyelonephritis (Acute) Renal abscess (Acute) [place] [facility] [place] Staphylococcus aureus bacteremia (Acute) Decubitus ulcer (Acute) Anemia (Chronic) Diabetic neuropathy (Chronic) with wound on 1st MTP left she will continue to see podiatry and will see him next week continue to check feet every day Hypertension (Chronic) Same meds avoid excess salt Type 2 diabetes mellitus with complications (Chronic 06/29/15) Other seasonal allergic rhinitis (Acute 06/01/15) 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 -hb Palliative care patient Chronic cough Closed fracture of humerus (06/28/13) Family history of malignant neoplasm of breast (11/01/14) Wound abscess (11/25/17) Pyelonephritis (08/04/12) LEFT HYDRONEPHROSIS AND DOUBLE COLLECTING SYSTEM 2013 surgery, Dr Peewee [facility] Myocardial infarction (01/14/12) 12/25 inferior CO, cath and stent [place] [facility]EF 35%) Loss of sense of smell (11/01/14) and loss of taste Diabetic foot ulcer with osteomyelitis (05/31/14) right second toe, distal amputation 05/29, [facility] Carpal tunnel syndrome of right wrist (02/28/15) Allergic rhinitis Pyelonephritis DM type 2 causing complication CO (myocardial infarction) ASCVD (arteriosclerotic cardiovascular disease) Essential hypertension Diabetic neuropathy Surgical History History of amputation History of coronary artery bypass surgery (03/21/16) Status post coronary artery stent placement Stent placement WITH 2 BYPASS GRAFTS[place] Shoulder replacement Repair of bifurcated ureter of left kidney Oophrectomy, Both Left heart Cath [facility] Abdominal hysterectomy ERCP Coronary Stent [facility] Cholecystectomy lap Coronary Artery Bypass Gaft (CABG) 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 LANDEROS Family History Mother , 72 Personal history of malignant neoplasm LUNG Father , 64 Personal history of malignant neoplasm LUNG Sister Personal history of malignant neoplasm BREAST Grandmother Diabetes Social History Smoking/Tobacco Use Status: Never Smoking risk assessment performed?: Yes Alcohol Intake: never Drug use: Never Substance use type: does not use Caregiver/Support person: No Household members: spouse Housing: house Communication Needs: Corrective Lenses Do you need help understanding health information?: Never Pets and animals: Yes Pets and animals: dog(s) Sexually active: No Do you think of yourself as: straight/heterosexual Current gender identity: female What is your relationship status?: How often do you talk on the phone with friends or family?: three or more times per week How often do you get together with friends or relatives?: twice per week How often do you attend rastafarian or pentecostalism services?: 4 or more times per year Do you belong to any clubs or organized social groups?: yes Panel score (0-1 are the most socially isolated patients): 4 What type of physical activity do you participate in: none Frequency: does not exercise Chantal/Gnosticism: Rastafari Special chantal needs: No Seatbelt use: always Helmet use: No Drive intox or ride w/intox straight truck driver: No Do you feel safe at home: Yes Do you feel safe in your relationship?: Yes Additional Social history: Originally from [place], lives in her [facility] with her Justin 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
[2024-01-24] MEDS: traMADol 50 MG TAB PO (11:14)
--- NOTE | 2024-01-24 11:54 | PT.INTREAT ---
PT Notes Visit Reasons: fractured left hip Inpatient Physical Therapy Treatment Note [facility] Date: 01/24/24 SUBJECTIVE: Kizzy states that she is nervous about falling. Ready to work with PT as she really wants to go home. OBJECTIVE: []? Therapeutic Activities ([id number]): Direct one-on-one instruction in dynamic activities to improve functional performance. ? BED MOBILITY/TRANSFERS? pt seated in chair? Sit-stand: min A ? Stand-sit: CGA ? Provided skilled cues and instruction on performance and technique throughout. GAIT? Assistive Device: FWW ? Weight bearing: AT Assist: CGA? Distance:?approx 40' plus another 20' ? Deviation: step to.wc follow. STAIRS:ascend/descend 2, 6 steps with 2 rails and min A. 1x each? ASSESSMENT:? anxious and fear of falling. He Tylenol had worn off and noted an increase in pain. PLAN: Will continue to work on her functional mobility and strength to tolerance. Will coordinate pain meds with PT tomorrow TREATMENT CODE/TIME: 25 min [id number]
--- NOTE | 2024-01-24 12:07 | PGE_ITS ---
Date of Service Date of service: 01/24/24 Time of Service: 12:07 Assessment and Plan Assessment and plan (1) Displaced fracture of left femoral neck: Status: Acute Assessment and plan: NPO OR today Resume DVT prophylaxis with aspirin 81 mg change as per discussion with ortho CBC and BMP on 01/22 as per ortho PT consult multimodal pain management:Effective -Scheduled IV APAP converted to oral PRN -Considered celebrex if pain not controlled ; to be discussed with Dr. pepe -PRN tramadol PT in progress Dressing change as per order (2) Diabetes mellitus type 2 in obese: Status: Acute Assessment and plan: Wiil continue Fingersticks AC and HS with SSI and basal insulin dose home dose (3) Hypertension: Status: Chronic Assessment and plan: On Metorprolol held this AM for BP 92/42 w HR 76 Qualifiers: Hypertension type: essential hypertension Qualified Code(s): I10 - Essential (primary) hypertension (4) Anemia: Status: Chronic Assessment and plan: Hgb 13.1 on admit 10.5 s/p OR now 9.9. The patient was already on Fe supplementation and had low results on iron studies in 2021. Repeat iron studies today and supplement with iron sucrose if needed. CBC in AM Qualifiers: Anemia type: iron deficiency Iron deficiency anemia type: unspecified iron deficiency Qualified Code(s): D50.9 - Iron deficiency anemia, unspecified (5) UTI (urinary tract infection): Status: Acute Assessment and plan: 01/23/2024 UA with moderately positive for leukesterase Patient has symptoms of dysuria w/o leukocytosis, chills or fever Will treat as urine culture results are pending Now on trimethoprim sulfamethoxazole 1/5 days (6) On deep vein thrombosis (DVT) prophylaxis: Status: Acute Assessment and plan: On ASA BID as per Ortho On LMWH (7) Discharge planning issues: Status: Acute Assessment and plan: Home with HH PT for home safety eval and rehab; nursing for dressing change and worsening of condition discussed with Dr Orlando Subjective Subjective Patient reports: no new complaints, still having pain, tolerating liquids well, tolerating a regular diet, flatus, no bowel movement and other (reports urinary frequency and urgencyl; denies chills, night sweat , hemturia); denies diarrhea, nausea, vomiting, shortness of breath, afebrile or fever Exam Narrative Exam Narrative: Constitutional The patient is in bed , without acute distress HENMT: . Facial structures with normal appearance Neuro:alert and oriented X4 Resp: Normal respiratory pattern, speaks in full sentences, unlabored breathing, clear lung with decreased bases bilaterally Cardio: regular rhythm, S1, S2, positive pulses to all 4 ext., slight LE's edema GI: Abdomen is not distended, soft and non tender, bowel sounds are present Integumentary: No skin lesions or rash Extremities: deferred Psych: RASS 0, congruent mood and normal affect. Objective Last Vital Signs Temp 36.2 C L 01/24/24 09:47 Pulse 76 01/24/24 09:47 Resp 16 01/24/24 09:47 BP 92/42 L 01/24/24 09:47 Pulse Ox 96 01/24/24 09:47 Laboratory Results - last 24 hr 01/23/24 01/24/24 20:32 06:30 WBC 8.63 RBC 3.39 L Hgb 9.9 L Hct 29.8 L MCV 88 MCH 29.2 MCHC 33.2 RDW 14.4 Plt Count 130 MPV 11.9 H Immature Gran % 0.8 Neutrophils % 65.0 Lymphocytes % 21.1 Monocytes % 10.9 Eosinophils % 1.7 Basophils % 0.5 Nucleated RBC % 0.0 Absolute Neutrophils 5.61 Absolute Lymphocytes 1.82 Absolute Monocytes 0.94 H Absolute Eosinophils 0.15 Absolute Basophils 0.04 Sodium 143 Potassium 4.1 Chloride 106 Carbon Dioxide 29.3 Anion Gap 7.7 BUN 23 H Creatinine 1.0 Est GFR (CKD-EPI 2020) 58.39 Glucose 172 H Calcium 9.2 Urine Color Yellow Urine Clarity Clear Urine pH 5.5 Ur Specific [place] <= 1.005 Urine Protein Negative Urine Ketones Negative Urine Blood Trace-intact H Urine Nitrite Negative Urine Bilirubin Negative Urine Urobilinogen 0.2 Ur Leukocyte Esterase Moderate H Urine RBC 0-2 Urine WBC 20-50 H Ur Epithelial Cells Moderate Urine Crystals Negative Urine Bacteria Rare Urine Casts Negative Urine Mucus Negative Urine Other Rare Transitional Ur Culture Indicated? No/Sq. Contamination Urine Glucose 100 H Time Spent with Patient Time Spent with Patient: >50 minutes Time was spent: preparing to see the patient(eg.review tests), obtaining and/or reviewing separately otained hiistory, ordering medications,tests, procedures, referring, communicating with other health transition of care specialist, indepentently interpreting results, counseling the patient and care coordination
[2024-01-24] MEDS: Sulfameth/Trimeth DS TAB 1 TAB PO ×2 (12:12→19:53)
[2024-01-24] MEDS: Docusate Sodium 100 MG CAP PO ×3 (12:12→19:53)
[2024-01-24 12:43] LABS: Lab Add On Test DONE
[2024-01-24 13:24] LABS: Iron 21 ug/dL (50-170); Total Iron Binding Capacity 164 ug/dL (250-450); Transferrin Sat 13 % (15-50)
[2024-01-24] MEDS: Enoxaparin 40 MG/0.4 ML SYR SC (14:35)
[2024-01-24 15:42] VITALS: BP 118/50; PULSE 82; RESP 16; TEMP 36.6; O2SAT 93
[2024-01-24] MEDS: IRON SUCROSE COMPLEX 200 MG in Normal Saline 100 ML 400 MG IVPB (18:40)
[2024-01-24] MEDS: Metoprolol 25 MG TAB PO (19:53)
[2024-01-24] MEDS: Celecoxib 200 MG CAP PO (19:53)
[2024-01-24 19:56] VITALS: BP 108/49; PULSE 102; RESP 16; TEMP 36.7; O2SAT 90
[2024-01-24] MEDS: Insulin NPH-Human 300 UNITS/3 ML PEN 10 UNIT SC (19:56)
[2024-01-25] MEDS: Normal Saline Flush 10 ML SYR IVP ×3 (02:18→09:32)
[2024-01-25] MEDS: Ondansetron 4 MG/2 ML VIAL IVP ×2 (02:19→09:31)
[2024-01-25] MEDS: Acetaminophen 325 MG TAB 650 MG PO ×2 (05:54→09:16)
[2024-01-25 06:46] LABS: Abs Immature Grans 0.09 10^3/uL (0.0-0.06); Absolute Basophil Count 0.02 10^3/uL (0.0-0.2); Absolute Eosinophil Count 0.14 10^3/uL (0.0-0.7); Absolute Lymphocyte Count 0.26 10^3/uL (1.2-3.4); Absolute Monocyte Count 0.31 10^3/uL (0.1-0.8); Absolute Neutrophil Count 6.85 10^3/uL (1.2-6.7); Basophils % 0.3 %; Eosinophils % 1.8 %; HCT 29.2 % (36.0-46.0); HGB 9.5 g/dL (11.2-15.7); Immature Grans % 1.2 %; Lymphocytes % 3.4 %; MCH 28.8 pg (27.0-33.0); MCHC 32.5 % (32.0-36.0); MCV 89 fL (80-95); MPV 12.2 fL (8.0-11.0); Neutrophils % 89.3 %; Platelet Count 130 10^3/uL (130-400); RDW 14.3 % (11.7-14.6); RDW-SD 46.4 fL; WBC 7.67 10^3/uL (4.4-10.8)
[2024-01-25 07:07] LABS: Anion Gap 7.5 mmol/L (3-11); BUN 29 mg/dL (7-18); CO2 27.5 mmol/L (21.0-32.0); CREATININE 1.1 mg/dL (0.55-1.02); Calcium 8.7 mg/dL (8.5-10.1); Chloride 104 mmol/L (98-107); Estimated GFR 52.08 (mL/min/1.73m2); Glucose 274 mg/dL (74-106); Potassium 4.3 mmol/L (3.5-5.1); Sodium 139 mmol/L (136-145)
[2024-01-25 07:53] VITALS: BP 104/57; PULSE 87; RESP 17; TEMP 36.6; O2SAT 95
[2024-01-25] MEDS: Insulin Aspart 300 UNITS/3 ML PEN SC ×2 (09:15→11:56)
[2024-01-25] MEDS: IRON SUCROSE COMPLEX 200 MG in Normal Saline 100 ML 400 MG IVPB (09:16)
[2024-01-25] MEDS: Celecoxib 200 MG CAP PO (09:17)
[2024-01-25] MEDS: Calcium Carbonate 1.5 GM TAB PO (09:17)
[2024-01-25] MEDS: Ferrous Gluconate 324 MG TAB PO (09:17)
[2024-01-25] MEDS: Aspirin E.C. 81 MG TABEC PO (09:17)
[2024-01-25] MEDS: Cetirizine 10 MG TAB PO (09:17)
[2024-01-25] MEDS: Sulfameth/Trimeth DS TAB 1 TAB PO (09:17)
[2024-01-25] MEDS: Docusate Sodium 100 MG CAP PO ×2 (09:18→13:35)
[2024-01-25] MEDS: Metoprolol 25 MG TAB PO (09:18)
[2024-01-25] MEDS: Atorvastatin 40 MG TAB PO (09:18)
[2024-01-25] MEDS: traMADol 50 MG TAB PO (09:33)
--- NOTE | 2024-01-25 11:13 | W.PM.PROGNOT ---
Date of Service Date of service: 01/25/24 Time of Service: 10:30 Assessment and Plan Assessment and plan (1) Diabetes mellitus type 2 in obese: Status: Acute (2) Displaced fracture of left femoral neck: Status: Acute Assessment and plan: Kizzy is a 78-year-old female who is status post left hip replacement for femoral neck fracture. From the orthopedic perspective she is doing quite well. She is been able to mobilize and is having minimal pain. There are no signs of complication from the surgery itself. She does have the new onset of some nausea. I am uncertain the exact mechanism for this. There was concern about a UTI and she was started on antibiotics but it would be unlikely to cause the vomiting, although possible. She has also been persistently hyperglycemic. There are very few readings less than 200 which is concerning for me for overall diabetes, health, and risk of infection. I personally increase her sliding scale dose yesterday but feel that her long-acting may need to be manipulated in this postoperative period. I also do not know what level this could be playing into some of her GI discomfort. From the hip perspective, I think she is ready for discharge to home with home health services. I would continue to treat her GI discomfort with bowel meds as well as antinausea medications. If she continues have no flatus and continue discomfort then further workup may be necessary. Discharge instructions have been updated. Subjective Subjective Interval history since last seen: Kizzy reports be doing well. She is able to mobilize with physical therapy and with nursing. Her pain has been well-controlled without the use of narcotics. She did have a bowel movement last night which was followed later by some emesis and some nausea. She does feel the nausea is improved although still somewhat present. She reports some mild abdominal discomfort. She has not been passing gas since the bowel movement that she can recall that she was before. She denies any chest pain or shortness of breath. No fevers or chills. She has been persistently hyperglycemic with all glucose measurements for the most part over 200. Exam Narrative Exam Narrative: Sitting up in the chair. No acute distress. Alert and orient x 3. Abdomen soft and nontender nondistended. Evaluation of the left hip shows no signs of infection. Dressings intact. No significant ecchymosis or changes to the skin about the left hip. She tolerates gentle internal and external rotation without any discomfort. Objective Last Vital Signs Temp 36.6 C 01/25/24 07:53 Pulse 87 01/25/24 07:53 Resp 17 01/25/24 07:53 BP 104/57 L 01/25/24 07:53 Pulse Ox 95 01/25/24 07:53 Laboratory Results - last 24 hr 01/23/24 01/24/24 01/25/24 07:00 07:00 06:34 WBC 7.67 RBC 3.30 L Hgb 9.5 L Hct 29.2 L MCV 89 MCH 28.8 MCHC 32.5 RDW 14.3 Plt Count 130 MPV 12.2 H Immature Gran % 1.2 Neutrophils % 89.3 Lymphocytes % 3.4 Monocytes % 4.0 Eosinophils % 1.8 Basophils % 0.3 Nucleated RBC % 0.0 Absolute Neutrophils 6.85 H Absolute Lymphocytes 0.26 L Absolute Monocytes 0.31 Absolute Eosinophils 0.14 Absolute Basophils 0.02 Sodium 139 Potassium 4.3 Chloride 104 Carbon Dioxide 27.5 Anion Gap 7.5 BUN 29 H Creatinine 1.1 H Est GFR (CKD-EPI 2020) 52.08 Glucose 274 H Calcium 8.7 Iron 21 L TIBC 164 L Transferrin % Sat 13 L Add-On Test Request DONE Time Spent with Patient Time Spent with Patient: 25-34 minutes Time was spent: preparing to see the patient(eg.review tests), obtaining and/or reviewing separately otained hiistory, referring, communicating with other health medicare contact specialist and counseling the patient
--- NOTE | 2024-01-25 11:32 | PT.INTREAT ---
PT Notes Visit Reasons: fractured left hip Inpatient Physical Therapy Treatment Note [facility] Date: 01/25/24 SUBJECTIVE: Kizzy c/o some nausea this am. She thinks she is being dc home. OBJECTIVE: []? Therapeutic Activities ([id number]): Direct one-on-one instruction in dynamic activities to improve functional performance. ? BED MOBILITY/TRANSFERS? pt seated in chair? Sit-stand: CGA? Stand-sit: SBA ? Provided skilled cues and instruction on performance and technique throughout. GAIT? Assistive Device: FWW ? Weight bearing: AT Assist: CGA/SBA? Distance:?approx 20' + approx 65'? Deviation: slow dereck, wc follow. STAIRS:ascend/descend 2, 6 steps with 2 rails and min A. 1x each?Toileted to commode with CGA. She is independent with pericare. ? ASSESSMENT:?Pain seems to be better managed today. Fear/anxiety seems to be contributing to her nausea as this increased just prior to PT, and then subsided once she began walking. PLAN: Will continue to work on her functional mobility and strength to tolerance. Possible dc to home with TREATMENT CODE/TIME: 30 min [id number]
[2024-01-25] MEDS: Famotidine 20 MG TAB PO (12:15)
[2024-01-25] MEDS: Enoxaparin 40 MG/0.4 ML SYR SC (13:35)
[2024-01-25] MEDS: Glycerin Adult Suppository JAR 1 SUPP PR (13:56)
--- NOTE | 2024-01-25 14:36 | PDOC.HHF2F_ITS ---
Home Health Referral Home Health Orders Clinical synopsis of why skilled professionals are needed: This 78-year-old female patient with a past medical history of insulin-dependent type 2 diabetes with neuropathy, anemia on iron supplementation who had a mechanical fall at home due to losing her balance with an isolated injury to her left presented at [facility] ED department on 01/21/2024 for evaluation. The patient was found to have a displaced transcervical femoral neck fracture of her left hip fracture as per imaging. Orthopedic's was consulted. The patient reported dysuria with insertion of indwelling Khan catheter. The patient had surgical repair of her left hip fracture with left hip replacement on January 22, 2024, including IV cefazolin for 3 doses darlene and postoperatively. Chronic diseases were managed as per home med regimen, except for her NPH insulin initially given at a lower dose but readjusted to home dose today. H&H postop was as low as 9.5 and 29.2 with admission levels at 13.1 and 41.1. Iron studies granted the administration of iron sucrose.The patient still reported dysuria on postop day 1, UA was collected and showed moderate leukoesterase without fever or leukocytosis. The lab mention that it was deemed contaminated and a culture was not pursued. The patient was treated with Bactrim DS and urine culture was ordered. Urine culture resulted in no growth in 24 hours, dysuria had resolved and the patient; antibiotics were discontinued. The patient experienced GI symptoms such as nausea vomiting after large bowel movement resolving with the administration of antiemetic medicine; the patient is tolerating oral intake. This morning the patient denies flatus, but the abdomen remains soft, nontender and not distended with positive bowel sounds. The patient will be discharged home with aspirin 81 mg twice a day for deep vein thrombosis prophylaxis status post hip replacement, celecoxib 200 mg oral twice a day for pain, famotidine daily, daily stool softeners and a suppository as needed daily, schedule acetaminophen for a total of 5 days, and as needed tramadol for pain not resolved by previously mentioned pain management medicines. The patient will need to follow-up with orthopedic surgery in 2 weeks. The patient will need to follow-up with her primary care physician within 7 days of discharge. The patient will be discharged home with home health physical therapy status post hip replacement and will need a safety evaluation in the home environment. The patient will also require home health nursing for dressing change to the left hip with silver Mepilex until seen by Dr. Ricci orthopedist, and to ensure that her condition is not worsening. Medical diagnosis necessitation home health referral: Left hip fracture s/p repair with left hip replacement requiring nursing dressing change and monitoring of site for infection as well as adequate use of bowel management and pain medicine, and symptoms of dysuria. Requiring PT for rehabilitation and home safety evaluation. Registered Nurse: Check all that apply Instruct on new or changed medication(s)/assess compliance: Ordered Assess for exacerbation of medical condition, instruct patient/caregivers on signs and symptoms to report for early detection: Ordered Physical Therapist: Check all that apply Increase strength & endurance for safe mobility at home: Ordered To design/establish home maintenance program: Ordered Fall reduction therapy program for patient with history of frequent falls: Ordered Home safety evaluation and teaching/gait training including stair management (if applicable): Ordered Home Bound Status Requires the aid of supportive device (check all that apply): Walker Describe why leaving home would require a considerable and taxing effort: Requires frequent rest periods and Safety Concerns: describe (falls s/p left hip replacement with history of fall) Encounter Date and Reason: I certify that a FTF encounter for this patient was performed on January 24, 2024 and that such encounter was related to the primary reason the patient requires home health services. The encounter was conducted in the following manner: * By me as the certifying physician, HUMID SYSTEM OPERATOR, PA or * By an inpatient physician, HUMID SYSTEM OPERATOR or PA during an inpatient stay who communicated findings to me, Certification And Authentication I certify that I composed the above information based on my clinical judgment relating to this patient's medical condition and, if applicable, clinical findings communicated to me by the NPP or inpatient physician who performed the FTF encounter. Name of Provider that will be monitoring home health services: Manuelito Wilcox
[2024-01-25 15:41] VITALS: BP 104/41; PULSE 80; RESP 17; TEMP 36.2; O2SAT 97
[2024-01-25] MEDS: Bisacodyl 10 MG SUPP PR (15:52)
[2024-01-26 10:10] LABS: Transferrin 136 mg/dL (201-352)
== END 2024-01-25 16:58 | disposition home health service (06) | DRG 522 ==
LOC: ER 16:50 → MS 16:54
PROVIDERS: Nurse Practitioner Acute Care; Student in an Organized Health Care Education/Training Program; Admitting Provider Family Medicine; Emergency Provider Emergency Medicine; PCP Family Medicine; Visit Provider Family Medicine
PROC: 0SRB04A Replacement of Left Hip Joint with Ceramic on Polyethylene Synthetic Substitute, Uncemented, Open Approach (ICD-10-PCS; CPT 27130; principal; 2024-01-22 14:00)
DX: S72.032A Displaced midcervical fracture of left femur, initial encounter for closed fracture (principal); N39.0 Urinary tract infection, site not specified; E11.65 Type 2 diabetes mellitus with hyperglycemia; R11.2 Nausea with vomiting, unspecified; E11.40 Type 2 diabetes mellitus with diabetic neuropathy, unspecified; I25.10 Atherosclerotic heart disease of native coronary artery without angina pectoris; D50.9 Iron deficiency anemia, unspecified; E78.5 Hyperlipidemia, unspecified; I48.91 Unspecified atrial fibrillation; W18.39XA Other fall on same level, initial encounter; R26.89 Other abnormalities of gait and mobility; I25.2 Old myocardial infarction; Z95.1 Presence of aortocoronary bypass graft; Z79.4 Long term (current) use of insulin; Z95.5 Presence of coronary angioplasty implant and graft; Z89.421 Acquired absence of other right toe(s); Z68.30 Body mass index [BMI] 30.0-30.9, adult
CPT/HCPCS: 27236; 20985; 00123; 36415; 73552; 80048; 80053; 85027; 86850; 86900; 86901; 93005; 96374; 96375; 97116; 97161; 97530; 99222; 99285; J1650; 71045; 72170; 73501; 73502; 81003; 81015; 83540; 83550; 83735; 84466; 84484; 85025; 85610; 85730; 87086; 93010; 99232; 99233; 99239; C1776; J0131; J0690; J1100; J1170; J1756; J1815; J1885; J2001; J2371; J2405; J2704

== ENCOUNTER 2024-02-05 15:47 | Outpatient (CLI) | payer MEDICARE, SELFPAY ==
--- NOTE | 2024-02-05 15:27 | DI.RAD_ITS ---
Exam(s) XR HIP LT COMPLETE AP PELVIS EXAM: XR HIP LT COMPLETE AP PELVIS INDICATION: S/P L SEEMA. COMPARISON: CR XR HIP LT AP LAT ONLY from 01/22/2024 TECHNIQUE: 2D digital imaging was performed. Two views. FINDINGS: There has been no change in the alignment of the left hip prosthesis. No abnormal surrounding bony l ucencies. The right hip joint space is maintained. DATA REPOSITORY: RADIATION DOSE DELIVERED:
== END 2024-02-05 15:48 | disposition home or self-care (01) ==
LOC: DIORS 15:48
PROVIDERS: PCP Family Medicine; Visit Provider Student in an Organized Health Care Education/Training Program
DX: Z47.1 Aftercare following joint replacement surgery; Z96.642 Presence of left artificial hip joint
CPT/HCPCS: 73502

== ENCOUNTER → 2024-03-04 14:57 | Outpatient (BNVA) | payer MEDICARE, SELFPAY | PROVIDERS: PCP Family Medicine; Referring Provider Family Medicine | DX: Z47.1 Aftercare following joint replacement surgery (principal); Z96.642 Presence of left artificial hip joint ==

== ENCOUNTER → 2024-04-29 09:25 | Outpatient (BNVA) | payer MEDICARE, SELFPAY | PROVIDERS: PCP Family Medicine; Visit Provider Physician Assistant | DX: S72.002D Fracture of unspecified part of neck of left femur, subsequent encounter for closed fracture with routine healing (principal); Z96.642 Presence of left artificial hip joint | CPT/HCPCS: 99213 ==

== ENCOUNTER 2024-08-24 15:29 | Outpatient (REF) | payer MEDICARE, SELFPAY ==
[2024-08-24 21:55] LABS: COMMENT (LAB VIEW ONLY) 106.49 mg/dL; Microalb ug/mg Crea 75.3 ug/mg Cr
== END 2024-08-24 15:30 | disposition home or self-care (01) ==
LOC: LBN 15:29
PROVIDERS: PCP Family Medicine; Visit Provider Family Medicine
DX: E11.9 Type 2 diabetes mellitus without complications (principal)
CPT/HCPCS: 82043; 82570